=== PATIENT | female | born 1955 | race Caucasian/White ===

== ENCOUNTER 2022-05-20 12:11 | Outpatient (CLI) | payer MEDICARE, SELFPAY ==
--- OUTSIDE RECORDS SUMMARY | 2022-05-20 12:14 | XMS_ITS | Encounter Summary ---
:1955 Author Organization [facility] Address [address] [place] [id number] Care Team Providers Name Role Phone Unavailable Primary Care Provider Unavailable Reason for Referral Outpatient (Routine) - Closed Specialty Diagnoses / Procedures Referred By Contact Refer red To Contact Hematology Oncology Erik Casas [place] Juarez, Ph.D. [address] [place] [address] Referral ID Status Reason Start Date Expiration Date Visits Requ ested Visits Authorized [id number] Closed 05/09/2020 05/09/2021 1 1 NEERING CONSULTANT Reason for Visit Outpatient (Routine) - Closed Specialty Diagnoses / Procedures Referred By Contact Refer red To Contact Hematology Oncology Erik Casas [place] Florence Juarze, Ph.D. [address] [place] [address] Referral ID Status Reason Start Date Expiration Date Visits Requ ested Visits Authorized [id number] Closed 05/03/2019 05/02/2020 1 1 Encounter Details Date Type Department Care Team Description 05/09/2020 Virtual Visit Division of Erik Casas, Diffuse Large B Cell Hematology in [place], Ph.D. Lymphoma Intra [place], [place] [address] [facility] Abdominal Lymph Nodes [address] [place], [place] (HCC) (Primary Dx) [place] [phone] Social History Tobacco Use Types Packs/Day Years Used Date Smoking Tobacco: Unknown Alcohol Habits Answer Date Recorded How often do you have a drink containing alcohol? Monthly or less 05/28/2021 How many drinks containing alcohol do you have on a 1 or 2 05/28/2021 typical day when you are drinking? How often do you have six or more drinks on one Never 05/28/2021 occasion? Social Isolation Answer Date Recorded In a typical week, how many times do you talk on the Three t imes a week 05/28/2021 phone with family, friends, or neighbors? How often do you get together with friends or Three times a week 05/28/2021 relatives? How often do you attend faith or anglican Never 05/28/2021 services? Do you belong to any clubs or organizations such as No 05/28/2021 faith groups, unions, fraternal or athletic groups, or school groups? How often do you attend meetings of the clubs or Never 05/28/2021 organizations you belong to? Are you now , , , , 05/28/2021 never or living with a partner? Physical Activity Answer Date Recorded On average, how many days per week do you engage in moderate to 7 days 05/28/2021 strenuous exercise (like walking fast, running, jogging, dancing, swimming, biking, or other activities that cause a light or heavy sweat)? On average, how many minutes do you engage in exercise at th is 20 min 05/28/2021 level? Stress Answer Date Recorded Do you feel stress - tense, restless, nervous, or anxious, N ot at all 05/28/2021 or unable to sleep at night because your mind is troubled all the time - these days? Financial Resource Strain Answer Date Recorded How hard is it for you to pay for the very basics like Not h ej at all 05/28/2021 food, housing, medical care, and heating? Food Insecurity Answer Date Recorded Within the past 12 months, you worried that your food would Never true 05/28/2021 run out before you got money to buy more. Within the past 12 months, the food you bought just didn't N ever true 05/28/2021 last and you didn't have money to get more. Transportation Needs Answer Date Recorded In the past 12 months, has lack of transportation kept you f rom No 05/28/2021 medical appointments or from getting medications? In the past 12 months, has lack of transportation kept you f rom No 05/28/2021 meetings, work, or getting things needed for daily living? Housing Stability Answer Date Recorded In the last 12 months, was there a time when you were Patien t refused 05/28/2021 not able to pay the mortgage or rent on time? In the last 12 months, how many places have you lived? 1 05/28/2021 In the last 12 months, was there a time when you did No 05/28/2021 [address] to sleep or slept in a nursing home (including now)? Sex Assigned at Date Recorded Female 03/09/2021 10:01 AM CDT documented as of this encounter Progress Notes Erik Casas M.D., Ph.D. - 05/09/2020 10:30 AM CST SUBJECTIVE Referring Provider Dr. Nettie White [address] [place] [address] CHIEF COMPLAINT/REASON FOR VISIT Diffuse large B-cell lymphoma and Hodgkin lymphoma HISTORY OF PRESENT ILLNESS Mrs. Gallardo is a 65-year-old patient who was diagnosed with diffuse large B- cell lymphoma in August2011 when she presented with intraabdominal lymphadenopathy. ??Staging bone marrow showed 10% involvement by a low-grade lymphoma, and PET scan showed significant lymphadenopathy in the abdomen. ??She received R-CHOP in combination with lenalidomide times six cycles and at the end of treatment still had a residual hypermetabolic area in the retroperitoneum. ??This was initially observed but over timebecame more FDG-positive, and a repeat biopsy March 2013 showed a focal lymphoid infiltrate but not diagnostic for lymphoma. 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 ??She then received ICE chemotherapy times three cycles. ??She achieved a good response and went on to collect stem cells, then received BEAM conditioning followed by stem cell reinfusion, and received 4.02x 10(6) CD34/kg on November 21, 2013. Complications encountered during transplant included mucositis, esophagitis, nausea, vomiting and neutropenic fever. ?She engrafted and was dismissed home on day +21. A PET scan on February 27, 2014, showed no evidence of active lymphoma. ??The patient has been followed since then without any recurrence of disease. I connected with the patient today in ongoing follow-up. She was last seen a year ago and since thenhas generally been doing well. She did have both hips replaced and this was a great success. She hasno other new concerns. She has no fevers, night sweats, or weight loss. She has not noted any new lymphadenopathy. She was evaluated by home physician within the last 2 weeks and no other abnormalitieswere noted. Lab testing done on May 05, 2020 showed no significant abnormalities. The following portions of the patient's history were reviewed and updated as appropriate: current medications and problem list. REVIEW OF SYSTEMS Non-contributary OBJECTIVE There were no vitals filed for this visit. There is no height or weight on file to calculate BSA. The patient was not examined as this was a telephone consultation. DIAGNOSTICS I have reviewed the recent relevant labs. ASSESSMENT / PLAN #1 Diffuse Large B Cell Lymphoma Intra Abdominal Lymph Nodes (HCC) I reviewed with the patient that she appears to be doing well. Per her report, there are no new findings of concern. Lab testing is also satisfactory. I therefore recommended ongoing observation without any treatment. Plan: 1. The patient will be seen again in 1 year for ongoing follow-up 2. I encouraged the patient to contact me at any time in the interim if new problems related to lymphoma arise. Follow-up: Return to clinic in 1 year Education We discussed the diagnosis and treatment plan in detail. The patient expressed understanding of the content. No apparent learning barriers were identified; learning preferences include listening. I personally spent over half of a total 15 minutes with the patient in counseling and discussion and/or coordination of care as described above. Signed by: Erik Casas M.D., Ph.D. 05/09/2020 10:54 AM ENGINEERING CONSULTANT NEERING CONSULTANT documented in this encounter Plan of Treatment Scheduled Referrals Name Type Priority Associated Order Schedule Diagnoses Hematology office Outpatient Referral Routine Exp ected: visit (clinic) 05/09/2021 (Approximate), Expires: 05/09/2023 documented as of this encounter Results (ABNORMAL) Potassium (05/28/2021 8:52 AM ENGINEERING CONSULTANT) P athologist Signature Potassium, S 5.5 (H) 3.6 - 5.2 05/28/2021 DTL mmol/L 10:49 AM ENGINEERING CONSULTANT Specimen Anatomical Collection Method Collection Time Receive d Time (Source) Location / / Volume Laterality Blood (Blood, 05/28/2021 8:52 AM 05/28/20 9:59 Venous) ENGINEERING CONSULTANT AM ENGINEERING CONSULTANT Erik Casas M.D., Ph.D. LAB BLOOD ADD-ON Performing Organization Address City/[facility] Phon e Number [facility] - [address] LD (Lactate Dehydrogenase) (05/28/2021 8:52 AM ENGINEERING CONSULTANT) Analysis Performed At [facility] Signature Lactate 179 122 - 222 05/28/2021 DTL Dehydrogenase U/L 10:49 AM ENGINEERING CONSULTANT (LD), S Specimen Anatomical Collection Method Collection Time Receive d Time (Source) Location / / Volume Laterality Blood (Blood, 05/28/2021 8:52 AM 05/28/20 9:59 Venous) ENGINEERING CONSULTANT AM ENGINEERING CONSULTANT Erik Casas M.D., Ph.D. LAB BLOOD NON ADD-ON Performing Organization Address City/[facility] Phon e Number [facility] - [address] (ABNORMAL) Creatinine with Estimated GFR (05/28/2021 8:52 AM ENGINEERING CONSULTANT) Analysis Performed At [facility] Time Signature Creatinine 1.50 (H) 0.59 - 05/28/2021 DTL 1.04 mg/dL 10:49 AM ENGINEERING CONSULTANT eGFR-Non 36 (L) >=60 05/28/2021 DTL Black/ mL/min/BSA 10:49 AM ENGINEERING CONSULTANT [place] Comment: ----ADDITIONAL INFORMATION---- Estimated GFR calculated using the 2009 CKD_EPI creatinine equation. eGFR-Black/ 41 (L) >=60 mL/min/BSA 2020 10:49 AM ENGINEERING CONSULTANT DTL Comment: ----ADDITIONAL INFORMATION---- Estimated GFR calculated using the 2009 CKD_EPI creatinine equation. Specimen Anatomical Collection Method Collection Time Receive d Time (Source) Location / / Volume Laterality Blood (Blood, 05/28/2021 8:52 AM 05/28/20 9:59 Venous) ENGINEERING CONSULTANT AM ENGINEERING CONSULTANT Erik Casas M.D., Ph.D. LAB BLOOD ADD-ON Performing Organization Address City/State/ZIP Code Phon e Number [facility] - [address] [place], [place] [address] [facility] [place] [address] [facility] [place] [address] [facility] (ABNORMAL) CBC with Differential, Blood (05/28/2021 8:52 AM ENGINEERING CONSULTANT) [facility] gist Method Time Signature Hemoglobin 15.7 (H) 11.6 - 05/28/2021 DTL 15.0 g/dL 9:28 AM ENGINEERING CONSULTANT Hematocrit 48.7 (H) 35.5 - 05/28/2021 DTL 44.9 % 9:28 AM ENGINEERING CONSULTANT Erythrocytes 5.15 (H) 3.92 - 05/28/2021 DTL 5.13 9:28 AM ENGINEERING CONSULTANT x10(12)/L MCV 94.6 78.2 - 05/28/2021 DTL 97.9 fL 9:28 AM ENGINEERING CONSULTANT RBC Distrib Width 13.2 12.2 - 05/28/2021 DTL 16.1 % 9:28 AM ENGINEERING CONSULTANT Platelet Count 253 157 - 371 05/28/2021 DTL x10(9)/L 9:28 AM ENGINEERING CONSULTANT Leukocytes 9.5 3.4 - 9.6 05/28/2021 DTL x10(9)/L 9:28 AM ENGINEERING CONSULTANT Neutrophils 6.54 (H) 1.56 - 05/28/2021 DTL 6.45 9:28 AM ENGINEERING CONSULTANT x10(9)/L Lymphocytes 1.97 0.95 - 05/28/2021 DTL 3.07 9:28 AM ENGINEERING CONSULTANT x10(9)/L Monocytes 0.83 (H) 0.26 - 05/28/2021 DTL 0.81 9:28 AM ENGINEERING CONSULTANT x10(9)/L Eosinophils 0.10 0.03 - 05/28/2021 DTL 0.48 9:28 AM ENGINEERING CONSULTANT x10(9)/L Basophils 0.08 0.01 - 05/28/2021 DTL 0.08 9:28 AM ENGINEERING CONSULTANT x10(9)/L Specimen Anatomical Collection Method Collection Time Receive d Time (Source) Location / / Volume Laterality Blood (Blood, 05/28/2021 8:52 AM 05/28/20 21 9:16 Venous) ENGINEERING CONSULTANT AM ENGINEERING CONSULTANT Erik Casas M.D., Ph.D. LAB BLOOD ADD-ON Performing Organization Address City/[facility] Phon e Number [facility] - [address] Calcium, Total (05/28/2021 8:52 AM ENGINEERING CONSULTANT) P athologist Signature Calcium, Total, 9.9 8.8 - 10.2 05/28/2021 DTL S mg/dL 10:49 AM ENGINEERING CONSULTANT Specimen Anatomical Collection Method Collection Time Receive d Time (Source) Location / / Volume Laterality Blood (Blood, 05/28/2021 8:52 AM 05/28/20 21 9:59 Venous) ENGINEERING CONSULTANT AM ENGINEERING CONSULTANT Erik Casas M.D., Ph.D. LAB BLOOD ADD-ON Performing Organization Address City/State/[facility] Phon e Number [facility] - [address] Bilirubin, Total (05/28/2021 8:52 AM ENGINEERING CONSULTANT) P athologist Signature Bilirubin, 1.2 <=1.2 mg/dL 05/28/2021 DTL Total, S 10:49 AM ENGINEERING CONSULTANT Specimen Anatomical Collection Method Collection Time Receive d Time (Source) Location / / Volume Laterality Blood (Blood, 05/28/2021 8:52 AM 05/28/20 9:59 Venous) ENGINEERING CONSULTANT AM ENGINEERING CONSULTANT Erik Casas M.D., Ph.D. LAB BLOOD ADD-ON Performing Organization Address City/[facility] Phon e Number [facility] - [address] AST (Aspartate Aminotransferase) (05/28/2021 8:52 AM ENGINEERING CONSULTANT) Patholo gist Method Time Signature Aspartate 17 8 - 43 05/28/2021 DTL Aminotransferase U/L 10:49 AM ENGINEERING CONSULTANT (AST), S Specimen Anatomical Collection Method Collection Time Receive d Time (Source) Location / / Volume Laterality Blood (Blood, 05/28/2021 8:52 AM 05/28/20 9:59 Venous) ENGINEERING CONSULTANT AM ENGINEERING CONSULTANT Erik Casas M.D., Ph.D. LAB BLOOD ADD-ON Performing Organization Address City/[facility] Phon e Number [facility] - [address] (ABNORMAL) Alkaline Phosphatase (05/28/2021 8:52 AM ENGINEERING CONSULTANT) P athologist Signature Alkaline 153 (H) 35 - 104 05/28/2021 DTL Phosphatase, S U/L 10:49 AM ENGINEERING CONSULTANT Specimen Anatomical Collection Method Collection Time Receive d Time (Source) Location / / Volume Laterality Blood (Blood, 05/28/2021 8:52 AM 05/28/20 9:59 Venous) ENGINEERING CONSULTANT AM ENGINEERING CONSULTANT Erik Casas M.D., Ph.D. LAB BLOOD ADD-ON Performing Organization Address City/[facility] Phon e Number [facility] - [address] documented in this encounter Visit Diagnoses Diagnosis Diffuse Large B Cell Lymphoma Intra Abdo deric Lymph Nodes (HCC) - Primary documented in this encounter Additional Health Concerns Assessment Noted Time PHQ-9 Depression Total Score: 3 08/31/2013 7:36 AM CDT documented as of this encounter
--- OUTSIDE RECORDS SUMMARY | 2022-05-20 12:14 | XMS_ITS | Encounter Summary ---
:1955 Author Organization [facility] Address [address] [place] [id number] Care Team Providers Name Role Phone Unavailable Primary Care Provider Unavailable Encounter Details Date Type Department Care Team Description 05/03/2019 Hospital Encounter Department of Erik Casas se Large B Cell Laboratory Medicine Larry Vidal, Ph. D. Lymphoma Intra and Pathology, [address] [place] [address] Abdominal [facility] in [place], [place] Nodes ( HCC) [facility] [address] [place] [phone] [address] [facility] (Work) [place], [place] [phone] (Fax) [phone] Social History Tobacco Use Types Packs/Day Years [...] 05/28/2021 relatives? How often do you attend [employer] or amish Never 05/28/2021 services? Do you belong to any clubs or organizations such as No 05/28/2021 [employer] groups, unions, fraternal or athletic groups, or [...] place to sleep or slept in a senior living (including now)? Sex Assigned at Date Recorded Female 03/09/2021 10:01 AM CDT documented as of this encounter Medications at Time of Discharge Medication Sig Dispensed Refills Start Date End Date MAGNESIUM ORAL Take 1 tablet by 0 01/24/2015 mouth daily. 500 mg omeprazole (PriLOSEC) 20 Take 1 capsule by 0 09/[address] capsule mouth daily. simvastatin (ZOCOR) 5 mg Take 1 tablet by 0 09/11 tablet mouth at bedtime. documented as of this encounter Plan of Treatment Not on filedocumented as of this encounter Procedures Procedure Name Priority Date/Time Associated Comments Diagnosis CBC WITH DIFFERENTIAL, B Routine 05/03/2019 9:11 Diffuse Large B Results for this AM OUTSIDE PHYSICAL DAMAGE APPRAISER Cell Lymphoma procedure are in Intra Abdominal the results Lymph Nodes (HCC) section. ASPARTATE Routine 05/03/2019 9:11 Diffuse Large B Results f or this AMINOTRANSFERASE (AST), AM OUTSIDE PHYSICAL DAMAGE APPRAISER Cell Lymphoma pro cedure are in S/P Intra Abdominal the results Lymph Nodes (HCC) section. POTASSIUM, S/P Routine 05/03/2019 9:11 Diffuse Large B Results for this AM OUTSIDE PHYSICAL DAMAGE APPRAISER Cell Lymphoma procedure are in Intra Abdominal the results Lymph Nodes (HCC) section. ALKALINE PHOSPHATASE, Routine 05/03/2019 9:11 Diffuse Large B Results for this S/P AM OUTSIDE PHYSICAL DAMAGE APPRAISER Cell Lymphoma procedure are in Intra Abdominal the results Lymph Nodes (HCC) section. LACTATE DEHYDROGENASE Routine 05/03/2019 9:11 Diffuse Large B Results for this (LD), S AM OUTSIDE PHYSICAL DAMAGE APPRAISER Cell Lymphoma procedure are in Intra Abdominal the results Lymph Nodes (HCC) section. CREATININE WITH EGFR, Routine 05/03/2019 9:11 Diffuse Large B Results for this S/P AM OUTSIDE PHYSICAL DAMAGE APPRAISER Cell Lymphoma procedure are in Intra Abdominal the results Lymph Nodes (HCC) section. CALCIUM, TOT, S/P Routine 05/03/2019 9:11 Diffuse Large B Resu lts for this AM OUTSIDE PHYSICAL DAMAGE APPRAISER Cell Lymphoma procedure are in Intra Abdominal the results Lymph Nodes (HCC) section. BILIRUBIN, TOT, S/P Routine 05/03/2019 9:11 Diffuse Large B Re sults for this AM OUTSIDE PHYSICAL DAMAGE APPRAISER Cell Lymphoma procedure are in Intra Abdominal the results Lymph Nodes (HCC) section. documented in this encounter Results (ABNORMAL) Potassium (05/03/2019 9:11 AM OUTSIDE PHYSICAL DAMAGE APPRAISER) P athologist Signature Potassium, S 5.6 (H) 3.6 - 5.2 05/03/2019 DTL mmol/L 10:48 AM OUTSIDE PHYSICAL DAMAGE APPRAISER Specimen Anatomical Collection Method Collection Time Receive d Time (Source) Location / / Volume Laterality Blood (Blood, 05/03/2019 9:11 AM 05/03/20 9:29 Venous) OUTSIDE PHYSICAL DAMAGE APPRAISER AM OUTSIDE PHYSICAL DAMAGE APPRAISER Erik Casas M.D., Ph.D. LAB BLOOD ADD-ON Performing Organization Address City/[facility] Phon e Number [facility] - [address] [place] [address] Laboratories-[address] LD (Lactate Dehydrogenase) (05/03/2019 9:11 AM OUTSIDE PHYSICAL DAMAGE APPRAISER) Analysis Performed At [facility] Time Signature Lactate 183 122 - 222 05/03/2019 DTL Dehydrogenase U/L 10:48 AM OUTSIDE PHYSICAL DAMAGE APPRAISER (LD), S Specimen Anatomical Collection Method Collection Time Receive d Time (Source) Location / / Volume Laterality Blood (Blood, 05/03/2019 9:11 AM 05/03/20 9:29 Venous) OUTSIDE PHYSICAL DAMAGE APPRAISER AM OUTSIDE PHYSICAL DAMAGE APPRAISER Erik Casas M.D., Ph.D. LAB BLOOD NON ADD-ON Performing Organization Address City/[facility] Phon e Number [facility] - [address] (ABNORMAL) Creatinine with Estimated GFR (05/03/2019 9:11 AM OUTSIDE PHYSICAL DAMAGE APPRAISER) Analysis Performed At [facility] Signature Creatinine 1.48 (H) 0.59 - 05/03/2019 DTL 1.04 mg/dL 10:48 AM OUTSIDE PHYSICAL DAMAGE APPRAISER eGFR-Non 37 (L) >=60 05/03/2019 DTL Black/ mL/min/BSA 10:48 AM OUTSIDE PHYSICAL DAMAGE APPRAISER [place] Comment: ----ADDITIONAL INFORMATION---- Estimated GFR calculated using the 2009 CKD_EPI creatinine equation. eGFR-Black/ 42 (L) >=60 mL/min/BSA 2018 10:48 AM OUTSIDE PHYSICAL DAMAGE APPRAISER DTL Comment: ----ADDITIONAL INFORMATION---- Estimated GFR calculated using the 2009 CKD_EPI creatinine equation. Specimen Anatomical Collection Method Collection Time Receive d Time (Source) Location / / Volume Laterality Blood (Blood, 05/03/2019 9:11 AM 05/03/20 9:29 Venous) OUTSIDE PHYSICAL DAMAGE APPRAISER AM OUTSIDE PHYSICAL DAMAGE APPRAISER Erik Casas M.D., Ph.D. LAB BLOOD ADD-ON Performing Organization Address City/State/ZIP Code Phon e Number [facility] - [address] [place], [place] [address] [facility] [place] [address] Laboratories-[facility] [place] [address] [facility] (ABNORMAL) CBC with Differential (05/03/2019 9:11 AM OUTSIDE PHYSICAL DAMAGE APPRAISER) [facility] gist Method Time Signature Hemoglobin 15.2 (H) 11.6 - 05/03/2019 DTL 15.0 g/dL 9:40 AM OUTSIDE PHYSICAL DAMAGE APPRAISER Hematocrit 46.7 (H) 35.5 - 05/03/2019 DTL 44.9 % 9:40 AM OUTSIDE PHYSICAL DAMAGE APPRAISER Erythrocytes 4.88 3.92 - 05/03/2019 DTL 5.13 9:40 AM OUTSIDE PHYSICAL DAMAGE APPRAISER x10(12)/L MCV 95.7 78.2 - 05/03/2019 DTL 97.9 fL 9:40 AM OUTSIDE PHYSICAL DAMAGE APPRAISER RBC Distrib Width 13.4 12.2 - 05/03/2019 DTL 16.1 % 9:40 AM OUTSIDE PHYSICAL DAMAGE APPRAISER Platelet Count 241 157 - 371 05/03/2019 DTL x10(9)/L 9:40 AM OUTSIDE PHYSICAL DAMAGE APPRAISER Leukocytes 7.9 3.4 - 9.6 05/03/2019 DTL x10(9)/L 9:40 AM OUTSIDE PHYSICAL DAMAGE APPRAISER Neutrophils 5.04 1.56 - 05/03/2019 DTL 6.45 9:40 AM OUTSIDE PHYSICAL DAMAGE APPRAISER x10(9)/L Lymphocytes 1.72 0.95 - 05/03/2019 DTL 3.07 9:40 AM OUTSIDE PHYSICAL DAMAGE APPRAISER x10(9)/L Monocytes 0.83 (H) 0.26 - 05/03/2019 DTL 0.81 9:40 AM OUTSIDE PHYSICAL DAMAGE APPRAISER x10(9)/L Eosinophils 0.18 0.03 - 05/03/2019 DTL 0.48 9:40 AM OUTSIDE PHYSICAL DAMAGE APPRAISER x10(9)/L Basophils 0.09 (H) 0.01 - 05/03/2019 DTL 0.08 9:40 AM OUTSIDE PHYSICAL DAMAGE APPRAISER x10(9)/L Specimen Anatomical Collection Method Collection Time Receive d Time (Source) Location / / Volume Laterality Blood (Blood, 05/03/2019 9:11 AM 05/03/20 19 9:28 Venous) OUTSIDE PHYSICAL DAMAGE APPRAISER AM OUTSIDE PHYSICAL DAMAGE APPRAISER Erik Casas M.D., Ph.D. LAB BLOOD ADD-ON Performing Organization Address City/[facility]/ZIP [facility] Phon e Number [facility] - [address] [facility] Calcium, Total (05/03/2019 9:11 AM OUTSIDE PHYSICAL DAMAGE APPRAISER) P athologist Signature Calcium, Total, 9.6 8.8 - 10.2 05/03/2019 DTL S mg/dL 10:48 AM OUTSIDE PHYSICAL DAMAGE APPRAISER Specimen Anatomical Collection Method Collection Time Receive d Time (Source) Location / / Volume Laterality Blood (Blood, 05/03/2019 9:11 AM 05/03/20 19 9:29 Venous) OUTSIDE PHYSICAL DAMAGE APPRAISER AM OUTSIDE PHYSICAL DAMAGE APPRAISER Erik Casas M.D., Ph.D. LAB BLOOD ADD-ON Performing Organization Address City/[facility] Phon e Number [facility] - [address] [facility] Bilirubin, Total (05/03/2019 9:11 AM OUTSIDE PHYSICAL DAMAGE APPRAISER) P athologist Signature Bilirubin, 1.0 <=1.2 mg/dL 05/03/2019 DTL Total, S 10:48 AM OUTSIDE PHYSICAL DAMAGE APPRAISER Specimen Anatomical Collection Method Collection Time Receive d Time (Source) Location / / Volume Laterality Blood (Blood, 05/03/2019 9:11 AM 05/03/20 19 9:29 Venous) OUTSIDE PHYSICAL DAMAGE APPRAISER AM OUTSIDE PHYSICAL DAMAGE APPRAISER Erik Casas M.D., Ph.D. LAB BLOOD ADD-ON Performing Organization Address City/[facility] Phon e Number [facility] - [address] [place] [address] [address] [facility] AST (Aspartate Aminotransferase) (05/03/2019 9:11 AM OUTSIDE PHYSICAL DAMAGE APPRAISER) Patholo gist Method Time Signature Aspartate 19 8 - 43 05/03/2019 DTL Aminotransferase U/L 10:48 AM OUTSIDE PHYSICAL DAMAGE APPRAISER (AST), S Specimen Anatomical Collection Method Collection Time Receive d Time (Source) Location / / Volume Laterality Blood (Blood, 05/03/2019 9:11 AM 05/03/20 19 9:29 Venous) OUTSIDE PHYSICAL DAMAGE APPRAISER AM OUTSIDE PHYSICAL DAMAGE APPRAISER Erik Casas M.D., Ph.D. LAB BLOOD ADD-ON Performing Organization Address City/[facility]/ZIP Code Phon e Number [facility] - [address] (ABNORMAL) Alkaline Phosphatase (05/03/2019 9:11 AM OUTSIDE PHYSICAL DAMAGE APPRAISER) P athologist Signature Alkaline 142 (H) 35 - 104 05/03/2019 DTL Phosphatase, S U/L 10:48 AM OUTSIDE PHYSICAL DAMAGE APPRAISER Specimen Anatomical Collection Method Collection Time Receive d Time (Source) Location / / Volume Laterality Blood (Blood, 05/03/2019 9:11 AM 05/03/20 19 9:29 Venous) OUTSIDE PHYSICAL DAMAGE APPRAISER AM OUTSIDE PHYSICAL DAMAGE APPRAISER Erik Casas M.D., Ph.D. LAB BLOOD ADD-ON Performing Organization Address City/[facility]/ZIP Code Phon e Number [facility] - [address] documented in this encounter Visit Diagnoses Diagnosis Diffuse Large B Cell Lymphoma Intra Abdo deric Lymph Nodes (HCC) documented in this encounter Additional Health Concerns Assessment Noted Time PHQ-9 Depression Total Score: 3 08/31/2013 7:36 AM CDT documented as of this encounter
--- OUTSIDE RECORDS SUMMARY | 2022-05-20 12:14 | XMS_ITS | Encounter Summary ---
:1955 Author Organization [facility] Address [address] [place] [address] Care Team Providers Name Role Phone Unavailable Primary Care Provider Unavailable Encounter Details Date Type Department Care Team Description 02/27/2014 Hospital Encounter HX RST BONE MARROW ITC Manas Estrada, GO07 R.N. [address] [place] [address] Social History Tobacco Use Types Packs/Day Years Used Date Smoking Tobacco: Never Assessed Alcohol Habits Answer Date Recorded How often [...] 05/28/2021 relatives? How often do you attend [employer] or a[employer] Never 05/28/2021 services? Do you belong to any clubs or organizations such as No 05/28/2021 [employer]aritan groups, unions, fraternal or athletic groups, or [...] AM CDT documented as of this encounter Last Filed Vital Signs Vital Sign Reading Time Taken Comments Blood Pressure - - Pulse - - Temperature - - Respiratory Rate - - Oxygen Saturation - - Inhaled Oxygen - - Concentration Weight 68 kg (149 lb 14.6 02/26/2014 10:34 Vital sig n result oz) AM CDT from CD. Height - - Body Mass Index 22.46 11/27/2013 7:12 PM CDT documented in this encounter Medications at Time of Discharge Medication Sig Dispensed Refills Start Date End Date omeprazole (PriLOSEC) 20 Take 1 capsule by 0 09/[address] capsule mouth daily. documented as of this encounter Plan of Treatment Not on filedocumented as of this encounter Procedures Procedure Name Priority Date/Time Associated Diagnosis Comme nts DX CHEST AP OR PA Routine 02/27/2014 12:37 PM Res ults for this AND LATERAL 2 VIEWS CDT procedur e are in the results section. documented in this encounter Results DX Chest AP or PA and Lateral 2 Views (02/27/2014 12:37 PM CDT) Anatomical Region Laterality Modality Chest N/A Radiographic Imaging Specimen (Source) Anatomical Collection Method Collection Time Re ceived Time Location / / Volume Laterality 02/27/2014 12:37 PM CDT Impressions 02/27/2014 12:41 PM CDT ??Since 11/27/2013, the right IJ catheter has been removed. New slight pleural thickening or fluid in the right base laterally. Stable slight prominence of the ascending aorta, possibly due to rotation. Chest otherwise negative and unchanged. Electronically signed by: ?? Tata GILLIAM [id number] 27-Feb-2014 12:41 Narrative 02/27/2014 12:41 PM CDT 27-Feb-2014 12:37:00 ??Exam: Chest-- 2 Views Indications: Aftercare Following Stem Ce ll Transplant;Hodgkins Disease ORIGINAL REPORT - 27-Feb-2014 12:41:00 EXAM: ??Chest 2 views Procedure Note Nilam Hartmann M.D. - 09/09/2017For matting of this note might be different from the original. 27-Feb-2014 12:37:00 Exam: Chest-- 2 Vie ws Indications: Aftercare Following Stem Ce ll Transplant;Hodgkins Disease ORIGINAL REPORT - 27-Feb-2014 12:41:00 EXAM: Chest 2 views IMPRESSION: Since 11/27/2013, the right I J catheter has been removed. New slight pleural thickening or fluid in the right base laterally. Stable slight prominence of the ascending aorta, possibly due to rotation. Chest otherwise negative and unchanged. Electronically signed by: Tata GILLIAM [id number] 27-Feb-2014 12:41 Erik Casas M.D., Ph.D. IMG DIAGNOSTIC IMAGING [place] OCEDURES documented in this encounter Visit Diagnoses Not on filedocumented in this encounter Additional Health Concerns Assessment Noted Time PHQ-9 Depression Total Score: 3 08/31/2013 7:36 AM CDT documented as of this encounter
--- OUTSIDE RECORDS SUMMARY | 2022-05-20 12:14 | XMS_ITS | Encounter Summary ---
:1955 Author Organization [facility] Address [address] [place] [address] Care Team Providers Name Role Phone Unavailable Primary Care Provider Unavailable Encounter Details Date Type Department Care Team Description 05/03/2018 Hospital Encounter Department of Erik Casas Laboratory Medicine Larry Vidal, Ph. D. [facility]el[facility] Pathology, [address] [place] [address] ([facility]) [place] [id number] [place] [phone] [place] [address] (Work) [place], [place] [phone] [phone] (Fax) [phone] Social History Tobacco Use Types Packs/Day Years [...] 05/28/2021 relatives? How often do you attend muslim or yarsanism Never 05/28/2021 services? Do you belong to any clubs or organizations such as No 05/28/2021 muslim groups, unions, fraternal or athletic groups, or [...] place to sleep or slept in a halfway (including now)? Sex Assigned at Date Recorded [...] Comments Diagnosis CBC WITH DIFFERENTIAL, B Routine 05/03/2018 9:30 Lymphoma Non Results for this AM APPLIANCE COUNSELOR Hodgkins procedure are i n Intrapelvic (HCC) the result s section. GLUCOSE, FASTING, S/P Routine 05/03/2018 9:30 Lymphoma Non Res ults for this AM APPLIANCE COUNSELOR Hodgkins procedure are i n Intrapelvic (HCC) the result s section. SEDIMENTATION RATE, B Routine 05/03/2018 9:29 Lymphoma Non Res ults for this AM APPLIANCE COUNSELOR Hodgkins procedure are i n Intrapelvic (HCC) the result s section. ASPARTATE Routine 05/03/2018 9:29 Lymphoma Non Results for this AMINOTRANSFERASE (AST), AM APPLIANCE COUNSELOR Hodgkins proc edure are in S/P Intrapelvic (HCC) the result s section. POTASSIUM, S/P Routine 05/03/2018 9:29 Lymphoma Non Results fo r this AM APPLIANCE COUNSELOR Hodgkins procedure are i n Intrapelvic (HCC) the result s section. ALKALINE PHOSPHATASE, Routine 05/03/2018 9:29 Lymphoma Non Res ults for this S/P AM APPLIANCE COUNSELOR Hodgkins procedure are i n Intrapelvic (HCC) the result s section. LACTATE DEHYDROGENASE Routine 05/03/2018 9:29 Lymphoma Non Res ults for this (LD), S AM APPLIANCE COUNSELOR Hodgkins procedure are i n Intrapelvic (HCC) the result s section. CREATININE WITH EGFR, Routine 05/03/2018 9:29 Lymphoma Non Res ults for this S/P AM APPLIANCE COUNSELOR Hodgkins procedure are i n Intrapelvic (HCC) the result s section. CALCIUM, TOT, S/P Routine 05/03/2018 9:29 Lymphoma Non Results for this AM APPLIANCE COUNSELOR Hodgkins procedure are i n Intrapelvic (HCC) the result s section. BILIRUBIN, TOT, S/P Routine 05/03/2018 9:29 Lymphoma Non Resul ts for this AM APPLIANCE COUNSELOR Hodgkins procedure are i n Intrapelvic (HCC) the result s section. documented in this encounter Results (ABNORMAL) CBC with Differential (05/03/2018 9:30 AM APPLIANCE COUNSELOR) [facility] gist Method Time Signature Hemoglobin 14.3 11.6 - 05/03/2018 [facility] 15.0 g/dL 9:58 AM APPLIANCE COUNSELOR LABORATORIES - [facility] Hematocrit 45.4 (H) 35.5 - 05/03/2018 [facility] 44.9 % 9:58 AM APPLIANCE COUNSELOR LABORATORIES - [facility] Erythrocytes 4.74 3.92 - 05/03/2018 [facility] 5.13 9:58 AM APPLIANCE COUNSELOR LABORATORIES - x10(12)/L [facility] MCV 95.8 78.2 - 05/03/2018 [facility] 97.9 fL 9:58 AM APPLIANCE COUNSELOR LABORATORIES [facility] RBC Distrib 13.0 12.2 - 05/03/2018 [facility] Width 16.1 % 9:58 AM APPLIANCE COUNSELOR LABORATORIES [facility] Platelet Count 210 157 - 371 05/03/2018 [facility] x10(9)/L 9:58 AM APPLIANCE COUNSELOR LABORATORIES [facility] Leukocytes 7.0 3.4 - 9.6 05/03/2018 [facility] x10(9)/L 9:58 AM APPLIANCE COUNSELOR LABORATORIES - [facility] Neutrophils 4.24 1.56 - 05/03/2018 [facility] 6.45 9:58 AM APPLIANCE COUNSELOR LABORATORIES - x10(9)/L [facility] Lymphocytes 1.93 0.95 - 05/03/2018 [facility] 3.07 9:58 AM APPLIANCE COUNSELOR LABORATORIES - x10(9)/L [facility] Monocytes 0.62 0.26 - 05/03/2018 [facility] 0.81 9:58 AM APPLIANCE COUNSELOR LABORATORIES - x10(9)/L [facility] Eosinophils 0.13 0.03 - 05/03/2018 [facility] 0.48 9:58 AM APPLIANCE COUNSELOR LABORATORIES - x10(9)/L [facility] Basophils 0.08 0.01 - 05/03/2018 [facility] 0.08 9:58 AM APPLIANCE COUNSELOR LABORATORIES - x10(9)/L [facility] Specimen Anatomical Collection Method Collection Time Receive d Time (Source) Location / / Volume Laterality Blood 05/03/2018 9:30 AM 8 9:51 APPLIANCE COUNSELOR AM APPLIANCE COUNSELOR Erik Casas M.D., Ph.D. LAB BLOOD ADD-ON Performing Organization Address City/State/ZIP Code Phon e Number [facility] LABORATORIES - [address] [place] [address] [facility] Glucose, Fasting (05/03/2018 9:30 AM APPLIANCE COUNSELOR) P athologist Signature Glucose, P 93 70 - 100 05/03/2018 [facility] mg/dL 10:25 AM APPLIANCE COUNSELOR LABORATORIES - [facility] Last Intake 17 hr 05/03/2018 [facility] 9:51 AM APPLIANCE COUNSELOR LABORATORIES - [facility] Specimen Anatomical Collection Method Collection Time Receive d Time (Source) Location / / Volume Laterality Blood 05/03/2018 9:30 AM 8 9:51 APPLIANCE COUNSELOR AM APPLIANCE COUNSELOR Erik Casas M.D., Ph.D. LAB BLOOD NON ADD-ON Performing Organization Address City/State/ZIP Code Phon e Number [facility] LABORATORIES - [address] [place] [address] [facility] Sedimentation Rate (05/03/2018 9:29 AM APPLIANCE COUNSELOR) [facility] gist Method Time Signature Sedimentation 2 0 - 29 05/03/2018 [facility] Rate, B mm/1 h 10:53 AM APPLIANCE COUNSELOR LABORATORIES - [facility] Specimen Anatomical Collection Method Collection Time Receive d Time (Source) Location / / Volume Laterality Blood 05/03/2018 9:29 AM 8 9:40 APPLIANCE COUNSELOR AM APPLIANCE COUNSELOR Erik Casas M.D., Ph.D. LAB BLOOD ADD-ON Performing Organization Address City/State/ZIP Code Phon e Number [facility] LABORATORIES - [address] [place] [address] [facility] LD (Lactate Dehydrogenase) (05/03/2018 9:29 AM APPLIANCE COUNSELOR) [facility] gist Method Time Signature Lactate 183 122 - 222 05/03/2018 [facility] Dehydrogenase U/L 10:37 AM APPLIANCE COUNSELOR LABORATORIES - (LD), S [facility] Specimen Anatomical Collection Method Collection Time Receive d Time (Source) Location / / Volume Laterality Blood 05/03/2018 9:29 AM 8 9:51 APPLIANCE COUNSELOR AM APPLIANCE COUNSELOR Erik Casas M.D., Ph.D. LAB BLOOD NON ADD-ON Performing Organization Address City/State/ZIP Code Phon e Number [facility] LABORATORIES - [address] [place] [address] [facility] AST (Aspartate Aminotransferase) (05/03/2018 9:29 AM APPLIANCE COUNSELOR) [facility] Method Time Signature Aspartate 22 8 - 43 05/03/2018 [facility] Aminotransferase U/L 10:37 AM LABORATORIES - (AST), S APPLIANCE COUNSELOR [facility] Specimen Anatomical Collection Method Collection Time Receive d Time (Source) Location / / Volume Laterality Blood 05/03/2018 9:29 AM 8 9:51 APPLIANCE COUNSELOR AM APPLIANCE COUNSELOR Erik Casas M.D., Ph.D. LAB BLOOD ADD-ON Performing Organization Address City/[facility]/ZIP Code Phon e Number [facility] LABORATORIES - [address] [place] [address] [facility] (ABNORMAL) Alkaline Phosphatase (05/03/2018 9:29 AM APPLIANCE COUNSELOR) [facility] Method Time Signature Alkaline 119 (H) 35 - 104 05/03/2018 [facility] Phosphatase, S U/L 10:37 AM APPLIANCE COUNSELOR LABORATORIES - [facility] Specimen Anatomical Collection Method Collection Time Receive d Time (Source) Location / / Volume Laterality Blood 05/03/2018 9:29 AM 8 9:51 APPLIANCE COUNSELOR AM APPLIANCE COUNSELOR Erik Casas M.D., Ph.D. LAB BLOOD ADD-ON Performing Organization Address City/[facility]/ZIP Code Phon e Number [facility] LABORATORIES - [address] [place] [address] [facility] Potassium (05/03/2018 9:29 AM APPLIANCE COUNSELOR) P athologist Signature Potassium, S 4.6 3.6 - 5.2 05/03/2018 [facility] mmol/L 10:37 AM APPLIANCE COUNSELOR LABORATORIES [facility] Specimen Anatomical Collection Method Collection Time Receive d Time (Source) Location / / Volume Laterality Blood 05/03/2018 9:29 AM 8 9:51 APPLIANCE COUNSELOR AM APPLIANCE COUNSELOR Erik Casas M.D., Ph.D. LAB BLOOD ADD-ON Performing Organization Address City/[facility]/ZIP Code Phon e Number [facility] LABORATORIES - [address] [place] [address] [facility] (ABNORMAL) Creatinine with Estimated GFR (MDRD) (05/03/2018 9:29 AM APPLIANCE COUNSELOR) [facility] Method Time Signature Creatinine 1.51 (H) 0.59 - 05/03/2018 [facility] 1.04 10:37 AM APPLIANCE COUNSELOR LABORATORIES - mg/dL [facility] eGFR-Non 36 (L) >=60 05/03/2018 [facility] Black/ mL/min/BS 10:37 AM APPLIANCE COUNSELOR LABORATORIES - [place] A [facility] Comment: ----ADDITIONAL INFORMATION---- Estimated GFR calculated using the 2009 CKD_EPI creatinine equation. eGFR-Black/ 42 (L) >=60 mL/min/BSA 05/03/2018 10:3 7 [facility] Tong[place] AM APPLIANCE COUNSELOR LABORATORIES - [facility] Comment: ----ADDITIONAL INFORMATION---- Estimated GFR calculated using the 2009 CKD_EPI creatinine equation. Specimen Anatomical Collection Method Collection Time Receive d Time (Source) Location / / Volume Laterality Blood 05/03/2018 9:29 AM 8 9:51 APPLIANCE COUNSELOR AM APPLIANCE COUNSELOR Erik Casas M.D., Ph.D. LAB BLOOD ADD-ON Performing Organization Address City/[facility] Phon e Number [facility] LABORATORIES - [address] Calcium, Total (05/03/2018 9:29 AM APPLIANCE COUNSELOR) P athologist Signature Calcium, 8.9 8.8 - 10.2 05/03/2018 [facility] Total, S mg/dL 10:37 AM APPLIANCE COUNSELOR LABORATORIES [facility] Specimen Anatomical Collection Method Collection Time Receive d Time (Source) Location / / Volume Laterality Blood 05/03/2018 9:29 AM 8 9:51 APPLIANCE COUNSELOR AM APPLIANCE COUNSELOR Erik Casas M.D., Ph.D. LAB BLOOD ADD-ON Performing Organization Address City/State/ZIP Code Phon e Number [facility] LABORATORIES - [address] [place] [address] [facility] Bilirubin, Total (05/03/2018 9:29 AM APPLIANCE COUNSELOR) P athologist Signature Bilirubin, 0.9 <=1.2 05/03/2018 [facility] Total, S mg/dL 10:37 AM APPLIANCE COUNSELOR LABORATORIES [facility] Specimen Anatomical Collection Method Collection Time Receive d Time (Source) Location / / Volume Laterality Blood 05/03/2018 9:29 AM 8 9:51 APPLIANCE COUNSELOR AM APPLIANCE COUNSELOR Erik Casas M.D., Ph.D. LAB BLOOD ADD-ON Performing Organization Address City/State/ZIP Code Phon e Number [facility] LABORATORIES - [address] [place], [place] [address] [facility] documented in this encounter Visit Diagnoses Diagnosis Lymphoma Non Hodgkins Intrapelvic (HCC) documented in this encounter Additional Health Concerns Assessment Noted Time PHQ-9 Depression Total Score: 3 08/31/2013 7:36 AM CDT documented as of this encounter
--- OUTSIDE RECORDS SUMMARY | 2022-05-20 12:14 | XMS_ITS | Encounter Summary ---
:1955 Author Organization [facility] Address [address] [place] [address] Care Team Providers Name Role Phone Unavailable Primary Care Provider Unavailable Encounter Details Date Type Department Care Team Description 12/12/2013 - Hospital Encounter HX RST INFUSION Cyndi Harrell 12/19/2013 THERAPY J, R.N. [address] [place] [address] Social History Tobacco Use Types Packs/Day Years [...] 05/28/2021 relatives? How often do you attend episcopal or adventism Never 05/28/2021 services? Do you belong to any clubs or organizations such as No 05/28/2021 episcopal groups, unions, fraternal or athletic groups, or [...] place to sleep or slept in a mcfp (including now)? Sex Assigned at Date Recorded Female 03/09/2021 10:01 AM CDT documented as of this encounter Medications at Time of Discharge Medication Sig Dispensed Refills Start Date End Date omeprazole (PriLOSEC) 20 Take 1 capsule by 0 09/[address] capsule mouth daily. documented as of this encounter Plan of Treatment Not on filedocumented as of this encounter Visit Diagnoses Not on filedocumented in this encounter Additional Health Concerns Assessment Noted Time PHQ-9 Depression Total Score: 3 08/31/2013 7:36 AM CDT documented as of this encounter
--- OUTSIDE RECORDS SUMMARY | 2022-05-20 12:14 | XMS_ITS | Encounter Summary ---
:1955 Author Organization [facility] Address [address] [place] [address] Care Team Providers Name Role Phone Unavailable Primary Care Provider Unavailable Reason for Referral Outpatient (Routine) - Closed Specialty Diagnoses / Procedures Referred By Contact Refer red To Contact Hematology Oncology Erik Casas [facility] Larry, Ph.D. [address] [place] [phone] Referral ID Status Reason Start Date Expiration Date Visits Requ ested Visits Authorized [id number] Closed 09/30/2017 03/29/2018 1 1 Encounter Details Date Type Department Care Team Description 09/30/2017 Orders Only Erik Bruce [facility]ry, Ph.D. [facility] Intrapelvic Transplantation and [address] [place] [address] ([facility]) Clinical Regeneration in [place], [place] [phone] [place] [address] [place] [address] (Work) [phone] Social History Tobacco Use Types Packs/Day Years [...] 05/28/2021 relatives? How often do you attend anglican or adventism Never 05/28/2021 services? Do you belong to any clubs or organizations such as No 05/28/2021 anglican groups, unions, fraternal or athletic groups, or [...] place to sleep or slept in a fci (including now)? Sex Assigned at Date Recorded Female 03/09/2021 10:01 AM CDT documented as of this encounter Plan of Treatment Scheduled Referrals Name Type Priority Associated Order Schedule Diagnoses Hematology office Outpatient Referral Routine Exp ected: visit (clinic) 05/01/2018 (Approximate), Expires: 09/30/2020 documented as of this encounter Results (ABNORMAL) CBC with Differential (05/03/2018 9:30 AM RESIDENT CARE AID) [facility] gist Method Time Signature Hemoglobin 14.3 11.6 - 05/03/2018 [facility] 15.0 g/dL 9:58 AM RESIDENT CARE AID LABORATORIES - [facility] Hematocrit 45.4 (H) 35.5 - 05/03/2018 [facility] 44.9 % 9:58 AM RESIDENT CARE AID LABORATORIES - [facility] Erythrocytes 4.74 3.92 - 05/03/2018 [facility] 5.13 9:58 AM RESIDENT CARE AID LABORATORIES - x10(12)/L [facility] MCV 95.8 78.2 - 05/03/2018 [facility] 97.9 fL 9:58 AM RESIDENT CARE AID LABORATORIES [facility] RBC Distrib 13.0 12.2 - 05/03/2018 [facility] Width 16.1 % 9:58 AM RESIDENT CARE AID LABORATORIES [facility] Platelet Count 210 157 - 371 05/03/2018 [facility] x10(9)/L 9:58 AM RESIDENT CARE AID LAB[facility]IES [facility] Leukocytes 7.0 3.4 - 9.6 05/03/2018 [facility] x10(9)/L 9:58 AM RESIDENT CARE AID LABORATORIES - [facility] Neutrophils 4.24 1.56 - 05/03/2018 [facility] 6.45 9:58 AM RESIDENT CARE AID LABORATORIES - x10(9)/L [facility] Lymphocytes 1.93 0.95 - 05/03/2018 [facility] 3.07 9:58 AM RESIDENT CARE AID LABORATORIES - x10(9)/L [facility] Monocytes 0.62 0.26 - 05/03/2018 [facility] 0.81 9:58 AM RESIDENT CARE AID LABORATORIES - x10(9)/L [facility] Eosinophils 0.13 0.03 - 05/03/2018 [facility] 0.48 9:58 AM RESIDENT CARE AID LABORATORIES - x10(9)/L [facility] Basophils 0.08 0.01 - 05/03/2018 [facility] 0.08 9:58 AM RESIDENT CARE AID LABORATORIES - x10(9)/L [facility] Specimen Anatomical Collection Method Collection Time Receive d Time (Source) Location / / Volume Laterality Blood 05/03/2018 9:30 AM 8 9:51 RESIDENT CARE AID AM RESIDENT CARE AID Erik Casas M.D., Ph.D. LAB BLOOD ADD-ON Performing Organization Address City/[facility]/ZIP Code Phon e Number [facility] LABORATORIES - [address] [place] [address] [facility] Glucose, Fasting (05/03/2018 9:30 AM RESIDENT CARE AID) P athologist Signature Glucose, P 93 70 - 100 05/03/2018 [facility] mg/dL 10:25 AM RESIDENT CARE AID [facility] Last Intake 17 hr 05/03/2018 [facility] 9:51 AM RESIDENT CARE AID LABORATORIES - [facility] Specimen Anatomical Collection Method Collection Time Receive d Time (Source) Location / / Volume Laterality Blood 05/03/2018 9:30 AM 8 9:51 RESIDENT CARE AID AM RESIDENT CARE AID Erik Casas M.D., Ph.D. LAB BLOOD NON ADD-ON Performing Organization Address City/[facility]/ZIP Code Phon e Number [facility] LABORATORIES - [address] [place] [address] [facility] Sedimentation Rate (05/03/2018 9:29 AM RESIDENT CARE AID) Patholo gist Method Time Signature Sedimentation 2 0 - 29 05/03/2018 [facility] Rate, B mm/1 h 10:53 AM RESIDENT CARE AID LABORATORIES - [facility] Specimen Anatomical Collection Method Collection Time Receive d Time (Source) Location / / Volume Laterality Blood 05/03/2018 9:29 AM 8 9:40 RESIDENT CARE AID AM RESIDENT CARE AID Erik Casas M.D., Ph.D. LAB BLOOD ADD-ON Performing Organization Address City/[facility]/ZIP Code Phon e Number [facility] LABORATORIES - [address] [place] [address] [facility] LD (Lactate Dehydrogenase) (05/03/2018 9:29 AM RESIDENT CARE AID) [facility] Method Time Signature Lactate 183 122 - 222 05/03/2018 [facility] Dehydrogenase U/L 10:37 AM RESIDENT CARE AID LABORATORIES - (LD), S [facility] Specimen Anatomical Collection Method Collection Time Receive d Time (Source) Location / / Volume Laterality Blood 05/03/2018 9:29 AM 8 9:51 RESIDENT CARE AID AM RESIDENT CARE AID Erik Casas M.D., Ph.D. LAB BLOOD NON ADD-ON Performing Organization Address City/State/ZIP Code Phon e Number [facility] LABORATORIES - [address] [place] [address] [facility] AST (Aspartate Aminotransferase) (05/03/2018 9:29 AM RESIDENT CARE AID) [facility] Method Time Signature Aspartate 22 8 - 43 05/03/2018 [facility] Aminotransferase U/L 10:37 AM LABORATORIES - (AST), S RESIDENT CARE AID [facility] Specimen Anatomical Collection Method Collection Time Receive d Time (Source) Location / / Volume Laterality Blood 05/03/2018 9:29 AM 8 9:51 RESIDENT CARE AID AM RESIDENT CARE AID Erik Casas M.D., Ph.D. LAB BLOOD ADD-ON Performing Organization Address City/State/ZIP Code Phon e Number [facility] LABORATORIES - [address] [place] [address] [facility] (ABNORMAL) Alkaline Phosphatase (05/03/2018 9:29 AM RESIDENT CARE AID) [facility] Method Time Signature Alkaline 119 (H) 35 - 104 05/03/2018 [facility] Phosphatase, S U/L 10:37 AM RESIDENT CARE AID LABORATORIES - [facility] Specimen Anatomical Collection Method Collection Time Receive d Time (Source) Location / / Volume Laterality Blood 05/03/2018 9:29 AM 8 9:51 RESIDENT CARE AID AM RESIDENT CARE AID Erik Casas M.D., Ph.D. LAB BLOOD ADD-ON Performing Organization Address City/State/ZIP Code Phon e Number [facility] LABORATORIES - [address] [place] [address] [facility] Potassium (05/03/2018 9:29 AM RESIDENT CARE AID) P athologist Signature Potassium, S 4.6 3.6 - 5.2 05/03/2018 [facility] mmol/L 10:37 AM RESIDENT CARE AID LABORATORIES - [facility] Specimen Anatomical Collection Method Collection Time Receive d Time (Source) Location / / Volume Laterality Blood 05/03/2018 9:29 AM 8 9:51 RESIDENT CARE AID AM RESIDENT CARE AID Erik Casas M.D., Ph.D. LAB BLOOD ADD-ON Performing Organization Address City/[facility]/ZIP Code Phon e Number [facility] LABORATORIES - [address] [place] [address] [facility] (ABNORMAL) Creatinine with Estimated GFR (MDRD) (05/03/2018 9:29 AM RESIDENT CARE AID) Patholo gist Method Time Signature Creatinine 1.51 (H) 0.59 - 05/03/2018 [facility] 1.04 10:37 AM RESIDENT CARE AID LABORATORIES - mg/dL [facility] eGFR-Non 36 (L) >=60 05/03/2018 [facility] Black/ mL/min/BS 10:37 AM RESIDENT CARE AID LABORATORIES - [place] A [facility] Comment: ----ADDITIONAL INFORMATION---- Estimated GFR calculated using the 2009 CKD_EPI creatinine equation. eGFR-Black/ 42 (L) >=60 mL/min/BSA 05/03/2018 10:3 7 [facility] French AM RESIDENT CARE AID LABORATORIES - [facility] Comment: ----ADDITIONAL INFORMATION---- Estimated GFR calculated using the 2009 CKD_EPI creatinine equation. Specimen Anatomical Collection Method Collection Time Receive d Time (Source) Location / / Volume Laterality Blood 05/03/2018 9:29 AM 8 9:51 RESIDENT CARE AID AM RESIDENT CARE AID Erik Casas M.D., Ph.D. LAB BLOOD ADD-ON Performing Organization Address City/State/ZIP Code Phon e Number [facility] LABORATORIES - [address] [place] [address] [facility] Calcium, Total (05/03/2018 9:29 AM RESIDENT CARE AID) P athologist Signature Calcium, 8.9 8.8 - 10.2 05/03/2018 [facility] Total, S mg/dL 10:37 AM RESIDENT CARE AID LABORATORIES - [facility] Specimen Anatomical Collection Method Collection Time Receive d Time (Source) Location / / Volume Laterality Blood 05/03/2018 9:29 AM 8 9:51 RESIDENT CARE AID AM RESIDENT CARE AID Erik Casas M.D., Ph.D. LAB BLOOD ADD-ON Performing Organization Address City/State/ZIP Code Phon e Number [facility] LABORATORIES - [address] Bilirubin, Total (05/03/2018 9:29 AM RESIDENT CARE AID) athologist Signature Bilirubin, 0.9 <=1.2 05/03/2018 [facility] Total, S mg/dL 10:37 AM RESIDENT CARE AID LABORATORIES [facility] Specimen Anatomical Collection Method Collection Time Receive d Time (Source) Location / / Volume Laterality Blood 05/03/2018 9:29 AM 8 9:51 RESIDENT CARE AID AM RESIDENT CARE AID Erik Casas M.D., Ph.D. LAB BLOOD ADD-ON Performing Organization Address City/State/ZIP Code Phon e Number [facility] LABORATORIES - [address] documented in this encounter Visit Diagnoses Diagnosis Lymphoma Non Hodgkins Intrapelvic (HCC) documented in this encounter Additional Health Concerns Assessment Noted Time PHQ-9 Depression Total Score: 3 08/31/2013 7:36 AM CDT documented as of this encounter
--- OUTSIDE RECORDS SUMMARY | 2022-05-20 12:14 | XMS_ITS | Encounter Summary ---
:1955 Author Organization [facility] Address [address] [place] [address] Care Team Providers Name Role Phone Unavailable Primary Care Provider Unavailable Encounter Details Date Type Department Care Team Description 04/03/2018 Abstract DATA ABSTRACTION Provider, Historical Social History Tobacco Use Types Packs/Day Years [...] 05/28/2021 relatives? How often do you attend buddhism or lutheran Never 05/28/2021 services? Do you belong to any clubs or organizations such as No 05/28/2021 buddhism groups, unions, fraternal or athletic groups, or [...] place to sleep or slept in a long-term (including now)? Sex Assigned at Date Recorded Female 03/09/2021 10:01 AM CDT documented as of this encounter Plan of Treatment Not on filedocumented as of this encounter Visit Diagnoses Not on filedocumented in this encounter Additional Health Concerns Assessment Noted Time PHQ-9 Depression Total Score: 3 08/31/2013 7:36 AM CDT documented as of this encounter
--- OUTSIDE RECORDS SUMMARY | 2022-05-20 12:14 | XMS_ITS | Encounter Summary ---
:1955 Author Organization [facility] Address [address] [place] [address] Care Team Providers Name Role Phone Unavailable Primary Care Provider Unavailable Encounter Details Date Type Department Care Team Description 12/11/2013 - Hospital Encounter HX RST TX BMT NURSE Nettie Price, 12/18/2013 OP [facility] R.N. [address] [place] [address] Social History Tobacco Use Types Packs/Day Years [...] 05/28/2021 relatives? How often do you attend rastafarian or orthodoxy Never 05/28/2021 services? Do you belong to any clubs or organizations such as No 05/28/2021 rastafarian groups, unions, fraternal or athletic groups, or [...] place to sleep or slept in a residential (including now)? Sex Assigned at Date Recorded [...]
--- OUTSIDE RECORDS SUMMARY | 2022-05-20 12:14 | XMS_ITS | Encounter Summary ---
:1955 Author Organization [facility] Address [address] [place] [address] Care Team Providers Name Role Phone Unavailable Primary Care Provider Unavailable Encounter Details Date Type Department Care Team Description 02/27/2014 Hospital Encounter HX NO MAPPING Provider, Historical Social History Tobacco Use Types [...] 05/28/2021 relatives? How often do you attend congregational or islam Never 05/28/2021 services? Do you belong to any clubs or organizations such as No 05/28/2021 congregational groups, unions, fraternal or athletic groups, or [...] place to sleep or slept in a assisted (including now)? Sex Assigned at Date Recorded [...]
--- OUTSIDE RECORDS SUMMARY | 2022-05-20 12:14 | XMS_ITS | Encounter Summary ---
:1955 Author Organization [facility] Address [address] [place] [address] Care Team Providers Name Role Phone Unavailable Primary Care Provider Unavailable Reason for Visit Reason Comments Outside labs Encounter Details Date Type Department Care Team Description 05/05/2020 Clinical Communication Division of Erik Casas Hematology miri Vidal M.D., Ph.D. [place], [place] [address] [facility] [address] [place] [phone] Social History Tobacco Use Types Packs/Day Years [...] 05/28/2021 relatives? How often do you attend protestant or evangelical Never 05/28/2021 services? Do you belong to any clubs or organizations such as No 05/28/2021 protestant groups, unions, fraternal or athletic groups, or [...] place to sleep or slept in a group home (including now)? Sex Assigned at Date Recorded Female 03/09/2021 10:01 AM CDT documented as of this encounter Miscellaneous Notes Telephone Encounter - Candi Munoz R.N. - 05/06/2020 1:24 PM MANAGER MOTOR The patient is scheduled for a visit on 05/09/[address] Casas. Labs entered into the flowsheet and sent for scanning. GER MOTOR Telephone Encounter - Rachael Mata - 05/05/2020 4:33 PM CST Outside labs collected on May 05, 2020, have been received. The fax has been placed in the eFaxfolder, and the CBC results are as noted below. Hemoglobin: 15.2 Hematocrit: 46.7 WBC: 7.74 ANC: 5.06 Platelets: 225 GER MOTOR documented in this encounter Plan of Treatment Not on filedocumented as of this encounter Procedures Procedure Name Priority Date/Time Associated Diagnosis Comme nts HEMATOLOGY/ONCOLOGY - Routine 05/05/2020 Result s for this BLOOD, EXTERNAL LAB procedur e are in the RESULTS results section . documented in this encounter Results Hematology/Oncology - Blood, External Lab Results (05/05/2020) Analysis Performed At Patho logist Time Signature EXT Hemoglobin 15.2 EXT Hematocrit 46.7 EXT Leukocytes 7.74 EXT Absolute 5.06 Neutrophil Count EXT Platelet Count 225 EXT AST 26 EXT Alkaline 132 Phosphatase EXT Bilirubin, 1.3 mg/dL Total EXT Lactate 425 313 - 618 Dehydrogenase (LD), S EXT Calcium, Total 9.4 EXT Creatinine 1.4 mg/dL EXT Glucose, 180 87 Min Specimen (Source) Anatomical Location Collection Method / Collectio n Time Received Time / Laterality Volume Blood 05/05/2020 Narrative This result has an attachment that is no t available. Historical Provider LAB BLOOD NON ADD-ON documented in this encounter Visit Diagnoses Not on filedocumented in this encounter Additional Health Concerns Assessment Noted Time PHQ-9 Depression Total Score: 3 08/31/2013 7:36 AM CDT documented as of this encounter
--- OUTSIDE RECORDS SUMMARY | 2022-05-20 12:14 | XMS_ITS | Encounter Summary ---
:1955 Author Organization [facility] Address [address] [place] [address] Care Team Providers Name Role Phone Unavailable Primary Care Provider Unavailable Encounter Details Date Type Department Care Team Description 12/10/2013 - Hospital Encounter HX RST TX BMT NURSE Casper Curiel 12/17/2013 OP [facility], [facility] Marcy, SUPERVISOR IN [employer], C.N.P. [address] [place], [place] [address] Social History Tobacco Use Types Packs/Day Years [...] 05/28/2021 relatives? How often do you attend religion or tenriism Never 05/28/2021 services? Do you belong to any clubs or organizations such as No 05/28/2021 religion groups, unions, fraternal or athletic groups, or [...]
--- OUTSIDE RECORDS SUMMARY | 2022-05-20 12:14 | XMS_ITS | Encounter Summary ---
:1955 Author Organization [facility] Address [address] [place] [address] Care Team Providers Name Role Phone Unavailable Primary Care Provider Unavailable Encounter Details Date Type Department Care Team Description 02/20/2021 Orders Only [facility] Sa elham Underwood M.D. [address] [place], [place] [phone] (Wo rk) Social History Tobacco Use Types Packs/Day Years [...] 05/28/2021 relatives? How often do you attend zoroastrian or zoroastrian Never 05/28/2021 services? Do you belong to any clubs or organizations such as No 05/28/2021 zoroastrian groups, unions, fraternal or athletic groups, or [...] place to sleep or slept in a fpc (including now)? Sex Assigned at Date Recorded Female 03/09/2021 10:01 AM CDT documented as of this encounter Plan of Treatment Not on filedocumented as of this encounter Visit Diagnoses Not on filedocumented in this encounter Additional Health Concerns Assessment Noted Time PHQ-9 Depression Total Score: 3 08/31/2013 7:36 AM CDT documented as of this encounter
--- OUTSIDE RECORDS SUMMARY | 2022-05-20 12:14 | XMS_ITS | Encounter Summary ---
:1955 Author Organization [facility] Address [address] [place] [address] Care Team Providers Name Role Phone Unavailable Primary Care Provider Unavailable Reason for Referral Outpatient (Routine) - Closed Specialty Diagnoses / Procedures Referred By Contact Refer red To Contact Hematology Oncology Erik Casas [place] Florence Juarez, Ph.D. [address] [place] [address] Referral ID Status Reason Start Date Expiration Date Visits Requ ested Visits Authorized [id number] Closed 05/03/2018 05/03/2019 1 1 2 DBA Reason for Visit Outpatient (Routine) - Closed Specialty Diagnoses / Procedures Referred By Contact Refer red To Contact Hematology Oncology Erik Casas [place] Florence Juarez, Ph.D. [address] [place] [address] Referral ID Status Reason Start Date Expiration Date Visits Requ ested Visits Authorized [id number] Closed 09/30/2017 03/29/2018 1 1 Encounter Details Date Type Department Care Team Description 05/03/2018 Office Visit Division of Erik Casas Diffuse L arge B Cell Hematology in [place], Ph.D. Lymphoma Intra [place], [place] [address] [facility] Abdominal Lymph Nodes [address] [place], [place] (HCC) (Primary Dx) [place] [phone] Social History Tobacco Use Types Packs/Day Years [...] 05/28/2021 relatives? How often do you attend oriental orthodox or lutheran Never 05/28/2021 services? Do you belong to any clubs or organizations such as No 05/28/2021 oriental orthodox groups, unions, fraternal or athletic groups, or [...] Progress Notes Erik Casas M.D., Ph.D. - 05/03/2018 12:30 PM CST SUBJECTIVE Referring Provider Dr. Nettie White [address] [place] [address] CHIEF COMPLAINT/REASON FOR VISIT Diffuse large B-cell lymphoma and Hodgkin lymphoma HISTORY OF PRESENT ILLNESS Mrs. Gallardo is a 63-year-old patient who was diagnosed with diffuse large B- cell lymphoma in August2011 when she presented with intraabdominal lymphadenopathy. Staging bone marrow showed 10% involvement by a low-grade lymphoma, and PET scan showed significant lymphadenopathy in the abdomen. She received R-CHOP in combination with lenalidomide times six cycles and at the end of treatment still had aresidual hypermetabolic area in the retroperitoneum. This was initially observed but over time became more FDG-positive, and a repeat biopsy March 2013 showed a focal lymphoid infiltrate but not diagnostic for lymphoma. 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 She then received ICE chemotherapy times three cycles. She achieved a good response and went on to collect stem cells, then received BEAM conditioning followed by stem cell reinfusion, and received 4.02 x 10(6) CD34/kg on November 21, 2013. Complications encountered during transplant included mucositis, esophagitis, nausea, vomiting and neutropenic fever. She engrafted and was dismissed home on day +21. A PET scan onSept2013, showed no evidence of active lymphoma. The patient has been followed since then without any recurrence of disease. The patient returns today for a follow-up visit. She currently is being seen on an annual basis and returns for re-evaluation. She has had a difficult year due to the fact that she lost her this year. As relates to her lymphoma however, she has no new symptoms of concern. She has no new fevers, night sweats, or weight loss. She has not noted any new lymphadenopathy. Lab testing done today is satisfactory. Her hemoglobin is 14.3, white cell count 7.0, and platelet count [id number]. Her chemistry panel is satisfactory. The following portions of the patient's history were reviewed and updated as appropriate: current medications and problem list. REVIEW OF SYSTEMS Non-contributary OBJECTIVE There were no vitals filed for this visit. There is no height or weight on file to calculate BSA. PHYSICAL EXAM General: ECOG performance score 0 Skin: Normal ENT: No evidence of Waldeyer's ring involvement. No mucositis Lymph: No evidence of peripheral adenopathy in the neck axilla femoral or inguinal areas Lungs: Clear to auscultation and percussion Cardiac: Regular rate and rhythm without significant murmur Abdomen: No tenderness, organomegaly or palpable masses Extremities: No edema Neuro: Alert and oriented x3 DIAGNOSTICS I have reviewed the recent relevant labs. ASSESSMENT / PLAN #1 Diffuse Large B Cell Lymphoma Intra Abdominal Lymph Nodes (HCC) #2 Classical Hodgkin lymphoma I reviewed with the patient that she currently is doing well. There are no findings of concern todayand she appears to remain in remission. I discussed with her that we would continue to observe her without any treatment. Plan: 1. The patient will again be seen in 1 year for ongoing follow-up and assessment of long-term toxicity. 2. I encouraged the patient to contact me at any time in the interim if new problems related to lymphoma arise. Follow-up: Return to clinic in 1 year Education We discussed the diagnosis and treatment plan in detail. The patient expressed understanding of the content. No apparent learning barriers were identified; learning preferences include listening. I personally spent over half of a total 25 minutes face to face with the patient in counseling and discussion and/or coordination of care as described above. Signed by: Erik Casas M.D., Ph.D. 05/03/2018 12:29 PM 2 DBA documented in this encounter Plan of Treatment Scheduled Referrals Name Type Priority Associated Order Schedule Diagnoses Hematology office Outpatient Referral Routine Exp ected: visit (clinic) 05/03/2019 (Approximate), Expires: 05/03/2021 documented as of this encounter Results (ABNORMAL) Potassium (05/03/2019 9:11 AM DB2 DBA) P athologist Signature Potassium, S 5.6 (H) 3.6 - 5.2 05/03/2019 DTL mmol/L 10:48 AM DB2 DBA Specimen Anatomical Collection Method Collection Time Receive d Time (Source) Location / / Volume Laterality Blood (Blood, 05/03/2019 9:11 AM 05/03/20 19 9:29 Venous) DB2 DBA AM DB2 DBA Erik Casas M.D., Ph.D. LAB BLOOD ADD-ON Performing Organization Address City/[facility] Phon e Number [facility] - [address] [place] [address] LD (Lactate Dehydrogenase) (05/03/2019 9:11 AM DB2 DBA) Analysis Performed At Patho logist Time Signature Lactate 183 122 - 222 05/03/2019 DTL Dehydrogenase U/L 10:48 AM DB2 DBA (LD), S Specimen Anatomical Collection Method Collection Time Receive d Time (Source) Location / / Volume Laterality Blood (Blood, 05/03/2019 9:11 AM 05/03/20 19 9:29 Venous) DB2 DBA AM DB2 DBA Erik Casas M.D., Ph.D. LAB BLOOD NON ADD-ON Performing Organization Address City/[facility] Phon e Number [facility] - [address] [place] [address] (ABNORMAL) Creatinine with Estimated GFR (05/03/2019 9:11 AM DB2 DBA) Analysis Performed At [facility] logist Time Signature Creatinine 1.48 (H) 0.59 - 05/03/2019 DTL 1.04 mg/dL 10:48 AM DB2 DBA eGFR-Non 37 (L) >=60 05/03/2019 DTL Black/ mL/min/BSA 10:48 AM DB2 DBA Greenlandic Comment: ----ADDITIONAL INFORMATION---- Estimated GFR calculated using the 2009 CKD_EPI creatinine equation. eGFR-Black/ 42 (L) >=60 mL/min/BSA 2018 10:48 AM DB2 DBA DTL Comment: ----ADDITIONAL INFORMATION---- Estimated GFR calculated using the 2009 CKD_EPI creatinine equation. Specimen Anatomical Collection Method Collection Time Receive d Time (Source) Location / / Volume Laterality Blood (Blood, 05/03/2019 9:11 AM 05/03/20 19 9:29 Venous) DB2 DBA AM DB2 DBA Erki Casas M.D., Ph.D. LAB BLOOD ADD-ON Performing Organization Address City/State/ZIP Code Phon e Number [facility] - [address] [place], [place] [address] [facility] [place] [address] Laboratories-[facility] [address] (ABNORMAL) CBC with Differential (05/03/2019 9:11 AM DB2 DBA) [facility] gist Method Time Signature Hemoglobin 15.2 (H) 11.6 - 05/03/2019 DTL 15.0 g/dL 9:40 AM DB2 DBA Hematocrit 46.7 (H) 35.5 - 05/03/2019 DTL 44.9 % 9:40 AM DB2 DBA Erythrocytes 4.88 3.92 - 05/03/2019 DTL 5.13 9:40 AM DB2 DBA x10(12)/L MCV 95.7 78.2 - 05/03/2019 DTL 97.9 fL 9:40 AM DB2 DBA RBC Distrib Width 13.4 12.2 - 05/03/2019 DTL 16.1 % 9:40 AM DB2 DBA Platelet Count 241 157 - 371 05/03/2019 DTL x10(9)/L 9:40 AM DB2 DBA Leukocytes 7.9 3.4 - 9.6 05/03/2019 DTL x10(9)/L 9:40 AM DB2 DBA Neutrophils 5.04 1.56 - 05/03/2019 DTL 6.45 9:40 AM DB2 DBA x10(9)/L Lymphocytes 1.72 0.95 - 05/03/2019 DTL 3.07 9:40 AM DB2 DBA x10(9)/L Monocytes 0.83 (H) 0.26 - 05/03/2019 DTL 0.81 9:40 AM DB2 DBA x10(9)/L Eosinophils 0.18 0.03 - 05/03/2019 DTL 0.48 9:40 AM DB2 DBA x10(9)/L Basophils 0.09 (H) 0.01 - 05/03/2019 DTL 0.08 9:40 AM DB2 DBA x10(9)/L Specimen Anatomical Collection Method Collection Time Receive d Time (Source) Location / / Volume Laterality Blood (Blood, 05/03/2019 9:11 AM 05/03/20 19 9:28 Venous) DB2 DBA AM DB2 DBA Erik Casas M.D., Ph.D. LAB BLOOD ADD-ON Performing Organization Address City/[facility] Phon e Number [facility] - [address] Calcium, Total (05/03/2019 9:11 AM DB2 DBA) athologist Signature Calcium, Total, 9.6 8.8 - 10.2 05/03/2019 DT S mg/dL 10:48 AM DB2 DBA Specimen Anatomical Collection Method Collection Time Receive d Time (Source) Location / / Volume Laterality Blood (Blood, 05/03/2019 9:11 AM 05/03/20 19 9:29 Venous) DB2 DBA AM DB2 DBA Erik Casas M.D., Ph.D. LAB BLOOD ADD-ON Performing Organization Address City/[facility] Phon e Number [facility] [address] Bilirubin, Total (05/03/2019 9:11 AM DB2 DBA) P athologist Signature Bilirubin, 1.0 <=1.2 mg/dL 05/03/2019 DTL Total, S 10:48 AM DB2 DBA Specimen Anatomical Collection Method Collection Time Receive d Time (Source) Location / / Volume Laterality Blood (Blood, 05/03/2019 9:11 AM 05/03/20 19 9:29 Venous) DB2 DBA AM DB2 DBA Erik Casas M.D., Ph.D. LAB BLOOD ADD-ON Performing Organization Address City/State/ZIP Code Phon e Number [facility] - [address] AST (Aspartate Aminotransferase) (05/03/2019 9:11 AM DB2 DBA) Patholo gist Method Time Signature Aspartate 19 8 - 43 05/03/2019 DTL Aminotransferase U/L 10:48 AM DB2 DBA (AST), S Specimen Anatomical Collection Method Collection Time Receive d Time (Source) Location / / Volume Laterality Blood (Blood, 05/03/2019 9:11 AM 05/03/20 19 9:29 Venous) DB2 DBA AM DB2 DBA Erik Casas M.D., Ph.D. LAB BLOOD ADD-ON Performing Organization Address City/State/ZIP Code Phon e Number [facility] - [address] (ABNORMAL) Alkaline Phosphatase (05/03/2019 9:11 AM DB2 DBA) P athologist Signature Alkaline 142 (H) 35 - 104 05/03/2019 DTL Phosphatase, S U/L 10:48 AM DB2 DBA Specimen Anatomical Collection Method Collection Time Receive d Time (Source) Location / / Volume Laterality Blood (Blood, 05/03/2019 9:11 AM 05/03/20 19 9:29 Venous) DB2 DBA AM DB2 DBA Erik Casas M.D., Ph.D. LAB BLOOD ADD-ON Performing Organization Address City/State/ZIP Code Phon e Number [facility] - [address] documented in this encounter Visit Diagnoses Diagnosis Diffuse Large B Cell Lymphoma Intra Abdo deric Lymph Nodes (HCC) - Primary documented in this encounter Additional Health Concerns Assessment Noted Time PHQ-9 Depression Total Score: 3 08/31/2013 7:36 AM CDT documented as of this encounter
--- OUTSIDE RECORDS SUMMARY | 2022-05-20 12:14 | XMS_ITS | Encounter Summary ---
:1955 Author Organization [facility] Address [address] [place] [address] Care Team Providers Name Role Phone Unavailable Primary Care Provider Unavailable Encounter Details Date Type Department Care Team Description 05/28/2021 Hospital Encounter Department of Erik Casas se Large B Cell Laboratory Medicine Larry Vidal, Ph. D. Lymphoma Intra and Pathology, [address] [place] [address] Abdominal [facility] in [place], [place] Nodes ( HCC) [facility] [address] [place] [phone] [address] [facility] (Work) [place], [place] [phone] (Fax) [phone] Social History Tobacco Use Types Packs/Day Years Used Date Smoking Tobacco: Former Cigarettes Smokeless Tobacco: Never Comments: patient quit 2007 Alcohol Habits Answer Date Recorded How often [...] 05/28/2021 relatives? How often do you attend scientology or hinduism Never 05/28/2021 services? Do you belong to any clubs or organizations such as No 05/28/2021 scientology groups, unions, fraternal or athletic groups, or [...] for the very basics like Not h je at all 05/28/2021 food, housing, medical care, [...] slept in a group home (including now)? Education Answer Date Recorded What is the highest level of school you have completed or 12 th grade 05/28/2021 the highest degree you have received? Sex Assigned at Date Recorded Female 03/09/2021 10:01 AM CDT documented as of this encounter Medications at Time of Discharge Medication Sig Dispensed Refills Start Date End Date MAGNESIUM ORAL Take 1 tablet by 0 01/24/2015 mouth daily. 500 mg magnesium oxide (MAG-OX) Take 400 mg by mouth 0 400 mg (241.3 mg at bedtime as needed. magnesium) tablet omeprazole (PriLOSEC) 20 Take 1 capsule by 0 09/[address] capsule mouth daily. simvastatin (ZOCOR) 5 mg Take 1 tablet by 0 09/11 tablet mouth at bedtime. documented as of this encounter Plan of Treatment Not on filedocumented as of this encounter Procedures Procedure Name Priority Date/Time Associated Comments Diagnosis CBC WITH DIFFERENTIAL, B Routine 05/28/2021 8:52 Diffuse Large B Results for this AM NEWSPAPER PHOTO EDITOR Cell Lymphoma procedure are in Intra Abdominal the results Lymph Nodes (HCC) section. ASPARTATE Routine 05/28/2021 8:52 Diffuse Large B Results f or this AMINOTRANSFERASE (AST), AM NEWSPAPER PHOTO EDITOR Cell Lymphoma pro cedure are in S/P Intra Abdominal the results Lymph Nodes (HCC) section. POTASSIUM, S/P Routine 05/28/2021 8:52 Diffuse Large B Results for this AM NEWSPAPER PHOTO EDITOR Cell Lymphoma procedure are in Intra Abdominal the results Lymph Nodes (HCC) section. ALKALINE PHOSPHATASE, Routine 05/28/2021 8:52 Diffuse Large B Results for this S/P AM NEWSPAPER PHOTO EDITOR Cell Lymphoma procedure are in Intra Abdominal the results Lymph Nodes (HCC) section. LACTATE DEHYDROGENASE Routine 05/28/2021 8:52 Diffuse Large B Results for this (LD), S AM NEWSPAPER PHOTO EDITOR Cell Lymphoma procedure are in Intra Abdominal the results Lymph Nodes (HCC) section. CREATININE WITH EGFR, Routine 05/28/2021 8:52 Diffuse Large B Results for this S/P AM NEWSPAPER PHOTO EDITOR Cell Lymphoma procedure are in Intra Abdominal the results Lymph Nodes (HCC) section. CALCIUM, TOT, S/P Routine 05/28/2021 8:52 Diffuse Large B Resu lts for this AM NEWSPAPER PHOTO EDITOR Cell Lymphoma procedure are in Intra Abdominal the results Lymph Nodes (HCC) section. BILIRUBIN, TOT, S/P Routine 05/28/2021 8:52 Diffuse Large B Re sults for this AM NEWSPAPER PHOTO EDITOR Cell Lymphoma procedure are in Intra Abdominal the results Lymph Nodes (HCC) section. documented in this encounter Results (ABNORMAL) Potassium (05/28/2021 8:52 AM NEWSPAPER PHOTO EDITOR) P athologist Signature Potassium, S 5.5 (H) 3.6 - 5.2 05/28/2021 DTL mmol/L 10:49 AM NEWSPAPER PHOTO EDITOR Specimen Anatomical Collection Method Collection Time Receive d Time (Source) Location / / Volume Laterality Blood (Blood, 05/28/2021 8:52 AM 05/28/20 9:59 Venous) NEWSPAPER PHOTO EDITOR AM NEWSPAPER PHOTO EDITOR Erik Casas M.D., Ph.D. LAB BLOOD ADD-ON Performing Organization Address City/[facility] Phon e Number [facility] - 200 [place], [place] [address] [place] [address] [place] [address] Laboratories-[address] LD (Lactate Dehydrogenase) (05/28/2021 8:52 AM NEWSPAPER PHOTO EDITOR) Analysis Performed At [facility] Signature Lactate 179 122 - 222 05/28/2021 DTL Dehydrogenase U/L 10:49 AM NEWSPAPER PHOTO EDITOR (LD), S Specimen Anatomical Collection Method Collection Time Receive d Time (Source) Location / / Volume Laterality Blood (Blood, 05/28/2021 8:52 AM 05/28/20 9:59 Venous) NEWSPAPER PHOTO EDITOR AM NEWSPAPER PHOTO EDITOR Erik Casas M.D., Ph.D. LAB BLOOD NON ADD-ON Performing Organization Address City/[facility] Phon e Number [facility] - [address] [place] [address] [facility]-[address] (ABNORMAL) Creatinine with Estimated GFR (05/28/2021 8:52 AM NEWSPAPER PHOTO EDITOR) Analysis Performed At [facility] Time Signature Creatinine 1.50 (H) 0.59 - 05/28/2021 DTL 1.04 mg/dL 10:49 AM NEWSPAPER PHOTO EDITOR eGFR-Non 36 (L) >=60 05/28/2021 DTL Black/ mL/min/BSA 10:49 AM NEWSPAPER PHOTO EDITOR Irish Comment: ----ADDITIONAL INFORMATION---- Estimated GFR calculated using the 2009 CKD_EPI creatinine equation. eGFR-Black/ 41 (L) >=60 mL/min/BSA 2020 10:49 AM NEWSPAPER PHOTO EDITOR DTL Comment: ----ADDITIONAL INFORMATION---- Estimated GFR calculated using the 2009 CKD_EPI creatinine equation. Specimen Anatomical Collection Method Collection Time Receive d Time (Source) Location / / Volume Laterality Blood (Blood, 05/28/2021 8:52 AM 05/28/20 9:59 Venous) NEWSPAPER PHOTO EDITOR AM NEWSPAPER PHOTO EDITOR Erik Casas M.D., Ph.D. LAB BLOOD ADD-ON Performing Organization Address City/State/ZIP Code Phon e Number [facility] - [address] [place], [place] [address] [facility] [place] [address] Laboratories-[facility] [address] [facility] (ABNORMAL) CBC with Differential, Blood (05/28/2021 8:52 AM NEWSPAPER PHOTO EDITOR) [facility] Method Time Signature Hemoglobin 15.7 (H) 11.6 - 05/28/2021 DTL 15.0 g/dL 9:28 AM NEWSPAPER PHOTO EDITOR Hematocrit 48.7 (H) 35.5 - 05/28/2021 DTL 44.9 % 9:28 AM NEWSPAPER PHOTO EDITOR Erythrocytes 5.15 (H) 3.92 - 05/28/2021 DTL 5.13 9:28 AM NEWSPAPER PHOTO EDITOR x10(12)/L MCV 94.6 78.2 - 05/28/2021 DTL 97.9 fL 9:28 AM NEWSPAPER PHOTO EDITOR RBC Distrib Width 13.2 12.2 - 05/28/2021 DTL 16.1 % 9:28 AM NEWSPAPER PHOTO EDITOR Platelet Count 253 157 - 371 05/28/2021 DTL x10(9)/L 9:28 AM NEWSPAPER PHOTO EDITOR Leukocytes 9.5 3.4 - 9.6 05/28/2021 DTL x10(9)/L 9:28 AM NEWSPAPER PHOTO EDITOR Neutrophils 6.54 (H) 1.56 - 05/28/2021 DTL 6.45 9:28 AM NEWSPAPER PHOTO EDITOR x10(9)/L Lymphocytes 1.97 0.95 - 05/28/2021 DTL 3.07 9:28 AM NEWSPAPER PHOTO EDITOR x10(9)/L Monocytes 0.83 (H) 0.26 - 05/28/2021 DTL 0.81 9:28 AM NEWSPAPER PHOTO EDITOR x10(9)/L Eosinophils 0.10 0.03 - 05/28/2021 DTL 0.48 9:28 AM NEWSPAPER PHOTO EDITOR x10(9)/L Basophils 0.08 0.01 - 05/28/2021 DTL 0.08 9:28 AM NEWSPAPER PHOTO EDITOR x10(9)/L Specimen Anatomical Collection Method Collection Time Receive d Time (Source) Location / / Volume Laterality Blood (Blood, 05/28/2021 8:52 AM 05/28/20 21 9:16 Venous) NEWSPAPER PHOTO EDITOR AM NEWSPAPER PHOTO EDITOR Erik Casas M.D., Ph.D. LAB BLOOD ADD-ON Performing Organization Address City/State/[facility] Phon e Number [facility] - [address] Calcium, Total (05/28/2021 8:52 AM NEWSPAPER PHOTO EDITOR) athologist Signature Calcium, Total, 9.9 8.8 - 10.2 05/28/2021 DTL S mg/dL 10:49 AM NEWSPAPER PHOTO EDITOR Specimen Anatomical Collection Method Collection Time Receive d Time (Source) Location / / Volume Laterality Blood (Blood, 05/28/2021 8:52 AM 05/28/20 9:59 Venous) NEWSPAPER PHOTO EDITOR AM NEWSPAPER PHOTO EDITOR Erik Casas M.D., Ph.D. LAB BLOOD ADD-ON Performing Organization Address City/[facility] Phon e Number [facility] - [address] Bilirubin, Total (05/28/2021 8:52 AM NEWSPAPER PHOTO EDITOR) P athologist Signature Bilirubin, 1.2 <=1.2 mg/dL 05/28/2021 DTL Total, S 10:49 AM NEWSPAPER PHOTO EDITOR Specimen Anatomical Collection Method Collection Time Receive d Time (Source) Location / / Volume Laterality Blood (Blood, 05/28/2021 8:52 AM 05/28/20 9:59 Venous) NEWSPAPER PHOTO EDITOR AM NEWSPAPER PHOTO EDITOR Erik Casas M.D., Ph.D. LAB BLOOD ADD-ON Performing Organization Address City/[facility] Phon e Number [facility] - 200 [place] [phone] [facility] [address] AST (Aspartate Aminotransferase) (05/28/2021 8:52 AM NEWSPAPER PHOTO EDITOR) Patholo gist Method Time Signature Aspartate 17 8 - 43 05/28/2021 DTL Aminotransferase U/L 10:49 AM NEWSPAPER PHOTO EDITOR (AST), S Specimen Anatomical Collection Method Collection Time Receive d Time (Source) Location / / Volume Laterality Blood (Blood, 05/28/2021 8:52 AM 05/28/20 9:59 Venous) NEWSPAPER PHOTO EDITOR AM NEWSPAPER PHOTO EDITOR Erik Casas M.D., Ph.D. LAB BLOOD ADD-ON Performing Organization Address City/[facility] Phon e Number [facility] - [address] [address] (ABNORMAL) Alkaline Phosphatase (05/28/2021 8:52 AM NEWSPAPER PHOTO EDITOR) P athologist Signature Alkaline 153 (H) 35 - 104 05/28/2021 DTL Phosphatase, S U/L 10:49 AM NEWSPAPER PHOTO EDITOR Specimen Anatomical Collection Method Collection Time Receive d Time (Source) Location / / Volume Laterality Blood (Blood, 05/28/2021 8:52 AM 05/28/20 9:59 Venous) NEWSPAPER PHOTO EDITOR AM NEWSPAPER PHOTO EDITOR Erik Casas M.D., Ph.D. LAB BLOOD ADD-ON Performing Organization Address City/State/[facility] Phon e Number [facility] [address] documented in this encounter Visit Diagnoses Diagnosis Diffuse Large B Cell Lymphoma Intra Abdo deric Lymph Nodes (HCC) documented in this encounter Additional Health Concerns Assessment Noted Time PHQ-9 Depression Total Score: 3 08/31/2013 7:36 AM CDT documented as of this encounter
--- OUTSIDE RECORDS SUMMARY | 2022-05-20 12:14 | XMS_ITS | Encounter Summary ---
:1955 Author Organization [facility] Address [address] [place] [address] Care Team Providers Name Role Phone Unavailable Primary Care Provider Unavailable Reason for Referral Outpatient (Routine) - Closed Specialty Diagnoses / Procedures Referred By Contact Refer red To Contact Hematology Oncology Erik Casas [place] Florence Juarez, Ph.D. [address] [place] [address] Referral ID Status Reason Start Date Expiration Date Visits Requ ested Visits Authorized [id number] Closed 05/03/2019 05/02/2020 1 1 ANT POTATO PROCESSING SUPERVISOR Reason for Visit Outpatient (Routine) - Closed Specialty Diagnoses / Procedures Referred By Contact Refer red To Contact Hematology Oncology Erik Casas [place] Florence Juarez, Ph.D. [address] [place] [address] Referral ID Status Reason Start Date Expiration Date Visits Requ ested Visits Authorized [id number] Closed 05/03/2018 05/03/2019 1 1 Encounter Details Date Type Department Care Team Description 05/03/2019 Office Visit Division of Erik Casas, Hodgkins Disease (HCC) (Primary Dx); Hematology in Larry, Ph.D. Diffuse Large B Cell Lymphoma Intra Abdo deric Lymph Nodes (HCC) [place], [place] [address] [facility] 200 [place] [phone] Social History Tobacco Use Types Packs/Day Years [...] 05/28/2021 relatives? How often do you attend sabianism or jainism Never 05/28/2021 services? Do you belong to any clubs or organizations such as No 05/28/2021 sabianism groups, unions, fraternal or athletic groups, or [...] place to sleep or slept in a alf (including now)? Sex Assigned at Date Recorded Female 03/09/2021 10:01 AM CDT documented as of this encounter Last Filed Vital Signs Vital Sign Reading Time Taken Comments Blood Pressure 121/73 05/03/2019 12:52 PM INSTANT POTATO PROCESSING SUPERVISOR Pulse 90 05/03/2019 12:52 PM INSTANT POTATO PROCESSING SUPERVISOR Temperature 35.8 ??C (96.4 ??F) 05/03/2019 12:52 PM INSTANT POTATO PROCESSING SUPERVISOR Respiratory Rate - - Oxygen Saturation - - Inhaled Oxygen Concentration - - Weight 81.1 kg (178 lb 12.7 oz) 05/03/2019 12:52 PM INSTANT POTATO PROCESSING SUPERVISOR Height 174.2 cm (5' 8.58) 05/03/2019 12:52 PM INSTANT POTATO PROCESSING SUPERVISOR Body Mass Index 26.73 05/03/2019 12:52 PM INSTANT POTATO PROCESSING SUPERVISOR documented in this encounter Progress Notes Erik Casas M.D., Ph.D. - 05/03/2019 1:15 PM CST SUBJECTIVE Referring Provider Dr. Nettie White [address] [place] [address] CHIEF COMPLAINT/REASON FOR VISIT Diffuse large B-cell lymphoma and Hodgkin lymphoma HISTORY OF PRESENT ILLNESS Mrs. Gallardo is a 64-year-old patient who was diagnosed with diffuse large [...] of disease. The patient returns today for re-evaluation. She currently is being seen once a year and is doing well. She does have significant pain in both hips and is scheduled for hip replacements bilaterally over the next 3 months. Aside from this issue, she has no other new problems. She has no fevers, night sweats, or weight loss. She has not noted any new lymphadenopathy. Lab testing done today is stable and unchanged. She did have a mammogram and colonoscopy recently and both were negative. The following portions of the patient's history were reviewed and updated as appropriate: current medications and problem list. REVIEW OF SYSTEMS Non-contributary OBJECTIVE Vitals: 05/03/19 1252 BP: 121/73 Patient Position: Sitting Pulse: 90 Temp: (!) 35.8 ??C Height: 174.2 cm Weight: 81.1 kg TempSrc: Tympanic Body surface area is 1.98 meters squared. PHYSICAL EXAM General: ECOG performance score 0 Skin: Normal ENT: No evidence of Waldeyer's ring involvement. No mucositis Lymph: No evidence of peripheral adenopathy in the neck axilla femoral or inguinal areas Lungs: Clear to auscultation and percussion Cardiac: Regular rate and rhythm without significant murmur Abdomen: No tenderness, organomegaly or palpable masses Extremities: No edema. 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 She remains in complete remission with no evidence of disease activity. I have recommended ongoing observation without any treatment. Plan: 1. The patient will return again in 1 year for ongoing follow-up. As mentioned above, in the interimshe will have hip surgery for her hip arthritis. 2. I encouraged the patient to contact me at any time if she develops new problems. Follow-up: Return to clinic in 1 year [...] above. Signed by: Erik Casas M.D., Ph.D. 05/03/2019 1:35 PM ANT POTATO PROCESSING SUPERVISOR documented in this encounter Plan of Treatment Scheduled Referrals Name Type Priority Associated Order Schedule Diagnoses Hematology office Outpatient Referral Routine Exp ected: visit (clinic) 05/03/2020 (Approximate), Expires: 05/03/2022 documented as of this encounter Visit Diagnoses Diagnosis Hodgkins Disease (HCC) - Primary Diffuse Large B Cell Lymphoma Intra Abdo deric Lymph Nodes (HCC) documented in this encounter Additional Health Concerns Assessment Noted Time PHQ-9 Depression Total Score: 3 08/31/2013 7:36 AM CDT documented as of this encounter
--- OUTSIDE RECORDS SUMMARY | 2022-05-20 12:14 | XMS_ITS | Encounter Summary ---
:1955 Author Organization [facility] Address [address] [place] [address] Care Team Providers Name Role Phone Unavailable Primary Care Provider Unavailable Encounter Details Date Type Department Care Team Description 12/11/2013 - Hospital Encounter HX RST TX BMT OP [facility] Jeremiah Veliz, 12/18/2013 M.DJimi [address] [place] [address] Social History Tobacco Use Types Packs/Day Years [...] 05/28/2021 relatives? How often do you attend christian or pentecostal Never 05/28/2021 services? Do you belong to any clubs or organizations such as No 05/28/2021 christian groups, unions, fraternal or athletic groups, or [...] place to sleep or slept in a skilled nursing (including now)? Sex Assigned at Date Recorded [...]
--- OUTSIDE RECORDS SUMMARY | 2022-05-20 12:14 | XMS_ITS | Encounter Summary ---
:1955 Author Organization [facility] Address [address] [place] [address] Care Team Providers Name Role Phone Unavailable Primary Care Provider Unavailable Encounter Details Date Type Department Care Team Description 09/08/2020 Ancillary Procedure Department of Erik Casas use Large B Cell Radiology in MLarry, Ph.D. Lymphoma Intra [place], [facility] [address] [facility] Abdominal Lymph [place], [place] Nodes (HCC) [address] [place] [phone] [place], [place] [phone] (Work) Social History Tobacco Use Types Packs/Day Years [...] 05/28/2021 relatives? How often do you attend zoroastrianism or zoroastrian Never 05/28/2021 services? Do you belong to any clubs or organizations such as No 05/28/2021 zoroastrianism groups, unions, fraternal or athletic groups, or [...] place to sleep or slept in a half-way (including now)? Sex Assigned at Date Recorded Female 03/09/2021 10:01 AM CDT documented as of this encounter Miscellaneous Notes Result Encounter Note - Erik Casas M.D., Ph.D. - 09/08/2020 3:50 PM CDT Hi I've reviewed the result. No findings concerning for lymphoma. In fact, previously noted lymph nodesare smaller now than previously. No intervention needed but would recommend ongoing observation. Please let the patient know the result. Thanks Chirag documented in this encounter Plan of Treatment Not on filedocumented as of this encounter Procedures Procedure Name Priority Date/Time Associated Comments Diagnosis INTERPRETATION OF RAD - Routine 09/08/2020 11:24 Diffuse Large B Re sults for OUTSIDE CT ABDOMEN (most inpatients AM CDT Cell Lymphoma this procedure AND OR PELVIS and all Intra Abdominal are in the outpatients) Lymph Nodes results (HCC) section. documented in this encounter Results Interpretation of Outside CT Abdomen and or Pelvis (09/08/2020 11:24 AM CDT) Anatomical Region Laterality Modality Abdomen, Pelvis, Abdominal RST LOS, Abdominal ARZ LOS, N/A Computed Tomography Abdominal FLA LOS, Other Specimen (Source) Anatomical Collection Method Collection Time Re ceived Time Location / / Volume Laterality 09/08/2020 11:37 AM CDT Impressions 09/08/2020 11:51 AM CDT Prominent retroperitoneal nodes, predominantly left periaortic, decreased in size from 02/27/2014 when t hey were not FDG avid. This would favor treated disease. Otherwise, no new CT fi ndings for recurrent lymphoma in the abdomen or pelvis. Narrative 09/08/2020 11:51 AM CDT EXAM: ??INTERPRETATION OF OUTSIDE CT ABDOMEN AND OR PELVIS. Outside IV contrast enhanced CT of the abdomen and pelvis darya matias 08/25/2020 provided for review. COMPARISON: ??Prior [place] unenhanced CT a bdomen/pelvis 04/28/2016 and FDG PET/CT 02/27/2014. FINDINGS: ??Prominent left periaortic re troperitoneal nodes largest measuring 1.5 x 1.4 cm decreased in size from 1.9 x 1. 7 cm on the 02/27/2014 PET/CT when these nodes were not FDG avid. No new lymphade nopathy within the abdomen or pelvis. Negative spleen. Stable 3 mm nonobstructing right renal c alculus. Tiny bilateral renal cysts. Hepatic cysts. Negative pancreas and adr enal glands. Calcified uterine fibroids. Small hiatal hernia. Mild colonic divert iculosis. Moderate aortoiliac calcific atheromatous changes. Diffuse hypertroph ic disc and facet degenerative changes lumbar spine most significantly at L2-3 and L5-S1. Bilateral THAs. Procedure Note Mark Holman M.D. - 09/08/2020Formatt ing of this note might be different from the original. EXAM: INTERPRETATION OF OUTSIDE CT ABDOM EN AND OR PELVIS. Outside IV contrast enhanced CT of the abdomen and pelvis da polly 08/25/2020 provided for review. COMPARISON: Prior [place] unenhanced CT abd omen/pelvis 04/28/2016 and FDG PET/CT 02/27/2014. FINDINGS: Prominent left periaortic retr operitoneal nodes largest measuring 1.5 x 1.4 cm decreased in size from 1.9 x 1. 7 cm on the 02/27/2014 PET/CT when these nodes were not FDG avid. No new lymphade nopathy within the abdomen or pelvis. Negative spleen. Stable 3 mm nonobstructing right renal c alculus. Tiny bilateral renal cysts. Hepatic cysts. Negative pancreas and adr enal glands. Calcified uterine fibroids. Small hiatal hernia. Mild colonic divert iculosis. Moderate aortoiliac calcific atheromatous changes. Diffuse hypertroph ic disc and facet degenerative changes lumbar spine most significantly at L2-3 and L5-S1. Bilateral THAs. IMPRESSION: Prominent retroperitoneal nodes, predomi nantly left periaortic, decreased in size from 02/27/2014 when t hey were not FDG avid. This would favor treated disease. Otherwise, no new CT fi ndings for recurrent lymphoma in the abdomen or pelvis. Erik Casas M.D., Ph.D. IMG CT PROCEDURES documented in this encounter Visit Diagnoses Diagnosis Diffuse Large B Cell Lymphoma Intra Abdo deric Lymph Nodes (HCC) documented in this encounter Additional Health Concerns Assessment Noted Time PHQ-9 Depression Total Score: 3 08/31/2013 7:36 AM CDT documented as of this encounter
--- OUTSIDE RECORDS SUMMARY | 2022-05-20 12:14 | XMS_ITS | Clinical Summary ---
:1955 Author Organization [facility] Address [address] [place] [address] Care Team Providers Name Role Phone Unavailable Primary Care Provider Unavailable Source Comments Patient records contain information from all sites at [facility]. For routine questions regarding patient records, call [phone] during business hours, M-F 8:00 AM - 5:00 PM Central Time. Record requests for emergency care only can be directed to [phone] at any time.[facility] Allergies Active Allergy Reactions Severity Noted Date Comments Amoxicillin Nausea And Vomiting 08/20/2011 Ciprofloxacin GI intolerance 03/16/2021 Penicillin V GI intolerance Low 03/16/2021 Medications Medication Sig Dispensed Refills Start Date End Date Status MAGNESIUM ORAL Take 1 tablet by 0 01/24/2015 Active mouth daily. 500 mg omeprazole (PriLOSEC) Take 1 capsule by 0 10/02/[address] capsule mouth daily. simvastatin (ZOCOR) 5 Take 1 tablet by 0 09/11/2014 Active mg tablet mouth at bedtime. magnesium oxide Take 400 mg by 0 Active (MAG-OX) 400 mg (241.3 mouth at bedtime mg magnesium) tablet as needed. Active Problems Problem Noted Date Diffuse Large B Cell Lymphoma Intra Abdominal Lymph No chiara 08/07/2017 Nodular Sclerosis Classical Hodgkin Lymphoma Intra Abd ominal Lymph Nodes 08/07/2017 Hodgkins Disease 08/24/2013 Lymphoma Non Hodgkins Intrapelvic 08/22/2013 Lymphoma Large Cell Intra Abdominal 08/26/2011 Immunizations Name Administration Dates Next Due HepB Adult 01/24/2015 Hib (PRP-T) (ACTHIB, HIBERIX) 01/24/2015 IPV 01/24/2015 Influenza Split 04/13/2013 PCV13 01/24/2015, 11/13/2012 PPSV23 12/12/2012 Tdap 01/24/2015, 05/13/2011 Social History Tobacco Use Types Packs/Day Years [...] 05/28/2021 relatives? How often do you attend pentecostalism or islam Never 05/28/2021 services? Do you belong to any clubs or organizations such as No 05/28/2021 pentecostalism groups, unions, fraternal or athletic groups, or [...] place to sleep or slept in a correction (including now)? Education Answer Date Recorded What is the highest level of school you have completed or 12 th grade 05/28/2021 the highest degree you have received? Sex Assigned at Date Recorded Female 03/09/2021 10:01 AM CDT Last Filed Vital Signs Vital Sign Reading Time Taken Comments Blood Pressure 150/80 05/28/2021 1:26 PM BLOOD AND PLASMA LABORATORY ASSISTANT Pulse 84 05/28/2021 1:26 PM BLOOD AND PLASMA LABORATORY ASSISTANT Temperature 36.2 ??C (97.1 ??F) 05/28/2021 1:26 PM BLOOD AND PLASMA LABORATORY ASSISTANT Respiratory Rate 16 12/11/2013 11:15 Vital sign result AM CDT from Clinical No [place]. Oxygen Saturation - - Inhaled Oxygen - - Concentration Weight 81.5 kg (179 lb 10.8 05/28/2021 1:26 PM oz) BLOOD AND PLASMA LABORATORY ASSISTANT Height 176.3 cm (5' 9.41) 05/28/2021 1:26 PM BLOOD AND PLASMA LABORATORY ASSISTANT Body Mass Index 26.22 05/28/2021 1:26 PM BLOOD AND PLASMA LABORATORY ASSISTANT Plan of Treatment Health Maintenance Due Date Last Done Comments Bone Density Scan (Osteoporosis 1955 Screen) CT Colonography 1955 Cologuard 1955 FIT 1955 Mammogram 08/11/2013 08/11/2012 (Performed elsewhere), 08/12/2011 (Performed elsewhere) Colonoscopy 03/13/2019 03/13/2009 (Performed elsewhere), 08/11/2008 (Performed elsewhere), 06/25/2008 (Performed elsewhere) Colorectal Cancer Screening 03/13/2019 Pneumococcal vaccine (65+ years) 11/25/2020 11/26/2015, 02/2015, (4 - PPSV23 if available, else 01/24/2015, Addit ional history PCV20) exists Fasting Glucose for Diabetes 05/03/2021 05/03/2018, 017, Screening 10/21/2015, Additional history exists Depression Screening (Annual 06/13/2021 PHQ-2) Fall Risk Screen (Annual) 06/13/2021 DTaP,Tdap,and Td Vaccines (7 - Td 11/25/2025 11/26/2015, , or Tdap) 01/24/2015, Additional history exists Hepatitis B Vaccines Completed 11/26/2015, 03/21/2015, 01/24/2015 Zoster Vaccines Completed 10/13/2020, 07/03/2020, 08/09/2017 Influenza Vaccine Completed 01/25/2022, 02/26/2021, 04/02/2020, Additional history exists COVID-19 Vaccine Completed 04/01/2022, 03/05/2021, 09/09/2020, Additional history exists Medical Devices Implanted Type Area Search Engine Optimization Manager Device Shelf Model / Identifier Expiration Date Ser ial / Lot Stent Inlay 7 X 26 - Carbone [id number] Ureteral C.R.Bard Implanted: Qty: 1 on 08/27/2011 Stent Description: Device Search Engine Optimization Manager - [employer]. Device Status Text - [id number]. Stent Inlay 7 X 26 - Carbone [id number] Ureteral Stent C.R.Bard Implanted: Qty: 1 on 12/13/2011 Description: Device Search Engine Optimization Manager - [employer]. Device Status Text - [id number]. Insurance Payer Benefit Plan / Subscriber ID Effective Dates Phone Addre ss Type Group [facility] FOR [id number] 2020-Present [phone] [address] [place] [address]
--- OUTSIDE RECORDS SUMMARY | 2022-05-20 12:14 | XMS_ITS | Encounter Summary ---
:1955 Author Organization [facility] Address [address] [place] [address] Care Team Providers Name Role Phone Unavailable Primary Care Provider Unavailable Encounter Details Date Type Department Care Team Description 12/11/2013 - Hospital Encounter HX RST HEM BMT CLINIC hSeebaStephaniey 12/18/2013 Loreto KingSJimi, LD [address] [place] [address] Social History Tobacco Use Types Packs/Day Years [...] 05/28/2021 relatives? How often do you attend denominational or sikhism Never 05/28/2021 services? Do you belong to any clubs or organizations such as No 05/28/2021 denominational groups, unions, fraternal or athletic groups, or [...] place to sleep or slept in a longterm (including now)? Sex Assigned at Date Recorded [...]
--- OUTSIDE RECORDS SUMMARY | 2022-05-20 12:14 | XMS_ITS | Encounter Summary ---
:[address] [facility] [place] Address [address] [place] [address] Care Team Providers Name Role Phone Unavailable Primary Care Provider Unavailable Encounter Details Date Type Department Care Team Description 09/08/2020 Orders Only Division of Hematology Erik Casas, Diffuse Large B Cell in Frederic, Larry, Ph.D. Lymphoma Intra [place] [address] [facility] Abdominal Lymph Nodes [address] [place], [place] (HCC) (Primary Dx) [place] [phone] Social History Tobacco Use Types Packs/Day Years [...] 05/28/2021 relatives? How often do you attend orthodoxy or gnosticist Never 05/28/2021 services? Do you belong to any clubs or organizations such as No 05/28/2021 orthodoxy groups, unions, fraternal or athletic groups, or [...] place to sleep or slept in a usp (including now)? Sex Assigned at Date Recorded Female 03/09/2021 10:01 AM CDT documented as of this encounter Plan of Treatment Not on filedocumented as of this encounter Results Interpretation of Outside CT [...] enhanced CT of the abdomen and pelvis [facility] 08/25/2020 provided for review. COMPARISON: ??Prior [place] unenhanced CT a bdomen/pelvis 04/28/2016 and FDG [...] enhanced CT of the abdomen and pelvis [facility] 08/25/2020 provided for review. COMPARISON: Prior [place] unenhanced CT abd omen/pelvis 04/28/2016 and FDG [...] Abdo deric Lymph Nodes (HCC) - Primary Diffuse Large B Cell Lymphoma Intra Abdo deric Lymph Nodes (HCC) documented in this encounter Additional Health Concerns Assessment Noted Time PHQ-9 Depression Total Score: 3 08/31/2013 7:36 AM CDT documented as of this encounter
--- OUTSIDE RECORDS SUMMARY | 2022-05-20 12:14 | XMS_ITS | Encounter Summary ---
:1955 Author Organization [facility] Address [address] [place] [address] Care Team Providers Name Role Phone Unavailable Primary Care Provider Unavailable Reason for Referral Outpatient (Routine) - Authorized Specialty Diagnoses / Procedures Referred By Contact Refer red To Contact Hematology Oncology Erik Casas [place] Florence Juarez, Ph.D. [address] [place] [address] Referral ID Status Reason Start Date Expiration Date Visits V isits Requested Authorized [id number] Authorized 05/28/2021 05/28/2022 1 1 LOADER Reason for Visit Outpatient (Routine) - Closed Specialty Diagnoses / Procedures Referred By Contact Refer red To Contact Hematology Oncology Erik Casas [place] Florence Juarez, Ph.D. 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 How often do you attend episcopalian or anabaptism Never 05/28/2021 services? Do you belong to any clubs or organizations such as No 05/28/2021 episcopalian groups, unions, fraternal or athletic groups, or [...] place to sleep or slept in a chcf (including now)? Education Answer Date Recorded What is the highest level of school you have completed or 12 th grade 05/28/2021 the highest degree you have received? Sex Assigned at Date Recorded Female 03/09/2021 10:01 AM CDT documented as of this encounter Last Filed Vital Signs Vital Sign Reading Time Taken Comments Blood Pressure 150/80 05/28/2021 1:26 PM BAG LOADER Pulse 84 05/28/2021 1:26 PM BAG LOADER Temperature 36.2 ??C (97.1 ??F) 05/28/2021 1:26 PM BAG LOADER Respiratory Rate - - Oxygen Saturation - - Inhaled Oxygen Concentration - - Weight 81.5 kg (179 lb 10.8 oz) 05/28/2021 1:26 PM BAG LOADER Height 176.3 cm (5' 9.41) 05/28/2021 1:26 PM BAG LOADER Body Mass Index 26.22 05/28/2021 1:26 PM BAG LOADER documented in this encounter Progress Notes Erik Casas M.D., Ph.D. - 05/28/2021 1:30 PM CST SUBJECTIVE Referring Provider Erik Casas M.D., Ph.D. CHIEF COMPLAINT/REASON FOR VISIT Diffuse large B-cell lymphoma and Hodgkin lymphoma HISTORY OF PRESENT ILLNESS Mrs. Gallardo is a 66-year-old patient who was diagnosed with diffuse large [...] since then without any recurrence of disease. Patient continues to be followed for long-term toxicity. She returns today for a follow-up visit. Overall, she continues to do very well. She did have a right knee replacement recently and her knee is somewhat stiff. Aside from this however she is doing very well. She has no new fevers, night sweats, or weight loss. She has no new lymphadenopathy. Lab testing done today is satisfactory. The following portions of the patient's history were reviewed and updated as appropriate: current medications and problem list. REVIEW OF SYSTEMS Non-contributary OBJECTIVE Vitals: 05/28/21 1326 BP: 150/80 Pulse: 84 Temp: 36.2 ??C Height: 176.3 cm Weight: 81.5 kg TempSrc: Tympanic Body surface area is 2 meters squared. PHYSICAL EXAM General: ECOG performance score 1 Skin: Normal ENT: No evidence of Waldeyer's [...] Lymphoma Intra Abdominal Lymph Nodes (HCC) I discussed with the patient that she continues to do well. She remains in complete remission with no evidence of disease activity. I therefore recommended that we continue to observe her without any treatment. Plan: 1. The patient will return again for a follow-up visit in 1 year. I do not plan to do any imaging studies unless she develops new symptoms suspicious for disease activity. 2. I encouraged the patient to contact me at any time in the interim if new problems arise. Follow-up: Return to clinic in 1 [...] above. Signed by: Erik Casas M.D., Ph.D. 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) Bilirubin, Total Lab Routine Diffuse Large B Cell Exp ected: 05/28/2022 Lymphoma Intra Abdominal (Ap proximate), Lymph Nodes (HCC ) Expires: 05/28/2024 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) Calcium, Total Lab Routine Diffuse Large B Cell Expec polly: 05/28/2022 Lymphoma Intra Abdominal (Ap proximate), Lymph Nodes (HCC ) Expires: 05/28/2024 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) CBC with Differential, Lab Routine Diffuse Large B Ce ll Expected: 05/28/2022 Blood Lymphoma Intra Abdominal (Ap proximate), Lymph Nodes (HCC ) Expires: 05/28/2024 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) Creatinine with Estimated Lab Routine Diffuse Large B Cell Expected: 05/28/2022 GFR Lymphoma Intra Abdominal (Ap proximate), Lymph Nodes (HCC ) Expires: 05/28/2024 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) LD (Lactate Lab Routine Diffuse Large B Cell Expecte d: 05/28/2022 Dehydrogenase) Lymphoma Intra Abdominal ( Approximate), Lymph Nodes (HCC ) Expires: 05/28/2024 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) Potassium Lab Routine Diffuse Large B Cell Expecte d: 05/28/2022 Lymphoma Intra Abdominal (Ap proximate), Lymph Nodes (HCC ) Expires: 05/28/2024 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
--- OUTSIDE RECORDS SUMMARY | 2022-05-20 12:14 | XMS_ITS | Encounter Summary ---
:1955 Author Organization [facility] Address [address] [place] [address] Care Team Providers Name Role Phone Unavailable Primary Care Provider Unavailable Reason for Visit Reason Comments Treatment letter Encounter Details Date Type Department Care Team Description 05/01/2020 Clinical Nadya Bruce ent letter Communication Center for Shyanne Mtz, Ph.D. Clinical Regeneration [address] [place] [address] in [facility] [phone] [place] [address] [place], [place] (Work) [phone] Social History Tobacco Use Types Packs/Day Years [...] 05/28/2021 relatives? How often do you attend moravian or latter-day Never 05/28/2021 services? Do you belong to any clubs or organizations such as No 05/28/2021 moravian groups, unions, fraternal or athletic groups, or [...] place to sleep or slept in a fdc (including now)? Sex Assigned at Date Recorded Female 03/09/2021 10:01 AM CDT documented as of this encounter Miscellaneous Notes Telephone Encounter - Valecnia Wynn M.A.N., R.N. - 05/01/2020 4:31 PM BOARDER MACHINE Treatment letter created and sent. You can cancel the labs. Kanchan, Chela DER MACHINE Telephone Encounter - Valencia Wynn M.A.N., R.N. - 05/01/2020 4:27 PM BOARDER MACHINE Fax number is [phone] DER MACHINE Telephone Encounter - Fela Lanier - 05/01/2020 3:14 PM CST Patient will be going to an appointment with the [facility], could you please send a treatment letter for the labs Dr. Casas would like for her to have drawn on May 05. [facility] Phone Number is: [phone] Thank you, Fela DER MACHINE documented in this encounter Plan of Treatment Not on filedocumented as of this encounter Visit Diagnoses Not on filedocumented in this encounter Additional Health Concerns Assessment Noted Time PHQ-9 Depression Total Score: 3 08/31/2013 7:36 AM CDT documented as of this encounter
--- OUTSIDE RECORDS SUMMARY | 2022-05-20 12:15 | XMS_ITS | Encounter Summary ---
:1955 Author Organization [facility] Address [address] [place] [address] Care Team Providers Name Role Phone Unavailable Primary Care Provider Unavailable Encounter Details Date Type Department Care Team Description 12/12/2013 Hospital Encounter HX RST [place] KIDNEY Fettes, Alexander T, PANCREAS P.A.-C. Social History Tobacco Use Types Packs/Day Years [...] 05/28/2021 relatives? How often do you attend jewish or hindu Never 05/28/2021 services? Do you belong to any clubs or organizations such as No 05/28/2021 jewish groups, unions, fraternal or athletic groups, or [...] place to sleep or slept in a retirement (including now)? Sex Assigned at Date Recorded [...]
--- OUTSIDE RECORDS SUMMARY | 2022-05-20 12:15 | XMS_ITS | Encounter Summary ---
:1955 Author Organization [facility] Address [address] [place] [address] Care Team Providers Name Role Phone Unavailable Primary Care Provider Unavailable Encounter Details Date Type Department Care Team Description 11/27/2013 - Hospital Encounter HX RST [place] BMT OP [facility] Mandie Brown , 12/04/2013 PBertinC. Social History Tobacco Use Types Packs/Day Years [...] 05/28/2021 relatives? How often do you attend quaker or holiness Never 05/28/2021 services? Do you belong to any clubs or organizations such as No 05/28/2021 quaker groups, unions, fraternal or athletic groups, or [...] Sign Reading Time Taken Comments Blood Pressure 113/65 11/27/2013 2:00 PM CDT Pulse 106 11/27/2013 2:00 PM CDT Temperature - - Respiratory Rate 16 11/27/2013 2:00 PM CDT Oxygen Saturation - - Inhaled Oxygen Concentration - - Weight - - Height - - Body Mass Index - - documented in this encounter Medications at Time [...]
--- OUTSIDE RECORDS SUMMARY | 2022-05-20 12:15 | XMS_ITS | Encounter Summary ---
:1955 Author Organization [facility] Address [address] [place] [address] Care Team Providers Name Role Phone Unavailable Primary Care Provider Unavailable Encounter Details Date Type Department Care Team Description 12/08/2013 - 12/15/2013 Hospital Encounter HX NO MAPPING Social History Tobacco Use Types Packs/Day Years [...] 05/28/2021 relatives? How often do you attend cheondoism or anabaptist Never 05/28/2021 services? Do you belong to any clubs or organizations such as No 05/28/2021 cheondoism groups, unions, fraternal or athletic groups, or [...]
--- OUTSIDE RECORDS SUMMARY | 2022-05-20 12:15 | XMS_ITS | Encounter Summary ---
:1955 Author Organization [facility] Address [address] [place] [address] Care Team Providers Name Role Phone Unavailable Primary Care Provider Unavailable Encounter Details Date Type Department Care Team Description 12/09/2013 - Hospital Encounter HX RST [place] BMT NURSE Edelmira Giles nnromel 12/16/2013 OP [facility] Carlyle, BREAD MOLDER, C.N.P., D.N.P. [address] [place] [address] Social History Tobacco Use Types Packs/Day Years [...] How often do you attend denominational or yazdanism Never 05/28/2021 services? Do you belong to [...]
--- OUTSIDE RECORDS SUMMARY | 2022-05-20 12:15 | XMS_ITS | Encounter Summary ---
:1955 Author Organization [facility] Address [address] [place] [address] Care Team Providers Name Role Phone Unavailable Primary Care Provider Unavailable Encounter Details Date Type Department Care Team Description 12/10/2013 - Hospital Encounter HX RST TX BMT OP [facility] Paula Jacobson, 12/17/2013 P.A.-C. [address] [place] [address] Social History Tobacco Use Types Packs/Day Years [...] 05/28/2021 relatives? How often do you attend hinduism or sabianist Never 05/28/2021 services? Do you belong to any clubs or organizations such as No 05/28/2021 hinduism groups, unions, fraternal or athletic groups, or [...]
--- OUTSIDE RECORDS SUMMARY | 2022-05-20 12:15 | XMS_ITS | Encounter Summary ---
:1955 Author Organization [facility] Address [address] [place] [address] Care Team Providers Name Role Phone Unavailable Primary Care Provider Unavailable Encounter Details Date Type Department Care Team Description 11/27/2013 - Hospital Encounter HX RST UNIT 9-4 Fabian Seaman, 12/08/2013 HEM/ONC MSean, B.Ch. [address] [place] [address] Social History Tobacco Use Types Packs/Day Years [...] 05/28/2021 relatives? How often do you attend scientologist or sabianism Never 05/28/2021 services? Do you belong to any clubs or organizations such as No 05/28/2021 scientologist groups, unions, fraternal or athletic groups, or [...] place to sleep or slept in a care home (including now)? Sex Assigned at Date Recorded Female 03/09/2021 10:01 AM CDT documented as of this encounter Last Filed Vital Signs Vital Sign Reading Time Taken Comments Blood Pressure 121/65 12/08/2013 12:14 NIBP - Value fr om PM CDT [facility]. Pulse 85 12/08/2013 12:14 [facility]. PM CDT Temperature - - Respiratory Rate 20 12/08/2013 12:13 Value from [employer] rtplus. PM CDT Oxygen Saturation - - Inhaled Oxygen - - Concentration Weight 90.8 kg (200 lb 2.8 12/08/2013 7:24 AM oz) CDT Height 174 cm (5' 8.5) 11/27/2013 7:12 PM CDT Body Mass Index 29.99 11/27/2013 7:12 PM CDT documented in this encounter Medications at Time of Discharge Medication Sig Dispensed Refills Start Date End Date omeprazole (PriLOSEC) 20 Take 1 capsule by 0 09/[address] capsule mouth daily. documented as of this encounter Plan of Treatment Not on filedocumented as of this encounter Procedures Procedure Name Priority Date/Time Associated Comments Diagnosis CBC TYPE AND SCREEN Routine 12/10/2013 2:31 Resul ts for this PM CDT procedure are i n the results section. BUN (BLOOD UREA Routine 12/10/2013 2:31 Results f or this NITROGEN), S/P PM CDT procedure are in the results section. ASPARTATE Routine 12/10/2013 2:31 Results for this AMINOTRANSFERASE (AST), PM CDT proc edure are in S/P the results section. SODIUM, S/P Routine 12/10/2013 2:31 Results for this PM CDT procedure are i n the results section. POTASSIUM, S/P Routine 12/10/2013 2:31 Results fo r this PM CDT procedure are i n the results section. PHOSPHORUS (INORGANIC), Routine 12/10/2013 2:31 R esults for this S PM CDT procedure are i n the results section. ALKALINE PHOSPHATASE, Routine 12/10/2013 2:31 Res ults for this S/P PM CDT procedure are i n the results section. MAGNESIUM, S Routine 12/10/2013 2:31 Results for this PM CDT procedure are i n the results section. CREATININE WITH EGFR, Routine 12/10/2013 2:31 Res ults for this S/P PM CDT procedure are i n the results section. BILIRUBIN, TOT, S/P Routine 12/10/2013 2:31 Resul ts for this PM CDT procedure are i n the results section. CBC TYPE AND SCREEN Routine 12/09/2013 11:54 Resu lts for this AM CDT procedure are i n the results section. ASPARTATE Routine 12/09/2013 11:54 Results for this AMINOTRANSFERASE (AST), AM CDT proc edure are in S/P the results section. SODIUM, S/P Routine 12/09/2013 11:54 Results for this AM CDT procedure are i n the results section. POTASSIUM, S/P Routine 12/09/2013 11:54 Results f or this AM CDT procedure are i n the results section. PHOSPHORUS (INORGANIC), Routine 12/09/2013 11:54 Results for this S AM CDT procedure are i n the results section. MAGNESIUM, S Routine 12/09/2013 11:54 Results for this AM CDT procedure are i n the results section. CREATININE WITH EGFR, Routine 12/09/2013 11:54 Re sults for this S/P AM CDT procedure are i n the results section. BILIRUBIN, TOT, S/P Routine 12/09/2013 11:54 Resu lts for this AM CDT procedure are i n the results section. ELECTROLYTE (CHEM 4) Routine 12/08/2013 3:33 Resu lts for this PANEL, S/P AM CDT procedure are i n the results section. CBC TYPE AND SCREEN Routine 12/08/2013 3:33 Resul ts for this AM CDT procedure are i n the results section. ASPARTATE Routine 12/08/2013 3:33 Results for this AMINOTRANSFERASE (AST), AM CDT proc edure are in S/P the results section. PHOSPHORUS (INORGANIC), Routine 12/08/2013 3:33 R esults for this S AM CDT procedure are i n the results section. MAGNESIUM, S Routine 12/08/2013 3:33 Results for this AM CDT procedure are i n the results section. ELECTROLYTE (CHEM 4) Routine 12/07/2013 3:32 Resu lts for this PANEL, S/P AM CDT procedure are i n the results section. CBC TYPE AND SCREEN Routine 12/07/2013 3:32 Resul ts for this AM CDT procedure are i n the results section. PHOSPHORUS (INORGANIC), Routine 12/07/2013 3:32 R esults for this S AM CDT procedure are i n the results section. MAGNESIUM, S Routine 12/07/2013 3:32 Results for this AM CDT procedure are i n the results section. VRE PCR Routine 12/06/2013 9:49 Results for this AM CDT procedure are i n the results section. PREPARE PLATELETS Routine 12/06/2013 7:15 Results for this AM CDT procedure are i n the results section. ELECTROLYTE (CHEM 4) Routine 12/06/2013 3:47 Resu lts for this PANEL, S/P AM CDT procedure are i n the results section. CBC TYPE AND SCREEN Routine 12/06/2013 3:47 Resul ts for this AM CDT procedure are i n the results section. ASPARTATE Routine 12/06/2013 3:47 Results for this AMINOTRANSFERASE (AST), AM CDT proc edure are in S/P the results section. PHOSPHORUS (INORGANIC), Routine 12/06/2013 3:47 R esults for this S AM CDT procedure are i n the results section. ALKALINE PHOSPHATASE, Routine 12/06/2013 3:47 Res ults for this S/P AM CDT procedure are i n the results section. MAGNESIUM, S Routine 12/06/2013 3:47 Results for this AM CDT procedure are i n the results section. CALCIUM, IONIZED, S/B Routine 12/06/2013 3:47 Res ults for this AM CDT procedure are i n the results section. BILIRUBIN, TOT, S/P Routine 12/06/2013 3:47 Resul ts for this AM CDT procedure are i n the results section. ELECTROLYTE (CHEM 4) Routine 12/05/2013 5:25 Resu lts for this PANEL, S/P PM CDT procedure are i n the results section. PHOSPHORUS (INORGANIC), Routine 12/05/2013 5:25 R esults for this S PM CDT procedure are i n the results section. ELECTROLYTE (CHEM 4) Routine 12/05/2013 3:18 Resu lts for this PANEL, S/P AM CDT procedure are i n the results section. CBC TYPE AND SCREEN Routine 12/05/2013 3:18 Resul ts for this AM CDT procedure are i n the results section. ASPARTATE Routine 12/05/2013 3:18 Results for this AMINOTRANSFERASE (AST), AM CDT proc edure are in S/P the results section. PHOSPHORUS (INORGANIC), Routine 12/05/2013 3:18 R esults for this S AM CDT procedure are i n the results section. MAGNESIUM, S Routine 12/05/2013 3:18 Results for this AM CDT procedure are i n the results section. BILIRUBIN, TOT, S/P Routine 12/05/2013 3:18 Resul ts for this AM CDT procedure are i n the results section. ELECTROLYTE (CHEM 4) Routine 12/04/2013 2:43 Resu lts for this PANEL, S/P AM CDT procedure are i n the results section. CBC TYPE AND SCREEN Routine 12/04/2013 2:43 Resul ts for this AM CDT procedure are i n the results section. ASPARTATE Routine 12/04/2013 2:43 Results for this AMINOTRANSFERASE (AST), AM CDT proc edure are in S/P the results section. PHOSPHORUS (INORGANIC), Routine 12/04/2013 2:43 R esults for this S AM CDT procedure are i n the results section. MAGNESIUM, S Routine 12/04/2013 2:43 Results for this AM CDT procedure are i n the results section. VRE PCR Routine 12/03/2013 3:18 Results for this PM CDT procedure are i n the results section. PREPARE PLATELETS Routine 12/03/2013 6:30 Results for this AM CDT procedure are i n the results section. PREPARE RED BLOOD CELLS Routine 12/03/2013 6:29 R esults for this AM CDT procedure are i n the results section. ELECTROLYTE (CHEM 4) Routine 12/03/2013 4:01 Resu lts for this PANEL, S/P AM CDT procedure are i n the results section. CBC NO CALL BACK, REFLEX Routine 12/03/2013 4:01 Results for this T/S AM CDT procedure are i n the results section. ASPARTATE Routine 12/03/2013 4:01 Results for this AMINOTRANSFERASE (AST), AM CDT proc edure are in S/P the results section. PHOSPHORUS (INORGANIC), Routine 12/03/2013 4:01 R esults for this S AM CDT procedure are i n the results section. ALKALINE PHOSPHATASE, Routine 12/03/2013 4:01 Res ults for this S/P AM CDT procedure are i n the results section. MAGNESIUM, S Routine 12/03/2013 4:01 Results for this AM CDT procedure are i n the results section. CALCIUM, IONIZED, S/B Routine 12/03/2013 4:01 Res ults for this AM CDT procedure are i n the results section. BILIRUBIN, TOT, S/P Routine 12/03/2013 4:01 Resul ts for this AM CDT procedure are i n the results section. PREPARE RED BLOOD CELLS Routine 12/02/2013 6:06 R esults for this AM CDT procedure are i n the results section. PREPARE PLATELETS Routine 12/02/2013 4:31 Results for this AM CDT procedure are i n the results section. ELECTROLYTE (CHEM 4) Routine 12/02/2013 4:15 Resu lts for this PANEL, S/P AM CDT procedure are i n the results section. CBC NO CALL BACK, REFLEX Routine 12/02/2013 4:15 Results for this T/S AM CDT procedure are i n the results section. ASPARTATE Routine 12/02/2013 4:15 Results for this AMINOTRANSFERASE (AST), AM CDT proc edure are in S/P the results section. ELECTROLYTE (CHEM 4) Routine 12/01/2013 4:27 Resu lts for this PANEL, S/P AM CDT procedure are i n the results section. CBC NO CALL BACK, REFLEX Routine 12/01/2013 4:27 Results for this T/S AM CDT procedure are i n the results section. ASPARTATE Routine 12/01/2013 4:27 Results for this AMINOTRANSFERASE (AST), AM CDT proc edure are in S/P the results section. MAGNESIUM, S Routine 12/01/2013 4:27 Results for this AM CDT procedure are i n the results section. ABORH, RBC Routine 11/30/2013 7:29 Results for this AM CDT procedure are i n the results section. ANTIBODY SCREEN, B Routine 11/30/2013 7:29 Result s for this AM CDT procedure are i n the results section. PREPARE PLATELETS Routine 11/30/2013 7:27 Results for this AM CDT procedure are i n the results section. ELECTROLYTE (CHEM 4) Routine 11/30/2013 4:37 Resu lts for this PANEL, S/P AM CDT procedure are i n the results section. CBC TYPE AND SCREEN Routine 11/30/2013 4:37 Resul ts for this AM CDT procedure are i n the results section. ASPARTATE Routine 11/30/2013 4:37 Results for this AMINOTRANSFERASE (AST), AM CDT proc edure are in S/P the results section. MAGNESIUM, S Routine 11/30/2013 4:37 Results for this AM CDT procedure are i n the results section. VRE PCR Routine 11/29/2013 12:35 Results for this PM CDT procedure are i n the results section. PREPARE PLATELETS Routine 11/29/2013 6:56 Results for this AM CDT procedure are i n the results section. ELECTROLYTE (CHEM 4) Routine 11/29/2013 3:04 Resu lts for this PANEL, S/P AM CDT procedure are i n the results section. CBC NO CALL BACK, REFLEX Routine 11/29/2013 3:04 Results for this T/S AM CDT procedure are i n the results section. ASPARTATE Routine 11/29/2013 3:04 Results for this AMINOTRANSFERASE (AST), AM CDT proc edure are in S/P the results section. MAGNESIUM, S Routine 11/29/2013 3:04 Results for this AM CDT procedure are i n the results section. HX BACTERIAL ENTER Routine 11/28/2013 8:31 Result s for this PATHOGENS, PCR, F AM CDT procedure are in the results section. C. DIFFICILE TOXIN PCR, Routine 11/28/2013 8:31 R esults for this F AM CDT procedure are i n the results section. ELECTROLYTE (CHEM 4) Routine 11/28/2013 4:10 Resu lts for this PANEL, S/P AM CDT procedure are i n the results section. CBC NO CALL BACK, REFLEX Routine 11/28/2013 4:10 Results for this T/S AM CDT procedure are i n the results section. ASPARTATE Routine 11/28/2013 4:10 Results for this AMINOTRANSFERASE (AST), AM CDT proc edure are in S/P the results section. HX MICROBIOLOGY REPORTS Routine 11/27/2013 6:59 R esults for this PM CDT procedure are i n the results section. GRAM'S STAIN, Routine 11/27/2013 6:59 Results for this CONFIRMATORY, U PM CDT procedure ar e in the results section. GRAM'S ST, U Routine 11/27/2013 6:59 Results for this PM CDT procedure are i n the results section. VRE PCR Routine 11/27/2013 5:35 Results for this PM CDT procedure are i n the results section. PREPARE PLATELETS Routine 11/27/2013 1:04 Results for this PM CDT procedure are i n the results section. documented in this encounter Results (ABNORMAL) BUN (Blood Urea Nitrogen) (12/10/2013 2:31 PM CDT) athologist Signature BUN (Blood 4 (L) 6 - 21 [facility] Urea MG/DL LABORATORIES - Nitrogen), S [facility] Comment: Palindrome line Specimen Anatomical Collection Method Collection Time Receive d Time (Source) Location / / Volume Laterality 12/10/2013 2:31 PM 201 4 2:31 CDT PM CDT Narrative [facility] - 12/10/2013 3:53 PM CDT Palindrome line Kathrine Gandhi M.D. LAB BLOOD ADD-ON Performing Organization Address City/State/ZIP Code Phon e Number [facility]IES - [address] [phone] 05 [facility] Bilirubin, Total (12/10/2013 2:31 PM CDT) athologist Signature Bilirubin, 0.4 0.1 - 1.0 [facility] Total, S MG/DL [facility] Comment: Palindrome line Specimen Anatomical Collection Method Collection Time Receive d Time (Source) Location / / Volume Laterality 12/10/2013 2:31 PM 4 2:31 CDT PM CDT Narrative [facility] - 12/10/2013 3:53 PM CDT Palindrome line Authorizing Provider Result Martha Gandhi M.D. LAB BLOOD ADD-ON Performing Organization Address City/[facility]/ZIP Code Phon e Number [facility] - [address] [phone] 05 [facility] Sodium (12/10/2013 2:31 PM CDT) athologist Signature Sodium, S 137 135 - 145 [facility] MMOL/L [facility] Comment: Palindrome line Specimen Anatomical Collection Method Collection Time Receive d Time (Source) Location / / Volume Laterality 12/10/2013 2:31 PM 4 2:31 CDT PM CDT Narrative [facility] - 12/10/2013 3:53 PM CDT Palindrome line Authorizing Provider Result Martha Gandhi M.D. LAB BLOOD ADD-ON Performing Organization Address City/State/ZIP Code Phon e Number [facility] - [address] [place] [phone] 05 [facility] (ABNORMAL) CBC with Differential, Type and Screen (12/10/2013 2:31 PM CDT) athologist Signature Hemoglobin 9.8 (L) 12.0 - [facility] 15.5 G/DL [facility] Comment: Palindrome line Hematocrit 29.5 (L) 34.9 - 44.5 % [facility] Comment: Palindrome line RBC Distrib Width 17.1 (H) 11.9 - 15.5 % [facility] Comment: Palindrome line Platelet Count 62 (L) 150 - 450 X10(9)/L [facility] Comment: Palindrome line Lymphocytes 1.24 0.90 - 2.90 X10(9)/L [facility] Comment: Palindrome line Monocytes 1.12 (H) 0.30 - 0.90 X10(9)/L [facility] Comment: Palindrome line Erythrocytes 3.28 (L) 3.90 - 5.03 X10(12)/L [facility] Comment: Palindrome line MCV 89.9 81.6 - 98.3 [place] [facility] Comment: Palindrome line Leukocytes 4.4 3.5 - 10.5 X10(9)/L [facility] Comment: Palindrome line Neutrophils 1.94 1.70 - 7.00 X10(9)/L [facility] Comment: Palindrome line Eosinophils 0.04 (L) 0.05 - 0.50 X10(9)/L [facility] Comment: Palindrome line Basophils 0.02 0.00 - 0.30 X10(9)/L [facility] Comment: Palindrome line Specimen Anatomical Collection Method Collection Time Receive d Time (Source) Location / / Volume Laterality 12/10/2013 2:31 PM 4 2:31 CDT PM CDT Narrative [facility] - 12/10/2013 2:54 PM CDT Palindrome line Kathrine Gandhi M.D. LAB BLOOD NON ADD-ON Performing Organization Address City/State/ZIP Code Phon e Number [facility] - [address] [phone] 05 [facility] AST (Aspartate Aminotransferase) (12/10/2013 2:31 PM CDT) P athologist Signature AST, Total, S 23 8 - 43 U/L [facility] Comment: Palindrome line Specimen Anatomical Collection Method Collection Time Receive d Time (Source) Location / / Volume Laterality 12/10/2013 2:31 PM 4 2:31 CDT PM CDT Narrative [facility] - 12/10/2013 3:53 PM CDT Palindrome line Authorizing Provider Result Martha Gandhi M.D. LAB BLOOD ADD-ON Performing Organization Address City/[facility]/ZIP Code Phon e Number [facility] - [address] [phone] 05 [facility] Alkaline Phosphatase (12/10/2013 2:31 PM CDT) P athologist Signature Alkaline 76 46 - 118 [facility] Phosphatase, S U/L [facility] Comment: Palindrome line Specimen Anatomical Collection Method Collection Time Receive d Time (Source) Location / / Volume Laterality 12/10/2013 2:31 PM 4 2:31 CDT PM CDT Narrative [facility] - 12/10/2013 3:53 PM CDT Palindrome line Authorizing Provider Result Martha Gandhi M.D. LAB BLOOD ADD-ON Performing Organization Address City/[facility]/ZIP Code Phon e Number [facility] - [address] [phone] 05 [facility] (ABNORMAL) Magnesium (12/10/2013 2:31 PM CDT) Analysis Performed At Patho logist Time Signature Magnesium, S 1.6 (L) 1.7 - 2.3 [facility] MG/DL [facility] Comment: Palindrome line Specimen Anatomical Collection Method Collection Time Receive d Time (Source) Location / / Volume Laterality 12/10/2013 2:31 PM 4 2:31 CDT PM CDT Narrative [facility] - 12/10/2013 3:53 PM CDT Palindrome line Kathrine N Micallef M.D. LAB BLOOD ADD-ON Performing Organization Address City/[facility]/ZIP Code Phon e Number [facility] - [address] [phone] [facility] (ABNORMAL) Potassium (12/10/2013 2:31 PM CDT) Analysis Performed At Patho logist Time Signature Potassium, S 3.4 (L) 3.6 - 5.2 [facility] MMOL/L [facility] Comment: Palindrome line Specimen Anatomical Collection Method Collection Time Receive d Time (Source) Location / / Volume Laterality 12/10/2013 2:31 PM 4 2:31 CDT PM CDT Narrative [facility] - 12/10/2013 3:53 PM CDT Palindrome line Authorizing Provider Result Martha Gandhi M.D. LAB BLOOD ADD-ON Performing Organization Address City/[facility]/ZIP Code Phon e Number [facility] - [address] [phone] 05 [facility] Creatinine with Estimated GFR (MDRD) (12/10/2013 2:31 PM CDT) P athologist Signature Creatinine 0.7 0.6 - 1.1 [facility] MG/DL [facility] Comment: Palindrome line eGFR Non-Black/ >60 >60 ML/MIN/BSA [facility] S Comment: Palindrome line eGFR-Black/ >60 >60 ML/MIN/BSA [facility] S Comment: Palindrome line Specimen Anatomical Collection Method Collection Time Receive d Time (Source) Location / / Volume Laterality 12/10/2013 2:31 PM 4 2:31 CDT PM CDT Narrative [facility] - 12/10/2013 3:53 PM CDT Palindrome line Authorizing Provider Result Martha Gandhi M.D. LAB BLOOD ADD-ON Performing Organization Address City/[facility]/ZIP Code Phon e Number [facility] - [address] [phone] [facility] (ABNORMAL) Phosphorus Inorganic (12/10/2013 2:31 PM CDT) Patholo gist Method Time Signature Phosphorus 1.1 (L) 2.5 - 4.5 [facility] (Inorganic), S MG/DL [facility] Comment: Palindrome line Specimen Anatomical Collection Method Collection Time Receive d Time (Source) Location / / Volume Laterality 12/10/2013 2:31 PM 4 2:31 CDT PM CDT Narrative [facility] - 12/10/2013 3:53 PM CDT Palindrome line Kathrine Gandhi M.D. LAB BLOOD ADD-ON Performing Organization Address City/[facility]/ZIP Code Phon e Number [facility] - [address] [place] [address] [facility] (ABNORMAL) Phosphorus Inorganic (12/09/2013 11:54 AM CDT) Patholo gist Method Time Signature Phosphorus 1.2 (L) 2.5 - 4.5 [facility] (Inorganic), S MG/DL [facility] Specimen Anatomical Collection Method Collection Time Receive d Time (Source) Location / / Volume Laterality 12/09/2013 11:54 12/09/2013 AM CDT 11:54 AM CDT Karan Brennan M.D. LAB BLOOD ADD-ON Performing Organization Address City/State/ZIP Code Phon e Number [facility] - [address] [place] [address] [facility] Magnesium (12/09/2013 11:54 AM CDT) P athologist Signature Magnesium, S 1.7 1.7 - 2.3 [facility] MG/DL [facility] Specimen Anatomical Collection Method Collection Time Receive d Time (Source) Location / / Volume Laterality 12/09/2013 11:54 12/09/2013 AM CDT 11:54 AM CDT Karan Brennan M.D. LAB BLOOD ADD-ON Performing Organization Address City/State/ZIP Code Phon e Number [facility] - [address] [place] [address] [facility] Creatinine with Estimated GFR (MDRD) (12/09/2013 11:54 AM CDT) Analysis Performed At Patho logist Time Signature eGFR-Black/Afri >60 >60 [facility] can Kosovan ML/MIN/BSA [facility] Creatinine 0.7 0.6 - 1.1 [facility] MG/DL [facility] eGFR >60 >60 [facility] Non-Black/Afric ML/MIN/BSA LABORATORIES - an Kosovan [facility] Specimen Anatomical Collection Method Collection Time Receive d Time (Source) Location / / Volume Laterality 12/09/2013 11:54 12/09/2013 AM CDT 11:54 AM CDT Karan Brennan M.D. LAB BLOOD ADD-ON Performing Organization Address City/[facility]/ZIP Code Phon e Number [facility] - [address] [phone] [facility] (ABNORMAL) Potassium (12/09/2013 11:54 AM CDT) Analysis Performed At Patho logist Time Signature Potassium, S 3.5 (L) 3.6 - 5.2 [facility] MMOL/L LABORATORIES - [facility] Specimen Anatomical Collection Method Collection Time Receive d Time (Source) Location / / Volume Laterality 12/09/2013 11:54 12/09/2013 AM CDT 11:54 AM CDT Karan Brennan M.D. LAB BLOOD ADD-ON Performing Organization Address City/[facility]/ZIP Code Phon e Number [facility] - [address] [phone] [facility] Bilirubin, Total (12/09/2013 11:54 AM CDT) P athologist Signature Bilirubin, 0.4 0.1 - 1.0 [facility] Total, S MG/DL [facility] - [facility] Specimen Anatomical Collection Method Collection Time Receive d Time (Source) Location / / Volume Laterality 12/09/2013 11:54 12/09/2013 AM CDT 11:54 AM CDT Karan Brennan M.D. LAB BLOOD ADD-ON Performing Organization Address City/State/ZIP Code Phon e Number [facility] - [address] [phone] 05 [facility] Sodium (12/09/2013 11:54 AM CDT) P athologist Signature Sodium, S 139 135 - 145 [facility] MMOL/L LABORATORIES [facility] Specimen Anatomical Collection Method Collection Time Receive d Time (Source) Location / / Volume Laterality 12/09/2013 11:54 12/09/2013 AM CDT 11:54 AM CDT Karan Brennan M.D. LAB BLOOD ADD-ON Performing Organization Address City/State/[facility] Code Phon e Number [facility] - [address] [place] [address] [facility] (ABNORMAL) CBC with Differential, Type and Screen (12/09/2013 11:54 AM CDT) Patholo gist Method Time Signature Hemoglobin 8.8 (L) 12.0 - [facility] 15.5 G/DL LABORATORIES - [facility] Hematocrit 26.7 (L) 34.9 - [facility] 44.5 % LABORATORIES - [facility] RBC Distrib 17.5 (H) 11.9 - [facility] Width 15.5 % LABORATORIES - [facility] Platelet Count 44 (L) 150 - 450 [facility] X10(9)/L LABORATORIES [facility] Lymphocytes 1.17 0.90 - [facility] 2.90 LABORATORIES - X10(9)/L [facility] Monocytes 1.07 (H) 0.30 - [facility] 0.90 LABORATORIES - X10(9)/L [facility] Erythrocytes 2.94 (L) 3.90 - [facility] 5.03 LABORATORIES - X10(12)/L [facility] MCV 90.8 81.6 - [facility] 98.3 FL LABORATORIES - [facility] Leukocytes 4.2 3.5 - [facility] 10.5 LABORATORIES - X10(9)/L [facility] Neutrophils 1.94 1.70 - [facility] 7.00 LABORATORIES - X10(9)/L [facility] Eosinophils 0.02 (L) 0.05 - [facility] 0.50 LABORATORIES - X10(9)/L [facility] Basophils 0.02 0.00 - [facility] 0.30 LABORATORIES - X10(9)/L [facility] Specimen Anatomical Collection Method Collection Time Receive d Time (Source) Location / / Volume Laterality 12/09/2013 11:54 12/09/2013 AM CDT 11:54 AM CDT Karan Brennan M.D. LAB BLOOD NON ADD-ON Performing Organization Address City/State/[facility] Code Phon e Number [facility] LABORATORIES - [address] [phone] 05 [facility] AST (Aspartate Aminotransferase) (12/09/2013 11:54 AM CDT) P athologist Signature AST, Total, S 17 8 - 43 U/L [facility] Specimen Anatomical Collection Method Collection Time Receive d Time (Source) Location / / Volume Laterality 12/09/2013 11:54 12/09/2013 AM CDT 11:54 AM CDT Karan Brennan M.D. LAB BLOOD ADD-ON Performing Organization Address City/State/ZIP Code Phon e Number [facility] LABORATORIES - [address] [place], [place] [address] [facility] (ABNORMAL) CBC with Differential, Type and Screen (12/08/2013 3:33 AM CDT) [facility] Method Time Signature Erythrocytes 2.82 (L) 3.90 - [facility] 5.03 LABORATORIES - X10(12)/L [facility] MCV 90.8 81.6 - [facility] 98.3 [place] LABORATORIES - [facility] RBC Distrib 17.9 (H) 11.9 - [facility] Width 15.5 % LABORATORIES [facility] Neutrophils 1.10 (L) 1.70 - [facility] 7.00 LABORATORIES - X10(9)/L [facility] Eosinophils 0.01 (L) 0.05 - [facility] 0.50 LABORATORIES - X10(9)/L [facility] Basophils 0.02 0.00 - [facility] 0.30 LABORATORIES - X10(9)/L [facility] Hemoglobin 8.5 (L) 12.0 - [facility] 15.5 G/DL LABORATORIES - [facility] Hematocrit 25.6 (L) 34.9 - [facility] 44.5 % LABORATORIES - [facility] Lymphocytes 1.37 0.90 - [facility] 2.90 LABORATORIES - X10(9)/L [facility] Monocytes 1.10 (H) 0.30 - [facility] 0.90 LABORATORIES - X10(9)/L [facility] Platelet Count 38 (L) 150 - 450 [facility] X10(9)/L LABORATORIES [facility] Comment: Results confirmed by smear. Leukocytes 3.6 3.5 - 10.5 X10(9)/L [facility] LABORATORIES - [facility] Comment: Results confirmed by smear. Specimen Anatomical Collection Method Collection Time Receive d Time (Source) Location / / Volume Laterality 12/08/2013 3:33 AM 4 3:33 CDT AM CDT Karan Brennan M.D. LAB BLOOD NON ADD-ON Performing Organization Address City/State/ZIP Code Phon e Number [facility] LABORATORIES - [address] [place], [place] [address] [facility] (ABNORMAL) Electrolyte (Chem 4) Panel (12/08/2013 3:33 AM CDT) Patholo gist Method Time Signature Chloride, S 108 (H) 98 - 107 [facility] MMOL/L LABORATORIES - [facility] HX Bicarbonate, 22 22 - 29 [facility] P/S MMOL/L LABORATORIES - [facility] Anion Gap 12 7 - 15 [facility] LABORATORIES - [facility] Glucose, S 86 70 - 140 [facility] MG/DL LABORATORIES - [facility] Sodium, S 142 135 - 145 [facility] MMOL/L LABORATORIES - [facility] Potassium, S 3.3 (L) 3.6 - 5.2 [facility] MMOL/L LABORATORIES - [facility] Creatinine 0.8 0.6 - 1.1 [facility] MG/DL LABORATORIES - [facility] eGFR >60 >60 [facility] Non-Black/Afric ML/MIN/BS LABORATORIES - [place] A [facility] eGFR-Black/Afri >60 >60 [facility] can Kosovan ML/MIN/BS LABORATORIES - A [facility] BUN (Blood Urea 4 (L) 6 - 21 [facility] Nitrogen), S MG/DL LAB[facility]ATORIES - [facility] Specimen Anatomical Collection Method Collection Time Receive d Time (Source) Location / / Volume Laterality 12/08/2013 3:33 AM 4 3:33 CDT AM CDT Karan Brennan M.D. LAB BLOOD ADD-ON Performing Organization Address City/[facility]/ZIP Code Phon e Number [facility] LABORATORIES - [address] [place] [phone] [facility] Magnesium (12/08/2013 3:33 AM CDT) P athologist Signature Magnesium, S 1.7 1.7 - 2.3 [facility] MG/DL LABORATORIES - [facility] Specimen Anatomical Collection Method Collection Time Receive d Time (Source) Location / / Volume Laterality 12/08/2013 3:33 AM 4 3:33 CDT AM CDT Karan Brennan M.D. LAB BLOOD ADD-ON Performing Organization Address City/State/ZIP Code Phon e Number [facility] LABORATORIES - [address] [place] [address] [facility] (ABNORMAL) Phosphorus Inorganic (12/08/2013 3:33 AM CDT) Patholo gist Method Time Signature Phosphorus 1.8 (L) 2.5 - 4.5 [facility] (Inorganic), S MG/DL [facility] Specimen Anatomical Collection Method Collection Time Receive d Time (Source) Location / / Volume Laterality 12/08/2013 3:33 AM 4 3:33 CDT AM CDT Karan Brennan M.D. LAB BLOOD ADD-ON Performing Organization Address City/[facility] Phon e Number [facility] LABORATORIES - [address] [phone] 05 [facility] AST (Aspartate Aminotransferase) (12/08/2013 3:33 AM CDT) P athologist Signature AST, Total, S 16 8 - 43 U/L [facility] Specimen Anatomical Collection Method Collection Time Receive d Time (Source) Location / / Volume Laterality 12/08/2013 3:33 AM 4 3:33 CDT AM CDT Karan Brennan M.D. LAB BLOOD ADD-ON Performing Organization Address City/[facility] Phon e Number [facility] LABORATORIES - [address] (ABNORMAL) Electrolyte (Chem 4) Panel (12/07/2013 3:32 AM CDT) P athologist Signature Sodium, S 143 135 - 145 [facility] MMOL/L [facility] Comment: LT CVC Potassium, S 3.6 3.6 - 5.2 MMOL/L [facility] Comment: LT CVC Creatinine 0.8 0.6 - 1.1 MG/DL [facility] Comment: LT CVC eGFR Non-Black/ >60 >60 ML/MIN/BSA [facility] S Comment: LT CVC eGFR-Black/ >60 >60 ML/MIN/BSA [facility] S Comment: LT CVC Anion Gap 10 7 - 15 [facility] LABORATO MARCO [facility] Comment: LT CVC Chloride, S 113 (H) 98 - 107 MMOL/L [facility] Comment: LT CVC HX Bicarbonate, P/S 20 (L) 22 - 29 MMOL/L M [facility] Comment: LT CVC Glucose, S 78 70 - 140 MG/DL [facility] Comment: LT CVC BUN (Blood Urea Nitrogen), S 4 (L) 6 - 21 MG/DL [facility] Comment: LT CVC Specimen Anatomical Collection Method Collection Time Receive d Time (Source) Location / / Volume Laterality 12/07/2013 3:32 AM 4 3:32 CDT AM CDT Narrative [facility] - 12/07/2013 4:57 AM CDT LT CVC Historical Provider LAB BLOOD ADD-ON Performing Organization Address City/[facility] Phon e Number [facility] LABORATORIES - [address] (ABNORMAL) Phosphorus Inorganic (12/07/2013 3:32 AM CDT) [facility] gist Method Time Signature Phosphorus 1.2 (L) 2.5 - 4.5 [facility] (Inorganic), S MG/DL [facility] Comment: LT CVC Specimen Anatomical Collection Method Collection Time Receive d Time (Source) Location / / Volume Laterality 12/07/2013 3:32 AM 4 3:32 CDT AM CDT Narrative [facility] - 12/07/2013 4:50 AM CDT LT CVC Historical Provider LAB BLOOD ADD-ON Performing Organization Address City/[facility]/ZIP Code Phon e Number [facility] LABORATORIES - [address] [phone] 05 [facility] (ABNORMAL) CBC with Differential, Type and Screen (12/07/2013 3:32 AM CDT) [facility] gist Method Time Signature Erythrocytes 2.72 (L) 3.90 - [facility] 5.03 LABORATORIES - X10(12)/L [facility] Comment: LT CVC MCV 90.1 81.6 - 98.3 [place] [facility] Comment: LT CVC RBC Distrib Width 18.2 (H) 11.9 - 15.5 % [facility] Comment: LT CVC Platelet Count 43 (L) 150 - 450 X10(9)/L [facility] Comment: LT CVC Lymphocytes 1.10 0.90 - 2.90 X10(9)/L [facility] Comment: LT CVC Monocytes 0.80 0.30 - 0.90 X10(9)/L [facility] Comment: LT CVC Hemoglobin 8.1 (L) 12.0 - 15.5 G/DL [facility] Comment: LT CVC Hematocrit 24.5 (L) 34.9 - 44.5 % [facility] Comment: LT CVC Leukocytes 2.9 (L) 3.5 - 10.5 X10(9)/L [facility] Comment: LT CVC Neutrophils 0.99 (L) 1.70 - 7.00 X10(9)/L [facility] Comment: LTCVC ? Rechecked ? Eosinophils 0.01 (L) 0.05 - 0.50 X10(9)/L [facility] Comment: LT CVC Basophils 0.01 0.00 - 0.30 X10(9)/L [facility] IC [facility] Comment: LT CVC Specimen Anatomical Collection Method Collection Time Receive d Time (Source) Location / / Volume Laterality 12/07/2013 3:32 AM 4 3:32 CDT AM CDT Narrative [facility] - 12/07/2013 5:17 AM CDT LT CVC Historical Provider LAB BLOOD NON ADD-ON Performing Organization Address City/[facility] Phon e Number [facility] LABORATORIES - [address] [place] [address] [facility] Magnesium (12/07/2013 3:32 AM CDT) P athologist Signature Magnesium, S 1.9 1.7 - 2.3 [facility] MG/DL [facility] Comment: LT CVC Specimen Anatomical Collection Method Collection Time Receive d Time (Source) Location / / Volume Laterality 12/07/2013 3:32 AM 4 3:32 CDT AM CDT Narrative [facility] - 12/07/2013 4:50 AM CDT LT CVC Historical Provider LAB BLOOD ADD-ON Performing Organization Address City/[facility] Code Phon e Number [facility] LABORATORIES - [address] [place] [phone] [facility] VRE PCR (12/06/2013 9:49 AM CDT) P athologist Signature Specimen . [facility] Source (VRE LABORATORIES - PCR) [facility] Comment: CED RECTAL SWAB VRE PCR Negative Not Applicable [facility] LAB ORATORIES - [facility] Comment: ? ADDITIONAL INFORMATIO N ? Laboratory developed test. ? Specimen Anatomical Collection Method Collection Time Receive d Time (Source) Location / / Volume Laterality 12/06/2013 9:49 AM 4 9:49 CDT AM CDT Historical Provider LAB MICROBIOLOGY - GENERAL O RDERABLES Performing Organization Address City/[facility] Phon e Number [facility] LABORATORIES - [address] Prepare platelets (12/06/2013 7:15 AM CDT) [facility] gist Method Time Signature HXPLT # UNITS 1 [facility] TRANSFUSED [facility] HXPLATELETS UNIT PLT [facility] INFO [facility] Comment: Unit Blood Type A Pos Unit Number [id number] Component Type Aph PLATELETS PAS-C LR IR R 3rd Cont Issue Date/Time [id number] Specimen (Source) Anatomical Collection Method Collection Time Re ceived Time Location / / Volume Laterality 12/06/2013 7:15 AM CDT Historical Provider BLOOD BANK PRODUCT ORDERABLE S Performing Organization Address [facility] Phon e Number [facility] LABORATORIES - [address] Phosphorus Inorganic (12/06/2013 3:47 AM CDT) Analysis Performed At Patho logist Time Signature Phosphorus 2.5 2.5 - 4.5 [facility] (Inorganic), S MG/DL [facility] Comment: LT CVC Specimen Anatomical Collection Method Collection Time Receive d Time (Source) Location / / Volume Laterality 12/06/2013 3:47 AM 4 3:47 CDT AM CDT Narrative [facility] - 12/06/2013 4:49 AM CDT LT CVC Karan Brennan M.D. LAB BLOOD ADD-ON Performing Organization Address City/[facility]/ZIP Code Phon e Number [facility] LABORATORIES - [address] [phone] 05 [facility] Alkaline Phosphatase (12/06/2013 3:47 AM CDT) P athologist Signature Alkaline 72 46 - 118 [facility] Phosphatase, S U/L LABORATORIES - [facility] Comment: LT CVC Specimen Anatomical Collection Method Collection Time Receive d Time (Source) Location / / Volume Laterality 12/06/2013 3:47 AM 4 3:47 CDT AM CDT Narrative [facility] - 12/06/2013 4:49 AM CDT LT CVC Karan Brennan M.D. LAB BLOOD ADD-ON Performing Organization Address City/[facility]/ZIP Code Phon e Number [facility] LABORATORIES - [address] [phone] 05 [facility] (ABNORMAL) Calcium, Ionized (12/06/2013 3:47 AM CDT) Patholo gist Method Time Signature Calcium, 4.29 (L) 4.80 - [facility] Ionized, S 5.70 LABORATORIES - MG/DL [facility] Comment: LT CVC pH 7.40 7.32 - 7.43 [facility] LABORA TORIES - [facility] Comment: LT CVC Specimen Anatomical Collection Method Collection Time Receive d Time (Source) Location / / Volume Laterality 12/06/2013 3:47 AM 4 3:47 CDT AM CDT Narrative [facility] - 12/06/2013 4:40 AM CDT LT CVC Karan Brennan M.D. LAB BLOOD NON ADD-ON Performing Organization Address City/[facility]/ZIP Code Phon e Number [facility] LABORATORIES - [address] [phone] 05 [facility] (ABNORMAL) CBC with Differential, Type and Screen (12/06/2013 3:47 AM CDT) athologist Signature Hemoglobin 8.9 (L) 12.0 - [facility] 15.5 G/DL [facility] Comment: LT CVC Hematocrit 26.5 (L) 34.9 - 44.5 % [facility] Comment: LT CVC RBC Distrib Width 18.4 (H) 11.9 - 15.5 % [facility] Comment: LT CVC Platelet Count 16 (L) 150 - 450 X10(9)/L [place] [facility] Comment: LT CVC Lymphocytes 1.30 0.90 - 2.90 X10(9)/L [facility] Comment: LT CVC Monocytes 0.84 0.30 - 0.90 X10(9)/L [facility] Comment: LT CVC Erythrocytes 2.95 (L) 3.90 - 5.03 X10(12)/L [facility] Comment: LT CVC MCV 89.8 81.6 - 98.3 [place] [facility] Comment: LT CVC Leukocytes 3.0 (L) 3.5 - 10.5 X10(9)/L [facility] Comment: LT CVC Neutrophils 0.88 (L) 1.70 - 7.00 X10(9)/L [facility] Comment: LTCVC ? Rechecked ? Eosinophils 0.00 (L) 0.05 - 0.50 X10(9)/L [facility] Comment: LT CVC Basophils 0.01 0.00 - 0.30 X10(9)/L [facility] Comment: LT CVC Specimen Anatomical Collection Method Collection Time Receive d Time (Source) Location / / Volume Laterality 12/06/2013 3:47 AM 4 3:47 CDT AM CDT Narrative [facility] - 12/06/2013 5:36 AM CDT LT CVC Karan Brennan M.D. LAB BLOOD NON ADD-ON Performing Organization Address City/[facility] Code Phon e Number [facility] - [address] Bilirubin, Total (12/06/2013 3:47 AM CDT) P athologist Signature Bilirubin, 0.4 0.1 - 1.0 [facility] Total, S MG/DL [facility] Comment: LT CVC Specimen Anatomical Collection Method Collection Time Receive d Time (Source) Location / / Volume Laterality 12/06/2013 3:47 AM 4 3:47 CDT AM CDT Narrative [facility] - 12/06/2013 4:49 AM CDT LT CVC Karan Brennan M.D. LAB BLOOD ADD-ON Performing Organization Address City/[facility] Phon e Number [facility] - [address] AST (Aspartate Aminotransferase) (12/06/2013 3:47 AM CDT) P athologist Signature AST, Total, S 13 8 - 43 U/L [facility] Comment: LT CVC Specimen Anatomical Collection Method Collection Time Receive d Time (Source) Location / / Volume Laterality 12/06/2013 3:47 AM 4 3:47 CDT AM CDT Narrative [facility] - 12/06/2013 4:49 AM CDT LT CVC Karan Brennan M.D. LAB BLOOD ADD-ON Performing Organization Address City/[facility]/ZIP [facility] Phon e Number [facility] LABORATORIES - [address] [place] [address] [facility] (ABNORMAL) Magnesium (12/06/2013 3:47 AM CDT) Analysis Performed At Patho logist Time Signature Magnesium, S 1.6 (L) 1.7 - 2.3 [facility] MG/DL [facility] Comment: LT CVC Specimen Anatomical Collection Method Collection Time Receive d Time (Source) Location / / Volume Laterality 12/06/2013 3:47 AM 4 3:47 CDT AM CDT Narrative [facility] - 12/06/2013 4:49 AM CDT LT CVC Karan Brennan M.D. LAB BLOOD ADD-ON Performing Organization Address City/[facility] Code Phon e Number [facility] LABORATORIES - [address] [place] [phone] 05 [facility] (ABNORMAL) Electrolyte (Chem 4) Panel (12/06/2013 3:47 AM CDT) P athologist Signature Sodium, S 144 135 - 145 [facility] MMOL/L [facility] Comment: LT CVC Potassium, S 3.5 (L) 3.6 - 5.2 MMOL/L [place] [facility] Comment: LT CVC Chloride, S 116 (H) 98 - 107 MMOL/L [facility] Comment: LT CVC HX Bicarbonate, P/S 18 (L) 22 - 29 MMOL/L M [facility] Comment: LT CVC Creatinine 0.8 0.6 - 1.1 MG/DL [facility] IC [facility] Comment: LT CVC eGFR Non-Black/ >60 >60 ML/MIN/BSA [facility] S Comment: LT CVC eGFR-Black/ >60 >60 ML/MIN/BSA [facility] S Comment: LT CVC BUN (Blood Urea Nitrogen), S 7 6 - 21 MG/DL [facility] S Comment: LT CVC Anion Gap 10 7 - 15 [facility] LABORATO MARCO [facility] Comment: LT CVC Glucose, S 84 70 - 140 MG/DL [facility] LA BORATORIES [facility] Comment: LT CVC Specimen Anatomical Collection Method Collection Time Receive d Time (Source) Location / / Volume Laterality 12/06/2013 3:47 AM 4 3:47 CDT AM CDT Narrative [facility] - 12/06/2013 4:49 AM CDT LT CVC Karan Brennan M.D. LAB BLOOD ADD-ON Performing Organization Address City/[facility]/ZIP Code Phon e Number [facility] LABORATORIES - [address] [place] [phone] 05 [facility] (ABNORMAL) Phosphorus Inorganic (12/05/2013 5:25 PM CDT) Patholo gist Method Time Signature Phosphorus 1.4 (L) 2.5 - 4.5 [facility] (Inorganic), S MG/DL [facility] Specimen Anatomical Collection Method Collection Time Receive d Time (Source) Location / / Volume Laterality 12/05/2013 5:25 PM 4 5:25 CDT PM CDT Trini Rao APRN, C.N.P. LAB BLOOD ADD-ON Performing Organization Address City/State/ZIP Code Phon e Number [facility] LABORATORIES - [address] [place] [phone] 05 [facility] (ABNORMAL) Electrolyte (Chem 4) Panel (12/05/2013 5:25 PM CDT) P athologist Signature Sodium, S 144 135 - 145 [facility] MMOL/L [facility] Comment: Drawn From PICC Potassium, S 3.5 (L) 3.6 - 5.2 MMOL/L [place] [facility] Comment: Drawn From PICC eGFR-Black/ >60 >60 ML/MIN/BSA [facility] S Comment: Drawn From PICC BUN (Blood Urea Nitrogen), S 8 6 - 21 MG/DL [facility] Comment: Drawn From PICC Chloride, S 114 (H) 98 - 107 MMOL/L [facility] Comment: Drawn From PICC HX Bicarbonate, P/S 18 (L) 22 - 29 MMOL/L M [facility] Comment: Drawn From PICC Creatinine 0.8 0.6 - 1.1 MG/DL [facility] Comment: Drawn From PICC eGFR Non-Black/ >60 >60 ML/MIN/BSA [facility] Comment: Drawn From PICC Anion Gap 12 7 - 15 [facility] LABORATO MARCO [facility] Comment: Drawn From PICC Glucose, S 91 70 - 140 MG/DL [facility] LA BORATORIES [facility] Comment: Drawn From PICC Specimen Anatomical Collection Method Collection Time Receive d Time (Source) Location / / Volume Laterality 12/05/2013 5:25 PM 4 5:25 CDT PM CDT Narrative [facility] - 12/05/2013 6:49 PM CDT Drawn From PICC Karan Brennan M.D. LAB BLOOD ADD-ON Performing Organization Address City/[facility] Phon e Number [facility] - [address] AST (Aspartate Aminotransferase) (12/05/2013 3:18 AM CDT) athologist Signature AST, Total, S 18 8 - 43 U/L [facility] Comment: Palindrome line Specimen Anatomical Collection Method Collection Time Receive d Time (Source) Location / / Volume Laterality 12/05/2013 3:18 AM 4 3:18 CDT AM CDT Narrative [facility] - 12/05/2013 4:44 AM CDT Palindrome line Karan Brennan M.D. LAB BLOOD ADD-ON Performing Organization Address City/[facility] Phon e Number [facility] - [address] (ABNORMAL) Electrolyte (Chem 4) Panel (12/05/2013 3:18 AM CDT) athologist Signature Sodium, S 145 135 - 145 [facility] MMOL/L [facility] Comment: Palindrome line Potassium, S 2.9 (L) 3.6 - 5.2 MMOL/L [place] [facility] Comment: Palindrome line Creatinine 0.8 0.6 - 1.1 MG/DL [place] [facility] Comment: Palindrome line eGFR Non-Black/ >60 >60 ML/MIN/BSA [facility] S Comment: Palindrome line eGFR-Black/ >60 >60 ML/MIN/BSA [facility] S Comment: Palindrome line BUN (Blood Urea Nitrogen), S 10 6 - 21 MG/DL [facility] S Comment: Palindrome line Chloride, S 114 (H) 98 - 107 MMOL/L [facility] Comment: Palindrome line HX Bicarbonate, P/S 18 (L) 22 - 29 MMOL/L [facility] Comment: Palindrome line Anion Gap 13 7 - 15 [facility] LABORATO MARCO [facility] Comment: Palindrome line Glucose, S 75 70 - 140 MG/DL [facility] Comment: Palindrome line Specimen Anatomical Collection Method Collection Time Receive d Time (Source) Location / / Volume Laterality 12/05/2013 3:18 AM 4 3:18 CDT AM CDT Narrative [facility] - 12/05/2013 4:44 AM CDT Palindrome line Karan Brennan M.D. LAB BLOOD ADD-ON Performing Organization Address City/State/ZIP Code Phon e Number [facility] - [address] [place], [place] [address] [facility] Bilirubin, Total (12/05/2013 3:18 AM CDT) athologist Signature Bilirubin, 0.4 0.1 - 1.0 [facility] Total, S MG/DL [facility] Comment: Palindrome line Specimen Anatomical Collection Method Collection Time Receive d Time (Source) Location / / Volume Laterality 12/05/2013 3:18 AM 4 3:18 CDT AM CDT Narrative [facility] - 12/05/2013 4:44 AM CDT Palindrome line Karan Brennan M.D. LAB BLOOD ADD-ON Performing Organization Address City/[facility]/ZIP Code Phon e Number [facility]ATORIES - [address] [place] [phone] [facility] (ABNORMAL) Phosphorus Inorganic (12/05/2013 3:18 AM CDT) Patholo gist Method Time Signature Phosphorus 1.7 (L) 2.5 - 4.5 [facility] (Inorganic), S MG/DL [facility] Comment: Palindrome line Specimen Anatomical Collection Method Collection Time Receive d Time (Source) Location / / Volume Laterality 12/05/2013 3:18 AM 4 3:18 CDT AM CDT Narrative [facility] - 12/05/2013 4:44 AM CDT Palindrome line Karan Brennan M.D. LAB BLOOD ADD-ON Performing Organization Address City/[facility]/ZIP Code Phon e Number [facility]IES - [address] [place] [phone] 05 [facility] Magnesium (12/05/2013 3:18 AM CDT) P athologist Signature Magnesium, S 1.7 1.7 - 2.3 [facility] MG/DL [facility] Comment: Palindrome line Specimen Anatomical Collection Method Collection Time Receive d Time (Source) Location / / Volume Laterality 12/05/2013 3:18 AM 4 3:18 CDT AM CDT Narrative [facility] - 12/05/2013 4:44 AM CDT Palindrome line Karan Brennan M.D. LAB BLOOD ADD-ON Performing Organization Address City/[facility]/ZIP Code Phon e Number [facility]ATORIES - [address] [place] [phone] [facility] (ABNORMAL) CBC with Differential, Type and Screen (12/05/2013 3:18 AM CDT) P athologist Signature Hemoglobin 9.2 (L) 12.0 - [facility] 15.5 G/DL [facility] Comment: Palindrome line Hematocrit 26.6 (L) 34.9 - 44.5 % [facility] LAB ORATORIES - [facility] Comment: Palindrome line Leukocytes 2.7 (L) 3.5 - 10.5 X10(9)/L [facility] Comment: Palindrome line ? Results confirmed by smear. ? Neutrophils 0.79 (L) 1.70 - 7.00 X10(9)/L [facility] Comment: Palindrome line ? Rechecked ? Erythrocytes 3.04 (L) 3.90 - 5.03 X10(12)/L [facility] Comment: Palindrome line MCV 87.5 81.6 - 98.3 [place] [facility] Comment: Palindrome line RBC Distrib Width 18.8 (H) 11.9 - 15.5 % [facility] Comment: Palindrome line Platelet Count 24 (L) 150 - 450 X10(9)/L [facility] Comment: Palindrome line ? Results confirmed by smear. ? Lymphocytes 0.90 0.90 - 2.90 X10(9)/L [facility] Comment: Palindrome line Monocytes 0.98 (H) 0.30 - 0.90 X10(9)/L [facility] Comment: Palindrome line Eosinophils 0.00 (L) 0.05 - 0.50 X10(9)/L [facility] Comment: Palindrome line Basophils 0.01 0.00 - 0.30 X10(9)/L [facility] Comment: Palindrome line Specimen Anatomical Collection Method Collection Time Receive d Time (Source) Location / / Volume Laterality 12/05/2013 3:18 AM 4 3:18 CDT AM CDT Narrative [facility] - 12/05/2013 4:30 AM CDT Palindrome line Karan Brennan M.D. LAB BLOOD NON ADD-ON Performing Organization Address City/[facility]/ZIP Code Phon e Number [facility]ATORIES - [address] [place] [phone] [facility] AST (Aspartate Aminotransferase) (12/04/2013 2:43 AM CDT) P athologist Signature AST, Total, S 18 8 - 43 U/L [facility] Comment: LT CVC Specimen Anatomical Collection Method Collection Time Receive d Time (Source) Location / / Volume Laterality 12/04/2013 2:43 AM 4 2:43 CDT AM CDT Narrative [facility] - 12/04/2013 3:22 AM CDT LT CVC Historical Provider LAB BLOOD ADD-ON Performing Organization Address City/[facility] Phon e Number [facility] - [address] [place] [phone] 05 [facility] Magnesium (12/04/2013 2:43 AM CDT) P athologist Signature Magnesium, S 1.9 1.7 - 2.3 [facility] MG/DL [facility] Comment: LT CVC Specimen Anatomical Collection Method Collection Time Receive d Time (Source) Location / / Volume Laterality 12/04/2013 2:43 AM 4 2:43 CDT AM CDT Narrative [facility] - 12/04/2013 3:22 AM CDT LT CVC Historical Provider LAB BLOOD ADD-ON Performing Organization Address City/[facility] Phon e Number [facility]IES - [address] [place] [phone] [facility] (ABNORMAL) Phosphorus Inorganic (12/04/2013 2:43 AM CDT) Patholo gist Method Time Signature Phosphorus 1.8 (L) 2.5 - 4.5 [facility] (Inorganic), S MG/DL [facility] Comment: LT CVC Specimen Anatomical Collection Method Collection Time Receive d Time (Source) Location / / Volume Laterality 12/04/2013 2:43 AM 4 2:43 CDT AM CDT Narrative [facility] - 12/04/2013 3:22 AM CDT LT CVC Historical Provider LAB BLOOD ADD-ON Performing Organization Address City/State/ZIP Code Phon e Number [facility]ORATORIES - [address] [place] [phone] [facility] (ABNORMAL) Electrolyte (Chem 4) Panel (12/04/2013 2:43 AM CDT) P athologist Signature Sodium, S 145 135 - 145 [facility] MMOL/L [facility] Comment: LT CVC Potassium, S 3.4 (L) 3.6 - 5.2 MMOL/L [place] [facility] Comment: LT CVC Creatinine 0.9 0.6 - 1.1 MG/DL [facility] IC [facility] Comment: LT CVC eGFR Non-Black/ >60 >60 ML/MIN/BSA [facility] S Comment: LT CVC Anion Gap 11 7 - 15 [facility] [facility] Comment: LT CVC Glucose, S 72 70 - 140 MG/DL [facility] Comment: LT CVC Chloride, S 116 (H) 98 - 107 MMOL/L [facility] Comment: LT CVC HX Bicarbonate, P/S 18 (L) 22 - 29 MMOL/L M [facility] Comment: LT CVC eGFR-Black/ >60 >60 ML/MIN/BSA [facility] S Comment: LT CVC BUN (Blood Urea Nitrogen), S 12 6 - 21 MG/DL [facility] S Comment: LT CVC Specimen Anatomical Collection Method Collection Time Receive d Time (Source) Location / / Volume Laterality 12/04/2013 2:43 AM 4 2:43 CDT AM CDT Narrative [facility] - 12/04/2013 3:22 AM CDT LT CVC Historical Provider LAB BLOOD ADD-ON Performing Organization Address City/[facility] Code Phon e Number [facility] LABORATORIES - [address] [place] [phone] [facility] (ABNORMAL) CBC with Differential, Type and Screen (12/04/2013 2:43 AM CDT) P athologist Signature Hemoglobin 10.2 (L) 12.0 - [facility] 15.5 G/DL [facility] Comment: LT CVC Hematocrit 29.3 (L) 34.9 - 44.5 % [facility] Comment: LT CVC RBC Distrib Width 18.9 (H) 11.9 - 15.5 % [place] [facility] Comment: LT CVC Platelet Count 41 (L) 150 - 450 X10(9)/L [place] [facility] Comment: LT CVC Leukocytes 1.9 (L) 3.5 - 10.5 X10(9)/L [facility] Comment: LT CVC Neutrophils 0.45 (L) 1.70 - 7.00 X10(9)/L [facility] Comment: LT CVC Erythrocytes 3.35 (L) 3.90 - 5.03 X10(12)/L [facility] Comment: LT CVC MCV 87.5 81.6 - 98.3 FL [facility] Comment: LT CVC Lymphocytes 0.85 (L) 0.90 - 2.90 X10(9)/L [facility] Comment: LT CVC Monocytes 0.55 0.30 - 0.90 X10(9)/L [facility] Comment: LT CVC Eosinophils 0.00 (L) 0.05 - 0.50 X10(9)/L [facility] Comment: LT CVC Basophils 0.01 0.00 - 0.30 X10(9)/L [facility] Comment: LT CVC Specimen Anatomical Collection Method Collection Time Receive d Time (Source) Location / / Volume Laterality 12/04/2013 2:43 AM 4 2:43 CDT AM CDT Narrative [facility] - 12/04/2013 2:46 AM CDT LT CVC Historical Provider LAB BLOOD NON ADD-ON Performing Organization Address City/State/ZIP Code Phon e Number [facility] - [address] [place], [place] [address] [facility] VRE PCR (12/03/2013 3:18 PM CDT) P athologist Signature Specimen . [facility] Source (VRE LABORATORIES - PCR) [facility] Comment: RECTUM SWAB VRE PCR Negative Not Applicable [facility] LAB ORATORIES - [facility] Comment: ? ADDITIONAL INFORMATIO N ? Laboratory developed test. ? Specimen Anatomical Collection Method Collection Time Receive d Time (Source) Location / / Volume Laterality 12/03/2013 3:18 PM 201 4 3:18 CDT PM CDT Fabian Gutierrez, B.Ch. LAB MICROBIOLOGY - GENERAL ORDERABLES Performing Organization Address City/State/ZIP Code Phon e Number [facility]ORATORIES - [address] [place] [phone] [facility] Prepare platelets (12/03/2013 6:30 AM CDT) Patholo gist Method Time Signature HXPLT # UNITS 1 [facility] TRANSFUSED [facility] HXPLATELETS UNIT PLT [facility] INFO [facility] Comment: Unit Blood Type A Pos Unit Number [id number] Component Type Platelets, Apheresis Leuk oreduced, Irradiated Issue Date/Time [id number] Specimen (Source) Anatomical Collection Method Collection Time Re ceived Time Location / / Volume Laterality 12/03/2013 6:30 AM CDT Historical Provider BLOOD BANK PRODUCT ORDERABLE S Performing Organization Address City/[facility]/ZIP Code Phon e Number [facility] - [address] [place] [phone] [facility] Prepare Red Blood Cells (12/03/2013 6:29 AM CDT) Analysis Performed At Patho logist Time Signature HXRBC # UNITS 1 [facility] TRANSFUSED [facility] HXRBC UNIT INFO RBC [facility] Comment: Unit Blood Type A Pos Unit Number [id number] Component Type Red Blood Cells - -3 Le ukoreduced, Irradiated Issue Date/Time [id number] Specimen (Source) Anatomical Collection Method Collection Time Re ceived Time Location / / Volume Laterality 12/03/2013 6:29 AM CDT Historical Provider BLOOD BANK PRODUCT ORDERABLE S Performing Organization Address City/[facility]/ZIP Code Phon e Number [facility] - [address] (ABNORMAL) Phosphorus Inorganic (12/03/2013 4:01 AM CDT) Patholo gist Method Time Signature Phosphorus 1.3 (L) 2.5 - 4.5 [facility] (Inorganic), S MG/DL [facility] Specimen Anatomical Collection Method Collection Time Receive d Time (Source) Location / / Volume Laterality 12/03/2013 4:01 AM 4 4:01 CDT AM CDT Karan Brennan M.D. LAB BLOOD ADD-ON Performing Organization Address City/[facility]/ZIP Code Phon e Number [facility] LABORATORIES - [address] AST (Aspartate Aminotransferase) (12/03/2013 4:01 AM CDT) P athologist Signature AST, Total, S 10 8 - 43 U/L [facility] Specimen Anatomical Collection Method Collection Time Receive d Time (Source) Location / / Volume Laterality 12/03/2013 4:01 AM 4 4:01 CDT AM CDT Karan Brennan M.D. LAB BLOOD ADD-ON Performing Organization Address City/State/ZIP Code Phon e Number [facility] - [address] [place], [place] [address] [facility] (ABNORMAL) CBC with Differential - No Alerts (12/03/2013 4:01 AM CDT) Patholo gist Method Time Signature Erythrocytes 2.55 (L) 3.90 - [facility] 5.03 LABORATORIES - X10(12)/L [facility] MCV 89.0 81.6 - [facility] 98.3 FL [facility] Leukocytes 1.3 (L) 3.5 - 10.5 [facility] X10(9)/L [facility] Comment: Results confirmed by smear. Neutrophils 0.34 (L) 1.70 - 7.00 X10(9)/L [facility] Comment: Rechecked Lymphocytes 0.58 (L) 0.90 - 2.90 X10(9)/L [facility] INIC [facility] S Monocytes 0.40 0.30 - 0.90 X10(9)/L [place] [facility] S Eosinophils 0.00 (L) 0.05 - 0.50 X10(9)/L [place] [facility] Basophils 0.00 0.00 - 0.30 X10(9)/L [place] [facility] Hemoglobin 7.8 (L) 12.0 - 15.5 G/DL [facility] S Hematocrit 22.7 (L) 34.9 - 44.5 % [facility] LAB ORATORIES [facility] RBC Distrib Width 18.1 (H) 11.9 - 15.5 % [facility] S Platelet Count 18 (L) 150 - 450 X10(9)/L [place] [facility] Comment: Results confirmed by smear. Specimen Anatomical Collection Method Collection Time Receive d Time (Source) Location / / Volume Laterality 12/03/2013 4:01 AM 4 4:01 CDT AM CDT Karan Brennan M.D. LAB BLOOD NON ADD-ON Performing Organization Address City/[facility]/ZIP Code Phon e Number [facility] LABORATORIES - [address] [place] [phone] [facility] Magnesium (12/03/2013 4:01 AM CDT) P athologist Signature Magnesium, S 1.8 1.7 - 2.3 [facility] MG/DL LABORATORIES - [facility] Specimen Anatomical Collection Method Collection Time Receive d Time (Source) Location / / Volume Laterality 12/03/2013 4:01 AM 4 4:01 CDT AM CDT Karan Brennan M.D. LAB BLOOD ADD-ON Performing Organization Address City/[facility]/ZIP Code Phon e Number [facility] LABORATORIES - [address] [place] [phone] [facility] Calcium, Ionized (12/03/2013 4:01 AM CDT) P athologist Signature Calcium, 4.81 4.80 - [facility] Ionized, S 5.70 MG/DL [facility] pH 7.40 7.32 - [facility] 7.43 LABORATORIES - [facility] Specimen Anatomical Collection Method Collection Time Receive d Time (Source) Location / / Volume Laterality 12/03/2013 4:01 AM 4 4:01 CDT AM CDT Karan Brennan M.D. LAB BLOOD NON ADD-ON Performing Organization Address City/State/ZIP Code Phon e Number [facility] LABORATORIES - [address] [place] [phone] [facility] Alkaline Phosphatase (12/03/2013 4:01 AM CDT) P athologist Signature Alkaline 73 46 - 118 [facility] Phosphatase, S U/L LABORATORIES - [facility] Specimen Anatomical Collection Method Collection Time Receive d Time (Source) Location / / Volume Laterality 12/03/2013 4:01 AM 4 4:01 CDT AM CDT Karan Brennan M.D. LAB BLOOD ADD-ON Performing Organization Address City/[facility]/ZIP Code Phon e Number [facility] LABORATORIES - [address] [place] [phone] [facility] (ABNORMAL) Electrolyte (Chem 4) Panel (12/03/2013 4:01 AM CDT) Patholo gist Method Time Signature Sodium, S 145 135 - 145 [facility] MMOL/L LABORATORIES - [facility] Potassium, S 3.3 (L) 3.6 - 5.2 [facility] MMOL/L LAB[facility]ATORIES - [facility] Chloride, S 117 (H) 98 - 107 [facility] MMOL/L LABORATORIES - [facility] HX Bicarbonate, 17 (L) 22 - 29 [facility] P/S MMOL/L LAB[facility]ATORIES - [facility] Creatinine 0.9 0.6 - 1.1 [facility] MG/DL LABORATORIES - [facility] eGFR >60 >60 [facility] Non-Black/Afric ML/MIN/BS LABORATORIES - [place] A [facility] eGFR-Black/Afri >60 >60 [facility] can [place] ML/MIN/BS LABORATORIES - A [facility] BUN (Blood Urea 15 6 - 21 [facility] Nitrogen), S MG/DL LABORATORIES - [facility] Anion Gap 11 7 - 15 [facility] LABORATORIES - [facility] Glucose, S 70 70 - 140 [facility] MG/DL LABORATORIES - [facility] Specimen Anatomical Collection Method Collection Time Receive d Time (Source) Location / / Volume Laterality 12/03/2013 4:01 AM 4 4:01 CDT AM CDT Karan Brennan M.D. LAB BLOOD ADD-ON Performing Organization Address City/[facility]/ZIP Code Phon e Number [facility] LABORATORIES - [address] [place] [phone] [facility] Bilirubin, Total (12/03/2013 4:01 AM CDT) P athologist Signature Bilirubin, 0.4 0.1 - 1.0 [facility] Total, S MG/DL LABORATORIES - [facility] Specimen Anatomical Collection Method Collection Time Receive d Time (Source) Location / / Volume Laterality 12/03/2013 4:01 AM 4 4:01 CDT AM CDT Karan Brennan M.D. LAB BLOOD ADD-ON Performing Organization Address City/State/ZIP Code Phon e Number [facility] LABORATORIES - [address] [place] [phone] [facility] Prepare Red Blood Cells (12/02/2013 6:06 AM CDT) Analysis Performed At [facility] logist Time Signature HXRBC # UNITS 1 [facility] TRANSFUSED [facility] HXRBC UNIT INFO RBC [facility] Comment: Unit Blood Type A Pos Unit Number [id number] Component Type Red Blood Cells - -3 Le ukoreduced, Irradiated Issue Date/Time [id number] Specimen (Source) Anatomical Collection Method Collection Time Re ceived Time Location / / Volume Laterality 12/02/2013 6:06 AM CDT Historical Provider BLOOD BANK PRODUCT ORDERABLE S Performing Organization Address City/[facility]/ZIP Code Phon e Number [facility] LABORATORIES - [address] [place] [phone] [facility] Prepare platelets (12/02/2013 4:31 AM CDT) [facility] Method Time Signature HXPLT # UNITS 1 [facility] TRANSFUSED [facility] HXPLATELETS UNIT PLT [facility] INFO [facility] Comment: Unit Blood Type A Pos Unit Number [id number] Component Type Platelets, Apheresis Leuk oreduced, Irradiated, Bag 1 Issue Date/Time [id number] Specimen (Source) Anatomical Collection Method Collection Time Re ceived Time Location / / Volume Laterality 12/02/2013 4:31 AM CDT Historical Provider BLOOD BANK PRODUCT ORDERABLE S Performing Organization Address City/[facility]/ZIP Code Phon e Number [facility] LABORATORIES - [address] (ABNORMAL) CBC with Differential - No Alerts (12/02/2013 4:15 AM CDT) [facility] gist Method Time Signature Erythrocytes 2.12 (L) 3.90 - [facility] 5.03 LABORATORIES - X10(12)/L [facility] Comment: LT CVC MCV 91.5 81.6 - 98.3 FL [facility] LAB ORATORIES [facility] Comment: LT CVC RBC Distrib Width 16.5 (H) 11.9 - 15.5 % [place] [facility] Comment: LT CVC Platelet Count 8 (L) 150 - 450 X10(9)/L [facility] Comment: LTCVC ? Results confirmed by smear. ? Lymphocytes 0.55 (L) 0.90 - 2.90 X10(9)/L [facility] Comment: LT CVC Monocytes 0.26 (L) 0.30 - 0.90 X10(9)/L [facility] Comment: LT CVC Hemoglobin 6.7 (L) 12.0 - 15.5 G/DL [facility] Comment: LT CVC Hematocrit 19.4 (L) 34.9 - 44.5 % [facility] Comment: LT CVC Leukocytes 1.0 (L) 3.5 - 10.5 X10(9)/L [facility] Comment: LTCVC ? Results confirmed by smear. ? Neutrophils 0.21 (L) 1.70 - 7.00 X10(9)/L [facility] Comment: LTCVC ? Rechecked ? Eosinophils 0.00 (L) 0.05 - 0.50 X10(9)/L [facility] Comment: LT CVC Basophils 0.00 0.00 - 0.30 X10(9)/L [facility] Comment: LT CVC Specimen Anatomical Collection Method Collection Time Receive d Time (Source) Location / / Volume Laterality 12/02/2013 4:15 AM 4 4:15 CDT AM CDT Narrative [facility] - 12/02/2013 5:14 AM CDT LT CVC Lani Ingram APRNN.P. LAB BLOOD NON ADD-ON Performing Organization Address City/[facility]/ZIP Code Phon e Number [facility] - [address] [place], [place] [address] [facility] (ABNORMAL) Electrolyte (Chem 4) Panel (12/02/2013 4:15 AM CDT) P athologist Signature Sodium, S 144 135 - 145 [facility] MMOL/L [facility] Comment: LT CVC Potassium, S 3.4 (L) 3.6 - 5.2 MMOL/L [place] [facility] Comment: LT CVC Creatinine 1.0 0.6 - 1.1 MG/DL [facility] IC [facility] Comment: LT CVC eGFR Non-Black/ 57 (L) >60 ML/MIN/BSA [facility] S Comment: LT CVC Anion Gap 12 7 - 15 [facility] LABORATO MAR[place] [facility] Comment: LT CVC Glucose, S 81 70 - 140 MG/DL [facility] LA BORATORIES [facility] Comment: LT CVC Chloride, S 116 (H) 98 - 107 MMOL/L [facility] Comment: LT CVC HX Bicarbonate, P/S 16 (L) 22 - 29 MMOL/L M [facility] Comment: LT CVC eGFR-Black/ >60 >60 ML/MIN/BSA [facility] S Comment: LT CVC BUN (Blood Urea Nitrogen), S 15 6 - 21 MG/DL [facility] S Comment: LT CVC Specimen Anatomical Collection Method Collection Time Receive d Time (Source) Location / / Volume Laterality 12/02/2013 4:15 AM 4 4:15 CDT AM CDT Narrative [facility] - 12/02/2013 4:53 AM CDT LT CVC Lani Ingram APRNN.P. LAB BLOOD ADD-ON Performing Organization Address City/State/ZIP Code Phon e Number [facility] LABORATORIES - [address] [address] 05 [facility] AST (Aspartate Aminotransferase) (12/02/2013 4:15 AM CDT) athologist Signature AST, Total, S 12 8 - 43 U/L [facility] Comment: LT CVC Specimen Anatomical Collection Method Collection Time Receive d Time (Source) Location / / Volume Laterality 12/02/2013 4:15 AM 4 4:15 CDT AM CDT Narrative [facility] - 12/02/2013 4:53 AM CDT LT CVC Toya Higgins APRN C.N.P. LAB BLOOD ADD-ON Performing Organization Address City/[facility]/ZIP Code Phon e Number [facility] - [address] [phone] 05 [facility] (ABNORMAL) CBC with Differential - No Alerts (12/01/2013 4:27 AM CDT) athologist Signature Hemoglobin 7.2 (L) 12.0 - [facility] 15.5 G/DL [facility] Comment: Palindrome line Hematocrit 21.9 (L) 34.9 - 44.5 % [facility] Comment: Palindrome line RBC Distrib Width 16.5 (H) 11.9 - 15.5 % [place] [facility] Comment: Palindrome line Platelet Count 25 (L) 150 - 450 X10(9)/L [place] [facility] Comment: Palindrome line Lymphocytes 0.45 (L) 0.90 - 2.90 X10(9)/L [facility] Comment: Palindrome line Monocytes 0.12 (L) 0.30 - 0.90 X10(9)/L [place] [facility] Comment: Palindrome line Erythrocytes 2.31 (L) 3.90 - 5.03 X10(12)/L [facility] Comment: Palindrome line MCV 94.8 81.6 - 98.3 FL [facility] Comment: Palindrome line Leukocytes 0.7 (L) 3.5 - 10.5 X10(9)/L [facility] Comment: Palindrome line Neutrophils 0.10 (L) 1.70 - 7.00 X10(9)/L [facility] Comment: Palindrome line ? Rechecked ? Eosinophils 0.00 (L) 0.05 - 0.50 X10(9)/L [facility] Comment: Palindrome line Basophils 0.00 0.00 - 0.30 X10(9)/L [facility] Comment: Palindrome line Specimen Anatomical Collection Method Collection Time Receive d Time (Source) Location / / Volume Laterality 12/01/2013 4:27 AM 4 4:27 CDT AM CDT Narrative [facility] - 12/01/2013 5:31 AM CDT Palindrome line Karan Brennan M.D. LAB BLOOD NON ADD-ON Performing Organization Address City/State/ZIP Code Phon e Number [facility] Twenty Jeans - [address] [place], [place] [address] [facility] AST (Aspartate Aminotransferase) (12/01/2013 4:27 AM CDT) P athologist Signature AST, Total, S 13 8 - 43 U/L [facility] Comment: Palindrome line Specimen Anatomical Collection Method Collection Time Receive d Time (Source) Location / / Volume Laterality 12/01/2013 4:27 AM 4 4:27 CDT AM CDT Narrative [facility] - 12/01/2013 5:12 AM CDT Palindrome line Karan Brennan M.D. LAB BLOOD ADD-ON Performing Organization Address City/State/ZIP Code Phon e Number [facility] - [address] [place], [place] [address] [facility] (ABNORMAL) Electrolyte (Chem 4) Panel (12/01/2013 4:27 AM CDT) athologist Signature Sodium, S 145 135 - 145 [facility] MMOL/L [facility] Comment: Palindrome line Potassium, S 3.2 (L) 3.6 - 5.2 MMOL/L [place] [facility] Comment: Palindrome line Creatinine 1.1 0.6 - 1.1 MG/DL [facility] IC [facility] Comment: Palindrome line eGFR Non-Black/ 51 (L) >60 ML/MIN/BSA [facility] Comment: Palindrome line eGFR-Black/ >60 >60 ML/MIN/BSA [facility] Comment: Palindrome line BUN (Blood Urea Nitrogen), S 15 6 - 21 MG/DL [facility] Comment: Palindrome line Chloride, S 116 (H) 98 - 107 MMOL/L [facility] Comment: Palindrome line HX Bicarbonate, P/S 16 (L) 22 - 29 MMOL/L [facility] Comment: Palindrome line Anion Gap 13 7 - 15 [facility] LABORATO MARCO [facility] Comment: Palindrome line Glucose, S 81 70 - 140 MG/DL [facility] LA BORATORIES [facility] Comment: Palindrome line Specimen Anatomical Collection Method Collection Time Receive d Time (Source) Location / / Volume Laterality 12/01/2013 4:27 AM 4 4:27 CDT AM CDT Narrative [facility] - 12/01/2013 5:12 AM CDT Palindrome line Karan Brennan M.D. LAB BLOOD ADD-ON Performing Organization Address City/[facility]/ZIP Code Phon e Number [facility] LABORATORIES - [address] [phone] 05 [facility] Magnesium (12/01/2013 4:27 AM CDT) P athologist Signature Magnesium, S 1.8 1.7 - 2.3 [facility] MG/DL LABORATORIES [facility] Comment: Palindrome line Specimen Anatomical Collection Method Collection Time Receive d Time (Source) Location / / Volume Laterality 12/01/2013 4:27 AM 4 4:27 CDT AM CDT Narrative [facility] - 12/01/2013 5:12 AM CDT Palindrome line Karan Brennan M.D. LAB BLOOD ADD-ON Performing Organization Address City/[facility]/ZIP Code Phon e Number [facility] LABORATORIES - [address] [phone] 05 [facility] Antibody Screen, RBC (11/30/2013 7:29 AM CDT) [facility] gist Method Time Signature Antibody Negative [facility] Screen LABORATORIES [facility] Specimen (Source) Anatomical Collection Method Collection Time Re ceived Time Location / / Volume Laterality 11/30/2013 7:29 AM CDT Historical Provider LAB BLOOD BANK TEST ORDERABL ES Performing Organization Address City/[facility]/ZIP Code Phon e Number [facility] LABORATORIES - [address] [address] 05 [facility] ABORh, RBC (11/30/2013 7:29 AM CDT) P athologist Signature HXABO/RH BLOOD A Pos [facility] TYPE [facility] Specimen (Source) Anatomical Collection Method Collection Time Re ceived Time Location / / Volume Laterality 11/30/2013 7:29 AM CDT Historical Provider LAB BLOOD BANK TEST ORDERABL ES Performing Organization Address City/[facility]/ZIP Code Phon e Number [facility] LABORATORIES - [address] [phone] 05 [facility] Prepare platelets (11/30/2013 7:27 AM CDT) [facility] gist Method Time Signature HXPLT # UNITS 1 [facility] TRANSFUSED LABORATORIES [facility] HXPLATELETS UNIT PLT [facility] INFO [facility] Comment: Unit Blood Type A Pos Unit Number [id number] Component Type Platelets, Apheresis Leuk oreduced, Irradiated, Bag 2 Issue Date/Time [id number] Specimen (Source) Anatomical Collection Method Collection Time Re ceived Time Location / / Volume Laterality 11/30/2013 7:27 AM CDT Historical Provider BLOOD BANK PRODUCT ORDERABLE S Performing Organization Address City/State/ZIP Code Phon e Number [facility] - [address] [place], [place] [address] [facility] (ABNORMAL) Electrolyte (Chem 4) Panel (11/30/2013 4:37 AM CDT) athologist Signature Sodium, S 144 135 - 145 [facility] MMOL/L [facility] Comment: Palindrome line Potassium, S 3.1 (L) 3.6 - 5.2 MMOL/L [facility] Comment: Palindrome line Chloride, S 117 (H) 98 - 107 MMOL/L [facility] Comment: Palindrome line HX Bicarbonate, P/S 15 (L) 22 - 29 MMOL/L M [facility] Comment: Palindrome line Creatinine 1.0 0.6 - 1.1 MG/DL [facility] IC [facility] Comment: Palindrome line eGFR Non-Black/ 57 (L) >60 ML/MIN/BSA [facility] Comment: Palindrome line eGFR-Black/ >60 >60 ML/MIN/BSA [facility] Comment: Palindrome line BUN (Blood Urea Nitrogen), S 12 6 - 21 MG/DL [facility] Comment: Palindrome line Anion Gap 12 7 - 15 [facility] LABORATO MARCO [facility] Comment: Palindrome line Glucose, S 90 70 - 140 MG/DL [facility] LA BORATORIES [facility] Comment: Palindrome line Specimen Anatomical Collection Method Collection Time Receive d Time (Source) Location / / Volume Laterality 11/30/2013 4:37 AM 4 4:37 CDT AM CDT Narrative [facility] - 11/30/2013 6:01 AM CDT Palindrome line Karan Brennan M.D. LAB BLOOD ADD-ON Performing Organization Address City/[facility]/ZIP Code Phon e Number [facility] LABORATORIES - [address] [address] 05 [facility] AST (Aspartate Aminotransferase) (11/30/2013 4:37 AM CDT) athologist [facility] AST, Total, S 16 8 - 43 U/L [facility] Comment: Palindrome line Specimen Anatomical Collection Method Collection Time Receive d Time (Source) Location / / Volume Laterality 11/30/2013 4:37 AM 4 4:37 CDT AM CDT Narrative [facility] - 11/30/2013 6:01 AM CDT Palindrome line Karan Brennan M.D. LAB BLOOD ADD-ON Performing Organization Address City/[facility]/ZIP Code Phon e Number [facility] - [address] [address] 05 [facility] Magnesium (11/30/2013 4:37 AM CDT) athologist [facility] Magnesium, S 1.8 1.7 - 2.3 [facility] MG/DL [facility] Comment: Palindrome line Specimen Anatomical Collection Method Collection Time Receive d Time (Source) Location / / Volume Laterality 11/30/2013 4:37 AM 4 4:37 CDT AM CDT Narrative [facility] - 11/30/2013 6:01 AM CDT Palindrome line Karan Brennan M.D. LAB BLOOD ADD-ON Performing Organization Address City/[facility]/ZIP Code Phon e Number [facility] LABORATORIES - [address] [phone] 05 [facility] (ABNORMAL) CBC with Differential, Type and Screen (11/30/2013 4:37 AM CDT) athologist [facility] Hemoglobin 7.8 (L) 12.0 - [facility] 15.5 G/DL [facility] Comment: Palindrome line Hematocrit 23.2 (L) 34.9 - 44.5 % [facility] LAB ORATORIES - [facility] Comment: Palindrome line Leukocytes 0.5 (L) 3.5 - 10.5 X10(9)/L [facility] Comment: Palindrome line Neutrophils 0.03 (L) 1.70 - 7.00 X10(9)/L [facility] Comment: Palindrome line ? Rechecked ? Lymphocytes 0.41 (L) 0.90 - 2.90 X10(9)/L [facility] Comment: Palindrome line Monocytes 0.03 (L) 0.30 - 0.90 X10(9)/L [facility] Comment: Palindrome line Erythrocytes 2.50 (L) 3.90 - 5.03 X10(12)/L [facility] Comment: Palindrome line MCV 92.8 81.6 - 98.3 FL [facility] Comment: Palindrome line RBC Distrib Width 16.5 (H) 11.9 - 15.5 % [place] [facility] Comment: Palindrome line Platelet Count 18 (L) 150 - 450 X10(9)/L [facility] Comment: Palindrome line ? Results confirmed by smear. ? Eosinophils 0.00 (L) 0.05 - 0.50 X10(9)/L [facility] Comment: Palindrome line Basophils 0.01 0.00 - 0.30 X10(9)/L [facility] Comment: Palindrome line Specimen Anatomical Collection Method Collection Time Receive d Time (Source) Location / / Volume Laterality 11/30/2013 4:37 AM 4 4:37 CDT AM CDT Narrative [facility] - 11/30/2013 6:40 AM CDT Palindrome line Karan Brennan M.D. LAB BLOOD NON ADD-ON Performing Organization Address City/State/ZIP Code Phon e Number [facility] - [address] [place], [place] [address] [facility] VRE PCR (11/29/2013 12:35 PM CDT) P athologist Signature Specimen . [facility] Source (VRE LABORATORIES - PCR) [facility] Comment: CED RECTAL SWAB VRE PCR Negative Not Applicable [facility] ORATORIES [facility] Comment: ? ADDITIONAL INFORMATIO N ? Laboratory developed test. ? Specimen Anatomical Collection Method Collection Time Receive d Time (Source) Location / / Volume Laterality 11/29/2013 12:35 11/29/2013 PM CDT 12:35 PM CDT Goyo Pérez M.D. LAB MICROBIOLOGY - GENERAL O RDERABLES Performing Organization Address City/State/ZIP Code Phon e Number [facility] - [address] [place], [place] [address] [facility] Prepare platelets (11/29/2013 6:56 AM CDT) [facility] gist Method Time Signature HXPLT # UNITS 1 [facility] TRANSFUSED [facility] HXPLATELETS UNIT PLT [facility] INFO [facility] Comment: Unit Blood Type O Pos Unit Number [id number] Component Type Platelets, Apheresis Leuk oreduced, Irradiated, Bag 1 Issue Date/Time [id number] Specimen (Source) Anatomical Collection Method Collection Time Re ceived Time Location / / Volume Laterality 11/29/2013 6:56 AM CDT Historical Provider BLOOD BANK PRODUCT ORDERABLE S Performing Organization Address City/[facility]/ZIP Code Phon e Number [facility] LABORATORIES - [address] [place], [place] [address] [facility] Magnesium (11/29/2013 3:04 AM CDT) P athologist Signature Magnesium, S 1.8 1.7 - 2.3 [facility] MG/DL LABORATORIES - [facility] Specimen Anatomical Collection Method Collection Time Receive d Time (Source) Location / / Volume Laterality 11/29/2013 3:04 AM 4 3:04 CDT AM CDT Karan Brennan M.D. LAB BLOOD ADD-ON Performing Organization Address City/[facility] Phon e Number [facility] LABORATORIES - [address] [address] [facility] (ABNORMAL) CBC with Differential - No Alerts (11/29/2013 3:04 AM CDT) Patholo gist Method Time Signature Hemoglobin 7.6 (L) 12.0 - [facility] 15.5 G/DL [facility] Hematocrit 23.2 (L) 34.9 - [facility] 44.5 % [facility] RBC Distrib 16.6 (H) 11.9 - [facility] Width 15.5 % [facility] Platelet Count 8 (L) 150 - 450 [facility] X10(9)/L [facility] Erythrocytes 2.43 (L) 3.90 - [facility] 5.03 LABORATORIES - X10(12)/L [facility] MCV 95.5 81.6 - [facility] 98.3 FL [facility] Leukocytes 0.2 (L) 3.5 - [facility] 10.5 LABORATORIES - X10(9)/L [facility] Neutrophils SeeComment X10(9)/L [facility] Comment: Too few white cells for accurat e differential. Specimen Anatomical Collection Method Collection Time Receive d Time (Source) Location / / Volume Laterality 11/29/2013 3:04 AM 4 3:04 CDT AM CDT Karan Brennan M.D. LAB BLOOD NON ADD-ON Performing Organization Address City/[facility]/ZIP Code Phon e Number [facility] LABORATORIES - [address] [address] [facility] (ABNORMAL) Electrolyte (Chem 4) Panel (11/29/2013 3:04 AM CDT) [facility] Method Time Signature Chloride, S 116 (H) 98 - 107 [facility] MMOL/L LABORATORIES - [facility] HX Bicarbonate, 18 (L) 22 - 29 [facility] P/S MMOL/L LABORATORIES - [facility] eGFR-Black/Afri >60 >60 [facility] can Kosovan ML/MIN/BS LABORATORIES - A [facility] BUN (Blood Urea 12 6 - 21 [facility] Nitrogen), S MG/DL LABORATORIES - [facility] Sodium, S 143 135 - 145 [facility] MMOL/L LABORATORIES - [facility] Potassium, S 3.6 3.6 - 5.2 [facility] MMOL/L LABORATORIES - [facility] Creatinine 1.1 0.6 - 1.1 [facility] MG/DL LABORATORIES - [facility] eGFR 51 (L) >60 [facility] Non-Black/Afric ML/MIN/BS LABORATORIES - [place] A [facility] Anion Gap 9 7 - 15 [facility] LABORATORIES - [facility] Glucose, S 101 70 - 140 [facility] MG/DL LABORATORIES - [facility] Specimen Anatomical Collection Method Collection Time Receive d Time (Source) Location / / Volume Laterality 11/29/2013 3:04 AM 4 3:04 CDT AM CDT Karan Brennan M.D. LAB BLOOD ADD-ON Performing Organization Address City/[facility] Code Phon e Number [facility] LABORATORIES - [address] AST (Aspartate Aminotransferase) (11/29/2013 3:04 AM CDT) athologist Signature AST, Total, S 11 8 - 43 U/L [facility] - [facility] Specimen Anatomical Collection Method Collection Time Receive d Time (Source) Location / / Volume Laterality 11/29/2013 3:04 AM 4 3:04 CDT AM CDT Karan Brennan M.D. LAB BLOOD ADD-ON Performing Organization Address City/[facility] Phon e Number [facility] LABORATORIES - [address] C. difficile Toxin PCR, F (11/28/2013 8:31 AM CDT) [facility] Method Time Signature Specimen STOOL [facility] Source LABORATORIES - (C.difficile [facility] Toxin PCR) [place] C. difficile Negative Not Applicable [facility] toxin LABORATORIES - [facility] Comment: ? ADDITIONAL INFORMATIO N ? Laboratory developed test. ? Specimen Anatomical Collection Method Collection Time Receive d Time (Source) Location / / Volume Laterality 11/28/2013 8:31 AM 4 8:31 CDT AM CDT Karan Brennan M.D. LAB MICROBIOLOGY - GENERAL O ESTELAERAYEMI Performing Organization Address City/State/ZIP Code Phon e Number [facility] LABORATORIES - [address] [place], [place] [address] [facility] HX BACTERIAL ENTER PATHOGENS, PCR, F (11/28/2013 8:31 AM CDT) [facility] gist Method Time Signature Specimen Source STOOL [facility] (Bacterial LABORATORIES - enteric path) [facility] Campylobacter Negative Not [facility] jejuni/coli PCR Applicable [facility] Yersinia PCR Negative Not [facility] Applicable [facility] Shiga Toxin PCR Negative Not [facility] Applicable [facility] Comment: ? ADDITIONAL INFORMATIO N ? Laboratory developed test. ? Salmonella PCR Negative Not Applicable [facility] Shigella PCR Negative Not Applicable [facility] Specimen Anatomical Collection Method Collection Time Receive d Time (Source) Location / / Volume Laterality 11/28/2013 8:31 AM 4 8:31 CDT AM CDT Karan Brennan M.D. LAB HISTORICAL ORDERS Performing Organization Address City/State/ZIP Code Phon e Number [facility] LABORATORIES - [address] [facility], [place] [address] [facility] (ABNORMAL) Electrolyte (Chem 4) Panel (11/28/2013 4:10 AM CDT) P athologist Signature Chloride, S 108 (H) 98 - 107 [facility] MMOL/L [facility] Comment: Palindrome line HX Bicarbonate, P/S 21 (L) 22 - 29 MMOL/L M [facility] Comment: Palindrome line Creatinine 1.1 0.6 - 1.1 MG/DL [facility] Comment: Palindrome line eGFR Non-Black/ 51 (L) >60 ML/MIN/BSA [facility] Comment: Palindrome line Anion Gap 9 7 - 15 [facility] LABORATO MARCO [facility] Comment: Palindrome line Glucose, S 108 70 - 140 MG/DL [facility] Comment: Palindrome line Sodium, S 138 135 - 145 MMOL/L [place] [facility] Comment: Palindrome line Potassium, S 3.7 3.6 - 5.2 MMOL/L [facility] Comment: Palindrome line eGFR-Black/ >60 >60 ML/MIN/BSA [facility] S Comment: Palindrome line BUN (Blood Urea Nitrogen), S 12 6 - 21 MG/DL [facility] Comment: Palindrome line Specimen Anatomical Collection Method Collection Time Receive d Time (Source) Location / / Volume Laterality 11/28/2013 4:10 AM 4 4:10 CDT AM CDT Narrative [facility] - 11/28/2013 4:59 AM CDT Palindrome line Mandie Brown P.A.-C. LAB BLOOD ADD-ON Performing Organization Address City/State/ZIP Code Phon e Number [facility] LABORATORIES - [address] [phone] 05 [facility] (ABNORMAL) CBC with Differential - No Alerts (11/28/2013 4:10 AM CDT) Patholo gist Method Time Signature Erythrocytes 2.38 (L) 3.90 - [facility] 5.03 LABORATORIES - X10(12)/L [facility] Comment: Palindrome line MCV 94.5 81.6 - 98.3 FL [facility] Comment: Palindrome line RBC Distrib Width 16.4 (H) 11.9 - 15.5 % [facility] Comment: Palindrome line Platelet Count 36 (L) 150 - 450 X10(9)/L [facility] Comment: Palindrome line Hemoglobin 7.5 (L) 12.0 - 15.5 G/DL [facility] Comment: Palindrome line Hematocrit 22.5 (L) 34.9 - 44.5 % [facility] Comment: Palindrome line Leukocytes 0.1 (L) 3.5 - 10.5 X10(9)/L [facility] Comment: Palindrome line Neutrophils SeeComment X10(9)/L [facility] Comment: Palindrome line ? Too few white cells for accurate differe ntial. ? Specimen Anatomical Collection Method Collection Time Receive d Time (Source) Location / / Volume Laterality 11/28/2013 4:10 AM 4 4:10 CDT AM CDT Narrative [facility] - 11/28/2013 5:04 AM CDT Palindrome line Mandie Brown P.A.-C. LAB BLOOD NON ADD-ON Performing Organization Address City/State/ZIP Code Phon e Number [facility] LABORATORIES - [address] [place] [address] 05 [facility] AST (Aspartate Aminotransferase) (11/28/2013 4:10 AM CDT) P athologist Signature AST, Total, S 18 8 - 43 U/L [facility] Comment: Palindrome line Specimen Anatomical Collection Method Collection Time Receive d Time (Source) Location / / Volume Laterality 11/28/2013 4:10 AM 4 4:10 CDT AM CDT Narrative [facility] - 11/28/2013 4:59 AM CDT Palindrome line Mandie Brown P.A.-C. LAB BLOOD ADD-ON Performing Organization Address City/State/ZIP Code Phon e Number [facility] LABORATORIES - [address] [place] [address] 05 [facility] Microbiology Reports (11/27/2013 6:59 PM CDT) Specimen Anatomical Collection Method Collection Time Receive d Time (Source) Location / / Volume Laterality 11/27/2013 6:59 PM 4 6:59 CDT PM CDT Narrative [facility] - 11/30/2013 1:15 PM CDT 27-NOV-2013 URINE, MIDSTREAM, ?SoftOrd# [id number] ?(Ordered 27-NOV-2013; Collec polly 27-NOV-2013 18:59; Received 27-NOV-2013 20:59) ?[facility] ?BACTERIAL CULTURE, AEROBIC + [place] ? (Reported 30-NOV-2013 13:15) FINAL ?ENTEROCOCCUS sp ??>100,000 c fu/mL ?Mixed edmundo. ? S=Susceptible; I=Intermedia te; R=Resistant; N=Not susceptible; D=Susceptible dose-dependent; ? Results in mcg/mL ?ENTEROCOCCUS sp ?Penicillin ?2 S ?Levofloxacin ? >4 R ?Gent Synergy ?<=500 S ?Nitrofurantoin ? < =32 S ?Vancomycin ?4 S Procedure Note 09/20/2017 27-NOV-2013 URINE, MIDSTREAM, SoftOrd# [id number] (Ordered 27-NOV-2013; Collected 2013 18:59; Received 27-NOV-2013 20:59) [facility] BACTERIAL CULTURE, AEROBIC + SUSC (Rep orted 30-NOV-2013 13:15) FINAL ENTEROCOCCUS sp >100,000 cfu/mL Mixed edmundo. S=Susceptible; I=Intermediate; R=Resist ant; N=Not susceptible; D=Susceptible dose-dependent; Results in mcg/mL ENTEROCOCCUS sp Penicillin 2 S Levofloxacin >4 R Gent S ynergy <=500 S Nitrofurantoin <=32 S Vancomycin 4 S Mandie Brown P.A.-C. LAB MICROBIOLOGY - GENERAL O RDERABLES Performing Organization Address City/[facility] Phon e Number [facility] - [address] [place], [place] [address] [facility] Gram Stain, Confirmatory, Urine (11/27/2013 6:59 PM CDT) [facility] gist Method Time Signature Grams Stain, Negative [facility] Confirmatory, LABORATORIES - Urine [facility] Specimen Anatomical Collection Method Collection Time Receive d Time (Source) Location / / Volume Laterality 11/27/2013 6:59 PM 4 6:59 CDT PM CDT Mandie Brown P.A.-C. LAB URINE ORDERABLES Performing Organization Address City/State/ZIP Code Phon e Number [facility] - [address] [place] [phone] [facility] Gram Stain, Urine (11/27/2013 6:59 PM CDT) Patholo gist Method Time Signature Source Midstream [facility] Gram's Stain, . [facility] Screen, U LABORATORIES - [facility] Comment: See confirmatory gram stain res ult Specimen Anatomical Collection Method Collection Time Receive d Time (Source) Location / / Volume Laterality 11/27/2013 6:59 PM 4 6:59 CDT PM CDT Mandie Brown P.A.-C. LAB URINE ORDERABLES Performing Organization Address [facility]/ZIP Code Phon e Number [facility] - [address] [place] [phone] [facility] VRE PCR (11/27/2013 5:35 PM CDT) P athologist Signature Specimen . [facility] Source (VRE LABORATORIES - PCR) [facility] Comment: PERIRECTAL VRE PCR Negative Not Applicable [facility] LAB ORATORIES - [facility] Comment: ? ADDITIONAL INFORMATIO N ? Laboratory developed test. ? Specimen Anatomical Collection Method Collection Time Receive d Time (Source) Location / / Volume Laterality 11/27/2013 5:35 PM 4 5:35 CDT PM CDT Historical Provider LAB MICROBIOLOGY - GENERAL O RDERABLES Performing Organization Address City/[facility] Phon e Number [facility] - [address] Prepare platelets (11/27/2013 1:04 PM CDT) [facility] gist Method Time Signature HXPLT # UNITS 1 [facility] TRANSFUSED LABORATORIES [facility] HXPLATELETS UNIT PLT [facility] INFO [facility] Comment: Unit Blood Type AB Neg Unit Number [id number] Component Type Platelets, Apheresis Leuk oreduced, Irradiated Issue Date/Time [id number] Specimen (Source) Anatomical Collection Method Collection Time Re ceived Time Location / / Volume Laterality 11/27/2013 1:04 PM CDT Historical Provider BLOOD BANK PRODUCT ORDERABLE S Performing Organization Address [facility] Phon e Number [facility] - [address] documented in this encounter Visit Diagnoses Not on filedocumented in this encounter Additional Health Concerns Assessment Noted Time PHQ-9 Depression Total Score: 3 08/31/2013 7:36 AM CDT documented as of this encounter
--- OUTSIDE RECORDS SUMMARY | 2022-05-20 12:15 | XMS_ITS | Encounter Summary ---
:1955 Author Organization [facility] Address [address] [place] [address] Care Team Providers Name Role Phone Unavailable Primary Care Provider Unavailable Encounter Details Date Type Department Care Team Description 11/27/2013 - Hospital Encounter HX RST TX BMT NURSE Clementina Nugent 12/04/2013 [facility] M, R.N. [address] [place] [address] Social History Tobacco Use Types Packs/Day Years [...] 05/28/2021 relatives? How often do you attend christianity or scientologist Never 05/28/2021 services? Do you belong to any clubs or organizations such as No 05/28/2021 christianity groups, unions, fraternal or athletic groups, or [...]
--- OUTSIDE RECORDS SUMMARY | 2022-05-20 12:15 | XMS_ITS | Encounter Summary ---
:1955 Author Organization [facility] Address [address] [place] [address] Care Team Providers Name Role Phone Unavailable Primary Care Provider Unavailable Encounter Details Date Type Department Care Team Description 12/09/2013 - Hospital Encounter HX RST TX BMT OP Judah Cintron 12/16/2013 Larry Blanchard [address] [place] [address] Social History Tobacco Use Types Packs/Day Years [...] 05/28/2021 relatives? How often do you attend baptism or advent Never 05/28/2021 services? Do you belong to any clubs or organizations such as No 05/28/2021 baptism groups, unions, fraternal or athletic groups, or [...] or slept in a correction (including now)? Sex Assigned at Date Recorded [...]
--- OUTSIDE RECORDS SUMMARY | 2022-05-20 12:15 | XMS_ITS | Encounter Summary ---
:1955 Author Organization [facility] Address [address] [place] [address] Care Team Providers Name Role Phone Unavailable Primary Care Provider Unavailable Encounter Details Date Type Department Care Team Description 11/26/2013 - Hospital Encounter HX RST TX BMT OP [facility] Livia, Patr ick 12/03/2013 Larry Alex, Ph.D. [address] [place] [phone] Social History Tobacco Use Types Packs/Day Years [...] 05/28/2021 relatives? How often do you attend temple or buddhism Never 05/28/2021 services? Do you belong to any clubs or organizations such as No 05/28/2021 temple groups, unions, fraternal or athletic groups, or [...]
--- OUTSIDE RECORDS SUMMARY | 2022-05-20 12:15 | XMS_ITS | Encounter Summary ---
:1955 Author Organization [facility] Address [address] [place] [address] Care Team Providers Name Role Phone Unavailable Primary Care Provider Unavailable Encounter Details Date Type Department Care Team Description 11/27/2013 - Hospital Encounter HX RST HEM BMT CLINIC SheebaStephaniey 12/04/2013 Loreto KingSJimi, LD [address] [place] [address] Social History Tobacco Use Types Packs/Day Years [...] How often do you attend orthodoxy or congregation Never 05/28/2021 services? Do you belong to [...] place to sleep or slept in a custodial (including now)? Sex Assigned at Date Recorded [...]
--- OUTSIDE RECORDS SUMMARY | 2022-05-20 12:16 | XMS_ITS | Encounter Summary ---
:1955 Author Organization [facility] Address [address] [place] [address] Care Team Providers Name Role Phone Unavailable Primary Care Provider Unavailable Encounter Details Date Type Department Care Team Description 11/26/2013 - Hospital Encounter HX RST TX BMT NURSE Orville Brennan 12/03/2013 [facility] Carlyle M.S.N., R.N., O.C.N. [address] [place] [address] Social History Tobacco Use Types Packs/Day Years [...] 05/28/2021 relatives? How often do you attend rastafari or quaker Never 05/28/2021 services? Do you belong to any clubs or organizations such as No 05/28/2021 rastafari groups, unions, fraternal or athletic groups, or [...] place to sleep or slept in a jail (including now)? Sex Assigned at Date Recorded [...]
--- OUTSIDE RECORDS SUMMARY | 2022-05-20 12:16 | XMS_ITS | Encounter Summary ---
:1955 Author Organization [facility] Address [address] [place] [address] Care Team Providers Name Role Phone Unavailable Primary Care Provider Unavailable Encounter Details Date Type Department Care Team Description 11/24/2013 - Hospital Encounter HX RST TX BMT NURSE Rita Reid, 12/01/2013 [facility] R.N. [address] [place] [address] Social History Tobacco Use Types Packs/Day Years [...] How often do you attend orthodoxy or pentecostalism Never 05/28/2021 services? Do you belong to [...] place to sleep or slept in a prison (including now)? Sex Assigned at Date Recorded Female 03/09/2021 10:01 AM CDT documented as of this encounter Last Filed Vital Signs Vital Sign Reading Time Taken Comments Blood Pressure 131/67 11/24/2013 9:24 PM CDT Pulse 103 11/24/2013 9:24 PM CDT Temperature - - Respiratory Rate - - [...]
--- OUTSIDE RECORDS SUMMARY | 2022-05-20 12:16 | XMS_ITS | Encounter Summary ---
:1955 Author Organization [facility] Address [address] [place] [address] Care Team Providers Name Role Phone Unavailable Primary Care Provider Unavailable Encounter Details Date Type Department Care Team Description 11/21/2013 - 11/28/2013 Hospital Encounter HX NO MAPPING Social History [...] 05/28/2021 relatives? How often do you attend taoist or sabianism Never 05/28/2021 services? Do you belong to any clubs or organizations such as No 05/28/2021 taoist groups, unions, fraternal or athletic groups, or [...]
--- OUTSIDE RECORDS SUMMARY | 2022-05-20 12:16 | XMS_ITS | Encounter Summary ---
:1955 Author Organization [facility] Address [address] [place] [address] Care Team Providers Name Role Phone Unavailable Primary Care Provider Unavailable Encounter Details Date Type Department Care Team Description 11/22/2013 - Hospital Encounter HX RST TX BMT NURSE Nicolasa Birch, 11/29/2013 OP [facility] R.N. [address] [place] [address] Social History Tobacco Use Types Packs/Day Years [...] 05/28/2021 relatives? How often do you attend lutheran or restorationist Never 05/28/2021 services? Do you belong to any clubs or organizations such as No 05/28/2021 lutheran groups, unions, fraternal or athletic groups, or [...]
--- OUTSIDE RECORDS SUMMARY | 2022-05-20 12:16 | XMS_ITS | Encounter Summary ---
:1955 Author Organization [facility] Address [address] [place] [address] Care Team Providers Name Role Phone Unavailable Primary Care Provider Unavailable Encounter Details Date Type Department Care Team Description 11/23/2013 - Hospital Encounter HX RST TX BMT OP [facility] Kristie Osman, 11/30/2013 MSeanBJimiS. Social History Tobacco Use Types Packs/Day Years [...] How often do you attend christianity or anglican Never 05/28/2021 services? Do you [...]
--- OUTSIDE RECORDS SUMMARY | 2022-05-20 12:16 | XMS_ITS | Encounter Summary ---
:1955 Author Organization [facility] Address [address] [place] [address] Care Team Providers Name Role Phone Unavailable Primary Care Provider Unavailable Encounter Details Date Type Department Care Team Description 11/23/2013 - Hospital Encounter HX RST TX BMT NURSE Nicolasa Birch, 11/30/2013 OP [facility] R.N. [address] [place] [address] Social History Tobacco Use Types Packs/Day Years [...] How often do you attend episcopal or jain Never 05/28/2021 services? Do you belong to [...]
--- OUTSIDE RECORDS SUMMARY | 2022-05-20 12:16 | XMS_ITS | Encounter Summary ---
:1955 Author Organization [facility] Address [address] [place] [address] Care Team Providers Name Role Phone Unavailable Primary Care Provider Unavailable Encounter Details Date Type Department Care Team Description 11/14/2013 - Hospital Encounter HX RST INFUSION Luanlong Philip, 11/21/2013 THERAPY Maranda Guerra R.N. [address] [place] [address] Social History Tobacco Use Types Packs/Day Years [...] How often do you attend presybeterian or adventism Never 05/28/2021 services? Do you [...] place to sleep or slept in a [place] [facility] [place] (including now)? Sex Assigned at Date Recorded [...]
--- OUTSIDE RECORDS SUMMARY | 2022-05-20 12:16 | XMS_ITS | Encounter Summary ---
:1955 Author Organization [facility] Address [address] [place] [address] Care Team Providers Name Role Phone Unavailable Primary Care Provider Unavailable Encounter Details Date Type Department Care Team Description 11/24/2013 - Hospital Encounter HX RST TX BMT OP [facility] Zoraida Carlson, 12/01/2013 [employer] SUPERINTENDENT, C.N.P. Social History Tobacco Use Types Packs/Day Years [...] 05/28/2021 relatives? How often do you attend uatsdin or sikhism Never 05/28/2021 services? Do you belong to any clubs or organizations such as No 05/28/2021 uatsdin groups, unions, fraternal or athletic groups, or [...] Sign Reading Time Taken Comments Blood Pressure 96/75 11/24/2013 8:02 PM CDT Pulse 135 11/24/2013 8:02 PM CDT Temperature - - Respiratory Rate 18 11/24/2013 8:00 PM CDT Oxygen Saturation - - Inhaled [...]
--- OUTSIDE RECORDS SUMMARY | 2022-05-20 12:16 | XMS_ITS | Encounter Summary ---
:1955 Author Organization [facility] Address [address] [place] [address] Care Team Providers Name Role Phone Unavailable Primary Care Provider Unavailable Encounter Details Date Type Department Care Team Description 11/24/2013 - Hospital Encounter HX RST TX BMT NURSE Elsie Beverly 12/01/2013 [facility] R, R.N. Social History Tobacco Use Types Packs/Day Years [...] How often do you attend scientology or zoroastrian Never 05/28/2021 services? Do you [...] place to sleep or slept in a intermediate (including now)? Sex Assigned at Date Recorded [...]
--- OUTSIDE RECORDS SUMMARY | 2022-05-20 12:16 | XMS_ITS | Encounter Summary ---
:1955 Author Organization [facility] Address [address] [place] [address] Care Team Providers Name Role Phone Unavailable Primary Care Provider Unavailable Encounter Details Date Type Department Care Team Description 11/22/2013 - Hospital Encounter HX RST TX BMT OP [facility] Kristie Osman, 11/29/2013 MSeanB.S. Social History Tobacco Use Types Packs/Day Years [...] How often do you attend quaker or buddhist Never 05/28/2021 services? Do you belong to [...]
--- OUTSIDE RECORDS SUMMARY | 2022-05-20 12:16 | XMS_ITS | Encounter Summary ---
:1955 Author Organization [facility] Address [address] [place] [address] Care Team Providers Name Role Phone Unavailable Primary Care Provider Unavailable Encounter Details Date Type Department Care Team Description 11/12/2013 - 11/19/2013 Hospital Encounter HX NO MAPPING Social History [...] 05/28/2021 relatives? How often do you attend caodaism or samaritan Never 05/28/2021 services? Do you belong to any clubs or organizations such as No 05/28/2021 caodaism groups, unions, fraternal or athletic groups, or [...] place to sleep or slept in a snf (including now)? Sex Assigned at Date Recorded [...]
--- OUTSIDE RECORDS SUMMARY | 2022-05-20 12:16 | XMS_ITS | Encounter Summary ---
:1955 Author Organization [facility] Address [address] [place] [address] Care Team Providers Name Role Phone Unavailable Primary Care Provider Unavailable Encounter Details Date Type Department Care Team Description 11/12/2013 - Hospital Encounter HX RST BMT Provider, Historical 11/19/2013 COLLECTION Social History Tobacco Use Types Packs/Day Years [...] 05/28/2021 relatives? How often do you attend pentecostal or confucianist Never 05/28/2021 services? Do you belong to any clubs or organizations such as No 05/28/2021 pentecostal groups, unions, fraternal or athletic groups, or [...]
--- OUTSIDE RECORDS SUMMARY | 2022-05-20 12:16 | XMS_ITS | Encounter Summary ---
:1955 Author Organization [facility] Address [address] [place] [address] Care Team Providers Name Role Phone Unavailable Primary Care Provider Unavailable Encounter Details Date Type Department Care Team Description 11/25/2013 - Hospital Encounter HX RST TX BMT NURSE Casper Curiel 12/02/2013 OP [facility] M, TRANSIT SURVEY WORKER, C.N.P. [address] [place], [place] [address] Social History Tobacco Use [...] 05/28/2021 relatives? How often do you attend taoism or lutheran Never 05/28/2021 services? Do you belong to any clubs or organizations such as No 05/28/2021 taoism groups, unions, fraternal or athletic groups, or [...] Sign Reading Time Taken Comments Blood Pressure 132/80 11/25/2013 8:26 PM CDT Pulse 92 11/25/2013 8:26 PM CDT Temperature - - Respiratory Rate 18 11/25/2013 8:26 PM CDT Oxygen Saturation - - Inhaled [...]
--- OUTSIDE RECORDS SUMMARY | 2022-05-20 12:16 | XMS_ITS | Encounter Summary ---
:1955 Author Organization [facility] Address [address] [place] [address] Care Team Providers Name Role Phone Unavailable Primary Care Provider Unavailable Encounter Details Date Type Department Care Team Description 11/25/2013 - Hospital Encounter HX RST TX BMT OP [facility] Yoana Alegria, 12/02/2013 JANNET, C.N.P., D.N.P. [address] [place] [address] Social History Tobacco Use Types Packs/Day Years [...] How often do you attend zoroastrian or scientologist Never 05/28/2021 services? Do you [...] to sleep or slept in a senior care (including now)? Sex Assigned at Date Recorded Female 03/09/2021 10:01 AM CDT documented as of this encounter Last Filed Vital Signs Vital Sign Reading Time Taken Comments Blood Pressure 132/81 11/25/2013 5:59 PM CDT Pulse 115 11/25/2013 5:59 PM CDT Temperature - - Respiratory Rate 18 11/25/2013 5:59 PM CDT Oxygen Saturation - - Inhaled [...]
--- OUTSIDE RECORDS SUMMARY | 2022-05-20 12:16 | XMS_ITS | Encounter Summary ---
:1955 Author Organization [facility] Address [address] [place] [address] Care Team Providers Name Role Phone Unavailable Primary Care Provider Unavailable Encounter Details Date Type Department Care Team Description 11/11/2013 - Hospital Encounter HX RST BMT Provider, 11/18/2013 MOBILIZATION OP Historical Social History Tobacco Use Types Packs/Day [...] 05/28/2021 relatives? How often do you attend judaism or mosque Never 05/28/2021 services? Do you belong to any clubs or organizations such as No 05/28/2021 judaism groups, unions, fraternal or athletic groups, or [...] Sign Reading Time Taken Comments Blood Pressure 127/56 11/11/2013 6:40 AM CDT Pulse 74 11/11/2013 6:40 AM CDT Temperature - - Respiratory Rate 18 11/11/2013 6:40 AM CDT Oxygen Saturation - - Inhaled Oxygen [...]
--- OUTSIDE RECORDS SUMMARY | 2022-05-20 12:16 | XMS_ITS | Encounter Summary ---
:1955 Author Organization [facility] Address [address] [place] [address] Care Team Providers Name Role Phone Unavailable Primary Care Provider Unavailable Encounter Details Date Type Department Care Team Description 11/15/2013 - Hospital Encounter HX RST UNIT 9-4 Amaya Trejo, 11/21/2013 HEM/ONC M.D. [address] [place] [address] Social History Tobacco Use Types Packs/Day Years [...] 05/28/2021 relatives? How often do you attend islam or shinto Never 05/28/2021 services? Do you belong to any clubs or organizations such as No 05/28/2021 islam groups, unions, fraternal or athletic groups, or [...] place to sleep or slept in a detention (including now)? Sex Assigned at Date Recorded Female 03/09/2021 10:01 AM CDT documented as of this encounter Last Filed Vital Signs Vital Sign Reading Time Taken Comments Blood Pressure 111/61 11/21/2013 2:58 PM NIBP - Value from CDT [employer]. Pulse 75 11/21/2013 2:58 PM Value from artplus. CDT Temperature - - Respiratory Rate 16 11/21/2013 2:58 PM Value from Kitty rodriguez. CDT Oxygen Saturation - - Inhaled Oxygen - - Concentration Weight 86.2 kg (190 lb 0.6 11/21/2013 2:32 PM oz) CDT Height 172.5 cm (5' 7.91) 11/15/2013 7:59 AM CDT Body Mass Index 28.97 11/15/2013 7:59 AM CDT documented in this encounter Medications at Time of Discharge Medication Sig Dispensed Refills Start Date End Date omeprazole (PriLOSEC) 20 Take 1 capsule by 0 09/[address] capsule mouth daily. documented as of this encounter Plan of Treatment Not on filedocumented as of this encounter Procedures Procedure Name Priority Date/Time Associated Comments Diagnosis CBC NO CALL BACK, REFLEX Routine 11/23/2013 10:41 Results for this T/S AM CDT procedure are i n the results section. POTASSIUM, S/P Routine 11/23/2013 10:41 Results f or this AM CDT procedure are i n the results section. MAGNESIUM, S Routine 11/23/2013 10:41 Results for this AM CDT procedure are i n the results section. CREATININE WITH EGFR, Routine 11/23/2013 10:41 Re sults for this S/P AM CDT procedure are i n the results section. CBC NO CALL BACK, REFLEX Routine 11/22/2013 10:33 Results for this T/S AM CDT procedure are i n the results section. ASPARTATE Routine 11/22/2013 10:33 Results for this AMINOTRANSFERASE (AST), AM CDT proc edure are in S/P the results section. SODIUM, S/P Routine 11/22/2013 10:33 Results for this AM CDT procedure are i n the results section. POTASSIUM, S/P Routine 11/22/2013 10:33 Results f or this AM CDT procedure are i n the results section. ALKALINE PHOSPHATASE, Routine 11/22/2013 10:33 Re sults for this S/P AM CDT procedure are i n the results section. CREATININE WITH EGFR, Routine 11/22/2013 10:33 Re sults for this S/P AM CDT procedure are i n the results section. BILIRUBIN, TOT, S/P Routine 11/22/2013 10:33 Resu lts for this AM CDT procedure are i n the results section. HXPERIPH BLD PROG CELLS Routine 11/21/2013 12:42 Results for this PM CDT procedure are i n the results section. HXDOSE AND AMOUNT Routine 11/21/2013 12:42 Result s for this INFUSED PM CDT procedure are i n the results section. CBC NO CALL BACK, REFLEX Routine 11/21/2013 5:24 Results for this T/S AM CDT procedure are i n the results section. ELPN WITH CREATININE Routine 11/21/2013 5:24 Resu lts for this JERMAN, P AM CDT procedure are i n the results section. ASPARTATE Routine 11/21/2013 5:24 Results for this AMINOTRANSFERASE (AST), AM CDT proc edure are in S/P the results section. MAGNESIUM, S Routine 11/21/2013 5:24 Results for this AM CDT procedure are i n the results section. ELPN WITH CREATININE Routine 11/20/2013 4:45 Resu lts for this JERMAN, P AM CDT procedure are i n the results section. CBC WITH DIFFERENTIAL, B Routine 11/20/2013 4:45 Results for this AM CDT procedure are i n the results section. ASPARTATE Routine 11/20/2013 4:45 Results for this AMINOTRANSFERASE (AST), AM CDT proc edure are in S/P the results section. MAGNESIUM, S Routine 11/20/2013 4:45 Results for this AM CDT procedure are i n the results section. VRE PCR Routine 11/19/2013 8:28 Results for this AM CDT procedure are i n the results section. ABORH, RBC Routine 11/19/2013 4:01 Results for this AM CDT procedure are i n the results section. ANTIBODY SCREEN, B Routine 11/19/2013 4:01 Result s for this AM CDT procedure are i n the results section. CBC NO CALL BACK, REFLEX Routine 11/19/2013 3:08 Results for this T/S AM CDT procedure are i n the results section. ELPN WITH CREATININE Routine 11/19/2013 3:08 Resu lts for this JERMAN, P AM CDT procedure are i n the results section. ASPARTATE Routine 11/19/2013 3:08 Results for this AMINOTRANSFERASE (AST), AM CDT proc edure are in S/P the results section. PHOSPHORUS (INORGANIC), Routine 11/19/2013 3:08 R esults for this S AM CDT procedure are i n the results section. ALKALINE PHOSPHATASE, Routine 11/19/2013 3:08 Res ults for this S/P AM CDT procedure are i n the results section. MAGNESIUM, S Routine 11/19/2013 3:08 Results for this AM CDT procedure are i n the results section. CALCIUM, IONIZED, S/B Routine 11/19/2013 3:08 Res ults for this AM CDT procedure are i n the results section. BILIRUBIN, TOT, S/P Routine 11/19/2013 3:08 Resul ts for this AM CDT procedure are i n the results section. ELPN WITH CREATININE Routine 11/18/2013 4:03 Resu lts for this JERMAN, P AM CDT procedure are i n the results section. CBC WITH DIFFERENTIAL, B Routine 11/18/2013 4:03 Results for this AM CDT procedure are i n the results section. ASPARTATE Routine 11/18/2013 4:03 Results for this AMINOTRANSFERASE (AST), AM CDT proc edure are in S/P the results section. MAGNESIUM, S Routine 11/18/2013 4:03 Results for this AM CDT procedure are i n the results section. ELPN WITH CREATININE Routine 11/17/2013 3:57 Resu lts for this JERMAN, P AM CDT procedure are i n the results section. CBC WITH DIFFERENTIAL, B Routine 11/17/2013 3:57 Results for this AM CDT procedure are i n the results section. ASPARTATE Routine 11/17/2013 3:57 Results for this AMINOTRANSFERASE (AST), AM CDT proc edure are in S/P the results section. ELPN WITH CREATININE Routine 11/16/2013 2:54 Resu lts for this JERMAN, P AM CDT procedure are i n the results section. CBC WITH DIFFERENTIAL, B Routine 11/16/2013 2:54 Results for this AM CDT procedure are i n the results section. ASPARTATE Routine 11/16/2013 2:54 Results for this AMINOTRANSFERASE (AST), AM CDT proc edure are in S/P the results section. SPSMA RESULT Routine 11/15/2013 10:22 Results for this AM CDT procedure are i n the results section. CBC WITH DIFFERENTIAL, B Routine 11/15/2013 10:22 Results for this AM CDT procedure are i n the results section. ALANINE AMINOTRANSFERASE Routine 11/15/2013 10:22 Results for this (ALT), S/P AM CDT procedure are i n the results section. ASPARTATE Routine 11/15/2013 10:22 Results for this AMINOTRANSFERASE (AST), AM CDT proc edure are in S/P the results section. SODIUM, S/P Routine 11/15/2013 10:22 Results for this AM CDT procedure are i n the results section. POTASSIUM, S/P Routine 11/15/2013 10:22 Results f or this AM CDT procedure are i n the results section. ALKALINE PHOSPHATASE, Routine 11/15/2013 10:22 Re sults for this S/P AM CDT procedure are i n the results section. MAGNESIUM, S Routine 11/15/2013 10:22 Results for this AM CDT procedure are i n the results section. GLUCOSE, FASTING, S/P Routine 11/15/2013 10:22 Re sults for this AM CDT procedure are i n the results section. CREATININE WITH EGFR, Routine 11/15/2013 10:22 Re sults for this S/P AM CDT procedure are i n the results section. BILIRUBIN, TOT, S/P Routine 11/15/2013 10:22 Resu lts for this AM CDT procedure are i n the results section. VRE PCR Routine 11/15/2013 8:09 Results for this AM CDT procedure are i n the results section. documented in this encounter Results Magnesium (11/23/2013 10:41 AM CDT) athologist Signature Magnesium, S 2.1 1.7 - 2.3 [facility] MG/DL LAB[facility]ATORIES - [facility] Specimen Anatomical Collection Method Collection Time Receive d Time (Source) Location / / Volume Laterality 11/23/2013 10:41 11/23/2013 AM CDT 10:41 AM CDT Kristie Schumacher LAB BLOOD ADD-ON Performing Organization Address City/State/ZIP Code Phon e Number [facility]IES - [address] [place], [place] [address] [facility] (ABNORMAL) CBC with Differential - No Alerts (11/23/2013 10:41 AM CDT) Patholo gist Method Time Signature Hemoglobin 9.9 (L) 12.0 - [facility] 15.5 G/DL [facility] Hematocrit 30.0 (L) 34.9 - [facility] 44.5 % LAB[facility]ATORIES - [facility] RBC Distrib 17.0 (H) 11.9 - [facility] Width 15.5 % [facility] Platelet Count 73 (L) 150 - 450 [facility] X10(9)/L [facility] - [facility] Erythrocytes 3.19 (L) 3.90 - [facility] 5.03 LABORATORIES - X10(12)/L [facility] MCV 94.0 81.6 - [facility] 98.3 FL [facility] Leukocytes 0.3 (L) 3.5 - [facility] 10.5 LABORATORIES - X10(9)/L [facility] Comment: Results confirmed by smear. Neutrophils SeeComment X10(9)/L [facility] LABOR ATORIES - [facility] Comment: Too few white cells for accurat e differential. Specimen Anatomical Collection Method Collection Time Receive d Time (Source) Location / / Volume Laterality 11/23/2013 10:41 11/23/2013 AM CDT 10:41 AM CDT Kristie GutierrezB.S. LAB BLOOD NON ADD-ON Performing Organization Address City/[facility]/ZIP Code Phon e Number [facility]IES - [address] [place] [phone] [facility] Potassium (11/23/2013 10:41 AM CDT) P athologist Signature Potassium, S 4.0 3.6 - 5.2 [facility] MMOL/L [facility] Specimen Anatomical Collection Method Collection Time Receive d Time (Source) Location / / Volume Laterality 11/23/2013 10:41 11/23/2013 AM CDT 10:41 AM CDT Kristie GutierrezBJimiS. LAB BLOOD ADD-ON Performing Organization Address City/[facility]/ZIP Code Phon e Number [facility]IES - [address] [place] [phone] [facility] Creatinine with Estimated GFR (MDRD) (11/23/2013 10:41 AM CDT) Analysis Performed At Patho logist Time Signature Creatinine 0.9 0.6 - 1.1 [facility] MG/DL [facility] eGFR >60 >60 [facility] Non-Black/Afric ML/MIN/BSA LABORATORIES - an [place] [facility] eGFR-Black/Afri >60 >60 [facility] can [place]ian ML/MIN/BSA LAB[facility]ATORIES - [facility] Specimen Anatomical Collection Method Collection Time Receive d Time (Source) Location / / Volume Laterality 11/23/2013 10:41 11/23/2013 AM CDT 10:41 AM CDT Kristie Schumacher LAB BLOOD ADD-ON Performing Organization Address City/State/ZIP Code Phon e Number [facility]IES - [address] [place] [phone] [facility] Bilirubin, Total (11/22/2013 10:33 AM CDT) P athologist Signature Bilirubin, 0.5 0.1 - 1.0 [facility] Total, S MG/DL [facility] - [facility] Specimen Anatomical Collection Method Collection Time Receive d Time (Source) Location / / Volume Laterality 11/22/2013 10:33 11/22/2013 AM CDT 10:33 AM CDT Karan Brennan M.D. LAB BLOOD ADD-ON Performing Organization Address City/State/ZIP Code Phon e Number [facility]IES - [address] [place] [phone] [facility] Potassium (11/22/2013 10:33 AM CDT) P athologist Signature Potassium, S 4.4 3.6 - 5.2 [facility] MMOL/L [facility] Specimen Anatomical Collection Method Collection Time Receive d Time (Source) Location / / Volume Laterality 11/22/2013 10:33 11/22/2013 AM CDT 10:33 AM CDT Karan Brennan M.D. LAB BLOOD ADD-ON Performing Organization Address City/State/ZIP Code Phon e Number [facility]IES - [address] [place] [phone] [facility] Sodium (11/22/2013 10:33 AM CDT) P athologist Signature Sodium, S 137 135 - 145 [facility] MMOL/L [facility] Specimen Anatomical Collection Method Collection Time Receive d Time (Source) Location / / Volume Laterality 11/22/2013 10:33 11/22/2013 AM CDT 10:33 AM CDT Karan Brennan M.D. LAB BLOOD ADD-ON Performing Organization Address City/[facility]/ZIP Code Phon e Number [facility]IES - [address] [place] [address] [facility] (ABNORMAL) Alkaline Phosphatase (11/22/2013 10:33 AM CDT) [facility] [employer] Method Time Signature Alkaline 124 (H) 46 - 118 [facility] Phosphatase, S U/L [facility] - [facility] Specimen Anatomical Collection Method Collection Time Receive d Time (Source) Location / / Volume Laterality 11/22/2013 10:33 11/22/2013 AM CDT 10:33 AM CDT Karan Brennan M.D. LAB BLOOD ADD-ON Performing Organization Address City/[facility] Code Phon e Number [facility]IES - [address] [place] [phone] [facility] (ABNORMAL) CBC with Differential - No Alerts (11/22/2013 10:33 AM CDT) [facility] Method Time Signature Hemoglobin 9.7 (L) 12.0 - [facility] 15.5 G/DL [facility] - [facility] Hematocrit 29.4 (L) 34.9 - [facility] 44.5 % [facility] RBC Distrib 17.5 (H) 11.9 - [facility] Width 15.5 % [facility] Platelet Count 91 (L) 150 - 450 [facility] X10(9)/L [facility] - [facility] Leukocytes 0.6 (L) 3.5 - [facility] 10.5 LABORATORIES - X10(9)/L [facility] Neutrophils 0.28 (L) 1.70 - [facility] 7.00 LABORATORIES - X10(9)/L [facility] Comment: Rechecked Eosinophils 0.00 (L) 0.05 - 0.50 X10(9)/L [facility] S Basophils 0.00 0.00 - 0.30 X10(9)/L [facility] S Erythrocytes 3.15 (L) 3.90 - 5.03 X10(12)/L [facility] - [facility] S MCV 93.3 81.6 - 98.3 FL [facility] LAB ORATORIES - [facility] S Lymphocytes 0.11 (L) 0.90 - 2.90 X10(9)/L [facility] S Monocytes 0.19 (L) 0.30 - 0.90 X10(9)/L [facility] S Specimen Anatomical Collection Method Collection Time Receive d Time (Source) Location / / Volume Laterality 11/22/2013 10:33 11/22/2013 AM CDT 10:33 AM CDT Karan Brennan M.D. LAB BLOOD NON ADD-ON Performing Organization Address City/[facility]/ZIP Code Phon e Number [facility]IES - [address] (ABNORMAL) Creatinine with Estimated GFR (MDRD) (11/22/2013 10:33 AM CDT) Patholo gist Method Time Signature eGFR-Black/Afri >60 >60 [facility] can [place]ian ML/MIN/BSA LABORATORIES [facility] Creatinine 1.0 0.6 - 1.1 [facility] MG/DL [facility] eGFR 57 (L) >60 [facility] Non-Black/Afric ML/MIN/BSA LABORATORIES - an [place] [facility] Specimen Anatomical Collection Method Collection Time Receive d Time (Source) Location / / Volume Laterality 11/22/2013 10:33 11/22/2013 AM CDT 10:33 AM CDT Karan Brennan M.D. LAB BLOOD ADD-ON Performing Organization Address City/[facility]/ZIP Code Phon e Number [facility] - [address] [place] [phone] [facility] AST (Aspartate Aminotransferase) (11/22/2013 10:33 AM CDT) P athologist Signature AST, Total, S 35 8 - 43 U/L [facility] Specimen Anatomical Collection Method Collection Time Receive d Time (Source) Location / / Volume Laterality 11/22/2013 10:33 11/22/2013 AM CDT 10:33 AM CDT Karan Brennan M.D. LAB BLOOD ADD-ON Performing Organization Address City/State/ZIP Code Phon e Number [facility]IES - [address] [place] [phone] [facility] HX dose and Amount Infused (11/21/2013 12:42 PM CDT) P athologist Signature HXDOSE AND . [facility] VOLUME INFUSED [facility] Comment: 306 ml containing 4.02e6 CD34 c ells/kg were administered. No cells remain in storage. Specimen (Source) Anatomical Collection Method Collection Time Re ceived Time Location / / Volume Laterality 11/21/2013 12:42 PM CDT Historical Provider LAB HISTORICAL ORDERS Performing Organization Address [facility] Phon e Number [facility]IES - [address] [place] [phone] [facility] HX periph Bld Prog Cells (11/21/2013 12:42 PM CDT) Patholo gist Method Time Signature HXHCT # UNITS 4 [facility] TRANSFUSED [facility] HXHUMAN CELL HCT PROD [facility] THER(HCT) [facility] Comment: Unit Blood Type A Pos Unit Number [id number] Component Type Peripheral Blood Progenit or Cells - Cryopreserved (Bag 4) Issue Date/Time Unit Blood Type A Pos Unit Number [id number] Component Type Peripheral Blood Progenit or Cells - Cryopreserved (Bag 3) Issue Date/Time Unit Blood Type A Pos Unit Number [id number] Component Type Peripheral Blood Progenit or Cells - Cryopreserved (Bag 2) Issue Date/Time [id number] Unit Blood Type A Pos Unit Number [id number] Component Type Peripheral Blood Progenit or Cells - Cryopreserved (Bag 1) Issue Date/Time Specimen (Source) Anatomical Collection Method Collection Time Re ceived Time Location / / Volume Laterality 11/21/2013 12:42 PM CDT Historical Provider LAB HISTORICAL ORDERS Performing Organization Address [facility] Phon e Number [facility]IES - [address] [place] [phone] [facility] (ABNORMAL) Electrolyte Panel with Creatinine Jerman (11/21/2013 5:24 AM CDT) P athologist Signature Sodium, P 131 (L) 135 - 145 [facility] MMOL/L [facility] Comment: Palindrome line Potassium, P 4.0 3.6 - 5.2 MMOL/L [facility] Comment: Palindrome line HX Bicarbonate, P/S 19 (L) 22 - 29 MMOL/L [facility] Comment: Palindrome line Creatinine, Jerman 0.7 0.5 - 0.9 MG/DL [facility] Comment: Palindrome line Chloride, S 102 98 - 107 MMOL/L [facility] Comment: Palindrome line BUN (Blood Urea Nitrogen), S 19 6 - 21 MG/DL [facility] Comment: Palindrome line Glucose, S 117 70 - 140 MG/DL [facility] Comment: Palindrome line Anion Gap 10 7 - 15 [facility] Comment: Palindrome line Specimen Anatomical Collection Method Collection Time Receive d Time (Source) Location / / Volume Laterality 11/21/2013 5:24 AM 4 5:24 [address] [facility] - 11/21/2013 6:10 AM CDT Palindrome line Karan Brennan M.D. LAB BLOOD ADD-ON Performing Organization Address City/[facility] Phon e Number [facility] - [address] AST (Aspartate Aminotransferase) (11/21/2013 5:24 AM CDT) P athologist Signature AST, Total, S 20 8 - 43 U/L [facility] Comment: Palindrome line Specimen Anatomical Collection Method Collection Time Receive d Time (Source) Location / / Volume Laterality 11/21/2013 5:24 AM 4 5:24 [address] [facility] - 11/21/2013 6:29 AM CDT Palindrome line Karan Brennan M.D. LAB BLOOD ADD-ON Performing Organization Address City/State/ZIP Code Phon e Number [facility] - [address] [place] [phone] [facility] Magnesium (11/21/2013 5:24 AM CDT) P athologist Signature Magnesium, S 2.0 1.7 - 2.3 [facility] MG/DL [facility] Comment: Palindrome line Specimen Anatomical Collection Method Collection Time Receive d Time (Source) Location / / Volume Laterality 11/21/2013 5:24 AM 4 5:24 [address] [facility] - 11/21/2013 6:29 AM CDT Palindrome line Karan Brennan M.D. LAB BLOOD ADD-ON Performing Organization Address City/State/ZIP Code Phon e Number [facility] - [address] [place], [place] [address] [facility] (ABNORMAL) CBC with Differential - No Alerts (11/21/2013 5:24 AM CDT) athologist Signature Hemoglobin 10.1 (L) 12.0 - [facility] 15.5 G/DL [facility] Comment: Palindrome line Hematocrit 31.0 (L) 34.9 - 44.5 % [facility] Comment: Palindrome line RBC Distrib Width 17.6 (H) 11.9 - 15.5 % [facility] Comment: Palindrome line Platelet Count 110 (L) 150 - 450 X10(9)/L [facility] Comment: Palindrome line Lymphocytes 0.04 (L) 0.90 - 2.90 X10(9)/L [facility] Comment: Palindrome line Monocytes 0.00 (L) 0.30 - 0.90 X10(9)/L [facility] Comment: Palindrome line Erythrocytes 3.32 (L) 3.90 - 5.03 X10(12)/L [facility] Comment: Palindrome line MCV 93.4 81.6 - 98.3 [place] [facility] Comment: Palindrome line Leukocytes 1.7 (L) 3.5 - 10.5 X10(9)/L [facility] Comment: Palindrome line Neutrophils 1.70 1.70 - 7.00 X10(9)/L [facility] Comment: Palindrome line Eosinophils 0.00 (L) 0.05 - 0.50 X10(9)/L [facility] Comment: Palindrome line Basophils 0.00 0.00 - 0.30 X10(9)/L [facility] Comment: Palindrome line Specimen Anatomical Collection Method Collection Time Receive d Time (Source) Location / / Volume Laterality 11/21/2013 5:24 AM 4 5:24 CDT AM CDT [address] [facility] - 11/21/2013 5:56 AM CDT Palindrome line Karan Brennan M.D. LAB BLOOD NON ADD-ON Performing Organization Address City/[facility] Code Phon e Number [facility]IES - [address] [place] [phone] [facility] (ABNORMAL) Electrolyte Panel with Creatinine Jerman (11/20/2013 4:45 AM CDT) P athologist Signature Sodium, P 136 135 - 145 [facility] MMOL/L [facility] Comment: LT CVC Potassium, P 4.3 3.6 - 5.2 [facility]/L [facility] Comment: LT CVC HX Bicarbonate, P/S 22 22 - 29 MMOL/L [facility] Comment: LT CVC Creatinine, Jerman 0.7 0.5 - 0.9 MG/DL [facility] Comment: LT CVC Chloride, S 109 (H) 98 - 107 MMOL/L [facility] Comment: LT CVC BUN (Blood Urea Nitrogen), S 13 6 - 21 MG/DL [facility] Comment: LT CVC Glucose, S 94 70 - 140 MG/DL [facility] [place] [facility] Comment: LT CVC Anion Gap 5 (L) 7 - 15 [facility] Comment: LT CVC Specimen Anatomical Collection Method Collection Time Receive d Time (Source) Location / / Volume Laterality 11/20/2013 4:45 AM 4 4:45 CDT AM CDT [address] [facility] - 11/20/2013 5:13 AM CDT LT CVC Karan Brennan M.D. LAB BLOOD ADD-ON Performing Organization Address City/[facility] Code Phon e Number [facility] - [address] [place] [phone] [facility] (ABNORMAL) CBC with Differential (11/20/2013 4:45 AM CDT) Patholo gist Method Time Signature Erythrocytes 3.19 (L) 3.90 - [facility] 5.03 LABORATORIES - X10(12)/L [facility] Comment: LT CVC MCV 91.8 81.6 - 98.3 [place] [facility] Comment: LT CVC Lymphocytes 0.09 (L) 0.90 - 2.90 X10(9)/L [facility] Comment: LT CVC Monocytes 0.01 (L) 0.30 - 0.90 X10(9)/L [facility] Comment: LT CVC Hemoglobin 9.7 (L) 12.0 - 15.5 G/DL [facility] Comment: LT CVC Hematocrit 29.3 (L) 34.9 - 44.5 % [facility] Comment: LT CVC RBC Distrib Width 18.6 (H) 11.9 - 15.5 % [facility] Comment: LT CVC Platelet Count 105 (L) 150 - 450 X10(9)/L [facility] Comment: LT CVC Leukocytes 1.8 (L) 3.5 - 10.5 X10(9)/L [facility] Comment: LT CVC Neutrophils 1.24 (L) 1.70 - 7.00 X10(9)/L [facility] Comment: LT CVC Eosinophils 0.44 0.05 - 0.50 X10(9)/L [facility] Comment: LT CVC Basophils 0.01 0.00 - 0.30 X10(9)/L [facility] Comment: LT CVC Specimen Anatomical Collection Method Collection Time Receive d Time (Source) Location / / Volume Laterality 11/20/2013 4:45 AM 4 4:45 CDT [address] [facility] - 11/20/2013 4:59 AM CDT LT CVC Karan Brennan M.D. LAB BLOOD ADD-ON Performing Organization Address City/State/ZIP Code Phon e Number [facility] - [address] [place], [place] [address] [facility] Magnesium (11/20/2013 4:45 AM CDT) P athologist Signature Magnesium, S 2.1 1.7 - 2.3 [facility] MG/DL [facility] Comment: LT CVC Specimen Anatomical Collection Method Collection Time Receive d Time (Source) Location / / Volume Laterality 11/20/2013 4:45 AM 4 4:[address] [facility] - 11/20/2013 5:54 AM CDT LT CVC Karan Brennan M.D. LAB BLOOD ADD-ON Performing Organization Address City/[facility] Phon e Number [facility] - [address] [place] [phone] 05 [facility] AST (Aspartate Aminotransferase) (11/20/2013 4:45 AM CDT) P athologist Signature AST, Total, S 23 8 - 43 U/L [facility] Comment: LT CVC Specimen Anatomical Collection Method Collection Time Receive d Time (Source) Location / / Volume Laterality 11/20/2013 4:45 AM 4 4:45 [address] [facility] - 11/20/2013 5:54 AM CDT LT CVC Karan Brennan M.D. LAB BLOOD ADD-ON Performing Organization Address City/[facility] Code Phon e Number [facility] - [address] VRE PCR (11/19/2013 8:28 AM CDT) P athologist Signature Specimen . [facility] Source (VRE LABORATORIES - PCR) [facility] Comment: ana rectal swab VRE PCR Negative Not Applicable [facility] LAB ORATORIES [facility] Comment: ? ADDITIONAL INFORMATIO N ? Laboratory developed test. ? Specimen Anatomical Collection Method Collection Time Receive d Time (Source) Location / / Volume Laterality 11/19/2013 8:28 AM 8:28 CDT AM CDT Historical Provider LAB MICROBIOLOGY - GENERAL O RDERABLES Performing Organization Address City/State/[facility] Code Phon e Number [facility] - [address] [place] [phone] 05 [facility] ABORh, RBC (11/19/2013 4:01 AM CDT) P athologist Signature HXABO/RH BLOOD A Pos [facility] TYPE [facility] Specimen (Source) Anatomical Collection Method Collection Time Re ceived Time Location / / Volume Laterality 11/19/2013 4:01 AM CDT Historical Provider LAB BLOOD BANK TEST ORDERABL ES Performing Organization Address City/[facility] Phon e Number [facility] - [address] [place] [phone] 05 [facility] Antibody Screen, RBC (11/19/2013 4:01 AM CDT) Patholo gist Method Time Signature Antibody Negative [facility] Screen [facility] Specimen (Source) Anatomical Collection Method Collection Time Re ceived Time Location / / Volume Laterality 11/19/2013 4:01 AM CDT Historical Provider LAB BLOOD BANK TEST ORDERABL ES Performing Organization Address [facility] Phon e Number [facility] - [address] [place] [phone] 05 [facility] (ABNORMAL) Electrolyte Panel with Creatinine Jerman (11/19/2013 3:08 AM CDT) athologist Signature Sodium, P 133 (L) 135 - 145 [facility] MMOL/L [facility] Comment: Palindrome line Potassium, P 3.9 3.6 - 5.2 MMOL/L [facility] Comment: Palindrome line HX Bicarbonate, P/S 18 (L) 22 - 29 MMOL/L [facility] Comment: Palindrome line Creatinine, Jerman 0.7 0.5 - 0.9 MG/DL [facility] Comment: Palindrome line Chloride, S 104 98 - 107 MMOL/L [facility] Comment: Palindrome line BUN (Blood Urea Nitrogen), S 12 6 - 21 MG/DL [facility] Comment: Palindrome line Glucose, S 96 70 - 140 MG/DL [facility] BORATORIES [facility] Comment: Palindrome line Anion Gap 11 7 - 15 [facility]AT[facility] Comment: Palindrome line Specimen Anatomical Collection Method Collection Time Receive d Time (Source) Location / / Volume Laterality 11/19/2013 3:08 AM 4 3:08 [address] [facility] - 11/19/2013 3:47 AM CDT Palindrome line Zoraida Carlson APRN, C.N.P. LAB BLOOD ADD-ON Performing Organization Address City/State/ZIP Code Phon e Number [facility] - [address] [place] [phone] 05 [facility] Bilirubin, Total (11/19/2013 3:08 AM CDT) athologist Signature Bilirubin, 0.5 0.1 - 1.0 [facility] Total, S MG/DL [facility] Comment: Palindrome line Specimen Anatomical Collection Method Collection Time Receive d Time (Source) Location / / Volume Laterality 11/19/2013 3:08 AM 4 3:[address] [facility] - 11/19/2013 4:37 AM CDT Palindrome line Lani Leo APRNN.P. LAB BLOOD ADD-ON Performing Organization Address City/[facility]/ZIP Code Phon e Number [facility] - [address] [place] [phone] [facility] (ABNORMAL) Alkaline Phosphatase (11/19/2013 3:08 AM CDT) Patholo gist Method Time Signature Alkaline 129 (H) 46 - 118 [facility] Phosphatase, S U/L [facility] Comment: Palindrome line Specimen Anatomical Collection Method Collection Time Receive d Time (Source) Location / / Volume Laterality 11/19/2013 3:08 AM 4 3:[address] [facility] - 11/19/2013 4:37 AM CDT Palindrome line Lani Leo APRNN.Declan. LAB BLOOD ADD-ON Performing Organization Address City/State/ZIP Code Phon e Number [facility] - [address] [place] [phone] 05 [facility] Magnesium (11/19/2013 3:08 AM CDT) P athologist Signature Magnesium, S 2.1 1.7 - 2.3 [facility] MG/DL [facility] Comment: Palindrome line Specimen Anatomical Collection Method Collection Time Receive d Time (Source) Location / / Volume Laterality 11/19/2013 3:08 AM 4 3:[address] [facility] - 11/19/2013 4:37 AM CDT Palindrome line Kitty Leo APRN.N.P. LAB BLOOD ADD-ON Performing Organization Address City/State/ZIP Code Phon e Number [facility] - [address] [place] [phone] 05 [facility] Phosphorus Inorganic (11/19/2013 3:08 AM CDT) Analysis Performed At Patho logist Time Signature Phosphorus 2.5 2.5 - 4.5 [facility] (Inorganic), S MG/DL [facility] Comment: Palindrome line Specimen Anatomical Collection Method Collection Time Receive d Time (Source) Location / / Volume Laterality 11/19/2013 3:08 AM 4 3:[address] [facility] - 11/19/2013 4:37 AM CDT Palindrome line Kitty Leo APRN.N.P. LAB BLOOD ADD-ON Performing Organization Address City/[facility] Phon e Number [facility] - [address] [place] [phone] 05 [facility] AST (Aspartate Aminotransferase) (11/19/2013 3:08 AM CDT) athologist Signature AST, Total, S 26 8 - 43 U/L [facility] Comment: Palindrome line Specimen Anatomical Collection Method Collection Time Receive d Time (Source) Location / / Volume Laterality 11/19/2013 3:08 AM 4 3:[address] [facility] - 11/19/2013 4:37 AM CDT Palindrome line Zoraida Carlson APRN, Kitty.N.P. LAB BLOOD ADD-ON Performing Organization Address City/[facility] Phon e Number [facility] - [address] (ABNORMAL) CBC with Differential - No Alerts (11/19/2013 3:08 AM CDT) athologist Signature Hemoglobin 9.8 (L) 12.0 - [facility] 15.5 G/DL [facility] Comment: Palindrome line Hematocrit 30.3 (L) 34.9 - 44.5 % [facility] LAB ORATORIES [facility] Comment: Palindrome line RBC Distrib Width 18.9 (H) 11.9 - 15.5 % [facility] Comment: Palindrome line Platelet Count 124 (L) 150 - 450 X10(9)/L [facility] Comment: Palindrome line Lymphocytes 0.06 (L) 0.90 - 2.90 X10(9)/L [facility] Comment: Palindrome line Monocytes 0.01 (L) 0.30 - 0.90 X10(9)/L [facility] Comment: Palindrome line Erythrocytes 3.21 (L) 3.90 - 5.03 X10(12)/L [facility] Comment: Palindrome line MCV 94.4 81.6 - 98.3 [place] [facility] Comment: Palindrome line Leukocytes 1.9 (L) 3.5 - 10.5 X10(9)/L [facility] Comment: Palindrome line Neutrophils 1.67 (L) 1.70 - 7.00 X10(9)/L [facility] Comment: Palindrome line Eosinophils 0.11 0.05 - 0.50 X10(9)/L [facility] Comment: Palindrome line Basophils 0.01 0.00 - 0.30 X10(9)/L [facility] Comment: Palindrome line Specimen Anatomical Collection Method Collection Time Receive d Time (Source) Location / / Volume Laterality 11/19/2013 3:08 AM 4 3:08 [address] [facility] - 11/19/2013 4:08 AM CDT Palindrome line Zoraida Carlson APRN, C.N.P. LAB BLOOD NON ADD-ON Performing Organization Address City/State/ZIP Code Phon e Number [facility] - [address] [place], [place] [address] [facility] Calcium, Ionized (11/19/2013 3:08 AM CDT) athologist Signature Calcium, 4.81 4.80 - [facility] Ionized, S 5.70 MG/DL [facility] Comment: Palindrome line pH 7.39 7.32 - 7.43 [facility] Comment: Palindrome line Specimen Anatomical Collection Method Collection Time Receive d Time (Source) Location / / Volume Laterality 11/19/2013 3:08 AM 4 3:[address] [facility] - 11/19/2013 4:15 AM CDT Palindrome line Zoraida Carlson APRN, C.N.P. LAB BLOOD NON ADD-ON Performing Organization Address City/State/[facility] Phon e Number [facility] - [address] [place] [phone] 05 [facility] (ABNORMAL) Electrolyte Panel with Creatinine Jerman (11/18/2013 4:03 AM CDT) athologist Signature Chloride, S 106 98 - 107 [facility] MMOL/L [facility] Comment: LT CVC BUN (Blood Urea Nitrogen), S 19 6 - 21 MG/DL [facility] Comment: LT CVC HX Bicarbonate, P/S 19 (L) 22 - 29 MMOL/L [facility] Comment: LT CVC Creatinine, Jerman 0.7 0.5 - 0.9 MG/DL [facility] Comment: LT CVC Sodium, P 133 (L) 135 - 145 MMOL/L [facility] Comment: LT CVC Potassium, P 4.2 3.6 - 5.2 MMOL/L [facility] Comment: LT CVC Glucose, S 92 70 - 140 MG/DL [facility] Comment: LT CVC Anion Gap 8 7 - 15 [facility]AT[facility] Comment: LT CVC Specimen Anatomical Collection Method Collection Time Receive d Time (Source) Location / / Volume Laterality 11/18/2013 4:03 AM 4 4:[address] [facility] - 11/18/2013 4:56 AM CDT LT CVC Karan Brennan M.D. LAB BLOOD ADD-ON Performing Organization Address City/State/ZIP Code Phon e Number [facility] - [address] [place] [phone] 05 [facility] AST (Aspartate Aminotransferase) (11/18/2013 4:03 AM CDT) athologist Signature AST, Total, S 23 8 - 43 U/L [facility] Comment: LT CVC Specimen Anatomical Collection Method Collection Time Receive d Time (Source) Location / / Volume Laterality 11/18/2013 4:03 AM 4 4:[address] [facility] - 11/18/2013 5:08 AM CDT LT CVC Karan Brennan M.D. LAB BLOOD ADD-ON Performing Organization Address City/State/ZIP Code Phon e Number [facility] - [address] [place], [place] [address] [facility] (ABNORMAL) CBC with Differential (11/18/2013 4:03 AM CDT) P athologist Signature Hemoglobin 10.1 (L) 12.0 - [facility] 15.5 G/DL [facility] Comment: LT CVC Hematocrit 31.0 (L) 34.9 - 44.5 % [facility] Comment: LT CVC Leukocytes 7.2 3.5 - 10.5 X10(9)/L [facility] Comment: LT CVC Neutrophils 6.98 1.70 - 7.00 X10(9)/L [facility] Comment: LT CVC Erythrocytes 3.32 (L) 3.90 - 5.03 X10(12)/L [facility] Comment: LT CVC MCV 93.4 81.6 - 98.3 FL [facility] Comment: LT CVC RBC Distrib Width 19.7 (H) 11.9 - 15.5 % [facility] Comment: LT CVC Platelet Count 129 (L) 150 - 450 X10(9)/L [facility] Comment: LT CVC Lymphocytes 0.11 (L) 0.90 - 2.90 X10(9)/L [facility] Comment: LT CVC Monocytes 0.01 (L) 0.30 - 0.90 X10(9)/L [facility] Comment: LT CVC Eosinophils 0.07 0.05 - 0.50 X10(9)/L [facility] Comment: LT CVC Basophils 0.01 0.00 - 0.30 X10(9)/L [facility] Comment: LT CVC Specimen Anatomical Collection Method Collection Time Receive d Time (Source) Location / / Volume Laterality 11/18/2013 4:03 AM 4 4:[address] [facility] - 11/18/2013 4:39 AM CDT LT CVC Karan Brennan M.D. LAB BLOOD ADD-ON Performing Organization Address City/[facility]/ZIP Code Phon e Number [facility] - [address] [place] [phone] 05 [facility] Magnesium (11/18/2013 4:03 AM CDT) athologist Signature Magnesium, S 2.0 1.7 - 2.3 [facility] MG/DL [facility] Comment: LT CVC Specimen Anatomical Collection Method Collection Time Receive d Time (Source) Location / / Volume Laterality 11/18/2013 4:03 AM 4 4:[address] [facility] - 11/18/2013 5:08 AM CDT LT CVC Karan Brennan M.D. LAB BLOOD ADD-ON Performing Organization Address City/[facility]/ZIP Code Phon e Number [facility] - [address] [place] [phone] 05 [facility] AST (Aspartate Aminotransferase) (11/17/2013 3:57 AM CDT) athologist Signature AST, Total, S 20 8 - 43 U/L [facility] Comment: LT CVC Specimen Anatomical Collection Method Collection Time Receive d Time (Source) Location / / Volume Laterality 11/17/2013 3:57 AM 4 3:[address] [facility] - 11/17/2013 4:51 AM CDT LT CVC Karan Brennan M.D. LAB BLOOD ADD-ON Performing Organization Address City/State/ZIP Code Phon e Number [place] [phone] 05 [facility] (ABNORMAL) Electrolyte Panel with Creatinine Jerman (11/17/2013 3:57 AM CDT) P athologist Signature Sodium, P 137 135 - 145 [facility] MMOL/L [facility] Comment: LT CVC Potassium, P 4.5 3.6 - 5.2 MMOL/L [facility] Comment: LT CVC HX Bicarbonate, P/S 20 (L) 22 - 29 MMOL/L [facility] Comment: LT CVC Creatinine, Jerman 0.8 0.5 - 0.9 MG/DL [facility] Comment: LT CVC Chloride, S 109 (H) 98 - 107 MMOL/L [facility] Comment: LT CVC BUN (Blood Urea Nitrogen), S 22 (H) 6 - 21 MG/DL [facility] Comment: LT CVC Glucose, S 94 70 - 140 MG/DL [facility] Comment: LT CVC Anion Gap 8 7 - 15 [facility] Comment: LT CVC Specimen Anatomical Collection Method Collection Time Receive d Time (Source) Location / / Volume Laterality 11/17/2013 3:57 AM 4 3:[address] [facility] - 11/17/2013 4:55 AM CDT LT CVC Karan Brennan M.D. LAB BLOOD ADD-ON Performing Organization Address City/State/ZIP Code Phon e Number [facility] - [address] [place] [phone] 05 [facility] (ABNORMAL) CBC with Differential (11/17/2013 3:57 AM CDT) P athologist Signature Hemoglobin 10.2 (L) 12.0 - [facility] 15.5 G/DL [facility] Comment: LT CVC Hematocrit 31.3 (L) 34.9 - 44.5 % [facility] Comment: LT CVC RBC Distrib Width 20.0 (H) 11.9 - 15.5 % [facility] Comment: LT CVC Platelet Count 137 (L) 150 - 450 X10(9)/L [facility] Comment: LT CVC Leukocytes 11.6 (H) 3.5 - 10.5 X10(9)/L [facility] Comment: LT CVC Neutrophils 10.79 (H) 1.70 - 7.00 X10(9)/L [facility] Comment: LT CVC Lymphocytes 0.31 (L) 0.90 - 2.90 X10(9)/L [facility] Comment: LT CVC Monocytes 0.48 0.30 - 0.90 X10(9)/L [facility] Comment: LT CVC Erythrocytes 3.34 (L) 3.90 - 5.03 X10(12)/L [facility] Comment: LT CVC MCV 93.7 81.6 - 98.3 FL [facility] Comment: LT CVC Eosinophils 0.01 (L) 0.05 - 0.50 X10(9)/L [facility] Comment: LT CVC Basophils 0.01 0.00 - 0.30 X10(9)/L [facility] Comment: LT CVC Specimen Anatomical Collection Method Collection Time Receive d Time (Source) Location / / Volume Laterality 11/17/2013 3:57 AM 4 3:57 [address]T AM [address]T [address] [facility] - 11/17/2013 4:21 AM CDT LT CVC Karan Brennan M.D. LAB BLOOD ADD-ON Performing Organization Address City/State/ZIP Code Phon e Number [facility] - [address] [place] [phone] 05 [facility] (ABNORMAL) CBC with Differential (11/16/2013 2:54 AM CDT) [facility] gist Method Time Signature Erythrocytes 3.69 (L) 3.90 - [facility] 5.03 LABORATORIES - X10(12)/L [facility] Comment: Palindrome line MCV 95.1 81.6 - 98.3 [place] [facility] Comment: Palindrome line RBC Distrib Width 19.6 (H) 11.9 - 15.5 % [facility] Comment: Palindrome line Platelet Count 117 (L) 150 - 450 X10(9)/L [facility] Comment: Palindrome line Lymphocytes 0.40 (L) 0.90 - 2.90 X10(9)/L [facility] Comment: Palindrome line Monocytes 0.37 0.30 - 0.90 X10(9)/L [facility] Comment: Palindrome line Hemoglobin 11.3 (L) 12.0 - 15.5 G/DL [facility] Comment: Palindrome line Hematocrit 35.1 34.9 - 44.5 % [facility] Comment: Palindrome line Leukocytes 15.8 (H) 3.5 - 10.5 X10(9)/L [facility] Comment: Palindrome line Neutrophils 15.00 (H) 1.70 - 7.00 X10(9)/L [facility] Comment: Palindrome line ? Rechecked ? Eosinophils 0.00 (L) 0.05 - 0.50 X10(9)/L [facility] Comment: Palindrome line Basophils 0.02 0.00 - 0.30 X10(9)/L [facility] Comment: Palindrome line Specimen Anatomical Collection Method Collection Time Receive d Time (Source) Location / / Volume Laterality 11/16/2013 2:54 AM 4 2:54 CDT AM [address]T [address] [facility] - 11/16/2013 4:31 AM CDT Palindrome line Karan Brennan M.D. LAB BLOOD ADD-ON Performing Organization Address City/[facility] Phon e Number [facility] - [address] (ABNORMAL) Electrolyte Panel with Creatinine Jerman (11/16/2013 2:54 AM CDT) athologist Signature Sodium, P 136 135 - 145 [facility] MMOL/L [facility] Comment: Palindrome line Potassium, P 4.2 3.6 - 5.2 MMOL/L [facility] Comment: Palindrome line HX Bicarbonate, P/S 19 (L) 22 - 29 MMOL/L [facility] Comment: Palindrome line Creatinine, Jerman 0.9 0.5 - 0.9 MG/DL [facility] Comment: Palindrome line Glucose, S 152 (H) 70 - 140 MG/DL [facility] Comment: Palindrome line Anion Gap 13 7 - 15 [facility] Comment: Palindrome line Chloride, S 104 98 - 107 MMOL/L [facility] Comment: Palindrome line BUN (Blood Urea Nitrogen), S 21 6 - 21 MG/DL [facility] Comment: Palindrome line Specimen Anatomical Collection Method Collection Time Receive d Time (Source) Location / / Volume Laterality 11/16/2013 2:54 AM 4 2:54 [address]T AM [address]T [address] [facility] - 11/16/2013 3:42 AM CDT Palindrome line Karan Brennan M.D. LAB BLOOD ADD-ON Performing Organization Address City/[facility]/ZIP Code Phon e Number [facility] - [address] [place] [phone] 05 [facility] AST (Aspartate Aminotransferase) (11/16/2013 2:54 AM CDT) athologist Signature AST, Total, S 20 8 - 43 U/L [facility] Comment: Palindrome line Specimen Anatomical Collection Method Collection Time Receive d Time (Source) Location / / Volume Laterality 11/16/2013 2:54 AM 4 2:54 CDT AM [address] [facility] - 11/16/2013 3:42 AM CDT Palindrome line Karan Brennan M.D. LAB BLOOD ADD-ON Performing Organization Address City/[facility]/ZIP Code Phon e Number [facility] - [address] [phone] [facility] Magnesium (11/15/2013 10:22 AM CDT) P athologist Signature Magnesium, S 1.9 1.7 - 2.3 [facility] MG/DL [facility] Comment: LT CVC Specimen Anatomical Collection Method Collection Time Receive d Time (Source) Location / / Volume Laterality 11/15/2013 10:22 11/15/2013 AM CDT 10:[address] [facility] - 11/15/2013 11:29 AM CDT LT CVC Erik Casas M.D., Ph.D. LAB BLOOD ADD-ON Performing Organization Address City/[facility]/ZIP Code Phon e Number [facility] - [address] [place] [phone] [facility] Bilirubin, Total (11/15/2013 10:22 AM CDT) P athologist Signature Bilirubin, 0.4 0.1 - 1.0 [facility] Total, S MG/DL [facility] Comment: LT CVC Specimen Anatomical Collection Method Collection Time Receive d Time (Source) Location / / Volume Laterality 11/15/2013 10:22 11/15/2013 AM CDT 10:[address] [facility] - 11/15/2013 11:29 AM CDT LT CVC Erik Casas M.D., Ph.D. LAB BLOOD ADD-ON Performing Organization Address City/[facility]/ZIP Code Phon e Number [facility] - [address] [phone] [facility] (ABNORMAL) Alkaline Phosphatase (11/15/2013 10:22 AM CDT) Patholo gist Method Time Signature Alkaline 214 (H) 46 - 118 [facility] Phosphatase, S U/L [facility] Comment: LT CVC Specimen Anatomical Collection Method Collection Time Receive d Time (Source) Location / / Volume Laterality 11/15/2013 10:22 11/15/2013 AM CDT 10:[address] [facility] - 11/15/2013 11:29 AM CDT LT CVC Erik Casas M.D., Ph.D. LAB BLOOD ADD-ON Performing Organization Address City/[facility] Phon e Number [facility] - [address] [place] [phone] [facility] Glucose, Fasting (11/15/2013 10:22 AM CDT) athologist Signature Glucose, P 95 70 - 100 [facility] MG/DL [facility] Comment: LT CVC Specimen Anatomical Collection Method Collection Time Receive d Time (Source) Location / / Volume Laterality 11/15/2013 10:22 11/15/2013 AM CDT 10:[address] [facility] - 11/15/2013 11:15 AM CDT LT CVC Erik Casas M.D., Ph.D. LAB BLOOD NON ADD-ON Performing Organization Address City/[facility]/ZIP Code Phon e Number [facility] - [address] [phone] [facility] (ABNORMAL) CBC with Differential (11/15/2013 10:22 AM CDT) athologist Signature Hemoglobin 11.0 (L) 12.0 - [facility] 15.5 G/DL [facility] Comment: LT CVC Hematocrit 34.7 (L) 34.9 - 44.5 % [facility] Comment: LT CVC RBC Distrib Width 20.1 (H) 11.9 - 15.5 % [facility] Comment: LT CVC Platelet Count 108 (L) 150 - 450 X10(9)/L [facility] Comment: LT CVC Erythrocytes 3.69 (L) 3.90 - 5.03 X10(12)/L [facility] Comment: LT CVC MCV 94.0 81.6 - 98.3 [place] [facility] Comment: LT CVC Leukocytes 13.2 (H) 3.5 - 10.5 X10(9)/L [facility] Comment: LT CVC Neutrophils SeeComment X10(9)/L [facility] LABOR ATORIES [facility] Comment: LTCVC ? Auto-diff results not valid. See manual differential. ? Specimen Anatomical Collection Method Collection Time Receive d Time (Source) Location / / Volume Laterality 11/15/2013 10:22 11/15/2013 AM CDT 10:[address] [facility] - 11/15/2013 11:39 AM CDT LT CVC Erik Casas M.D., Ph.D. LAB BLOOD ADD-ON Performing Organization Address City/State/ZIP [facility] [place]on e Number [facility] - [address] [place], [place] [address] [facility] AST (Aspartate Aminotransferase) (11/15/2013 10:22 AM CDT) P athologist Signature AST, Total, S 29 8 - 43 U/L [facility] Comment: LT CVC Specimen Anatomical Collection Method Collection Time Receive d Time (Source) Location / / Volume Laterality 11/15/2013 10:22 11/15/2013 AM CDT 10:[address] [facility] - 11/15/2013 11:29 AM CDT LT CVC Erik Casas M.D., Ph.D. LAB BLOOD ADD-ON Performing Organization Address City/[facility]/ZIP Code Phon e Number [facility] - [address] [phone] [facility] Sodium (11/15/2013 10:22 AM CDT) athologist Signature Sodium, S 139 135 - 145 [facility] MMOL/L [facility] Comment: LT CVC Specimen Anatomical Collection Method Collection Time Receive d Time (Source) Location / / Volume Laterality 11/15/2013 10:22 11/15/2013 AM CDT 10:[address] [facility] - 11/15/2013 11:29 AM CDT LT CVC Erik Casas M.D., Ph.D. LAB BLOOD ADD-ON Performing Organization Address City/[facility]/ZIP Code Phon e Number [facility] - [address] (ABNORMAL) Morphology Evaluation (Special Smear) (11/15/2013 10:22 AM CDT) athologist Signature Monocytes 7 1 - 11 % [facility] Comment: LT CVC Eosinophils 2 0 - 7 % [facility] Comment: LT CVC Basophils 2 0 - 4 % [facility] Comment: LT CVC Myelocytes 2 (H) <1 % [facility] Comment: LT CVC Manual Absolute Neutrophil 11.09 X10(9)/L [facility] - Count [facility] Comment: LTCVC ? ADDITIONAL INFORMATIO N ? The manual absolute neutrophil count is derived from a ? manual differential count and therefore is not exactly ? comparable to the automated absolute deidra trophil count. ? Reviewed by: Tech [facility] Comment: LT CVC Neutrophilic Segs and Bands 84 (H) 42 - 75 % [facility] S Comment: LT CVC Lymphocytes 3 (L) 16 - 52 % [facility] LABORA TORIES [facility] Comment: LT CVC Specimen Anatomical Collection Method Collection Time Receive d Time (Source) Location / / Volume Laterality 11/15/2013 10:22 11/15/2013 AM CDT 10:[address] [facility] - 11/15/2013 11:40 AM CDT LT CVC Erik Casas M.D., Ph.D. LAB BLOOD ADD-ON Performing Organization Address City/[facility] Phon e Number [facility] - [address] [phone] [facility] Potassium (11/15/2013 10:22 AM CDT) P athologist Signature Potassium, S 4.2 3.6 - 5.2 [facility] MMOL/L [facility] Comment: LT CVC Specimen Anatomical Collection Method Collection Time Receive d Time (Source) Location / / Volume Laterality 11/15/2013 10:22 11/15/2013 AM CDT 10:[address] [facility] - 11/15/2013 11:29 AM CDT LT CVC Erik Casas M.D., Ph.D. LAB BLOOD ADD-ON Performing Organization Address City/State/[facility] Code Phon e Number [place] [phone] [facility] (ABNORMAL) Creatinine with Estimated GFR (MDRD) (11/15/2013 10:22 AM CDT) P athologist Signature eGFR-Black/Afr >60 >60 [facility] ican Gambian ML/MIN/BSA [facility] Comment: LT CVC Creatinine 1.0 0.6 - 1.1 MG/DL [facility] Comment: LT CVC eGFR Non-Black/ 57 (L) >60 ML/MIN/BSA [facility] S Comment: LT CVC Specimen Anatomical Collection Method Collection Time Receive d Time (Source) Location / / Volume Laterality 11/15/2013 10:22 11/15/2013 AM CDT 10:[address] [facility] - 11/15/2013 11:29 AM CDT LT CVC Erik Casas M.D., Ph.D. LAB BLOOD ADD-ON Performing Organization Address City/[facility] Code Phon e Number [facility] - [address] [phone] [facility] ALT (Alanine Aminotransferase) (11/15/2013 10:22 AM CDT) Patholo gist Method Time Signature Alanine 28 7 - 45 [facility] Aminotransferase U/L LABORATORIES - (ALT), S [facility] Comment: LT CVC Specimen Anatomical Collection Method Collection Time Receive d Time (Source) Location / / Volume Laterality 11/15/2013 10:22 11/15/2013 AM CDT 10:[address] [facility] - 11/15/2013 11:29 AM CDT LT CVC Erik Casas M.D., Ph.D. LAB BLOOD ADD-ON Performing Organization Address [facility] Code Phon e Number [facility] - [address] [phone] [facility] VRE PCR (11/15/2013 8:09 AM CDT) P athologist Signature Specimen . [facility] Source (VRE LABORATORIES - PCR) [facility] Comment: ANA RECTAL SWAB VRE PCR Negative Not Applicable [facility] LAB ORATORIES - [facility] Comment: ? ADDITIONAL INFORMATIO N ? Laboratory developed test. ? Specimen Anatomical Collection Method Collection Time Receive d Time (Source) Location / / Volume Laterality 11/15/2013 8:09 AM 4 8:09 CDT AM CDT Zoey Pierson M.D. LAB MICROBIOLOGY - GENERAL O RDERABLES Performing Organization Address City/State/[facility] Phon e Number [facility] - [address] [place], [place] [address] [facility] documented in this encounter Visit Diagnoses Not on filedocumented in this encounter Additional Health Concerns Assessment Noted Time PHQ-9 Depression Total Score: 3 08/31/2013 7:36 AM CDT documented as of this encounter
--- OUTSIDE RECORDS SUMMARY | 2022-05-20 12:16 | XMS_ITS | Encounter Summary ---
:1955 Author Organization [facility] Address [address] [place] [address] Care Team Providers Name Role Phone Unavailable Primary Care Provider Unavailable Encounter Details Date Type Department Care Team Description 11/25/2013 - Hospital Encounter HX RST TX BMT NURSE Ema Weller 12/02/2013 OP [facility] N, R.N. [address] [place] [address] Social History Tobacco Use Types Packs/Day Years [...] 05/28/2021 relatives? How often do you attend jehovah's witness or caodaism Never 05/28/2021 services? Do you belong to any clubs or organizations such as No 05/28/2021 jehovah's witness groups, unions, fraternal or athletic groups, or [...]
--- OUTSIDE RECORDS SUMMARY | 2022-05-20 12:17 | XMS_ITS | Encounter Summary ---
:1955 Author Organization [facility] Address [address] [place] [address] Care Team Providers Name Role Phone Unavailable Primary Care Provider Unavailable Encounter Details Date Type Department Care Team Description 10/19/2013 Hospital Encounter HX NO MAPPING Social History [...] How often do you attend episcopal or spiritism Never 05/28/2021 services? Do you belong to [...]
--- OUTSIDE RECORDS SUMMARY | 2022-05-20 12:17 | XMS_ITS | Encounter Summary ---
:1955 Author Organization [facility] Address [address] [place] [address] Care Team Providers Name Role Phone Unavailable Primary Care Provider Unavailable Encounter Details Date Type Department Care Team Description 11/11/2013 - 11/18/2013 Hospital Encounter HX NO MAPPING Social History [...] How often do you attend anglican or anabaptism Never 05/28/2021 services? Do you [...]
--- OUTSIDE RECORDS SUMMARY | 2022-05-20 12:17 | XMS_ITS | Encounter Summary ---
:1955 Author Organization [facility] Address [address] [place] [address] Care Team Providers Name Role Phone Unavailable Primary Care Provider Unavailable Encounter Details Date Type Department Care Team Description 11/11/2013 - Hospital Encounter HX RST INFUSION Olman Christopher, 11/18/2013 THERAPY Roro Guerra R.N. Social History Tobacco Use Types Packs/Day [...] 05/28/2021 relatives? How often do you attend mormonism or latter day Never 05/28/2021 services? Do you belong to any clubs or organizations such as No 05/28/2021 mormonism groups, unions, fraternal or athletic groups, or [...] Sign Reading Time Taken Comments Blood Pressure 142/72 11/11/2013 6:29 PM CDT Pulse 81 11/11/2013 6:29 PM CDT Temperature - - Respiratory Rate 18 11/11/2013 6:29 PM CDT Oxygen Saturation - - Inhaled [...]
--- OUTSIDE RECORDS SUMMARY | 2022-05-20 12:17 | XMS_ITS | Encounter Summary ---
:1955 Author Organization [facility] Address [address] [place] [address] Care Team Providers Name Role Phone Unavailable Primary Care Provider Unavailable Encounter Details Date Type Department Care Team Description 11/08/2013 - Hospital Encounter HX RST BMT Provider, 11/15/2013 MOBILIZATION OP Historical Social History Tobacco Use [...] How often do you attend episcopal or sikhism Never 05/28/2021 services? Do you [...] Sign Reading Time Taken Comments Blood Pressure 125/66 11/09/2013 6:36 AM CDT Pulse 69 11/09/2013 6:36 AM CDT Temperature - - Respiratory Rate 18 11/09/2013 6:36 AM CDT Oxygen Saturation - - Inhaled [...]
--- OUTSIDE RECORDS SUMMARY | 2022-05-20 12:17 | XMS_ITS | Encounter Summary ---
:1955 Author Organization [facility] Address [address] [place] [address] Care Team Providers Name Role Phone Unavailable Primary Care Provider Unavailable Encounter Details Date Type Department Care Team Description 11/08/2013 Hospital Encounter HX NO MAPPING Social History [...] How often do you attend islam or mandaeism Never 05/28/2021 services? Do you belong to [...]
--- OUTSIDE RECORDS SUMMARY | 2022-05-20 12:17 | XMS_ITS | Encounter Summary ---
:1955 Author Organization [facility] Address [address] [place] [address] Care Team Providers Name Role Phone Unavailable Primary Care Provider Unavailable Encounter Details Date Type Department Care Team Description 11/09/2013 Hospital Encounter HX NO MAPPING Social History [...] 05/28/2021 relatives? How often do you attend catholic or christian Never 05/28/2021 services? Do you belong to any clubs or organizations such as No 05/28/2021 catholic groups, unions, fraternal or athletic groups, or [...]
--- OUTSIDE RECORDS SUMMARY | 2022-05-20 12:17 | XMS_ITS | Encounter Summary ---
:1955 Author Organization [facility] Address [address] [place] [address] Care Team Providers Name Role Phone Unavailable Primary Care Provider Unavailable Encounter Details Date Type Department Care Team Description 08/22/2013 - Hospital Encounter HX RST UNIT 9-3 HEM/ONC 08/24/2013 Social History Tobacco Use Types Packs/Day Years [...] 05/28/2021 relatives? How often do you attend holiness or shinto Never 05/28/2021 services? Do you belong to any clubs or organizations such as No 05/28/2021 holiness groups, unions, fraternal or athletic groups, or [...] Sign Reading Time Taken Comments Blood Pressure 134/73 08/24/2013 7:25 PM NIBP - Value from CDT Chart[employer]. Pulse 70 08/24/2013 7:25 PM Value from artplus. CDT Temperature - - Respiratory Rate 18 08/24/2013 7:00 PM Value from Kitty hartplus. CDT Oxygen Saturation - - Inhaled Oxygen - - Concentration Weight 90.3 kg (199 lb 1.2 08/24/2013 8:17 AM oz) CDT Height 174 cm (5' 8.5) 08/22/2013 12:28 PM CDT Body Mass Index 29.83 08/22/2013 12:28 PM CDT documented in this encounter Plan of Treatment Not on filedocumented as of this encounter Procedures Procedure Name Priority Date/Time Associated Comments Diagnosis ABORH, RBC Routine 08/23/2013 6:22 Results for this AM CDT procedure are i n the results section. ABORH, RBC Routine 08/23/2013 5:54 Results for this AM CDT procedure are i n the results section. ANTIBODY SCREEN, B Routine 08/23/2013 5:54 Result s for this AM CDT procedure are i n the results section. ELECTROLYTE (CHEM 4) Routine 08/23/2013 5:46 Resu lts for this PANEL, S/P AM CDT procedure are i n the results section. CBC NO CALL BACK, REFLEX Routine 08/23/2013 5:46 Results for this T/S AM CDT procedure are i n the results section. URIC ACID, S/P Routine 08/23/2013 5:46 Results fo r this AM CDT procedure are i n the results section. PHOSPHORUS (INORGANIC), Routine 08/23/2013 5:46 R esults for this S AM CDT procedure are i n the results section. DX CHEST POST PICC Routine 08/22/2013 9:42 Result s for this PLACEMENT 1 VIEW PM CDT procedure a re in the results section. ELECTROLYTE (CHEM 4) Routine 08/22/2013 1:56 Resu lts for this PANEL, S/P PM CDT procedure are i n the results section. CBC WITH DIFFERENTIAL, B Routine 08/22/2013 1:56 Results for this PM CDT procedure are i n the results section. BILIRUBIN, S Routine 08/22/2013 1:56 Results for this PM CDT procedure are i n the results section. URIC ACID, S/P Routine 08/22/2013 1:56 Results fo r this PM CDT procedure are i n the results section. ALANINE AMINOTRANSFERASE Routine 08/22/2013 1:56 Results for this (ALT), S/P PM CDT procedure are i n the results section. ASPARTATE Routine 08/22/2013 1:56 Results for this AMINOTRANSFERASE (AST), PM CDT proc edure are in S/P the results section. PHOSPHORUS (INORGANIC), Routine 08/22/2013 1:56 R esults for this S PM CDT procedure are i n the results section. ALKALINE PHOSPHATASE, Routine 08/22/2013 1:56 Res ults for this S/P PM CDT procedure are i n the results section. LACTATE DEHYDROGENASE Routine 08/22/2013 1:56 Res ults for this (LD), S PM CDT procedure are i n the results section. CALCIUM, IONIZED, S/B Routine 08/22/2013 1:56 Res ults for this PM CDT procedure are i n the results section. VRE PCR Routine 08/22/2013 1:47 Results for this PM CDT procedure are i n the results section. documented in this encounter Results ABORh, RBC (08/23/2013 6:22 AM CDT) P athologist Signature HXABO/RH BLOOD A Pos [facility] TYPE [facility] Specimen (Source) Anatomical Collection Method Collection Time Re ceived Time Location / / Volume Laterality 08/23/2013 6:22 AM CDT Historical Provider LAB BLOOD BANK TEST ORDERABL ES Performing Organization Address City/[facility] Code Phon e Number [facility] LABORATORIES - [address] [place], [place] [address] [facility] Antibody Screen, RBC (08/23/2013 5:54 AM CDT) Patholo gist Method Time Signature Antibody Negative [facility] Screen [facility] Specimen (Source) Anatomical Collection Method Collection Time Re ceived Time Location / / Volume Laterality 08/23/2013 5:54 AM CDT Historical Provider LAB BLOOD BANK TEST ORDERABL ES Performing Organization Address City/State/ZIP Code Phon e Number [facility] LABORATORIES - [address] [place], [place] [address] [facility] ABORh, RBC (08/23/2013 5:54 AM CDT) P athologist Signature HXABO/RH A POS [facility] Specimen (Source) Anatomical Collection Method Collection Time Re ceived Time Location / / Volume Laterality 08/23/2013 5:54 AM CDT Historical Provider LAB BLOOD BANK TEST ORDERABL ES Performing Organization Address City/[facility]/ZIP Code Phon e Number [facility] LABORATORIES - [address] [place], [place] [address] [facility] (ABNORMAL) CBC with Differential - No Alerts (08/23/2013 5:46 AM CDT) Patholo gist Method Time Signature Erythrocytes 4.87 3.90 - [facility] 5.03 LABORATORIES - X10(12)/L [facility] MCV 87.1 81.6 - [facility] 98.3 [place] LABORATORIES - [facility] Leukocytes 8.1 3.5 - [facility] 10.5 LABORATORIES - X10(9)/L [facility] Neutrophils 7.28 (H) 1.70 - [facility] 7.00 LABORATORIES - X10(9)/L [facility] Lymphocytes 0.75 (L) 0.90 - [facility] 2.90 LABORATORIES - X10(9)/L [facility] Monocytes 0.04 (L) 0.30 - [facility] 0.90 LABORATORIES - X10(9)/L [facility] Hemoglobin 14.1 12.0 - [facility] 15.5 G/DL LABORATORIES [facility] Hematocrit 42.4 34.9 - [facility] 44.5 % LABORATORIES - [facility] RBC Distrib 13.2 11.9 - [facility] Width 15.5 % [facility] - [facility] Platelet Count 324 150 - 450 [facility] X10(9)/L LABORATORIES - [facility] Eosinophils 0.00 (L) 0.05 - [facility] 0.50 LABORATORIES - X10(9)/L [facility] Basophils 0.01 0.00 - [facility] 0.30 LABORATORIES - X10(9)/L [facility] Specimen Anatomical Collection Method Collection Time Receive d Time (Source) Location / / Volume Laterality 08/23/2013 5:46 AM 4 5:46 CDT AM CDT Dariusz Salgado M.D. LAB BLOOD NON ADD-ON Performing Organization Address City/State/ZIP Code Phon e Number [facility] LABORATORIES - [address] [place], [place] [address] [facility] Phosphorus Inorganic (08/23/2013 5:46 AM CDT) Analysis Performed At Patho logist Time Signature Phosphorus 3.5 2.5 - 4.5 [facility] (Inorganic), S MG/DL LABORATORIES - [facility] Specimen Anatomical Collection Method Collection Time Receive d Time (Source) Location / / Volume Laterality 08/23/2013 5:46 AM 4 5:46 CDT AM CDT Dariusz Salgado M.D. LAB BLOOD ADD-ON Performing Organization Address City/State/ZIP Code Phon e Number [facility] LABORATORIES - [address] [place] [phone] [facility] Uric Acid (08/23/2013 5:46 AM CDT) P athologist Signature Uric Acid, S 5.1 2.7 - 6.1 [facility] MG/DL LABORATORIES - [facility] Specimen Anatomical Collection Method Collection Time Receive d Time (Source) Location / / Volume Laterality 08/23/2013 5:46 AM 4 5:46 CDT AM CDT Dariusz Salgado M.D. LAB BLOOD ADD-ON Performing Organization Address City/[facility] Code Phon e Number [facility] LABORATORIES - [address] [place] [phone] [facility] (ABNORMAL) Electrolyte (Chem 4) Panel (08/23/2013 5:46 AM CDT) Patholo gist Method Time Signature Sodium, S 141 135 - 145 [facility] MMOL/L LABORATORIES - [facility] Potassium, S 4.6 3.6 - 5.2 [facility] MMOL/L LABORATORIES - [facility] Creatinine 0.8 0.6 - 1.1 [facility] MG/DL LABORATORIES - [facility] eGFR >60 >60 [facility] Non-Black/Afric ML/MIN/BS LABORATORIES - Kazakh A [facility] Anion Gap 13 7 - 15 [facility] LABORATORIES - [facility] Glucose, S 144 (H) 70 - 140 [facility] MG/DL LABORATORIES - [facility] Chloride, S 106 100 - 108 [facility] MMOL/L LABORATORIES - [facility] HX Bicarbonate, 22 22 - 29 [facility] P/S MMOL/L LABORATORIES - [facility] eGFR-Black/Afri >60 >60 [facility] can Kazakh ML/MIN/BS LABORATORIES - A [facility] BUN (Blood Urea 18 6 - 21 [facility] Nitrogen), S MG/DL LABORATORIES - [facility] Specimen Anatomical Collection Method Collection Time Receive d Time (Source) Location / / Volume Laterality 08/23/2013 5:46 AM 4 5:46 CDT AM CDT Dariusz Salgado M.D. LAB BLOOD ADD-ON Performing Organization Address City/State/ZIP Code Phon e Number [facility] LABORATORIES - [address] [place], [place] [address] [facility] DX Chest Post PICC Placement 1 View (08/22/2013 9:42 PM CDT) Anatomical Region Laterality Modality Chest N/A Radiographic Imaging Specimen (Source) Anatomical Collection Method Collection Time Re ceived Time Location / / Volume Laterality 08/22/2013 9:42 PM CDT Narrative 08/23/2013 7:07 AM CDT 22-Aug-2013 21:42:00 ??Exam: Chest-PICC Indications: Right - PICC Placement,chem otherapy ORIGINAL REPORT - 22-Aug-2013 21:43:00 Chest; 1 view: Right PICC tip in the low SVC. Electronically signed by: ?? Elisabeth GILLIAM [phone] 22-Aug-2013 21: 43 I have reviewed the films/images and agr ee with the above interpretation. Electronically signed by: ?? Jonathan Moseley MD [phone] 07:07 Procedure Note Jonathan Moseley M.D. - 09/09/2017Fo rmatting of this note might be different from the original. 22-Aug-2013 21:42:00 Exam: Chest-PICC Indications: Right - PICC Placement,chem otherapy ORIGINAL REPORT - 22-Aug-2013 21:43:00 Chest; 1 view: Right PICC tip in the low SVC. Electronically signed by: Elisabeth GILLIAM [phone] 22-Aug-2013 21: 43 I have reviewed the films/images and agr ee with the above interpretation. Electronically signed by: Jonathan Moseley MD [phone] 07:07 Sharona Baez R.N. IMSuzan DIAGNOSTIC IMAGING PROCE DURES (ABNORMAL) Electrolyte (Chem 4) Panel (08/22/2013 1:56 PM CDT) [facility] Method Time Signature Sodium, S 141 135 - 145 [facility] MMOL/L LABORATORIES [facility] Potassium, S 5.4 (H) 3.6 - 5.2 [facility] MMOL/L LABORATORIES - [facility] Chloride, S 103 100 - 108 [facility] MMOL/L LABORATORIES - [facility] HX Bicarbonate, 26 22 - 29 [facility] P/S MMOL/L LABORATORIES - [facility] eGFR-Black/Afri >60 >60 [facility] can Kazakh ML/MIN/BS LABORATORIES - A [facility] BUN (Blood Urea 24 (H) 6 - 21 [facility] Nitrogen), S MG/DL LABORATORIES - [facility] Anion Gap 12 7 - 15 [facility] LABORATORIES - [facility] Glucose, S 92 70 - 140 [facility] MG/DL LABORATORIES - [facility] Creatinine 0.9 0.6 - 1.1 [facility] MG/DL LABORATORIES - [facility] eGFR >60 >60 [facility] Non-Black/Afric ML/MIN/BS LABORATORIES - an Kazakh A [facility] Specimen Anatomical Collection Method Collection Time Receive d Time (Source) Location / / Volume Laterality 08/22/2013 1:56 PM 4 1:56 CDT PM CDT Dariusz Salgado M.D. LAB BLOOD ADD-ON Performing Organization Address City/[facility]/ZIP Code Phon e Number [facility] LABORATORIES - [address] ALT (Alanine Aminotransferase) (08/22/2013 1:56 PM CDT) Patholo gist Method Time Signature Alanine 26 7 - 45 [facility] Aminotransferase U/L LABORATORIES - (ALT), S [facility] Specimen Anatomical Collection Method Collection Time Receive d Time (Source) Location / / Volume Laterality 08/22/2013 1:56 PM 4 1:56 CDT PM CDT Dariusz Salgado M.D. LAB BLOOD ADD-ON Performing Organization Address City/[facility]/ZIP Code Phon e Number [facility] LABORATORIES - [address] AST (Aspartate Aminotransferase) (08/22/2013 1:56 PM CDT) P athologist Signature AST, Total, S 18 8 - 43 U/L [facility] Specimen Anatomical Collection Method Collection Time Receive d Time (Source) Location / / Volume Laterality 08/22/2013 1:56 PM 4 1:56 CDT PM CDT Dariusz Salgado M.D. LAB BLOOD ADD-ON Performing Organization Address City/State/ZIP Code Phon e Number [facility] LABORATORIES - [address] [place], [place] [address] [facility] Uric Acid (08/22/2013 1:56 PM CDT) P athologist Signature Uric Acid, S 3.6 2.7 - 6.1 [facility] MG/DL LABORATORIES - [facility] Specimen Anatomical Collection Method Collection Time Receive d Time (Source) Location / / Volume Laterality 08/22/2013 1:56 PM 4 1:56 CDT PM CDT Dariusz Salgado M.D. LAB BLOOD ADD-ON Performing Organization Address City/[facility]/ZIP Code Phon e Number [facility] LABORATORIES - [address] [place], [place] [address] [facility] Bilirubin (08/22/2013 1:56 PM CDT) athologist Signature Bilirubin, 0.5 0.1 - 1.0 [facility] Total, S MG/DL LABORATORIES - [facility] Bilirubin, 0.1 0.0 - 0.3 [facility] Direct, S MG/DL LABORATORIES - [facility] Specimen Anatomical Collection Method Collection Time Receive d Time (Source) Location / / Volume Laterality 08/22/2013 1:56 PM 4 1:56 CDT PM CDT Dariusz Salgado M.D. LAB BLOOD ADD-ON Performing Organization Address City/State/ZIP Code Phon e Number [facility] LABORATORIES - [address] [place], [place] [address] [facility] LD (Lactate Dehydrogenase) (08/22/2013 1:56 PM CDT) [facility] gist Method Time Signature Lactate 162 122 - 222 [facility] Dehydrogenase U/L LABORATORIES - (LD), S [facility] Specimen Anatomical Collection Method Collection Time Receive d Time (Source) Location / / Volume Laterality 08/22/2013 1:56 PM 4 1:56 CDT PM CDT Dariusz Salgado M.D. LAB BLOOD NON ADD-ON Performing Organization Address City/State/ZIP Code Phon e Number [facility] LABORATORIES - [address] [place], [place] [address] [facility] (ABNORMAL) Alkaline Phosphatase (08/22/2013 1:56 PM CDT) Patholo gist Method Time Signature Alkaline 131 (H) 46 - 118 [facility] Phosphatase, S U/L LABORATORIES - [facility] Specimen Anatomical Collection Method Collection Time Receive d Time (Source) Location / / Volume Laterality 08/22/2013 1:56 PM 4 1:56 CDT PM CDT Dariusz Salgado M.D. LAB BLOOD ADD-ON Performing Organization Address City/[facility] Code Phon e Number [facility] LABORATORIES - [address] [place], [place] [address] [facility] CBC with Differential (08/22/2013 1:56 PM CDT) [facility] Method Time Signature Hemoglobin 13.3 12.0 - [facility] 15.5 G/DL LABORATORIES - [facility] Hematocrit 39.9 34.9 - [facility] 44.5 % LABORATORIES - [facility] Erythrocytes 4.50 3.90 - [facility] 5.03 LABORATORIES - X10(12)/L [facility] MCV 88.7 81.6 - [facility] 98.3 [place] LABORATORIES - [facility] RBC Distrib Width 13.2 11.9 - [facility] 15.5 % LABORATORIES - [facility] Platelet Count 329 150 - 450 [facility] X10(9)/L LABORATORIES [facility] Lymphocytes 1.10 0.90 - [facility] 2.90 LABORATORIES - X10(9)/L [facility] Monocytes 0.53 0.30 - [facility] 0.90 LABORATORIES - X10(9)/L [facility] Eosinophils 0.21 0.05 - [facility] 0.50 LABORATORIES - X10(9)/L [facility] Basophils 0.04 0.00 - [facility] 0.30 LABORATORIES - X10(9)/L [facility] Leukocytes 8.5 3.5 - [facility] 10.5 LABORATORIES - X10(9)/L [facility] Neutrophils 6.63 1.70 - [facility] 7.00 LABORATORIES - X10(9)/L [facility] Specimen Anatomical Collection Method Collection Time Receive d Time (Source) Location / / Volume Laterality 08/22/2013 1:56 PM 4 1:56 CDT PM CDT Dariusz Salgado M.D. LAB BLOOD ADD-ON Performing Organization Address City/[facility] Code Phon e Number [facility] LABORATORIES - [address] [place], [place] [address] [facility] Phosphorus Inorganic (08/22/2013 1:56 PM CDT) Analysis Performed At Patho logist Time Signature Phosphorus 3.6 2.5 - 4.5 [facility] (Inorganic), S MG/DL LABORATORIES - [facility] Specimen Anatomical Collection Method Collection Time Receive d Time (Source) Location / / Volume Laterality 08/22/2013 1:56 PM 4 1:56 CDT PM CDT Dariusz Salgado M.D. LAB BLOOD ADD-ON Performing Organization Address City/[facility]/ZIP Code Phon e Number [facility] LABORATORIES - [address] [place], [place] [address] [facility] Calcium, Ionized (08/22/2013 1:56 PM CDT) P athologist Signature Calcium, 5.09 4.80 - [facility] Ionized, S 5.70 MG/DL LABORATORIES - [facility] pH 7.40 7.32 - [facility] 7.43 LABORATORIES - [facility] Specimen Anatomical Collection Method Collection Time Receive d Time (Source) Location / / Volume Laterality 08/22/2013 1:56 PM 4 1:56 CDT PM CDT Dariusz Salgado M.D. LAB BLOOD NON ADD-ON Performing Organization Address City/[facility]/ZIP Code Phon e Number [facility] LABORATORIES - [address] [place] [phone] [facility] VRE PCR (08/22/2013 1:47 PM CDT) P athologist Signature Specimen . [facility] Source (VRE LABORATORIES - PCR) [facility] Comment: CED ANAL SWAB VRE PCR Negative Not Applicable [facility] LAB ORATORIES - [facility] Comment: Laboratory developed test. Specimen Anatomical Collection Method Collection Time Receive d Time (Source) Location / / Volume Laterality 08/22/2013 1:47 PM 4 1:47 CDT PM CDT Historical Provider LAB MICROBIOLOGY - GENERAL O RDERABLES Performing Organization Address City/[facility]/ZIP Code Phon e Number [facility] LABORATORIES - [address] [place], [place] [address] [facility] documented in this encounter Visit Diagnoses Not on filedocumented in this encounter
--- OUTSIDE RECORDS SUMMARY | 2022-05-20 12:17 | XMS_ITS | Encounter Summary ---
:1955 Author Organization [facility] Address [address] [place] [address] Care Team Providers Name Role Phone Unavailable Primary Care Provider Unavailable Encounter Details Date Type Department Care Team Description 08/16/2013 Hospital Encounter HX RST BONE MARROW ITC Aldair Hassan, FEI R.N. Social History Tobacco Use Types Packs/Day [...] How often do you attend christian or uatsdin Never 05/28/2021 services? Do you belong to [...]
--- OUTSIDE RECORDS SUMMARY | 2022-05-20 12:17 | XMS_ITS | Encounter Summary ---
:1955 Author Organization [facility] Address [address] [place] [address] Care Team Providers Name Role Phone Unavailable Primary Care Provider Unavailable Encounter Details Date Type Department Care Team Description 10/23/2013 Hospital Encounter HX NO MAPPING Provider, Historical [...] How often do you attend christian or buddhist Never 05/28/2021 services? Do you [...]
--- OUTSIDE RECORDS SUMMARY | 2022-05-20 12:17 | XMS_ITS | Encounter Summary ---
:1955 Author Organization [facility] Address [address] [place] [address] Care Team Providers Name Role Phone Unavailable Primary Care Provider Unavailable Encounter Details Date Type Department Care Team Description 08/13/2013 Hospital Encounter HX NO MAPPING Social History [...] How often do you attend episcopal or cheondoism Never 05/28/2021 services? Do you belong to [...] place to sleep or slept in a long term (including now)? Sex Assigned at Date Recorded Female 03/09/2021 10:01 AM CDT documented as of this encounter Plan of Treatment Not on filedocumented as of this encounter Visit Diagnoses Not on filedocumented in this encounter
--- OUTSIDE RECORDS SUMMARY | 2022-05-20 12:17 | XMS_ITS | Encounter Summary ---
:1955 Author Organization [facility] Address [address] [place] [address] Care Team Providers Name Role Phone Unavailable Primary Care Provider Unavailable Encounter Details Date Type Department Care Team Description 11/10/2013 - Hospital Encounter HX RST BMT Provider, 11/17/2013 MOBILIZATION OP Historical Social History Tobacco Use [...] 05/28/2021 relatives? How often do you attend gnosticism or christianity Never 05/28/2021 services? Do you belong to any clubs or organizations such as No 05/28/2021 gnosticism groups, unions, fraternal or athletic groups, or [...] Sign Reading Time Taken Comments Blood Pressure 143/66 11/10/2013 6:45 AM CDT Pulse 69 11/10/2013 6:45 AM CDT Temperature - - Respiratory Rate 18 11/10/2013 6:45 AM CDT Oxygen Saturation - - Inhaled [...]
--- OUTSIDE RECORDS SUMMARY | 2022-05-20 12:17 | XMS_ITS | Encounter Summary ---
:1955 Author Organization [facility] Address [address] [place] [address] Care Team Providers Name Role Phone Unavailable Primary Care Provider Unavailable Encounter Details Date Type Department Care Team Description 11/09/2013 - Hospital Encounter HX RST BMT Provider, 11/16/2013 MOBILIZATION OP Historical Social History Tobacco Use [...] How often do you attend holiness or jew Never 05/28/2021 services? Do you belong to [...] Sign Reading Time Taken Comments Blood Pressure 120/60 11/09/2013 11:39 AM CDT Pulse 60 11/09/2013 11:39 AM CDT Temperature - - Respiratory Rate 16 11/09/2013 11:39 AM CDT Oxygen Saturation - - Inhaled Oxygen Concentration - - Weight 87.8 kg (193 lb 9 oz) 11/09/2013 8:07 AM CDT Height 173 cm (5' 8.11) 11/09/2013 8:07 AM CDT Body Mass Index 29.34 11/09/2013 8:07 AM CDT documented in this encounter Medications [...]
--- OUTSIDE RECORDS SUMMARY | 2022-05-20 12:17 | XMS_ITS | Encounter Summary ---
:1955 Author Organization [facility] Address [address] [place] [address] Care Team Providers Name Role Phone Unavailable Primary Care Provider Unavailable Encounter Details Date Type Department Care Team Description 09/10/2013 - Hospital Encounter HX RST HEMATOLOGY Call, Eduard Mares, 09/12/2013 UNIT 7-4 M.D. Social History Tobacco Use Types Packs/Day Years [...] How often do you attend islam or jain Never 05/28/2021 services? Do you [...] Sign Reading Time Taken Comments Blood Pressure 115/60 09/12/2013 9:50 PM NIBP - Value from CDT Chartplus. Pulse 72 09/12/2013 9:50 PM Value from artplus. CDT Temperature - - Respiratory Rate 16 09/12/2013 12:14 PM CDT Oxygen Saturation - - Inhaled Oxygen - - Concentration Weight 89.6 kg (197 lb 8.5 09/12/2013 10:11 oz) AM CDT Height 175 cm (5' 8.9) 09/10/2013 10:40 AM CDT Body Mass Index 29.26 09/10/2013 10:40 AM CDT documented in this encounter Plan of Treatment Not on filedocumented as of this encounter Procedures Procedure Name Priority Date/Time Associated Comments Diagnosis ELECTROLYTE (CHEM 4) Routine 09/12/2013 2:47 AM R esults for this PANEL, S/P CDT procedure are i n the results section. CBC NO CALL BACK, Routine 09/12/2013 2:47 AM Resu lts for this REFLEX T/S CDT procedure are i n the results section. ELECTROLYTE (CHEM 4) Routine 09/11/2013 6:23 AM R esults for this PANEL, S/P CDT procedure are i n the results section. CBC NO CALL BACK, Routine 09/11/2013 6:23 AM Resu lts for this REFLEX T/S CDT procedure are i n the results section. URIC ACID, S/P Routine 09/11/2013 6:23 AM Results for this CDT procedure are i n the results section. PHOSPHORUS Routine 09/11/2013 6:23 AM Results f or this (INORGANIC), S CDT procedure are in the results section. MAGNESIUM, S Routine 09/11/2013 6:23 AM Results f or this CDT procedure are i n the results section. CALCIUM, TOT, S/P Routine 09/11/2013 6:23 AM Resu lts for this CDT procedure are i n the results section. DX CHEST POST PICC Routine 09/10/2013 3:08 PM Res ults for this PLACEMENT 1 VIEW CDT procedure a re in the results section. VRE PCR Routine 09/10/2013 10:42 Results for this AM CDT procedure are i n the results section. documented in this encounter Results (ABNORMAL) Electrolyte (Chem 4) Panel (09/12/2013 2:47 AM CDT) P athologist Signature Sodium, S 142 135 - 145 [facility] MMOL/L LABORATORIES [facility] Comment: Drawn From PICC Potassium, S 4.3 3.6 - 5.2 MMOL/L [facility] LABORATORIES [facility] Comment: Drawn From PICC Creatinine 0.7 0.6 - 1.1 MG/DL [facility] Comment: Drawn From PICC eGFR Non-Black/ >60 >60 ML/MIN/BSA [facility] S Comment: Drawn From PICC eGFR-Black/ >60 >60 ML/MIN/BSA [facility] S Comment: Drawn From PICC BUN (Blood Urea Nitrogen), S 15 6 - 21 MG/DL [facility] S Comment: Drawn From PICC Chloride, S 108 100 - 108 MMOL/L [facility] Comment: Drawn From PICC HX Bicarbonate, P/S 23 22 - 29 MMOL/L M [facility] Comment: Drawn From PICC Anion Gap 11 7 - 15 [facility] LABORATO [place] [facility] Comment: Drawn From PICC Glucose, S 147 (H) 70 - 140 MG/DL [facility] Comment: Drawn From PICC Specimen Anatomical Collection Method Collection Time Receive d Time (Source) Location / / Volume Laterality 09/12/2013 2:47 AM 4 2:47 CDT AM CDT Narrative [facility] - 09/12/2013 3:38 AM CDT Drawn From PICC Colin Goodman M.D. LAB BLOOD ADD-ON Performing Organization Address City/State/ZIP Code Phon e Number [facility] - [address] [phone] [facility] (ABNORMAL) CBC with Differential - No Alerts (09/12/2013 2:47 AM CDT) athologist Signature Hemoglobin 10.6 (L) 12.0 - [facility] 15.5 G/DL [facility] Comment: Drawn From PICC Hematocrit 32.1 (L) 34.9 - 44.5 % [facility] Comment: Drawn From PICC RBC Distrib Width 13.5 11.9 - 15.5 % [facility] Comment: Drawn From PICC Platelet Count 320 150 - 450 X10(9)/L [facility] Comment: Drawn From PICC Leukocytes 9.9 3.5 - 10.5 X10(9)/L [facility] Comment: Drawn From PICC Neutrophils 9.52 (H) 1.70 - 7.00 X10(9)/L [facility] [place] Comment: Drawn From PICC Lymphocytes 0.21 (L) 0.90 - 2.90 X10(9)/L [facility] [place] Comment: Drawn From PICC Monocytes 0.17 (L) 0.30 - 0.90 X10(9)/L [facility] Comment: Drawn From PICC Eosinophils 0.00 (L) 0.05 - 0.50 X10(9)/L [facility] [place] Comment: Drawn From PICC Basophils 0.01 0.00 - 0.30 X10(9)/L [facility] Comment: Drawn From PICC Erythrocytes 3.76 (L) 3.90 - 5.03 X10(12)/L [facility] Comment: Drawn From PICC MCV 85.4 81.6 - 98.3 FL [facility] LAB ORATORIES [facility] Comment: Drawn From PICC Specimen Anatomical Collection Method Collection Time Receive d Time (Source) Location / / Volume Laterality 09/12/2013 2:47 AM 4 2:47 CDT AM CDT Narrative [facility] - 09/12/2013 3:06 AM CDT Drawn From PICC Colin Goodman M.D. LAB BLOOD NON ADD-ON Performing Organization Address City/State/ZIP Code Phon e Number [facility] - [address] [place], [place] [address] [facility] (ABNORMAL) CBC with Differential - No Alerts (09/11/2013 6:23 AM CDT) [facility] gist Method Time Signature Hemoglobin 10.8 (L) 12.0 - [facility] 15.5 G/DL [facility] Hematocrit 32.9 (L) 34.9 - [facility] 44.5 % [facility] RBC Distrib 13.1 11.9 - [facility] Width 15.5 % [facility] Platelet Count 317 150 - 450 [facility] X10(9)/L [facility] Lymphocytes 0.32 (L) 0.90 - [facility] 2.90 LABORATORIES - X10(9)/L [facility] Monocytes 0.10 (L) 0.30 - [facility] 0.90 LABORATORIES - X10(9)/L [facility] Eosinophils 0.00 (L) 0.05 - [facility] 0.50 LABORATORIES - X10(9)/L [facility] Basophils 0.02 0.00 - [facility] 0.30 LABORATORIES - X10(9)/L [facility] Erythrocytes 3.79 (L) 3.90 - [facility] 5.03 LABORATORIES - X10(12)/L [facility] MCV 86.8 81.6 - [facility] 98.3 FL LABORATORIES - [facility] Leukocytes 9.1 3.5 - [facility] 10.5 LABORATORIES - X10(9)/L [facility] Neutrophils 8.68 (H) 1.70 - [facility] 7.00 LABORATORIES - X10(9)/L [facility] Comment: Rechecked Specimen Anatomical Collection Method Collection Time Receive d Time (Source) Location / / Volume Laterality 09/11/2013 6:23 AM 4 6:23 CDT AM CDT Juan Manuel Gutierrez, B.Ch., B.A.O. LAB BLOOD NON ADD- ON Performing Organization Address City/[facility] Code Phon e Number [facility] LABORATORIES - [address] Phosphorus Inorganic (09/11/2013 6:23 AM CDT) Analysis Performed At Path logist Time Signature Phosphorus 3.1 2.5 - 4.5 [facility] (Inorganic), S MG/DL LABORATORIES - [facility] Specimen Anatomical Collection Method Collection Time Receive d Time (Source) Location / / Volume Laterality 09/11/2013 6:23 AM 4 6:23 CDT AM CDT Juan Manuel Gutierrez, B.Ch., B.A.O. LAB BLOOD ADD-ON Performing Organization Address City/[facility] Phon e Number [facility] LABORATORIES - [address] Electrolyte (Chem 4) Panel (09/11/2013 6:23 AM CDT) Analysis [facility] Time Signature Sodium, S 139 135 - 145 [facility] MMOL/L LABORATORIES [facility] Potassium, S 4.5 3.6 - 5.2 [facility] MMOL/L LABORATORIES - [facility] Chloride, S 107 100 - 108 [facility] MMOL/L LABORATORIES - [facility] HX Bicarbonate, 24 22 - 29 [facility] P/S MMOL/L LABORATORIES - [facility] Creatinine 0.7 0.6 - 1.1 [facility] MG/DL LABORATORIES - [facility] eGFR >60 >60 [facility] Non-Black/Afric ML/MIN/BSA LABORATORIES - an [place] [facility] eGFR-Black/Afri >60 >60 [facility] can [place] ML/MIN/BSA LABORATORIES - [facility] BUN (Blood Urea 15 6 - 21 [facility] Nitrogen), S MG/DL LABORATORIES - [facility] Anion Gap 8 7 - 15 [facility] LABORATORIES - [facility] Glucose, S 140 70 - 140 [facility] MG/DL [facility] - [facility] Specimen Anatomical Collection Method Collection Time Receive d Time (Source) Location / / Volume Laterality 09/11/2013 6:23 AM 4 6:23 CDT AM CDT Juan Manuel Gutierrez, HelenCh., B.A.O. LAB BLOOD ADD-ON Performing Organization Address City/State/[facility] Code Phon e Number [facility] LABORATORIES - [address] [address] [facility] Uric Acid (09/11/2013 6:23 AM CDT) P athologist Signature Uric Acid, S 3.5 2.7 - 6.1 [facility] MG/DL [facility] Specimen Anatomical Collection Method Collection Time Receive d Time (Source) Location / / Volume Laterality 09/11/2013 6:23 AM 4 6:23 CDT AM CDT Juan Manuel Gutierrez, HelenCh., B.A.O. LAB BLOOD ADD-ON Performing Organization Address City/State/[facility] Phon e Number [facility] LABORATORIES - [address] [address] [facility] (ABNORMAL) Calcium, Total (09/11/2013 6:23 AM CDT) Patholo gist Method Time Signature Calcium, 8.4 (L) 8.9 - 10.1 [facility] Total, S MG/DL LABORATORIES [facility] Specimen Anatomical Collection Method Collection Time Receive d Time (Source) Location / / Volume Laterality 09/11/2013 6:23 AM 4 6:23 CDT AM CDT Juan Manuel Gutierrez, Ama., B.A.O. LAB BLOOD ADD-ON Performing Organization Address City/[facility]/ZIP Code Phon e Number [facility] LABORATORIES - [address] [address] [facility] Magnesium (09/11/2013 6:23 AM CDT) P athologist Signature Magnesium, S 2.0 1.7 - 2.3 [facility] MG/DL LABORATORIES - [facility] Specimen Anatomical Collection Method Collection Time Receive d Time (Source) Location / / Volume Laterality 09/11/2013 6:23 AM 4 6:23 CDT AM CDT Juan Manuel Gutierrez, Ama., B.A.O. LAB BLOOD ADD-ON Performing Organization Address City/[facility] Code Phon e Number [facility] LABORATORIES - [address] DX Chest Post PICC Placement 1 View (09/10/2013 3:08 PM CDT) Anatomical Region Laterality Modality Chest N/A Radiographic Imaging Specimen (Source) Anatomical Collection Method Collection Time Re ceived Time Location / / Volume Laterality 09/10/2013 3:08 PM CDT Narrative 09/10/2013 3:11 PM CDT 10-Sep-2013 15:08:00 ??Exam: Chest-PICC Indications: Right - PICC Placement ORIGINAL REPORT - 10-Sep-2013 15:11:00 Chest; 1 view: Right-sided PICC with tip in the mid SVC . The position is similar to the PICC seen on the examination on August 22, 2013. Electronically signed by: ?? Helen Doe M.D. [phone] 10-Sep-2013 15:11 Procedure Note Karan Doe M.D. - 09/09/2017Fo rmatting of this note might be different from the original. 10-Sep-2013 15:08:00 Exam: Chest-PICC Indications: Right - PICC Placement ORIGINAL REPORT - 10-Sep-2013 15:11:00 Chest; 1 view: Right-sided PICC with tip in the mid SVC . The position is similar to the PICC seen on the examination on August 22, 2013. Electronically signed by: Helen Doe M.D. [phone] 10-Sep-2013 15:11 Batool Gorman [place]-, RJimiNJimi IMG DIAGNOSTIC IMAGING PROCE DURES VRE PCR (09/10/2013 10:42 AM CDT) athologist Signature Specimen . [facility] Source (VRE LABORATORIES - PCR) [facility] Comment: CED RECTAL SWAB VRE PCR Negative Not Applicable [facility] LAB ORATORIES - [facility] Comment: Laboratory developed test. Specimen Anatomical Collection Method Collection Time Receive d Time (Source) Location / / Volume Laterality 09/10/2013 10:42 09/10/2013 AM CDT 10:42 AM CDT Historical Provider LAB MICROBIOLOGY - GENERAL O RDERABLES Performing Organization Address City/State/ZIP Code Phon e Number [facility] LABORATORIES - [address] [place], [place] [address] [facility] documented in this encounter Visit Diagnoses Not on filedocumented in this encounter Additional Health Concerns Assessment Noted Time PHQ-9 Depression Total Score: 3 08/31/2013 7:36 AM CDT documented as of this encounter
--- OUTSIDE RECORDS SUMMARY | 2022-05-20 12:17 | XMS_ITS | Encounter Summary ---
:1955 Author Organization [facility] Address [address] [place] [address] Care Team Providers Name Role Phone Unavailable Primary Care Provider Unavailable Encounter Details Date Type Department Care Team Description 10/22/2013 Hospital Encounter HX NO MAPPING Social History [...] How often do you attend sabianism or yazdanism Never 05/28/2021 services? Do you [...]
--- OUTSIDE RECORDS SUMMARY | 2022-05-20 12:17 | XMS_ITS | Encounter Summary ---
:1955 Author Organization [facility] Address [address] [place] [address] Care Team Providers Name Role Phone Unavailable Primary Care Provider Unavailable Encounter Details Date Type Department Care Team Description 10/24/2013 Hospital Encounter HX NO MAPPING Patricia Khan R .N., BMT-CN [address] [place], [place] [phone] (Wo rk) Social History [...] 05/28/2021 relatives? How often do you attend advent or restorationism Never 05/28/2021 services? Do you belong to any clubs or organizations such as No 05/28/2021 advent groups, unions, fraternal or athletic groups, or [...]
--- OUTSIDE RECORDS SUMMARY | 2022-05-20 12:17 | XMS_ITS | Encounter Summary ---
:1955 Author Organization [facility] Address [address] [place] [address] Care Team Providers Name Role Phone Unavailable Primary Care Provider Unavailable Encounter Details Date Type Department Care Team Description 08/13/2013 Hospital Encounter HX RST RADIOLOGY David Maya M.D. [address] [place], [place] [phone] (Wo rk) Social History [...] 05/28/2021 relatives? How often do you attend buddhist or catholic Never 05/28/2021 services? Do you belong to any clubs or organizations such as No 05/28/2021 buddhist groups, unions, fraternal or athletic groups, or [...]
--- OUTSIDE RECORDS SUMMARY | 2022-05-20 12:17 | XMS_ITS | Encounter Summary ---
:1955 Author Organization [facility] Address [address] [place] [address] Care Team Providers Name Role Phone Unavailable Primary Care Provider Unavailable Encounter Details Date Type Department Care Team Description 11/14/2013 Hospital Encounter HX NO MAPPING Social History [...] How often do you attend baptism or adventism Never 05/28/2021 services? Do you [...]
--- OUTSIDE RECORDS SUMMARY | 2022-05-20 12:17 | XMS_ITS | Encounter Summary ---
:1955 Author Organization [facility] Address [address] [place] [address] Care Team Providers Name Role Phone Unavailable Primary Care Provider Unavailable Encounter Details Date Type Department Care Team Description 10/19/2013 Hospital Encounter HX RST BONE MARROW ITC Carli Hickman rd J, GO07 R.N. [address] [place] [phone] Social History Tobacco Use Types Packs/Day Years [...] How often do you attend scientology or jain Never 05/28/2021 services? Do you [...] or slept in a chcf (including now)? Sex Assigned at Date Recorded Female 03/09/2021 10:01 AM CDT documented as of this encounter Last Filed Vital Signs Vital Sign Reading Time Taken Comments Blood Pressure - - Pulse - - Temperature - - Respiratory Rate - - Oxygen Saturation - - Inhaled Oxygen - - Concentration Weight - - Height 174.2 cm (5' 8.58) 10/19/2013 8:44 AM Nj Curiel RN CDT Body Mass Index - - documented in this encounter Medications at Time of Discharge Medication Sig Dispensed Refills Start Date End Date omeprazole (PriLOSEC) 20 Take 1 capsule by 0 09/[address] capsule mouth daily. documented as of this encounter Plan of Treatment Not on filedocumented as of this encounter Procedures Procedure Name Priority Date/Time Associated Diagnosis Comme nts ABORH, RBC Routine 10/19/2013 10:49 AM Results for this CDT procedure are i n the results section. ANTIBODY SCREEN, B Routine 10/19/2013 10:49 AM Re sults for this CDT procedure are i n the results section. ECG Routine 10/19/2013 10:41 AM Results for this CDT procedure are i n the results section. documented in this encounter Results ABORh, RBC (10/19/2013 10:49 AM CDT) P athologist Signature HXABO/RH BLOOD A Pos [facility] TYPE [facility] Specimen (Source) Anatomical Collection Method Collection Time Re ceived Time Location / / Volume Laterality 10/19/2013 10:49 AM CDT Historical Provider LAB BLOOD BANK TEST ORDERABL ES Performing Organization Address City/[facility] Phon e Number [facility] - [address] [place] [phone] [facility] Antibody Screen, RBC (10/19/2013 10:49 AM CDT) Patholo gist Method Time Signature Antibody Negative [facility] Screen [facility] Specimen (Source) Anatomical Collection Method Collection Time Re ceived Time Location / / Volume Laterality 10/19/2013 10:49 AM CDT Historical Provider LAB BLOOD BANK TEST ORDERABL ES Performing Organization Address City/[facility]/ZIP Code Phon e Number [facility] - [address] [place] [phone] [facility] ECG 12 Lead (10/19/2013 10:41 AM CDT) Specimen (Source) Anatomical Collection Method Collection Time Re ceived Time Location / / Volume Laterality 10/19/2013 10:41 AM CDT [facility] - 10/19/2013 10:58 AM CDT [id number] 10:41 VENTRICULAR RATE 99 Normal sinus rhythm Nonspecific ST abnormality When compared with ECG of 01-OCT-2013 12 :19, Vent. rate has increased BY ??39 BPM [id number]^ALLEN ??^NIRANJAN Procedure Note Niranjan Allen M.D. - 09/02/2017Format ting of this note might be different from the original. [id number] 10:41 VENTRICULAR RATE 99 Normal sinus rhythm Nonspecific ST abnormality When compared with ECG of 01-OCT-2013 12 :19, Vent. rate has increased BY 39 BPM [id number]^TIFFANY GILLIAM^NIRANJAN Erik Casas M.D., Ph.D. ECG ORDERABLES Performing Organization Address City/State/ZIP Code Phon e Number [facility] [address] [place] [address], [place] documented in this encounter Visit Diagnoses Not on filedocumented in this encounter Additional Health Concerns Assessment Noted Time PHQ-9 Depression Total Score: 3 08/31/2013 7:36 AM CDT documented as of this encounter
--- OUTSIDE RECORDS SUMMARY | 2022-05-20 12:17 | XMS_ITS | Encounter Summary ---
:1955 Author Organization [facility] Address [address] [place] [address] Care Team Providers Name Role Phone Unavailable Primary Care Provider Unavailable Encounter Details Date Type Department Care Team Description 10/01/2013 - Hospital Encounter HX RST HEMATOLOGY Moshe, 10/03/2013 UNIT 7[address] Diego Benjamin M.D. [address] [place] [address] Social History Tobacco Use Types Packs/Day Years [...] 05/28/2021 relatives? How often do you attend yazidism or tenriism Never 05/28/2021 services? Do you belong to any clubs or organizations such as No 05/28/2021 yazidism groups, unions, fraternal or athletic groups, or [...] Sign Reading Time Taken Comments Blood Pressure 111/64 10/03/2013 3:50 PM NIBP - Value from CDT [employer]. Pulse 70 10/03/2013 3:50 PM Value from artplus. CDT Temperature - - Respiratory Rate 18 10/03/2013 6:39 AM Value from Kitty rodriguez. CDT Oxygen Saturation - - Inhaled Oxygen - - Concentration Weight 87.8 kg (193 lb 9 10/01/2013 10:08 oz) AM CDT Height 174 cm (5' 8.5) 10/01/2013 10:08 AM CDT Body Mass Index 29 10/01/2013 10:08 AM CDT documented in this encounter Medications at Time of Discharge Medication Sig Dispensed Refills Start Date End Date omeprazole (PriLOSEC) 20 Take 1 capsule by 0 09/[address] capsule mouth daily. documented as of this encounter Plan of Treatment Not on filedocumented as of this encounter Procedures Procedure Name Priority Date/Time Associated Comments Diagnosis ELECTROLYTE (CHEM 4) Routine 10/03/2013 2:28 Resu lts for this PANEL, S/P AM CDT procedure are i n the results section. CBC NO CALL BACK, REFLEX Routine 10/03/2013 2:28 Results for this T/S AM CDT procedure are i n the results section. ALANINE AMINOTRANSFERASE Routine 10/03/2013 2:28 Results for this (ALT), S/P AM CDT procedure are i n the results section. BILIRUBIN, TOT, S/P Routine 10/03/2013 2:28 Resul ts for this AM CDT procedure are i n the results section. ABORH, RBC Routine 10/02/2013 2:26 Results for this AM CDT procedure are i n the results section. ANTIBODY SCREEN, B Routine 10/02/2013 2:26 Result s for this AM CDT procedure are i n the results section. ELECTROLYTE (CHEM 4) Routine 10/02/2013 1:59 Resu lts for this PANEL, S/P AM CDT procedure are i n the results section. CBC NO CALL BACK, REFLEX Routine 10/02/2013 1:59 Results for this T/S AM CDT procedure are i n the results section. ALANINE AMINOTRANSFERASE Routine 10/02/2013 1:59 Results for this (ALT), S/P AM CDT procedure are i n the results section. ASPARTATE Routine 10/02/2013 1:59 Results for this AMINOTRANSFERASE (AST), AM CDT proc edure are in S/P the results section. ALKALINE PHOSPHATASE, Routine 10/02/2013 1:59 Res ults for this S/P AM CDT procedure are i n the results section. MAGNESIUM, S Routine 10/02/2013 1:59 Results for this AM CDT procedure are i n the results section. BILIRUBIN, TOT, S/P Routine 10/02/2013 1:59 Resul ts for this AM CDT procedure are i n the results section. DX CHEST POST PICC Routine 10/01/2013 3:00 Result s for this PLACEMENT 1 VIEW PM CDT procedure a re in the results section. POTASSIUM, S/P Routine 10/01/2013 11:30 Results f or this AM CDT procedure are i n the results section. VRE PCR Routine 10/01/2013 10:21 Results for this AM CDT procedure are i n the results section. documented in this encounter Results (ABNORMAL) CBC with Differential - No Alerts (10/03/2013 2:28 AM CDT) [facility] Method Time Signature Erythrocytes 2.97 (L) 3.90 - [facility] 5.03 LABORATORIES - X10(12)/L [facility] Comment: Drawn From PICC MCV 88.9 81.6 - 98.3 FL [facility] Comment: Drawn From PICC RBC Distrib Width 17.7 (H) 11.9 - 15.5 % [facility] Comment: Drawn From PICC Platelet Count 273 150 - 450 X10(9)/L [facility] Comment: Drawn From PICC Lymphocytes 0.55 (L) 0.90 - 2.90 X10(9)/L [facility] Comment: Drawn From PICC Monocytes 0.99 (H) 0.30 - 0.90 X10(9)/L [facility] Comment: Drawn From PICC Hemoglobin 8.4 (L) 12.0 - 15.5 G/DL [facility] Comment: Drawn From PICC Hematocrit 26.4 (L) 34.9 - 44.5 % [facility] Comment: Drawn From PICC Leukocytes 10.5 3.5 - 10.5 X10(9)/L [facility] Comment: Drawn From PICC Neutrophils 8.98 (H) 1.70 - 7.00 X10(9)/L [facility] Comment: Drawn From PICC Eosinophils 0.00 (L) 0.05 - 0.50 X10(9)/L [facility] Comment: Drawn From PICC Basophils 0.01 0.00 - 0.30 X10(9)/L [facility] IC [facility] Comment: Drawn From PICC Specimen Anatomical Collection Method Collection Time Receive d Time (Source) Location / / Volume Laterality 10/03/2013 2:28 AM 4 2:28 CDT AM CDT Narrative [facility] - 10/03/2013 3:07 AM CDT Drawn From PICC Raymon Crabtree D.O. LAB BLOOD NON ADD-ON Performing Organization Address City/[facility]/ZIP Code Phon e Number [facility] - [address] [phone] [facility] Bilirubin, Total (10/03/2013 2:28 AM CDT) P athologist Signature Bilirubin, 0.3 0.1 - 1.0 [facility] Total, S MG/DL [facility] Comment: Drawn From PICC Specimen Anatomical Collection Method Collection Time Receive d Time (Source) Location / / Volume Laterality 10/03/2013 2:28 AM 4 2:28 CDT AM CDT Narrative [facility] - 10/03/2013 3:33 AM CDT Drawn From PICC Raymon Crabtree D.O. LAB BLOOD ADD-ON Performing Organization Address City/State/ZIP Code Phon e Number [facility] - [address] [address] [facility] (ABNORMAL) Electrolyte (Chem 4) Panel (10/03/2013 2:28 AM CDT) P athologist Signature Sodium, S 141 135 - 145 [facility] MMOL/L [facility] Comment: Drawn From PICC Potassium, S 4.6 3.6 - 5.2 MMOL/L [facility] Comment: Drawn From PICC Creatinine 0.8 0.6 - 1.1 MG/DL [facility] Comment: Drawn From PICC eGFR Non-Black/ >60 >60 ML/MIN/BSA [facility] S Comment: Drawn From PICC eGFR-Black/ >60 >60 ML/MIN/BSA [facility] Comment: Drawn From PICC BUN (Blood Urea Nitrogen), S 21 6 - 21 MG/DL [facility] Comment: Drawn From PICC Chloride, S 107 100 - 108 MMOL/L [facility] Comment: Drawn From PICC HX Bicarbonate, P/S 20 (L) 22 - 29 MMOL/L M [facility] Comment: Drawn From PICC Anion Gap 14 7 - 15 [facility] LABORATO [facility] Comment: Drawn From PICC Glucose, S 112 70 - 140 MG/DL [facility] Comment: Drawn From PICC Specimen Anatomical Collection Method Collection Time Receive d Time (Source) Location / / Volume Laterality 10/03/2013 2:28 AM 4 2:28 CDT AM CDT Narrative [facility] - 10/03/2013 3:33 AM CDT Drawn From PICC Raymon Crabtree D.O. LAB BLOOD ADD-ON Performing Organization Address City/[facility]/ZIP Code Phon e Number [facility]ORATORIES - [address] ALT (Alanine Aminotransferase) (10/03/2013 2:28 AM CDT) Patholo gist Method Time Signature Alanine 26 7 - 45 [facility] Aminotransferase U/L LABORATORIES - (ALT), S [facility] Comment: Drawn From PICC Specimen Anatomical Collection Method Collection Time Receive d Time (Source) Location / / Volume Laterality 10/03/2013 2:28 AM 4 2:28 CDT AM CDT Narrative [facility] - 10/03/2013 3:33 AM CDT Drawn From PICC Raymon Crabtree D.O. LAB BLOOD ADD-ON Performing Organization Address City/State/ZIP Code Phon e Number [facility] - [address] [place] [address] [facility] ABORh, RBC (10/02/2013 2:26 AM CDT) P athologist Signature HXABO/RH BLOOD A Pos [facility] TYPE [facility] Specimen (Source) Anatomical Collection Method Collection Time Re ceived Time Location / / Volume Laterality 10/02/2013 2:26 AM CDT Historical Provider LAB BLOOD BANK TEST ORDERABL ES Performing Organization Address [facility] Phon e Number [facility]ORATORIES - [address] [place], [place] [address] [facility] Antibody Screen, RBC (10/02/2013 2:26 AM CDT) [facility] Method Time Signature Antibody Negative [facility] Screen [facility] Specimen (Source) Anatomical Collection Method Collection Time Re ceived Time Location / / Volume Laterality 10/02/2013 2:26 AM CDT Historical Provider LAB BLOOD BANK TEST ORDERABL ES Performing Organization Address City/[facility] Phon e Number [facility]IES - [address] [phone] [facility] (ABNORMAL) CBC with Differential - No Alerts (10/02/2013 1:59 AM CDT) [facility] Method Time Signature Erythrocytes 3.38 (L) 3.90 - [facility] 5.03 LABORATORIES - X10(12)/L [facility] Comment: Drawn From PICC MCV 87.3 81.6 - 98.3 FL [facility] Comment: Drawn From PICC Lymphocytes 0.56 (L) 0.90 - 2.90 X10(9)/L [facility] Comment: Drawn From PICC Monocytes 0.08 (L) 0.30 - 0.90 X10(9)/L [facility] Comment: Drawn From PICC Hemoglobin 9.6 (L) 12.0 - 15.5 G/DL [facility] Comment: Drawn From PICC Hematocrit 29.5 (L) 34.9 - 44.5 % [facility] Comment: Drawn From PICC RBC Distrib Width 17.4 (H) 11.9 - 15.5 % [facility] Comment: Drawn From PICC Platelet Count 267 150 - 450 X10(9)/L [facility] Comment: Drawn From PICC Leukocytes 9.0 3.5 - 10.5 X10(9)/L [facility] Comment: Drawn From PICC Neutrophils 8.30 (H) 1.70 - 7.00 X10(9)/L [facility] Comment: Drawn From PICC Eosinophils 0.00 (L) 0.05 - 0.50 X10(9)/L [facility] Comment: Drawn From PICC Basophils 0.03 0.00 - 0.30 X10(9)/L [facility] Comment: Drawn From PICC Specimen Anatomical Collection Method Collection Time Receive d Time (Source) Location / / Volume Laterality 10/02/2013 1:59 AM 4 1:59 CDT AM CDT Narrative [facility] - 10/02/2013 2:30 AM CDT Drawn From PICC Raymon Crabtree D.O. LAB BLOOD NON ADD-ON Performing Organization Address City/[facility]/ZIP Code Phon e Number [facility] - [address] [place] [address] [facility] ALT (Alanine Aminotransferase) (10/02/2013 1:59 AM CDT) Patholo gist Method Time Signature Alanine 28 7 - 45 [facility] Aminotransferase U/L LABORATORIES - (ALT), S [facility] Comment: Drawn From PICC Specimen Anatomical Collection Method Collection Time Receive d Time (Source) Location / / Volume Laterality 10/02/2013 1:59 AM 4 1:59 CDT AM CDT Narrative [facility] - 10/02/2013 2:59 AM CDT Drawn From PICC Raymon Crabtree D.O. LAB BLOOD ADD-ON Performing Organization Address City/State/ZIP Code Phon e Number [facility] - [address] [address] [facility] Bilirubin, Total (10/02/2013 1:59 AM CDT) P athologist Signature Bilirubin, 0.7 0.1 - 1.0 [facility] Total, S MG/DL [facility] Comment: Drawn From PICC Specimen Anatomical Collection Method Collection Time Receive d Time (Source) Location / / Volume Laterality 10/02/2013 1:59 AM 4 1:59 CDT AM CDT Narrative [facility] - 10/02/2013 2:59 AM CDT Drawn From PICC Raymon Crabtree D.O. LAB BLOOD ADD-ON Performing Organization Address City/[facility] Phon e Number [facility] - [address] [phone] [facility] (ABNORMAL) Magnesium (10/02/2013 1:59 AM CDT) Analysis Performed At Patho logist Time Signature Magnesium, S 2.4 (H) 1.7 - 2.3 [facility] MG/DL [facility] Comment: Drawn From PICC Specimen Anatomical Collection Method Collection Time Receive d Time (Source) Location / / Volume Laterality 10/02/2013 1:59 AM 4 1:59 CDT AM CDT Narrative [facility] - 10/02/2013 2:59 AM CDT Drawn From PICC Raymon Crabtree D.O. LAB BLOOD ADD-ON Performing Organization Address [facility] Phon e Number [facility] - [address] [phone] [facility] (ABNORMAL) Electrolyte (Chem 4) Panel (10/02/2013 1:59 AM CDT) P athologist Signature Chloride, S 106 100 - 108 [facility] MMOL/L [facility] Comment: Drawn From PICC HX Bicarbonate, P/S 26 22 - 29 MMOL/L M [facility] Comment: Drawn From PICC Sodium, S 137 135 - 145 MMOL/L [facility] Comment: Drawn From PICC Potassium, S 4.8 3.6 - 5.2 MMOL/L [facility] Comment: Drawn From PICC Creatinine 0.8 0.6 - 1.1 MG/DL [facility] Comment: Drawn From PICC eGFR Non-Black/ >60 >60 ML/MIN/BSA [facility] S Comment: Drawn From PICC eGFR-Black/ >60 >60 ML/MIN/BSA [facility] S Comment: Drawn From PICC BUN (Blood Urea Nitrogen), S 16 6 - 21 MG/DL [facility] Comment: Drawn From PICC Anion Gap 5 (L) 7 - 15 [facility] Comment: Drawn From PICC Glucose, S 154 (H) 70 - 140 MG/DL [facility] Comment: Drawn From PICC Specimen Anatomical Collection Method Collection Time Receive d Time (Source) Location / / Volume Laterality 10/02/2013 1:59 AM 4 1:59 CDT AM CDT Narrative [facility] - 10/02/2013 2:59 AM CDT Drawn From PICC Raymon Crabtree D.O. LAB BLOOD ADD-ON Performing Organization Address City/State/ZIP Code Phon e Number [facility] [employer] - [address] [address] [facility] AST (Aspartate Aminotransferase) (10/02/2013 1:59 AM CDT) athologist Signature AST, Total, S 21 8 - 43 U/L [facility] Comment: Drawn From PICC Specimen Anatomical Collection Method Collection Time Receive d Time (Source) Location / / Volume Laterality 10/02/2013 1:59 AM 4 1:59 CDT AM CDT Narrative [facility] - 10/02/2013 2:59 AM CDT Drawn From PICC Raymon Crabtree D.O. LAB BLOOD ADD-ON Performing Organization Address City/State/ZIP Code Phon e Number [facility] - [address] [phone] [facility] Alkaline Phosphatase (10/02/2013 1:59 AM CDT) P athologist Signature Alkaline 113 46 - 118 [facility] Phosphatase, S U/L [facility] Comment: Drawn From PICC Specimen Anatomical Collection Method Collection Time Receive d Time (Source) Location / / Volume Laterality 10/02/2013 1:59 AM 4 1:59 CDT AM CDT Narrative [facility] - 10/02/2013 2:59 AM CDT Drawn From PICC Raymon Crabtree D.O. LAB BLOOD ADD-ON Performing Organization Address City/State/ZIP Code Phon e Number [facility] - [address] [address] [facility] DX Chest Post PICC Placement 1 View (10/01/2013 3:00 PM CDT) Anatomical Region Laterality Modality Chest N/A Radiographic Imaging Specimen (Source) Anatomical Collection Method Collection Time Re ceived Time Location / / Volume Laterality 10/01/2013 3:00 PM CDT Narrative 10/01/2013 3:00 PM CDT 01-Oct-2013 15:00:00 ??Exam: Chest-PICC Indications: Left - PICC Placement ORIGINAL REPORT - 01-Oct-2013 15:00:00 Chest; 1 view: Left PICC tip in the mid SVC. Electronically signed by: ?? [place] [id number] 01-Oct-2013 15:00 Procedure Note Wilson Paredes M.D. - 09/09/2017 01-Oct-2013 15:00:00 Exam: Chest-PICC Indications: Left - PICC Placement ORIGINAL REPORT - 01-Oct-2013 15:00:00 Chest; 1 view: Left PICC tip in the mid SVC. Electronically signed by: [place] [id number] 01-Oct-2013 15:00 Anupama Jeff R.N. IMG DIAGNOSTIC IMAGING PROCE DURES Potassium (10/01/2013 11:30 AM CDT) athologist Signature Potassium, S 4.6 3.6 - 5.2 [facility] MMOL/L LABORATORIES - [facility] Specimen Anatomical Collection Method Collection Time Receive d Time (Source) Location / / Volume Laterality 10/01/2013 11:30 10/01/2013 AM CDT 11:30 AM CDT Raymon Crabtree D.O. LAB BLOOD ADD-ON Performing Organization Address City/State/ZIP Code Phon e Number [facility] - [address] [phone] 05 [facility] VRE PCR (10/01/2013 10:21 AM CDT) athologist Signature Specimen . [facility] Source (VRE LABORATORIES - PCR) [facility] Comment: CED RECTAL SWAB VRE PCR Negative Not Applicable [facility] LAB ORATORIES - [facility] Comment: Laboratory developed test. Specimen Anatomical Collection Method Collection Time Receive d Time (Source) Location / / Volume Laterality 10/01/2013 10:21 10/01/2013 AM CDT 10:21 AM CDT Historical Provider LAB MICROBIOLOGY - GENERAL O RDERABLES Performing Organization Address City/State/ZIP Code Phon e Number [facility] - [address] [place], [place] [address] [facility] documented in this encounter Visit Diagnoses Not on filedocumented in this encounter Additional Health Concerns Assessment Noted Time PHQ-9 Depression Total Score: 3 08/31/2013 7:36 AM CDT documented as of this encounter
--- OUTSIDE RECORDS SUMMARY | 2022-05-20 12:18 | XMS_ITS | Encounter Summary ---
:1955 Author Organization [facility] Address [address] [place] [address] Care Team Providers Name Role Phone Unavailable Primary Care Provider Unavailable Encounter Details Date Type Department Care Team Description 01/17/2012 Hospital Encounter HX NO MAPPING Social History [...] How often do you attend rastafari or temple Never 05/28/2021 services? Do you belong to [...]
--- OUTSIDE RECORDS SUMMARY | 2022-05-20 12:18 | XMS_ITS | Encounter Summary ---
:1955 Author Organization [facility] Address [address] [place] [address] Care Team Providers Name Role Phone Unavailable Primary Care Provider Unavailable Encounter Details Date Type Department Care Team Description 03/15/2013 Hospital Encounter HX NO MAPPING Social History [...] How often do you attend jewish or christian Never 05/28/2021 services? Do you [...]
--- OUTSIDE RECORDS SUMMARY | 2022-05-20 12:18 | XMS_ITS | Encounter Summary ---
:1955 Author Organization [facility] Address [address] [place] [address] Care Team Providers Name Role Phone Unavailable Primary Care Provider Unavailable Encounter Details Date Type Department Care Team Description 10/04/2011 Hospital Encounter HX NO MAPPING Romy Razo [address] [place], [place] [phone] Social History Tobacco Use Types Packs/Day Years [...] How often do you attend judaism or latter day Never 05/28/2021 services? Do [...]
--- OUTSIDE RECORDS SUMMARY | 2022-05-20 12:18 | XMS_ITS | Encounter Summary ---
:1955 Author Organization [facility] Address [address] [place] [address] Care Team Providers Name Role Phone Unavailable Primary Care Provider Unavailable Encounter Details Date Type Department Care Team Description 08/27/2011 Hospital Encounter HX NO MAPPING Social History [...] How often do you attend presybeterian or quaker Never 05/28/2021 services? Do you [...]
--- OUTSIDE RECORDS SUMMARY | 2022-05-20 12:18 | XMS_ITS | Encounter Summary ---
:1955 Author Organization [facility] Address [address] [place] [address] Care Team Providers Name Role Phone Unavailable Primary Care Provider Unavailable Encounter Details Date Type Department Care Team Description 01/13/2012 Hospital Encounter HX NO MAPPING Provider, Historical [...] How often do you attend jewish or moravian Never 05/28/2021 services? Do you belong to [...]
--- OUTSIDE RECORDS SUMMARY | 2022-05-20 12:18 | XMS_ITS | Encounter Summary ---
:1955 Author Organization [facility] Address [address] [place] [address] Care Team Providers Name Role Phone Unavailable Primary Care Provider Unavailable Encounter Details Date Type Department Care Team Description 12/13/2011 Hospital Encounter HX NO MAPPING Social History [...] How often do you attend rastafari or religion Never 05/28/2021 services? Do you belong to [...]
--- OUTSIDE RECORDS SUMMARY | 2022-05-20 12:18 | XMS_ITS | Encounter Summary ---
:1955 Author Organization [facility] Address [address] [place] [address] Care Team Providers Name Role Phone Unavailable [...] How often do you attend sabianism or mormonism Never 05/28/2021 services? Do you belong to [...]
--- OUTSIDE RECORDS SUMMARY | 2022-05-20 12:18 | XMS_ITS | Encounter Summary ---
:[address] [facility] Address [address] [place] [address] Care Team Providers Name Role Phone Unavailable Primary Care Provider Unavailable Encounter Details Date Type Department Care Team Description 09/01/2011 - 09/08/2011 Hospital Encounter HX NO MAPPING Social History [...] How often do you attend temple or episcopalian Never 05/28/2021 services? Do you belong to [...]
--- OUTSIDE RECORDS SUMMARY | 2022-05-20 12:18 | XMS_ITS | Encounter Summary ---
:1955 Author Organization [facility] Address [address] [place] [address] Care Team Providers Name Role Phone Unavailable Primary Care Provider Unavailable Encounter Details Date Type Department Care Team Description 07/10/2012 Hospital Encounter HX NO MAPPING Provider, Historical [...] How often do you attend religion or pentecostal Never 05/28/2021 services? Do you [...]
--- OUTSIDE RECORDS SUMMARY | 2022-05-20 12:18 | XMS_ITS | Encounter Summary ---
:1955 Author Organization [facility] Address [address] [place] [address] Care Team Providers Name Role Phone Unavailable Primary Care Provider Unavailable Encounter Details Date Type Department Care Team Description 08/24/2011 Hospital Encounter HX NO MAPPING Provider, Historical [...] 05/28/2021 relatives? How often do you attend adventism or yarsanism Never 05/28/2021 services? Do you belong to any clubs or organizations such as No 05/28/2021 adventism groups, unions, fraternal or athletic groups, or [...]
--- OUTSIDE RECORDS SUMMARY | 2022-05-20 12:18 | XMS_ITS | Encounter Summary ---
:1955 Author Organization [facility] Address [address] [place] [address] Care Team Providers Name Role Phone Unavailable Primary Care Provider Unavailable Encounter Details Date Type Department Care Team Description 10/12/2011 Hospital Encounter HX NO MAPPING Provider, Historical [...] 05/28/2021 relatives? How often do you attend sikh or episcopalian Never 05/28/2021 services? Do you belong to any clubs or organizations such as No 05/28/2021 sikh groups, unions, fraternal or athletic groups, or [...]
--- OUTSIDE RECORDS SUMMARY | 2022-05-20 12:18 | XMS_ITS | Encounter Summary ---
:1955 Author Organization [facility] Address [address] [place] [address] Care Team Providers Name Role Phone Unavailable Primary Care Provider Unavailable Encounter Details Date Type Department Care Team Description 08/24/2011 Hospital Encounter HX RST BONE MARROW Isi Jansen GO07 R.N. [address] [place] [address] Social History Tobacco Use Types Packs/Day Years [...] 05/28/2021 relatives? How often do you attend religious or scientologist Never 05/28/2021 services? Do you belong to any clubs or organizations such as No 05/28/2021 religious groups, unions, fraternal or athletic groups, or [...]
--- OUTSIDE RECORDS SUMMARY | 2022-05-20 12:18 | XMS_ITS | Encounter Summary ---
:1955 Author Organization [facility] Address [address] [place] [address] Care Team Providers Name Role Phone Unavailable Primary Care Provider Unavailable Encounter Details Date Type Department Care Team Description 08/23/2011 Hospital Encounter HX NO MAPPING Social History [...] 05/28/2021 relatives? How often do you attend jain or rastafari Never 05/28/2021 services? Do you belong to any clubs or organizations such as No 05/28/2021 jain groups, unions, fraternal or athletic groups, or [...]
--- OUTSIDE RECORDS SUMMARY | 2022-05-20 12:18 | XMS_ITS | Encounter Summary ---
:1955 Author Organization [facility] Address [address] [place] [address] Care Team Providers Name Role Phone Unavailable Primary Care Provider Unavailable Encounter Details Date Type Department Care Team Description 09/20/2011 Hospital Encounter HX NO MAPPING Social History [...] 05/28/2021 relatives? How often do you attend evangelical or baptism Never 05/28/2021 services? Do you belong to any clubs or organizations such as No 05/28/2021 evangelical groups, unions, fraternal or athletic groups, or [...]
--- OUTSIDE RECORDS SUMMARY | 2022-05-20 12:18 | XMS_ITS | Encounter Summary ---
:1955 Author Organization [facility] Address [address] [place] [address] Care Team Providers Name Role Phone Unavailable Primary Care Provider Unavailable Encounter Details Date Type Department Care Team Description 01/13/2012 Hospital Encounter HX RST BONE MARROW Isi Jansen GO07 R.N. [address] [place] [address] Social History Tobacco Use Types Packs/Day Years [...] 05/28/2021 relatives? How often do you attend shinto or sabianism Never 05/28/2021 services? Do you belong to any clubs or organizations such as No 05/28/2021 shinto groups, unions, fraternal or athletic groups, or [...] Concentration - - Weight - - Height 176 cm (5' 9.29) 01/13/2012 12:41 PM Chente Ornelas RN CDT Body Mass Index - - documented in this encounter Plan of Treatment Not on filedocumented as of this encounter Visit Diagnoses Not on filedocumented in this encounter
--- OUTSIDE RECORDS SUMMARY | 2022-05-20 12:18 | XMS_ITS | Encounter Summary ---
:1955 Author Organization [facility] Address [address] [place] [address] Care Team Providers Name Role Phone Unavailable Primary Care Provider Unavailable Encounter Details Date Type Department Care Team Description 12/25/2012 Hospital Encounter HX NO MAPPING Provider, Historical [...] 05/28/2021 relatives? How often do you attend amish or faith Never 05/28/2021 services? Do you belong to any clubs or organizations such as No 05/28/2021 amish groups, unions, fraternal or athletic groups, or [...]
--- OUTSIDE RECORDS SUMMARY | 2022-05-20 12:18 | XMS_ITS | Encounter Summary ---
:1955 Author Organization [facility] Address [address] [place] [address] Care Team Providers Name Role Phone Unavailable Primary Care Provider Unavailable Encounter Details Date Type Department Care Team Description 10/02/2012 Hospital Encounter HX NO MAPPING Provider, Historical [...] How often do you attend faith or mandaen Never 05/28/2021 services? Do you belong to [...]
--- OUTSIDE RECORDS SUMMARY | 2022-05-20 12:18 | XMS_ITS | Encounter Summary ---
:1955 Author Organization [facility] Address [address] [place] [address] Care Team Providers Name Role Phone Unavailable [...] 05/28/2021 relatives? How often do you attend sikhism or bahai Never 05/28/2021 services? Do you belong to any clubs or organizations such as No 05/28/2021 sikhism groups, unions, fraternal or athletic groups, or [...] place to sleep or slept in a penitentiary (including now)? Sex Assigned at Date Recorded Female 03/09/2021 10:01 AM CDT documented as of this encounter Plan of Treatment Not on filedocumented as of this encounter Visit Diagnoses Not on filedocumented in this encounter
--- OUTSIDE RECORDS SUMMARY | 2022-05-20 12:18 | XMS_ITS | Encounter Summary ---
:1955 Author Organization [facility] Address [address] [place] [address] Care Team Providers Name Role Phone Unavailable Primary Care Provider Unavailable Encounter Details Date Type Department Care Team Description 03/14/2013 Hospital Encounter HX NO MAPPING Provider, Historical [...] 05/28/2021 relatives? How often do you attend hoahaoism or restorationism Never 05/28/2021 services? Do you belong to any clubs or organizations such as No 05/28/2021 hoahaoism groups, unions, fraternal or athletic groups, or [...]
--- OUTSIDE RECORDS SUMMARY | 2022-05-20 12:18 | XMS_ITS | Encounter Summary ---
:1955 Author Organization [facility] Address [address] [place] [address] Care Team Providers Name Role Phone Unavailable Primary Care Provider Unavailable Encounter Details Date Type Department Care Team Description 04/20/2012 Hospital Encounter HX NO MAPPING Social History [...] How often do you attend catholic or baptism Never 05/28/2021 services? Do you [...]
--- OUTSIDE RECORDS SUMMARY | 2022-05-20 12:18 | XMS_ITS | Encounter Summary ---
:1955 Author Organization [facility] Address [address] [place] [address] Care Team Providers Name Role Phone Unavailable Primary Care Provider Unavailable Encounter Details Date Type Department Care Team Description 09/01/2011 - Hospital Encounter HX RST INFUSION Ginger Cavazos, 09/08/2011 THERAPY R.N. [address] [place] [address] Social History Tobacco Use Types Packs/Day Years [...] How often do you attend uatsdin or anabaptist Never 05/28/2021 services? Do you [...] Sign Reading Time Taken Comments Blood Pressure 114/63 09/01/2011 6:34 PM CDT Pulse 66 09/01/2011 6:34 PM CDT Temperature - - Respiratory Rate 18 09/01/2011 6:34 PM CDT Oxygen Saturation - - Inhaled Oxygen Concentration - - Weight - - Height - - Body Mass Index - - documented in this encounter Plan of Treatment Not on filedocumented as of this encounter Visit Diagnoses Not on filedocumented in this encounter
--- OUTSIDE RECORDS SUMMARY | 2022-05-20 12:18 | XMS_ITS | Encounter Summary ---
:1955 Author Organization [facility] Address [address] [place] [address] Care Team Providers Name Role Phone Unavailable Primary Care Provider Unavailable Encounter Details Date Type Department Care Team Description 04/17/2012 Hospital Encounter HX NO MAPPING Provider, Historical [...] How often do you attend episcopal or catholic Never 05/28/2021 services? Do you [...]
--- OUTSIDE RECORDS SUMMARY | 2022-05-20 12:18 | XMS_ITS | Encounter Summary ---
:1955 Author Organization [facility] Address [address] [place] [address] Care Team Providers Name Role Phone Unavailable Primary Care Provider Unavailable Encounter Details Date Type Department Care Team Description 08/08/2013 Hospital Encounter HX NO MAPPING Provider, Historical [...] 05/28/2021 relatives? How often do you attend adventist or bahai Never 05/28/2021 services? Do you belong to any clubs or organizations such as No 05/28/2021 adventist groups, unions, fraternal or athletic groups, or [...]
--- OUTSIDE RECORDS SUMMARY | 2022-05-20 12:18 | XMS_ITS | Encounter Summary ---
:1955 Author Organization [facility] Address [address] [place] [address] Care Team Providers Name Role Phone Unavailable Primary Care Provider Unavailable Encounter Details Date Type Department Care Team Description 10/12/2011 Hospital Encounter HX NO MAPPING Social History [...] 05/28/2021 relatives? How often do you attend alevism or quaker Never 05/28/2021 services? Do you belong to any clubs or organizations such as No 05/28/2021 alevism groups, unions, fraternal or athletic groups, or [...]
== END 2022-05-20 12:12 | disposition home or self-care (01) ==
LOC: NFLDREF 12:11
PROVIDERS: PCP Internal Medicine; Visit Provider Internal Medicine
DX: N39.0 Urinary tract infection, site not specified (principal)
CPT/HCPCS: 87086; 87186

== ENCOUNTER 2022-05-27 08:57 | Outpatient (CLI) | payer MEDICARE, SELFPAY ==
[2022-05-27 10:48] LABS: Chloride* 104 mmol/L (96-114); Sodium* 139 mmol/L (135-149)
[2022-05-27 10:49] LABS: Potassium* 4.6 mmol/L (3.6-5.1)
[2022-05-27 10:51] LABS: Blood Urea Nitrogen* 28 mg/dL (7-30); Carbon Dioxide* 28 mmol/L (20-32); Cholesterol* 196 mg/dL (90-199); Creatinine* 1.5 mg/dL (0.5-1.5); Estimated Glomerular Filt Rate 37 ml/min
[2022-05-27 10:52] LABS: Calcium* 9.3 mg/dL (8.4-10.6); Glucose* 90 mg/dL (60-115); HDL Cholesterol* 74 mg/dL (>=50); LDL Cholesterol Calculated 89 mg/dL (<100); Triglycerides* 167 mg/dL (40-149)
== END 2022-05-27 08:58 | disposition home or self-care (01) ==
PROVIDERS: PCP Internal Medicine; Visit Provider Internal Medicine
DX: I25.10 Atherosclerotic heart disease of native coronary artery without angina pectoris (principal); I25.84 Coronary atherosclerosis due to calcified coronary lesion; N18.2 Chronic kidney disease, stage 2 (mild)
CPT/HCPCS: 80048; 80061

== ENCOUNTER 2022-06-17 10:42 | Outpatient (CLI) | payer MEDICARE, SELFPAY ==
[2022-06-17] MEDS: PROCHLORPERAZINE 5 MG/ML VIAL 10 MG IV (12:38)
== END 2022-06-17 10:43 | disposition home or self-care (01) ==
PROVIDERS: PCP Internal Medicine; Visit Provider Surgery
DX: Z12.11 Encounter for screening for malignant neoplasm of colon (principal); K63.5 Polyp of colon; K64.4 Residual hemorrhoidal skin tags; K63.89 Other specified diseases of intestine; R19.5 Other fecal abnormalities; Z80.0 Family history of malignant neoplasm of digestive organs
CPT/HCPCS: 45380; 45385; 88305; 99153; J0780; J1200; J2250; J2405; J3010

== ENCOUNTER 2022-07-23 13:03 | Outpatient (CLI) | payer MEDICARE, SELFPAY ==
--- NOTE | 2022-07-23 13:20 | CRLHL7_ITS ---
For Patients: As a result of the Century Cures Act, medical imaging exams and procedure reports are released immediately into your electronic medical record. You may view this report before your referring provider. If you have questions, please contact your health care provider. BILATERAL SCREENING MAMMOGRAM WITH COMPUTER-AIDED DETECTION TECHNIQUE: CC and MLO views were obtained. These mammographic images have been obtained using full-field digital technique. These mammographic images were interpreted with the benefit of computer-aided detection. COMPARISON FILM: 07/22/21, 07/03/20, 04/13/19. FINDINGS: There are scattered areas of fibroglandular density IMPRESSION: There is no radiographic evidence for malignancy. ASSESSMENT: BI-RADS Category 1: Negative RECOMMENDATION: Routine screening mammogram in 1 year. A lay language report of this examination will be provided to the patient. Rancho Yang M.D. Diagnostic Radiologist [email or web address] JULIA/Dictated by: Rancho Yang MD @ 07/26/2022 8:54:00 AM (Electronically Signed)
== END 2022-07-23 13:04 | disposition home or self-care (01) ==
LOC: MAMMO 13:04
PROVIDERS: PCP Internal Medicine; Visit Provider Internal Medicine
DX: Z12.31 Encounter for screening mammogram for malignant neoplasm of breast (principal)
CPT/HCPCS: 77067

== ENCOUNTER 2023-05-24 07:48 | Outpatient (CLI) | payer MEDICARE, SELFPAY | END 2023-05-24 07:49 | disposition home or self-care (01) | LOC: NFLDREF 14:32 | PROVIDERS: PCP Internal Medicine; Referring Provider Internal Medicine; Visit Provider Internal Medicine | DX: I25.10 Atherosclerotic heart disease of native coronary artery without angina pectoris (principal); I25.84 Coronary atherosclerosis due to calcified coronary lesion; N18.2 Chronic kidney disease, stage 2 (mild) | CPT/HCPCS: 80048; 80061 ==

== ENCOUNTER 2023-07-25 09:55 | Outpatient (CLI) | payer MEDICARE, SELFPAY ==
--- OUTSIDE RECORDS SUMMARY | 2023-07-25 10:02 | XMS_ITS | Encounter Summary ---
Author Name Unknown Organization [facility] Address [address] [place] [address] Care Team Providers Care Head Butler Name Role Phone Unavailable Primary Care Provider Unavailabl e Encounter Details Date Type Department Care Team (Latest Contact Info) Description 07/29/2022 8:51 AM CORDWAINER - 07/29/2022 11:59 PM CORDWAINER Hospital Encounter Department of Laboratory Medicine [facility] [place], [place] [address] [place] [address] Erik Casas M.D., Ph.D. 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 No 07/25/2022 Within the last year, have y ou been humiliated or emotionally abused in other ways by your partner or ex-partner? No Within the last year, have y ou been kicked, hit, slapped, or otherwise physically hurt by your partner or ex-partner? No 07/25/2022 Within the last year, have y ou been raped or forced to have any kind of sexual activity by your partner or ex-partner? No 07/25/2022 Social Connection and Isolat ion Panel [NHANES] Answer Date Recorded In a typical week, how many times do you talk on the phone with family, friends, or neighbors? Three times a week 07/25/2022 How often do you get togethe r with friends or relatives? More than three times a week 07/25/2022 How often do you attend chur or latter day services? Never 07/25/2022 Do you belong to any clubs o r organizations such as sikh groups, unions, fraternal or athletic groups, or school groups? Yes 07/25/2022 How often do you attend meet ings of the clubs or organizations you belong to? Never 07/25/2022 Are you , , di vorced, , never , or living with a partner? 07/25/2022 AUDIT-C Answer Date Recorded Q1: How often do you have a drink containing alc ohol? Monthly or less 07/25/2022 Q2: How many drinks containi ng alcohol do you have on a typical day when you are drinking? 1 or 2 07/25/2022 Q3: How often do you have si x or more drinks on one occasion? Never 07/25/2022 Overall Financial Resource Strain (CARDIA) Answe r Date Recorded How hard is it for you to pa y for the very basics like food, housing, medical care, and heating? Not hard at all 07/25/2022 [facility] of Occupat ional Health - Occupational Stress Questionnaire Answer Date Recorded Do you feel stress - tense, restless, nervous, or anxious, or unable to sleep at night because your mind is troubled all the time - these days? Not at all 07/25/2022 Exercise Vital Sign Answer Date Recorde d On average, how many days pe r week do you engage in moderate to strenuous exercise (like a brisk walk)? 7 days 07/25/2022 On average, how many minutes do you engage in exercise at this level? 10 min 07/25/2022 Hunger Vital Sign Answer Date Recorded Within the past 12 months, y ou worried that your food would run out before you got the money to buy more. Never true 07/25/19 Within the past 12 months, t he food you bought just didn't last and you didn't have money to get more. Never true 07/25/2022 PRAPARE - Transportation Answer Date Re corded In the past 12 months, has l ack of transportation kept you from medical appointments or from getting medications? No 07/14 In the past 12 months, has l ack of transportation kept you from meetings, work, or from getting things needed for daily living? No 07/25/2022 Housing Stability Vital Sign Answer Truong e Recorded In the last 12 months, was t here a time when you were not able to pay the mortgage or rent on time? No 07/25/2022 In the last 12 months, how many places have you lived? 1 07/25/2022 In the last 12 months, was t here a time when you did not have a steady place to sleep or slept in a longterm (including now)? No 07/25/2022 Nutrition Answer Date Recorded Nutrition: EVOO Fat Source Yes 07/25 On average, how many serving s of fruits and vegetables do you eat per day (serving size is equal to 1 cup or approximately the size of a tennis ball)? 2-3 07/25/2022 Dental Answer Date Recorded Dental: Regular Dentist Yes 06/24/19 Employment Answer Date Recorded Employment status Retired 07/25/2022 Education Answer Date Recorded What is the highest level of school you have completed or the highest degree you have received? 12th grade 05/28/2021 Sex and Gender Information Value Date Recorded Sex Assigned at Female 03/09/2021 10:01 AM CDT Gender Identity Female 03/28/2018 9:22 AM CDT Sexual Orientation Straight 03/28/2018 9: 22 AM CDT documented as of this encounter Medications at Time of Discharge Medication Sig Dispensed Refills Start Date End Date omeprazole (PriLOSEC) [address] capsule Take 1 capsule by mouth daily. 0 10/02/2013 simvastatin (ZOCOR) 5 mg tablet Take 1 tablet by mouth at bedtime. 0 09/11/2014 documented as of this encounter Plan of Treatment Upcoming Encounters Date Type Department Care Team (Latest Contact Info) Description 07/28/2023 7:00 AM CORDWAINER Clinical Communication Virtual Review in [place], [place] [address] [place] [address] 08/01/2023 8:00 AM CORDWAINER Telemedicine Division of Hematology in [place], [place] [address] [place] [phone] Mandie Lizama APRN, C.N.P., M.S.N. 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) POTASSIUM, S/P Routine 07/29/2022 9:06 AM CORDWAINER 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) ALKALINE PHOSPHATASE, S/P Routine 07/29/2022 9:06 AM CORDWAINER 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) LACTATE DEHYDROGENASE (LD), S Routine 07/29/2022 9:06 AM CORDWAINER 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) CREATININE WITH EGFR, S/P Routine 07/29/2022 9:06 AM CORDWAINER 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) CALCIUM, TOT, S/P Routine 07/29/2022 9:0 6 AM CORDWAINER 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 LAB BLOOD A DD-ON Performing Organization Address [facility] Co de Phone Number [facility] [address] [place], [place] [phone] [place] [address] 200 [place] [address] * LD (Lactate Dehydrogenase) (07/29/2022 9:06 AM CORDWAINER) Lactate Dehydrogenase (LD), S 182 122 - 222 U/L 07/29/2022 10:05 AM CORDWAINER DTL Blood (Blood, Venous) 07/29/2022 9:06 AM CORDWAINER 07/29/2022 9:49 AM CORDWAINER Erik Casas M.D., Ph.D. LAB BLOOD N ON ADD-ON Performing Organization Address City/[facility]/ZIP Co de Phone Number [facility] [address] [place] [address], [facility] 200 [place] [address] * (ABNORMAL) Creatinine with Estimated GFR (07/29/2022 9:06 AM CORDWAINER) Pathologist [facility] Creatinine 1.51(H) 0.59 - 1.04 mg/dL 07/29/2022 10:05 AM CORDWAINER DTL Estimated GFR (eGFR) 37(L) >=60 mL/min/BSA 07/29/2022 10:05 AM CORDWAINER DTL Comment: Estimated GFR calculated using the 2020 CKD_EPI creatinine equation. Blood (Blood, Venous) 07/29/2022 9:06 AM CORDWAINER 07/29/2022 9:49 AM CORDWAINER Erik Casas M.D., Ph.D. LAB BLOOD A DD-ON [place] [address] [place] [address], [facility] [place] [address] [place] [address] * (ABNORMAL) CBC with Differential, Blood (07/29/2022 9:06 AM CORDWAINER) Pathologist [facility] Hemoglobin 15.2(H) 11.6 - 15.0 g/dL 07/29/2022 9:40 AM CORDWAINER DTL Hematocrit 47.4(H) 35.5 - 44.9 % 07/29/2022 9:40 AM CORDWAINER DTL Erythrocytes 5.00 3.92 - 5.13 x10(12)/L 07/29/2022 9:40 AM CORDWAINER DTL MCV 94.8 78.2 - 97.9 fL 07/29/2022 9:40 AM CORDWAINER DTL RBC Distrib Width 13.4 12.2 - 16.1 % 07/29/2022 9:40 AM CORDWAINER DTL Platelet Count 235 157 - 371 x10(9)/L 07/29/2022 9:40 AM CORDWAINER DTL Leukocytes 8.6 3.4 - 9.6 x10(9)/L 07/29/2022 9:40 AM CORDWAINER DTL Neutrophils 6.11 1.56 - 6.45 x10(9)/L 07/29/2022 9:40 AM CORDWAINER DTL Lymphocytes 1.53 0.95 - 3.07 x10(9)/L 07/29/2022 9:40 AM CORDWAINER DTL Monocytes 0.67 0.26 - 0.81 x10(9)/L 07/29/2022 9:40 AM CORDWAINER DTL Eosinophils 0.19 0.03 - 0.48 x10(9)/L 07/29/2022 9:40 AM CORDWAINER DTL Basophils 0.07 0.01 - 0.08 x10(9)/L 07/29/2022 9:40 AM CORDWAINER DTL Blood (Blood, Venous) 07/29/2022 9:06 AM CORDWAINER 07/29/2022 9:32 AM CORDWAINER Erik Casas M.D., Ph.D. LAB BLOOD A DD-ON Performing Organization Address City/[facility] Co de Phone Number [facility] [address] [place], [place] [phone] [place] [address] * Calcium, Total (07/29/2022 9:06 AM CORDWAINER) Calcium, Total, S 9.5 8.8 - 10.2 mg/dL 07/29/2022 10:05 AM CORDWAINER DTL Blood (Blood, Venous) 07/29/2022 9:06 AM CORDWAINER 07/29/2022 9:49 AM CORDWAINER Erik Casas M.D., Ph.D. LAB BLOOD A DD-ON Performing Organization Address City/[facility]/ZIP Co de Phone Number [facility] [address] [place], [place] [phone] [place] [address] * Bilirubin, Total (07/29/2022 9:06 AM CORDWAINER) Bilirubin, Total, S 0.8 <=1.2 mg/dL 07/29/2022 10:05 AM CORDWAINER DTL Blood (Blood, Venous) 07/29/2022 9:06 AM CORDWAINER 07/29/2022 9:49 AM CORDWAINER Erik Casas M.D., Ph.D. LAB BLOOD A DD-ON Performing Organization Address City/[facility] Co de Phone Number [facility] [address] [place] [address], [facility] 200 [place] [address] * AST (Aspartate Aminotransferase) (07/29/2022 9:06 AM CORDWAINER) Aspartate Aminotransferase (AST), S 19 8 - 43 U/L 07/29/2022 10:05 AM CORDWAINER DTL Blood (Blood, Venous) 07/29/2022 9:06 AM CORDWAINER 07/29/2022 9:49 AM CORDWAINER Erik Casas M.D., Ph.D. LAB BLOOD A DD-ON Performing Organization Address [facility] Co de Phone Number [facility] [address] [place], [place] [address] 200 [place] [address] * (ABNORMAL) Alkaline Phosphatase (07/29/2022 9:06 AM CORDWAINER) Alkaline Phosphatase, S 139(H) 35 - 104 U/L 07/29/2022 10:05 AM CORDWAINER DTL Blood (Blood, Venous) 07/29/2022 9:06 AM CORDWAINER 07/29/2022 9:49 AM CORDWAINER Erik Casas M.D., Ph.D. LAB BLOOD A DD-ON Performing Organization Address 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
--- OUTSIDE RECORDS SUMMARY | 2023-07-25 10:02 | XMS_ITS | Encounter Summary ---
Author Name Unknown Organization [facility] Address [address] [place] [address] Care Team Providers Care Networking Technician Name Role Phone Unavailable Primary Care Provider Unavailabl e Reason for Visit * Reason Onset Date Comments Pre-visit Intake 07/27/2022 Encounter Details Date Type Department Care Team (Latest Contact Info) Description 07/27/2022 1:00 PM CONTACT LENS LATHE OPERATOR Clinical Communication Virtual Review in [place], [place] [address] [place], [place] [phone] Pre-visit Intake Social History Tobacco Use Types Packs/Day Years [...] 07/25/2022 How often do you attend chur ch or tenriism services? Never 07/25/2022 Do you belong to any clubs o r organizations such as synagogue groups, unions, fraternal or athletic groups, or [...] and heating? Not hard at all 07/25/2022 [facility] Occupat ional Health - Occupational Stress [...] money to buy more. Never true 07/25/19 23 Within the past 12 months, t he [...] or slept in a custodial (including now)? No 07/25/2022 Nutrition Answer Date [...] (Latest Contact Info) Description 07/28/2023 7:00 AM CONTACT LENS LATHE OPERATOR Clinical Communication Virtual Review in [place], [place] 200 [place] [address] 08/01/2023 8:00 AM CONTACT LENS LATHE OPERATOR Telemedicine Division of Hematology in [place], [place] [address] [place] [phone] Mandie Lizama APRN, C.N.P., M.S.N. [address] [place] [phone] documented as of this encounter Visit Diagnoses Not on filedocumented in this encounter Additional Health Concerns Assessment Noted Time PHQ-9 Depression Total Score: 3 09/01/19 14 7:36 AM CDT documented as of this encounter
--- OUTSIDE RECORDS SUMMARY | 2023-07-25 10:02 | XMS_ITS ---
Author Name Unknown Organization [facility] Address [address] [place] [address] Care Team Providers Care Sexual Assault Nurse Name Role Phone Unavailable Unavailable Unavailable Surgery Details Not on file Complications Check Surgery Details section. Procedure Estimated Blood Loss Check Surgery Details section. Procedure Findings Check Surgery Details section. Procedure Specimens Taken Check Surgery Details section.
--- OUTSIDE RECORDS SUMMARY | 2023-07-25 10:02 | XMS_ITS | Referral Summary ---
Author Name Unknown Organization [facility] Address [address] [place] [address] Care Team Providers Care Timber Deadener Name Role Phone Unavailable Primary Care Provider Unavailabl e Source Comments Patient records contain information from all sites at [facility]. For routine questions regarding patient records, call [phone] during business hours, M-F 8:00 AM - 5:00 PM Central Time. Record requests for emergency care only can be directed to [phone] at any time.[facility] Encounters Date Type Department Care Team Description 07/04/2023 Clinical Communication Division of Hematology in [place], [place] [address] [place] [address] Erik Casas M.D., Ph.D. Treatment letter from Last 3 Months Allergies Active Allergy Reactions Criticality Noted Date Comments Amoxicillin Nausea And Vomiting 08/20/2011 Ciprofloxacin GI intolerance 03/16/2021 Penicillin V GI intolerance Low 03/16/2021 Medications Medication Sig Dispensed Refills Start Date End Date Status omeprazole (PriLOSEC) [address] capsule Take 1 capsule by mouth daily. 0 10/02/2013 Active simvastatin (ZOCOR) 5 mg tablet Take 1 tablet by mouth at bedtime. 0 09/11/2014 Active Active Problems Problem Noted Date Diagnosed Date Diffuse Large B Cell Lymphoma Intra Abdominal Ly mph Nodes 08/07/2017 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 08/07/2017 Hodgkins Disease 08/24/2013 Lymphoma Non Hodgkins Intrapelvic 08/22/2013 Lymphoma Large Cell Intra Abdominal 08/26/2011 Immunizations Name Administration Dates Next Due HepB Adult 01/24/2015 Hib (PRP-T) (ACTHIB, HIBERIX) 01/24/2015 IPV 01/24/2015 Influenza Split 04/13/2013 PCV13 01/24/2015,11/13/2012 PPSV23(Discontinued) 12/12/2012 Tdap 01/24/2015,05/13/2011 Social History Tobacco Use Types Packs/Day Years [...] often do you attend chur ch or evangelical services? Never 07/25/2022 Do you belong to any clubs o r organizations such as rastafari groups, unions, fraternal or athletic groups, [...] and heating? Not hard at all 07/25/2022 [facility] of Occupat ional Health - Occupational Stress [...] or slept in a intermediate (including now)? No 07/25/2022 Nutrition Answer Date [...] Orientation Straight 03/28/2018 9: 22 AM CDT Last Filed Vital Signs Vital Sign Reading Time Taken Comments Blood Pressure 145/82 07/29/2022 12:39 PM LOCAL COORDINATOR Pulse 94 07/29/2022 12:39 PM LOCAL COORDINATOR Temperature 36.1 ??C (97 ??F) 07/29/2022 12: 39 PM LOCAL COORDINATOR Respiratory Rate 16 12/11/2013 11:1 5 AM CDT Vital sign result from Clinical Notes. Oxygen Saturation - - Inhaled Oxygen Concentration - - Weight 84.7 kg (186 lb 11.7 oz) 07/29/2022 12:39 PM LOCAL COORDINATOR Height 176.3 cm (5' 9.41) 07/29/2022 1 2:39 PM LOCAL COORDINATOR Body Mass Index 27.25 07/29/2022 12:39 PM LOCAL COORDINATOR Plan of Treatment Upcoming Encounters Date Type Department Care Team (Latest Contact Info) Description 07/28/2023 7:00 AM LOCAL COORDINATOR Clinical Communication Virtual Review in [place], [place] [address] [place] [address] 08/01/2023 8:00 AM LOCAL COORDINATOR Telemedicine Division of Hematology in [place], [place] [address] [place] [phone] Mandie Lizama APRN, C.N.P., M.S.N. [address] [place] [phone] Medical Devices Implanted Type Area Panel Fitter Device Identifier Shelf Expiration Date Model / Serial / Lot Hip Implant Hip Implant Bilatera l: Hip Knee Implant Knee Implant Bilatera l: Knee Stent Inlay 7 X 26 - Carbone [id number] Implanted:Qty: 1 on 08/27/2011 Ureteral Stent C.R.Bard Description:Device Manufactu rer - [employer]. Device Status Text - [id number]. Stent Inlay 7 X 26 - Carbone [id number] Implanted:Qty: 1 on 12/13/2011 Ureteral Stent C.R.Bard Description:Device Manufactu rer - [employer]. Device Status Text - [id number].
--- OUTSIDE RECORDS SUMMARY | 2023-07-25 10:02 | XMS_ITS | Encounter Summary ---
Author Name Unknown Organization [facility] Address [address] [place] [address] Care Team Providers Care Front Attendant Name Role Phone Unavailable Primary Care Provider Unavailabl e Reason for Visit * Reason Onset Date Comments Treatment letter 07/04/2023 Encounter Details Date Type Department Care Team (Latest Contact Info) Description 07/04/2023 Clinical Communication Division of Hematology in [place], [place] [address] [place] [address] Erik Casas M.D., Ph.D. [address] [place] [phone] Treatment letter Social History Tobacco Use Types Packs/Day Years [...] often do you attend chur ch or mormonism services? Never 07/25/2022 Do you belong to any clubs o r organizations such as latter-day groups, unions, fraternal or athletic groups, or [...] and heating? Not hard at all 07/25/2022 [facility] of Occupat ional Health - Occupational Stress [...] (Latest Contact Info) Description 07/28/2023 7:00 AM ASSOCIATE PROFESSOR OF CHURCH MUSIC Clinical Communication Virtual Review in [place], [place] [address] [place] [address] 08/01/2023 8:00 AM ASSOCIATE PROFESSOR OF CHURCH MUSIC Telemedicine Division of Hematology in [place], [place] [address] [place] [address] Mandie Lizama APRN C.NJimiP., M.S.N. [address] [place] [phone] documented as of this encounter Visit Diagnoses Not on filedocumented in this encounter Additional Health Concerns Assessment Noted Time PHQ-9 Depression Total Score: 3 09/01/19 14 7:36 AM CDT documented as of this encounter
--- OUTSIDE RECORDS SUMMARY | 2023-07-25 10:02 | XMS_ITS | Encounter Summary ---
Author Name Unknown Organization [facility] Address [address] [place] [address] Care Team Providers Care Customer Relations Consultant Name Role Phone Unavailable Primary Care Provider Unavailabl e Reason for Referral * Outpatient (Routine) - Authorized Specialty Diagnoses / Procedures Referred By Caren arboleda Referred To Contact Hematology Oncology Erik Casas M.D., Ph.D. [address] [place] [phone] [facility] Referral ID Status Reason Start Date Expiration Date V isits Requested Visits Authorized [id number] Authorized 07/29/2022 07/28/2025 1 1 CTOR OF VIDEO ANALYTICS Reason for Visit * Outpatient (Routine) - Closed Specialty Diagnoses / Procedures Referred By Caren arboleda Referred To Contact Hematology Oncology Erik Casas M.D., Ph.D. [address] [place] [phone] [facility] Referral ID Status Reason Start Date Expiration Date Visits Re quested Visits Authorized [id number] Closed 05/28/2021 05/28/2022 1 1 Encounter Details Date Type Department Care Team (Late st Contact Info) Description 07/29/2022 1:00 PM DIRECTOR OF VIDEO ANALYTICS Office Visit Division of Hematology in [place], [place] [address] [place] [phone] Erik Casas M.D., Ph.D. 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 Never 07/25/2022 Do you belong to any clubs o r organizations such as hindu groups, unions, fraternal or athletic groups, or [...] and heating? Not hard at all 07/25/2022 [facility] - Occupational Stress Questionnaire Answer Date Recorded [...] or slept in a retirement (including now)? No 07/25/2022 Nutrition Answer Date Recorded Nutrition: EVOO Fat Source Yes 02/12 /2023 On average, how many serving s of [...] Comments Blood Pressure 145/82 07/29/2022 12:39 PM DIRECTOR OF VIDEO ANALYTICS Pulse 94 07/29/2022 12:39 PM DIRECTOR OF VIDEO ANALYTICS Temperature 36.1 ??C (97 ??F) 07/29/2022 12: 39 PM DIRECTOR OF VIDEO ANALYTICS Respiratory Rate - - Oxygen Saturation - - Inhaled Oxygen Concentration - - Weight 84.7 kg (186 lb 11.7 oz) 023 12:39 PM DIRECTOR OF VIDEO ANALYTICS Height 176.3 cm (5' 9.41) 07/29/2022 1 2:39 PM DIRECTOR OF VIDEO ANALYTICS Body Mass Index 27.25 07/29/2022 12:39 PM DIRECTOR OF VIDEO ANALYTICS documented in this encounter Progress Notes * Erik Casas M.D., Ph.D. - 07/29/2022 1:00 PM CST SUBJECTIVE Referring Provider Erik Casas M.D., Ph.D. CHIEF COMPLAINT/REASON FOR VISIT Diffuse large B-cell lymphoma and Hodgkin lymphoma HISTORY OF PRESENT ILLNESS Mrs. Gallardo is a 67-year-old patient who was diagnosed with diffuse large B- cell lymphoma in August 2011 when she presented with intraabdominal lymphadenopathy. Staging bone marrow showed 10% involvement by a low-grade lymphoma, and PET scan showed significant lymphadenopathy in the abdomen. She re ceived R-CHOP in combination with lenalidomide times six cycles and at the end of treatment still had a residual hypermetabolic area in the retroperitoneum. This was [...] by stem cell reinfusion, and received 4.02 x10(6) CD34/kg on November 21, 2013. Complications encountered during transplant included mucositis, esophagitis, nausea, vomiting and neutropenic fever. She engrafted and was dismissed home on day +21. APET scan on February 27, 2014, showed no evidence of active lymphoma. The patient has been followed since then without any recurrence of disease. The patient is currently being seen on an annual basis and returns today for a follow-up visit. Since she was last seen, she has continued to do well. She recently had an annual physical with her home physician. A mammogram was done and was negative. She did have a colonoscopy which showed a numberof polyps which were resected. A repeat colonoscopy is planned in 3 years. Aside from this issue, she is doing well. She has no symptoms suspicious for lymphoma recurrence. She has no evidence of long-term complications. She does have some mild renal dysfunction on today's lab tests but the remaining lab results are satisfactory. The following portions of the patient's history were reviewed and updated as appropriate: current medications, medical history, and problem list. REVIEW OF SYSTEMS Non-contributary OBJECTIVE Vitals: 07/29/22 1239 BP: 145/82 Pulse: 94 Temp: 36.1 ??C Height: 176.3 cm Weight: 84.7 kg Body surface area is 2.04 meters squared. PHYSICAL EXAM General: ECOG performance [...] recent relevant labs. 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 There are no findings today of concern. I recommended that we continue to observe her on an annual basis without treatment. This was all reviewed with the patient and all questions were answered. Plan: 1. The patient will return again in 1 year for a follow-up visit 2. I encouraged the patient to contact us and return at any time if new problems related to lymphoma develop. Follow-up: Return to clinic in 1 year Education We discussed the diagnosis and treatment plan in detail. The patient expressed understanding of thecontent. No apparent learning barriers were identified; learning preferences include listening. I personally spent over half of a total 25 minutes face to face with the patient in counseling and discussion and/or coordination of care as described above. Signed by: Erik Casas M.D., Ph.D. 07/29/2022 1:13 PM DIRECTOR OF VIDEO ANALYTICS CTOR OF VIDEO ANALYTICS documented in this encounter Plan of Treatment Upcoming Encounters Date Type Department Care Team (Latest Contact Info) Description 07/28/2023 7:00 AM DIRECTOR OF VIDEO ANALYTICS Clinical Communication Virtual Review in [address] [address] 08/01/2023 8:00 AM DIRECTOR OF VIDEO ANALYTICS Telemedicine Division of Hematology in [address] [phone] Mandie Lizama APRN, C.N.P., M.S.N. 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
--- OUTSIDE RECORDS SUMMARY | 2023-07-25 10:02 | XMS_ITS | Clinical Summary ---
Author Name Unknown Organization [facility] Address [address] [place] [address] Care Team Providers Care Leather Currier Name Role Phone Unavailable Primary Care Provider Unavailabl e Source Comments Patient records contain information from all sites at [facility]. For routine questions regarding patient records, call [phone] during business hours, M-F 8:00 AM - 5:00 PM Central Time. Record requests for emergency care only can be directed to [phone] at any time.[facility] Allergies Active Allergy Reactions Criticality Noted Date [...] 08/22/2013 Lymphoma Large Cell Intra Abdominal 08/26/2011 Encounters Date Type Department Care Team Description 07/04/2023 Clinical Communication Division of Hematology in [place], [place] [address] [place] [phone] Erik Casas M.D., Ph.D. Treatment letter from Last 3 Months Immunizations Name Administration Dates Next Due HepB Adult 01/24/2015 Hib (PRP-T) (ACTHIB, HIBERIX) 01/24/2015 IPV 01/24/2015 Influenza Split 04/13/2013 PCV13 01/24/2015,11/13/2012 PPSV23(Discontinued) 12/12/2012 Tdap 01/24/2015,05/13/2011 Family History Medical History Relation Name Comments Colon cancer Brother Oscar 01/14/1997 Coronary artery disease Father Mookie dece ased Coronary artery disease Mother Aurea dece ased Stroke Sister Nevin 11/21/2013 Relation Name Status Comments Brother Oscar Father Mookie Mother Aurea Rooney Social History Tobacco Use Types Packs/Day Years [...] How often do you attend chur or denominational services? Never 07/25/2022 Do you belong to any clubs o r organizations such as mormon groups, unions, fraternal or athletic groups, or [...] and heating? Not hard at all 07/25/2022 [facility] [place] of Occupat ional Health - Occupational Stress [...] slept in a group home (including now)? No 07/25/2022 Nutrition Answer Date [...] Comments Blood Pressure 145/82 07/29/2022 12:39 PM PARTS ROOM ASSISTANT Pulse 94 07/29/2022 12:39 PM PARTS ROOM ASSISTANT Temperature 36.1 ??C (97 ??F) 07/29/2022 12: 39 PM PARTS ROOM ASSISTANT Respiratory Rate 16 12/11/2013 11:1 5 AM CDT Vital sign result from Clinical Notes. Oxygen Saturation - - Inhaled Oxygen Concentration - - Weight 84.7 kg (186 lb 11.7 oz) 07/29/2022 12:39 PM PARTS ROOM ASSISTANT Height 176.3 cm (5' 9.41) 07/29/2022 1 2:39 PM PARTS ROOM ASSISTANT Body Mass Index 27.25 07/29/2022 12:39 PM PARTS ROOM ASSISTANT Plan of Treatment Upcoming Encounters Date Type Department Care Team (Latest Contact Info) Description 07/28/2023 7:00 AM PARTS ROOM ASSISTANT Clinical Communication Virtual Review in [place], [place] [address] [place] [address] 08/01/2023 8:00 AM PARTS ROOM ASSISTANT Telemedicine Division of Hematology in [place], [place] [address] [place] [phone] Mandie Lizama APRN, C.N.P., M.S.N. [address] [place] [address] Health Maintenance Due Date Last Done Comments Bone Density Scan Monitoring 1953 CT Colonography 1953 Dental Prophylaxis 1953 Dilated Eye Exam 1955 Serum Protein Electrophoresis 1955 Thyroid Function [place] 1953 Cervical Cancer Screening 10/03/20122011, 08/11/2004 (Performed elsewhere) Mammogram 08/11/2013 08/11/2012 (Perf ormed elsewhere), 08/12/2011 (Performed elsewhere) Colonoscopy 03/13/2014 03/13/2009 (Perf ormed elsewhere), 08/11/2008 (Performed elsewhere), 06/25/2008 (Performed elsewhere) Vitamin D Testing 03/14/2014 03/14/2013, 08/20/2011 Lipid (Cholesterol) Screening 04/17/2014 (Performed elsewhere) Urinalysis 04/21/2014 10/19/2013, 12/2011, 08/20/2011 Spirometry with DLCO or PFT 10/23/2014 10/23/2013, 0 10/23/2013 Pneumococcal vaccine (65+ years) (4 of 4 - PPSV23 or PCV20) 11/25/2020 11/26/2015, 03/21/2015, 01/24/2015, Additional history exists Fasting Glucose for Diabetes Screening 05/03/2021 05/03/2018, 04/28/2017, 10/21/2015, Additional history exists Depression Screening (Annual PHQ-2) 06/13/2023 Fall Risk Screen (Annual) 06/13/2023 Cologuard 05/14/2025 05/14/2022 Colorectal Cancer Surveillance 05/14/2025 DTaP,Tdap,and Td Vaccines (7 - Td or Tdap) 11/25/2025 11/26/2015, 03/21/2015, 01/24/2015, Additional history exists Hepatitis B Vaccines Completed 11/26/2015, 03/21/2015, 01/24/2015 Zoster Vaccines Completed 10/13/2020, 06/14, 08/09/2017 Influenza Vaccine Completed 02/17/2023, , 02/26/2021, Additional history exists COVID-19 Vaccine Completed 03/08/2023, , 03/05/2021, Additional history exists HPV Vaccines Aged Out No longer eligi ble based on patient's age to complete this topic Medical Devices Implanted Type Area Skein Drier Device Identifier Shelf Expiration Date Model / Serial / Lot Hip Implant Hip Implant Bilatera l: Hip Knee Implant Knee Implant Bilatera l: Knee Stent Inlay 7 X 26 - Carbone [id number] Implanted:Qty: 1 on 08/27/2011 Ureteral Stent C.R.Bard Description:Device Manufactu rer - [employer]. Device Status Text - [id number]. Stent Inlay 7 X 26 - Carbone [id number] Implanted:Qty: 1 on 12/13/2011 Ureteral Stent C.R.Bard Description:Device Manufactu rer - [employer]. Device Status Text - [id number].
--- NOTE | 2023-07-25 10:15 | MM_ITS ---
BILATERAL 3D SCREENING MAMMOGRAPHY WITH TOMOSYNTHESIS AND COMPUTER ASSISTED DETECTION. INDICATION: SCREENING. COMPARISON: 07/23/2022, 07/22/2021 FINDINGS: 3D ML/MLO BILATERAL MAMMOGRAM IMAGES SUBMITTED. NODULAR DENSITY WITHIN THE LATERAL LEFT BREAST 13 CM FROM THE NIPPLE. UNREMARKABLE RIGHT BREAST. BREAST PARENCHYMA IS SCATTERED FIBROGLANDULAR DENSITIES. IMPRESSION: NODULAR DENSITY LATERAL LEFT BREAST 13 CM FROM THE NIPPLE. RECOMMENDATIONS: 3D SPOT COMPRESSION ML LEFT BREAST MAMMOGRAM IMAGES ALONG WITH POSSIBLE LEFT BREAST ULTRASOUND. BI-RADS CATEGORY 0. NEED ADDITIONAL IMAGING.
== END 2023-07-25 09:56 | disposition home or self-care (01) ==
LOC: MAMMO 09:55
PROVIDERS: PCP Internal Medicine; Visit Provider Internal Medicine
DX: Z12.31 Encounter for screening mammogram for malignant neoplasm of breast (principal); N63.20 Unspecified lump in the left breast, unspecified quadrant
CPT/HCPCS: 77063; 77067

== ENCOUNTER 2023-08-03 08:48 | Day surgery (SDC) | payer MEDICARE, SELFPAY ==
--- OUTSIDE RECORDS SUMMARY | 2023-08-03 08:51 | XMS_ITS ---
Author Name Unknown Organization [facility] Address [address] [place] [address] Care Team Providers Care Engineering Lecturer Name Role Phone Unavailable Unavailable Unavailable Surgery Details Not on file Complications Check Surgery Details section. Procedure Estimated Blood Loss Check Surgery Details section. Procedure Findings Check Surgery Details section. Procedure Specimens Taken Check Surgery Details section.
--- OUTSIDE RECORDS SUMMARY | 2023-08-03 08:51 | XMS_ITS | Clinical Summary ---
Author Name Unknown Organization [facility] Address [address] [place] [address] Care Team Providers Care Help Desk Consultant Name Role Phone Unavailable Primary Care Provider Unavailabl e Source Comments Patient records contain information from all sites at [facility]. For routine questions regarding patient records, call [phone] during business hours, M-F 8:00 AM - 5:00 PM Central Time. Record requests for emergency care only can be directed to [phone] at any time.[facility] Allergies Active Allergy Reactions Criticality Noted [...] Encounters Date Type Department Care Team Description 08/01/2023 8:00 AM [facility] Telemedicine Division of Hematology in [place], [place] [address] [place] [phone] Mandie Lizama APRN, C.N.P., M.S.N. 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 Treatment letter from Last 3 Months Immunizations Name Administration Dates Next Due HepB Adult 01/24/2015 Hib (PRP-T) (ACTHIB, HIBERIX) 01/24/2015 IPV 01/24/2015 Influenza Split 04/13/2013 PCV13 01/24/2015,11/13/2012 PPSV23(Discontinued) 12/12/2012 Tdap 01/24/2015,05/13/2011 Family History Medical History Relation Name Comments Colon cancer Brother Oscar 01/14/1997 Coronary artery disease Father Mookie jose ased Coronary artery disease Mother Aurea jose ased Stroke Sister Nevin 11/21/2013 Relation Name Status Comments Brother Oscar Father Mookie Mother Aurea Sister Nevin Social History Tobacco Use Types Packs/Day Years Used Date Smoking Tobacco: Former Cigarettes 1.5 40 0 06/13/1968 - 10/29/2007 Smokeless Tobacco: Never Comments:patient quit 2007 Alcohol [...] often do you attend chur ch or uatsdin services? Never 07/25/2022 Do you belong to any clubs o r organizations such as jehovah's witness groups, unions, fraternal or athletic [...] and heating? Not hard at all 07/25/2022 [facility] of Occupat ional Health - Occupational [...] or slept in a correction (including now)? No 07/25/2022 Nutrition Answer Date [...] Comments Blood Pressure 145/82 07/29/2022 12:39 PM REAL ESTATE OFFICE MANAGER Pulse 94 07/29/2022 12:39 PM REAL ESTATE OFFICE MANAGER Temperature 36.1 ??C (97 ??F) 07/29/2022 12: 39 PM REAL ESTATE OFFICE MANAGER Respiratory Rate 16 12/11/2013 11:1 5 AM CDT Vital sign result from Clinical Notes. Oxygen Saturation - - Inhaled Oxygen Concentration - - Weight 84.7 kg (186 lb 11.7 oz) 07/29/2022 12:39 PM REAL ESTATE OFFICE MANAGER Height 176.3 cm (5' 9.41) 07/29/2022 1 2:39 PM REAL ESTATE OFFICE MANAGER Body Mass Index 27.25 07/29/2022 12:39 PM REAL ESTATE OFFICE MANAGER Plan of Treatment Health Maintenance Due Date Last Done Comments Bone Density Scan Monitoring 1953 CT Colonography 1953 Dental Prophylaxis 1953 Dilated Eye Exam 1953 Serum Protein Electrophoresis 1953 Thyroid Function [place] 1953 Cervical Cancer Screening 10/03/20122011, 08/11/2004 (Performed [...] 06/14, 08/09/2017 Influenza Vaccine Completed 02/17/2023, , 01/25/2022, Additional history exists COVID-19 Vaccine Completed 03/08/2023, , 03/05/2021, Additional history exists HPV Vaccines Aged Out No longer eligi ble based on patient's age to complete this topic Medical Devices Implanted Type Area Temper Mill Roller Device Identifier Shelf Expiration Date Model / Serial / Lot Hip Implant Hip Implant Bilatera l: Hip Knee Implant Knee Implant Bilatera l: Knee Stent Inlay 7 X 26 - Carbone [id number] Implanted:Qty: 1 on 08/27/2011 Ureteral Stent C.R.Bard Description:Device Manufactu rer - [employer]. Device Status Text - [id number]. Stent Inlay 7 X 26 - Carbone [id number] Implanted:Qty: 1 on 12/13/2011 Ureteral Stent C.R.Bard Description:Device Manufactu rer - [employer]. Device Status Text - [id number].
--- OUTSIDE RECORDS SUMMARY | 2023-08-03 08:51 | XMS_ITS | Referral Summary ---
Author Name Unknown Organization [facility] Address [address] [place] [address] Care Team Providers Care Hand Edger Name Role Phone Unavailable Primary Care Provider Unavailabl e Source Comments Patient records contain information from all sites at [facility]. For routine questions regarding patient records, call [phone] during business hours, M-F 8:00 AM - 5:00 PM Central Time. Record requests for emergency care only can be directed to [phone] at any time.[facility] Encounters Date Type Department Care Team Description 08/01/2023 8:00 AM CLUB STEWARD Telemedicine Division of Hematology in [address] [phone] Mandie Lizama APRN, C.N.P., M.S.N. 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 Treatment letter from [...] often do you attend chur ch or restorationist services? Never 07/25/2022 Do you belong to any clubs o r organizations such as buddhism groups, unions, fraternal or athletic groups, [...] and heating? Not hard at all 07/25/2022 [facility] of Occupat ional Health - Occupational Stress [...] Comments Blood Pressure 145/82 07/29/2022 12:39 PM CLUB STEWARD Pulse 94 07/29/2022 12:39 PM CLUB STEWARD Temperature 36.1 ??C (97 ??F) 07/29/2022 12: 39 PM CLUB STEWARD Respiratory Rate 16 12/11/2013 11:1 5 AM CDT Vital sign result from Clinical Notes. Oxygen Saturation - - Inhaled Oxygen Concentration - - Weight 84.7 kg (186 lb 11.7 oz) 07/29/2022 12:39 PM CLUB STEWARD Height 176.3 cm (5' 9.41) 07/29/2022 1 2:39 PM CLUB STEWARD Body Mass Index 27.25 07/29/2022 12:39 PM CLUB STEWARD Plan of Treatment Not on file Medical Devices Implanted Type Area Human Resources Recruiter Device Identifier Shelf Expiration Date Model / Serial / Lot Hip Implant Hip Implant Bilatera l: Hip Knee Implant Knee Implant Bilatera l: Knee Stent Inlay 7 X 26 - Carbone [id number] Implanted:Qty: 1 on 08/27/2011 Ureteral Stent C.[employer].Bard Description:Device Manufactu rer - [employer]. Device Status Text - [id number]. Stent Inlay 7 X 26 - Carbone [id number] Implanted:Qty: 1 on 12/13/2011 Ureteral Stent C.R.Bard Description:Device Manufactu rer - [employer]. Device Status Text - [id number].
--- OUTSIDE RECORDS SUMMARY | 2023-08-03 08:51 | XMS_ITS | Encounter Summary ---
Author Name Unknown Organization [facility] Address [address] [place] [address] Care Team Providers Care Manager Wireless Name Role Phone Unavailable Primary Care Provider Unavailabl e Encounter Details Date Type Department Care Team (Latest Contact Info) Description 07/28/2023 7:00 AM RAIL TRACK LAYER Clinical Communication Virtual Review in [place], [place] [address] [place] [address] Social History Tobacco Use Types Packs/Day Years [...] often do you attend chur ch or jainism services? Never 07/25/2022 Do you belong to any clubs o r organizations such as druze groups, unions, fraternal or athletic groups, or [...] and heating? Not hard at all 07/25/2022 [facility] of Occupat ional Health - Occupational Stress [...] this encounter Plan of Treatment Not on file documented as of this encounter Visit Diagnoses Not on filedocumented in this encounter Additional Health Concerns Assessment Noted Time PHQ-9 Depression Total Score: 3 09/01/19 14 7:36 AM CDT documented as of this encounter
--- OUTSIDE RECORDS SUMMARY | 2023-08-03 08:51 | XMS_ITS | Encounter Summary ---
Author Name Unknown Organization [facility] Address [address] [place] [address] Care Team Providers Care Injection Molding Supervisor Name Role Phone Unavailable Primary Care Provider Unavailabl e Reason for Referral * Outpatient (Routine) - Authorized Specialty Diagnoses / Procedures Referred By Caren t Referred To Contact Hematology Oncology Mandie Lizama APRN, C.NSheyla., M.S.N. [address] [place] [phone] [facility] Referral ID Status Reason Start Date Expiration Date V isits Requested Visits Authorized [id number] Authorized 08/01/2023 01/30/2025 1 1 Scheduling Instructions Visit between jul thrOctober 2024 ER NET Reason for Visit * Outpatient (Routine) - Closed Specialty Diagnoses / Procedures Referred By Contac t Referred To Contact Hematology Oncology Erik Casas M.D., Ph.D. [address] [place] [phone] [facility] Referral ID Status Reason Start Date Expiration Date Visits Re quested Visits Authorized [id number] Closed 07/29/2022 07/28/2025 1 1 Encounter Details Date Type Department Care Team ([facility] st Contact Info) Description 08/01/2023 8:00 AM FISHER NET Telemedicine Division of Hematology in [place], [place] [address] [place] [address] Mandie Lizama APRN C.N.P., M.S.N. 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 Never 07/25/2022 Do you belong to any clubs o r organizations such as episcopal groups, unions, fraternal or athletic groups, [...] heating? Not hard at all 07/25/2022 [facility] of Occupat ional Health - Occupational Stress [...] or slept in a long-term (including now)? No 07/25/2022 Nutrition Answer Date [...] documented as of this encounter Progress Notes * Mandie Lizama APRN, C.N.P., M.S.N. - 08/01/2023 8:00 AM CST SUBJECTIVE CHIEF COMPLAINT / REASON FOR VISIT Primary Hematology MD: Dr. Casas Care team JEREMY: Olga Lizama APRN APPLICATION DEVELOPMENT DIRECTOR Diffuse large B-cell lymphoma and Hodgkin lymphoma Virtual Visit - Patient not seen in person HISTORY OF PRESENT ILLNESS Mrs. Gallardo is a 68-year-old patient who was diagnosed with diffuse large [...] since then without any recurrence of disease. 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 Stage JULIA. 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 Lymph Node, Left Retroperitoneal, FNA. 08/22/2013 - 10/04/2013 Chemotherapy ICE x 3 cycles 11/15/2013 - 11/20/2013 Chemotherapy BEAM (Carmustine, Etoposide, Cytarabine, Melphalan) conditioning 11/21/2013 Bone Marrow Transplant - Auto 4.02 x 10e6 CD34+ cells/kg ASCT 11/21/2013 The following is documentation of a virtual visit (telephone or video). The patient was not seen gaey-[id number]/in person in clinic. Visit conducted in real-time by Mandie Lizama CNP, APRN in [facility] with the patient in their home location via telephone or video monitor. This telemedicine visit was performed during the COVID-19 pandemic. INTERVAL HISTORY: Isabelle Gallardo is a 68 y.o. female who is being evaluated for surveillance visit for DLBCL and HL via telehealth visit. Since she was last seen she denies any significant change to her overall health. She has upcoming cataract surgery in the next few weeks. She tells me today she is walking daily and has been very purposeful about getting 64 oz of fluids a day. She denies any fevers, night sweats and reports her weight is stable for the last 10 years since completion of treatment. She has not had any emergency room visits, infections or antibiotics since she was last seen. She denies any new rashes, skin lesionsor palpable adenopathy. She reports normal bowel movements and is in the process of enquiring aboutseen a integration solution architect locally. She had a wellness exam in May and has a annual physical coming up in the next few weeks. The following portions of the patient's history were reviewed and updated as appropriate: allergies, current medications, family history, medical history, social history, surgical history, and problem list. REVIEW OF SYSTEMS REVIEW OF SYSTEMS OBJECTIVE PHYSICAL EXAM Physical exam, including vital signs not obtained as this visit was conducted as a telephone encounter, and the patient was not seen in person. DIAGNOSTICS I have reviewed the recent relevant laboratory studies and labs are unremarkable. 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 Gallardo . She has been on observation since November of 2013 after undergoing autologous stem cell transplant. At this time, given absence of any symptoms she appears to continue to be in remission. I reviewed symptoms that would warrant further investigation sooner. She expressed understanding. She will continue to follow with a local primary care provider in the meantime. We will plan to see her again in 1 year. Certainly if concerns arise inthe interim we are happy to see her sooner. I will place orders today for visit in 12 months, but if she is doing well we certainly could lengthen this to September or October of 2024. Plan: 1. Return to the clinic in 12-15 months with labs and office visit. Visit can be done virtually perpatient preference. Total time spent: 40 minutes in reviewing records and data, obtaining HPI, counseling, education, discussion with colleagues, and documentation. Isabelle Gallardo last/next appointment date: 12-15 months I personally spent 40 minutes completing extensive medical record review and an extensive phone call with the patient and/or family member. concerning Isabelle Gallardo 's lymphoma . 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) Expected: 08/01/2024 (Approximate), Expires: 10/29/2024 Bilirubin, Total Lab Routine 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) Expected: 08/01/2024 (Approximate), Expires: 10/29/2024 Calcium, Total Lab Routine 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) Expected: 08/01/2024 (Approximate), Expires: 10/29/2024 CBC with Differential, Blood Lab Routine 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) Expected: 08/01/2024 (Approximate), Expires: 10/29/2024 Creatinine with Estimated GFR Lab Routine 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) Expected: 08/01/2024 (Approximate), Expires: 10/29/2024 LD (Lactate Dehydrogenase) Lab Routine 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) Expected: 08/01/2024 (Approximate), Expires: 10/29/2024 Potassium Lab Routine 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) Expected: 08/01/2024 (Approximate), Expires: 10/29/2024 Scheduled Referrals Name Type Priority Associated Diagnoses Order Schedule Hematology office visit (clinic) [facility]; Lymphoma; General Outpatient Referral Routine Expected: 08/01/2024 (Approximate), Expires: 10/29/2024 documented as of this encounter Visit Diagnoses Diagnosis 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
--- OUTSIDE RECORDS SUMMARY | 2023-08-03 08:52 | XMS_ITS | Encounter Summary ---
Author Name Unknown Organization [facility] Address [address] [place] [address] Care Team Providers Care Roller Man Name Role Phone Unavailable Primary Care Provider Unavailabl e Reason for Visit * Reason Onset Date Comments Treatment letter 07/04/2023 Encounter Details Date Type Department Care Team (Latest Contact Info) Description 07/04/2023 Clinical Communication Division of Hematology in [place], [place] [address] [place] [address] Erik Casas M.D., Ph.D. [address] [place] [phone] Treatment letter Social History Tobacco Use Types [...] often do you attend chur ch or yarsanism services? Never 07/25/2022 Do you belong to any clubs o r organizations such as shinto groups, unions, fraternal or athletic groups, [...] and heating? Not hard at all 07/25/2022 [facility] of Occupat ional Health - Occupational [...] or slept in a prison (including now)? No 07/25/2022 Nutrition Answer Date [...]
[2023-08-03] MEDS: TETRACAINE 0.5% OPHTH 1 DROP EYE-LEFT ×2 (09:00→09:05)
[2023-08-03] MEDS: KETOROLAC OPHTH 0.5% 1 DROP EYE-LEFT ×3 (09:00→09:10)
[2023-08-03 09:09] VITALS: BP 171/76; PULSE 71; RESP 16; TEMP 36.7; O2SAT 96; BMI 27.2
[2023-08-03] MEDS: SODIUM CHLORIDE 0.9 % (FLUSH) 10 ML SYRINGE IVF (09:30)
--- NOTE | 2023-08-03 09:31 | SUR.PREOP ---
The eye drops brought by the patient (Ketorolac, Prednisolone, and Ofloxacin) are examined and I have determined they are labeled by the patient's pharmacy for this patient as prescribed by the surgeon. The bottles are intact, recently obtained and appear to be correct.
--- NOTE | 2023-08-03 10:10 | W.ANESCHARGE ---
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
[2023-08-03] MEDS: TETRACAINE 0.5% OPHTH 2 DROP EYE-LEFT (10:14)
[2023-08-03] MEDS: BALANCED SALT IRRIG SOLN 15 ML EYE-LEFT (10:21)
--- NOTE | 2023-08-03 10:51 | W.ANESCHARGE ---
Anesthesia Charges Start Date/Time Anesthesia Start Date: 08/03/23 Anesthesia Start Time: 10:11 Stop Date/Time Anesthesia Stop Date: 08/03/23 Anesthesia Stop Time: 10:44 Summary Extremes of Age - Over 70 or under 1: MDA
[2023-08-03 10:59] VITALS: BP 135/92; PULSE 73; RESP 16; TEMP 37.2; O2SAT 97
--- NOTE | 2023-08-03 12:18 | P.OPTPRC_ITS ---
Procedure Note Date of procedure: 08/03/23 Will [facility] bill your pro fee for this procedure?: Yes Procedure Description: SURGEON: Valerie Sahni MD PREOPERATIVE DIAGNOSIS: Nuclear sclerotic cataract, left eye. POSTOPERATIVE DIAGNOSIS: Nuclear sclerotic cataract, left eye. NAME OF OPERATION: Phacoemulsification of cataract with posterior chamber intraocular lens implantation in the left eye. ANESTHESIA: Topical. ESTIMATED BLOOD LOSS: Less than 2 cc. COMPLICATIONS: None. PATHOLOGY SPECIMEN: None. INDICATIONS: See consult note for details. The risks, benefits and alternatives of the procedure were explained to the patient, who elected to proceed and signed informed consent to do so. PROCEDURE: The patient was brought to the pre-holding area where the left eye was identified as the operative eye. I placed my initials above this eye. The patient received eye drops consisting of 0.5% tetracaine, 1% tropicamide, 10% phenylephrine, and 0.5% ketorolac. The patient was then brought to the operating room where the left eye was again identified as the operative eye. The eye was prepped with Betadine and draped in the usual sterile ophthalmic fashion. A #15 super-sharp blade was used to create a paracentesis site. 1% non-preserved intracameral lidocaine was injected into the anterior chamber. Endocoat was injected into the anterior chamber. A 2.4 mm keratome was used to create a three-plane self-sealing incision 1 mm anterior to the temporal limbus. A cystotome was used to create an anterior capsular leaflet. The Utrata forceps were used to extend this to form a continuous curvilinear capsulorrhexis. Hydrodissection was performed. The cataract was removed with phacoemulsification using the anmdgg-sxe-zodkauh technique. The irrigation and aspiration tip was used to remove the remaining cortex. Healon was injected into the capsular bag. An SULAIMAN ZCB00 intraocular lens of 19.5 diopters was injected into the capsular bag. The irrigation and aspiration tip was used to remove the remaining viscoelastic. Balanced salt solution on a cannula was used to hydrate the wound, and the wound was found to be watertight. The pupil was noted to be round. DISPOSITION: The patient was taken to the recovery room and discharged to home in stable condition. The patient was instructed to call me or go to the emergency department with any sudden change, including dramatic loss of vision, severe pain in the eye or eyebrow region, nausea, or vomiting. The patient will follow up in the clinic tomorrow morning.
== END 2023-08-03 11:18 | disposition home or self-care (01) ==
LOC: OR 08:49
PROVIDERS: PCP Internal Medicine; Visit Provider Ophthalmology
PROC: (CPT 66984; principal; 2023-08-03 09:00)
DX: H25.12 Age-related nuclear cataract, left eye (principal)
CPT/HCPCS: 66984; 00142; 99100; A9270; J2250; J3010; V2632

== ENCOUNTER 2023-08-09 09:23 | Outpatient (CLI) | payer MEDICARE, SELFPAY ==
--- NOTE | 2023-08-09 09:45 | MM_ITS ---
Patient: GAUDENCIO BYERS Facility:?[facility] Patient ID:?[id number] Site Patient ID:?[id number] Site :?[id number] Study:?XRay-Breast Left 3D W/CAD-08/09/2023 11:01:03 AM Ordering Physician:Nettie Melendez Final Report: DIGITAL DIAGNOSTIC LEFT MAMMOGRAM USING TOMOSYNTHESIS AND COMPUTER-AIDED DETECTION LEFT BREAST ULTRASOUND CLINICAL HISTORY: LEFT breast mass/asymmetry. COMPARISON: 07/25/2023, 07/23/2022, 07/22/2021, 07/03/2020. TECHNIQUE: Digital LEFT mammogram in two projections. Tomosynthesis and CAD utilized. Real-time ultrasound imaging of LEFT breast with imaging documentation. BREAST COMPOSITION: There are areas of scattered fibroglandular density. FINDINGS: 3D spot compression CC/MLO mammograms demonstrate persistent nodular density within the lateral LEFT breast, slightly upper. No architectural distortion or suspicious calcifications. Targeted LEFT breast ultrasound performed. At 2 o`clock 12 cm from the nipple there is a circumscribed heterogeneous solid nodular density measuring 8 x 4 x 8 millimeters. An incidental lymph node is present at 9 o`clock 7 cm from the nipple at posterior depth. IMPRESSION: Indeterminate solid nodule LEFT breast 2 o`clock 12 cm from the nipple measuring 8 millimeters. RECOMMENDATIONS: Ultrasound-guided core needle biopsy recommended. Results and recommendations discussed with the patient. BI-RADS Category 4: Suspicious A lay language report of this examination will be provided to the patient. Dictated by Rancho Yang MD @ 08/09/2023 10:47:46 AM jj/Dictated by: Rancho Yang MD @ 08/09/2023 11:02:00 AM Signed by:?Rancho Yang MD @08/09/2023 12:31:42 PM (Electronic Signature)
--- NOTE | 2023-08-09 10:15 | US_ITS ---
Patient: GAUDENCIO BYERS Facility:?[facility] Patient ID:?[id number] Site Patient ID:?[id number]. Site :?[id number] Study:?US-Breast Left Dr. Yang to read-08/09/2023 10:44:23 AM Ordering Physician:MALCOLM Final Report: PLEASE SEE DIGITAL DIAGNOSTIC LEFT MAMMOGRAM PERFORMED SAME DAY Dictated by Rancho Yang MD @ 08/09/2023 10:47:46 AM jj/Dictated by: Rancho Yang MD @ 08/09/2023 10:47:00 AM Signed by:?Rancho Yang MD @08/09/2023 12:31:40 PM (Electronic Signature)
== END 2023-08-09 09:24 | disposition home or self-care (01) ==
LOC: MAMMO 09:23
PROVIDERS: PCP Internal Medicine; Visit Provider Internal Medicine
DX: N63.20 Unspecified lump in the left breast, unspecified quadrant (principal); R92.8 Other abnormal and inconclusive findings on diagnostic imaging of breast
CPT/HCPCS: 76642; 77065; G0279

== ENCOUNTER 2023-08-17 08:48 | Day surgery (SDC) | payer MEDICARE, SELFPAY ==
[2023-08-17] MEDS: TETRACAINE 0.5% OPHTH 1 DROP EYE-RIGHT ×2 (09:06→09:15)
[2023-08-17] MEDS: KETOROLAC OPHTH 0.5% 1 DROP EYE-RIGHT ×3 (09:10→09:35)
[2023-08-17 09:19] VITALS: BP 159/77; PULSE 62; RESP 16; TEMP 36.6; O2SAT 97
[2023-08-17 09:39] VITALS: BMI 27.2
[2023-08-17] MEDS: SODIUM CHLORIDE 0.9 % (FLUSH) 10 ML SYRINGE IVF (09:42)
[2023-08-17] MEDS: TETRACAINE 0.5% OPHTH 2 DROP EYE-RIGHT (09:56)
[2023-08-17] MEDS: BALANCED SALT IRRIG SOLN 15 ML EYE-RIGHT (09:58)
--- NOTE | 2023-08-17 10:02 | W.ANESCHARGE ---
Anesthesia Charges Start Date/Time Anesthesia Start Date: 08/17/23 Anesthesia Start Time: 09:53 Stop Date/Time Anesthesia Stop Date: 08/17/23 Anesthesia Stop Time: 10:21
--- NOTE | 2023-08-17 10:33 | P.OPTPRC_ITS ---
Procedure Note Date of procedure: 08/17/23 Will [facility] bill your pro fee for this procedure?: Yes Procedure Description: SURGEON: Valerie Sahni MD PREOPERATIVE DIAGNOSIS: Nuclear sclerotic cataract, right eye. POSTOPERATIVE DIAGNOSIS: Nuclear sclerotic cataract, right eye. NAME OF OPERATION: Phacoemulsification of cataract with posterior chamber intraocular lens implantation in the right eye. ANESTHESIA: Topical. ESTIMATED BLOOD LOSS: Less than 2 cc. COMPLICATIONS: None. PATHOLOGY SPECIMEN: None. INDICATIONS: See consult note for details. The risks, benefits and alternatives of the procedure were explained to the patient, who elected to proceed and signed informed consent to do so. PROCEDURE: The patient was brought to the pre-holding area where the right eye was identified as the operative eye. I placed my initials above this eye. The patient received eye drops consisting of 0.5% tetracaine, 1% tropicamide, 10% phenylephrine, and 0.5% ketorolac. The patient was then brought to the operating room where the right eye was again identified as the operative eye. The eye was prepped with Betadine and draped in the usual sterile ophthalmic fashion. A #15 super-sharp blade was used to create a paracentesis site. 1% non-preserved intracameral lidocaine was injected into the anterior chamber. Endocoat was injected into the anterior chamber. A 2.4 mm keratome was used to create a three-plane self-sealing incision 1 mm anterior to the temporal limbus. A cystotome was used to create an anterior capsular leaflet. The Utrata forceps were used to extend this to form a continuous curvilinear capsulorrhexis. Hydrodissection was performed. The cataract was removed with phacoemulsification using the dmprdr-lna-cnhscwr technique. The irrigation and aspiration tip was used to remove the remaining cortex. Healon was injected into the capsular bag. An SULAIMAN ZCB00 intraocular lens of 21.0 diopters was injected into the capsular bag. The irrigation and aspiration tip was used to remove the remaining viscoelastic. Balanced salt solution on a cannula was used to hydrate the wound, and the wound was found to be watertight. The pupil was noted to be round. DISPOSITION: The patient was taken to the recovery room and discharged to home in stable condition. The patient was instructed to call me or go to the emergency department with any sudden change, including dramatic loss of vision, severe pain in the eye or eyebrow region, nausea, or vomiting. The patient will follow up in the clinic tomorrow morning.
[2023-08-17 10:36] VITALS: BP 151/79; PULSE 58; RESP 16; TEMP 36.8; O2SAT 97
--- NOTE | 2023-08-17 10:43 | W.ANESCHARGE ---
Anesthesia Charges Start Date/Time Anesthesia Start Date: 08/17/23 Anesthesia Start Time: 09:53 Stop Date/Time Anesthesia Stop Date: 08/17/23 Anesthesia Stop Time: 10:21 Summary Extremes of Age - Over 70 or under 1: MDA
== END 2023-08-17 10:47 | disposition home or self-care (01) ==
LOC: OR 08:49
PROVIDERS: PCP Internal Medicine; Visit Provider Ophthalmology
PROC: (CPT 66984; principal; 2023-08-17 09:00)
DX: H25.11 Age-related nuclear cataract, right eye (principal)
CPT/HCPCS: 66984; 00142; 99100; A9270; J2250; J3010; V2632

== ENCOUNTER 2023-08-22 08:54 | Outpatient (CLI) | payer MEDICARE, SELFPAY ==
--- NOTE | 2023-08-22 09:15 | US_ITS ---
Patient: GAUDENCIO BYERS Facility:?[facility] Patient ID:?[id number] Site Patient ID:?[id number]. Site :?1955 Study:?US-Breast Procedure Dr. Yang to read-08/22/2023 10:11:39 AM Ordering Physician:MALCOLM Final Report: ULTRASOUND-GUIDED LEFT BREAST BIOPSY AND POST-BIOPSY DIGITAL MAMMOGRAM FOR BIOPSY MARKER PLACEMENT CLINICAL HISTORY: Indeterminate nodular density LEFT breast. COMPARISON STUDIES: 08/09/2023 TECHNIQUE: Real-time ultrasound with image documentation was used for targeting the breast lesion. Core biopsy specimens were obtained using an automated gun with an 18 gauge biopsy needle. Post-biopsy CC and ML digital mammograms were obtained to document position of the biopsy marker. CONSENT and TIME OUT: The procedure, risks, and alternatives were explained to the patient and a consent was signed. [place] Protocol was followed including pre-procedure verification that relevant information/documentation was available, reviewed and properly matched to the patient; consent accurate and complete; and equipment and supplies available. Time Out was conducted just prior to starting procedure to verify the four required elements: patient identity, correct side/site marked (if applicable), procedure, relevant images/results properly labeled and displayed (if applicable). PROCEDURE: The patient was positioned supine on the ultrasound table. The breast was prepped with ChloraPrep. 6 cc of 1 percent lidocaine used for local anesthesia. Core samples were obtained. A sterile metal biopsy clip was placed percutaneously to miesha the lesion position within the breast. The specimens were placed in 10% formalin and sent to the pathology department. Pressure was held on the biopsy site until all bleeding subsided. The skin incision was closed with Steri-Strips. An ice pack was positioned over the biopsy site. Post-biopsy instructions were reviewed with the patient, and a written copy was given to her. LATERALITY: LEFT breast. LESION: Heterogeneous solid nodule measuring 8 x 4 x 8 millimeters at 2 o`clock 12 cm from the nipple. SUSPICION FOR MALIGNANCY: Medium. NUMBER OF SAMPLES: 5 BIOPSY CLIP SHAPE: Oval. PROXIMITY OF CLIP TO TARGET: Within the lesion. IMPRESSION: Ultrasound-guided breast biopsy. When the pathology report is available, an addendum to this report will be made. ACR not applicable Dictated by Rancho Yang MD @ 08/22/2023 1:05:38 PM/MERLENE:lyla PT/Dictated by: Rancho Yang MD @ 08/22/2023 1:05:00 PM Signed by:?Rancho Yang MD @08/22/2023 2:46:40 PM --ADDENDUM-- ADDENDUM: Pathology consistent with follicular lymphoma. This is concordant. Patient has a history of recurrent lymphoma. Recommend appropriate action. Dictated by: Rancho Yang MD @08/31/2023 11:04:04 AM / [place] Signed by:?Rancho Yang MD @08/31/2023 12:22:44 PM (Electronic Signature)
--- NOTE | 2023-08-22 10:00 | MM_ITS ---
atient: GAUDENCIO BYERS Facility:?[facility] Patient ID:?[id number] Site Patient ID:?[id number]. Site :?1955 Study:?XRay-Breast Left 2D w/ CAD POST CLIP PLACEMENT-08/22/2023 10:08:26 AM Ordering Physician:Nettie Melendez Final Report: PLEASE SEE LEFT ULTRASOUND-GUIDED BIOPSY OF SAME DAY. CRL:pjt PT/Dictated by: Rancho Yang MD @ 08/22/2023 1:04:00 PM Signed by:?Rancho Yang MD @08/22/2023 2:46:38 PM (Electronic Signature)
== END 2023-08-22 08:55 | disposition home or self-care (01) ==
LOC: US 08:55
PROVIDERS: PCP Internal Medicine; Visit Provider Internal Medicine
DX: N63.20 Unspecified lump in the left breast, unspecified quadrant (principal); C85.10 Unspecified B-cell lymphoma, unspecified site; R92.8 Other abnormal and inconclusive findings on diagnostic imaging of breast
CPT/HCPCS: 19083; 77065; 88305; 88341; 88342; 88360; 88366; A4648; A4649

== ENCOUNTER 2024-02-27 09:33 | Outpatient (CLI) | payer MEDICARE, SELFPAY ==
--- OUTSIDE RECORDS SUMMARY | 2024-02-27 09:37 | XMS_ITS | Clinical Summary ---
Author Organization [facility] Address [address] [place] [address] Care Team Providers Care Sales Administrator Name Role Phone Unavailable Primary Care Provider Unavailabl e Source Comments Patient records contain information from all sites at [facility]. For routine questions regarding patient records, call [phone] during business hours, M-F 8:00 AM - 5:00 PM Central Time. Record requests for emergency care only can be directed to [phone] at any time.[facility] Allergies Active Allergy Reactions Criticality Noted Date Comments Amoxicillin Nausea And Vomiting 08/20/2011 Ciprofloxacin GI intolerance 03/16/2021 Penicillin V GI intolerance Low 03/16/2021 Medications Medication Sig Dispensed Refills Start Date End Date Status omeprazole (PriLOSEC) [address] capsule Take 1 capsule by mouth daily. 10/02/2013 Active simvastatin (ZOCOR) 5 mg tablet Take 1 tablet by mouth at bedtime. 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 Elevated Creatinine Discharge Disposition: Home or Self Care 12/13/2023 1:00 PM CDT Office Visit Division of Hematology in [place], [place] [address] [place] [phone] Mandie Lizama APRN, C.Marco., M.S.N. 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 Follicular Lymphoma Grade I Lymph Nodes Of Multiple Sites (HCC) Discharge Disposition: Home or Self Care 12/12/2023 12:00 PM CDT Clinical Communication Virtual Review in [place], [place] 200 [place] [address] Pre-visit Intake from Last 3 Months Immunizations Name Administration Dates Next Due HepB Adult 01/24/2015 Hib (PRP-T) (ACTHIB, HIBERIX) 01/24/2015 IPV 01/24/2015 Influenza Split 04/13/2013 PCV13 01/24/2015,11/13/2012 PPSV23 12/12/2012 Tdap 01/24/2015,05/13/2011 Family History Medical History [...] 0 06/13/1968 - 10/29/2007 Smokeless Tobacco: Never Tobacco Cessation:Counseling Given: Not Answered Comments:patient quit 2008 Alcohol Use Standard Drinks/Week Comments No 0 (1 standard drink = 0.6 oz pur e alcohol) [facility] Utilities Answer Date Recorded In the past 12 months has e electric, gas, oil, or water company threatened to shut off services in your home? No 08/26/2023 Humiliation, Afraid, Rape, and Kick questionnair e [...] often do you attend chur ch or anabaptist services? Never 07/25/2022 Do you belong to any clubs o r organizations such as sikhism groups, unions, fraternal or athletic groups, [...] and heating? Not hard at all 07/25/2022 [facility] [place] of Occupat ional Health - Occupational Stress [...] exercise (like a brisk walk)? 7 days 08/26/2023 On average, how many minutes do you engage in exercise at this level? 30 min 08/26/2023 Hunger Vital Sign Answer Date Recorded Within the past 12 months, y ou worried that your food would run out before you got the money to buy more. Never true 08/26/19 24 Within the past 12 months, t he food you bought just didn't last and you didn't have money to get more. Never true 08/26/2023 PRAPARE - Transportation Answer Date Re corded In the past 12 months, has l ack of transportation kept you from medical appointments or from getting medications? No 08/11 In the past 12 months, has l ack of transportation kept you from meetings, work, or from getting things needed for daily living? No 08/26/2023 Nutrition Answer Date Recorded On average, how many serving s of fruits and vegetables do you eat per day (serving size is equal to 1 cup or approximately the size of a tennis ball)? 5 or more 08/26/2023 Dental Answer Date Recorded Dental: Regular Dentist Yes 06/24/19 23 Employment Answer Date Recorded Employment status Retired 08/26/2023 Housing Stability Answer Date Recorded What is your living situation today? I have a [facility] place to live 08/26/2023 Education Answer Date Recorded What is the [...] Sign Reading Time Taken Comments Blood Pressure 135/79 12/13/2023 12:42 PM CDT Pulse 77 12/13/2023 12:42 PM CDT Temperature 36 ??C (96.8 ??F) 12/13/2023 12:42 PM CDT Respiratory Rate 12 09/08/2023 12:35 PM CDT Oxygen Saturation 95% 12/13/2023 12:42 PM CDT Inhaled Oxygen Concentration - - Weight 80 kg (176 lb 7.7 oz) 12/13/2023 12:42 PM CDT Height 175.9 cm (5' 9.25) 12/13/2023 12:42 PM C DT Body Mass Index 25.87 12/13/2023 12:42 PM CDT Plan of Treatment Upcoming Encounters Date Type Department Care Team (Latest Contact Info) Description 03/12/2024 9:45 AM CDT Clinical Communication Virtual Review in [place], [place] [address] [place] [address] 03/14/2024 8:50 AM CDT Appointment Department of Laboratory Medicine and Pathology, [facility], in [place], [place] [address] [place] [phone] Mandie Lizama APRN, C.N.P., M.S.N. [address] [place] [phone] 03/14/2024 1:00 PM CDT Office Visit Division of Hematology in [address] [phone] Mandie Lizama APRN, C.N.P., M.S.N. [address] [place] [phone] Health Maintenance Due Date Last Done Comments Bone Density Scan Monitoring 1955 CT Colonography 1955 Dental Prophylaxis 1955 Dilated Eye Exam 1955 Serum Protein Electrophoresi s (SPEP) 1955 Thyroid Function [place] 1955 Cervical Cancer Screening 10/03/20122011, 08/11/2004 (Performed elsewhere) Colonoscopy 03/13/2014 03/13/2009 (Perf ormed elsewhere), 08/11/2008 (Performed elsewhere), 06/25/2008 (Performed elsewhere) Vitamin D Testing 03/14/2014 03/14/2013, 08/20/2011 Lipid (Cholesterol) Screening 04/17/2014 (Performed elsewhere) Urinalysis 04/21/2014 10/19/2013, 12/2011, 08/20/2011 Spirometry with DLCO or PFT 10/23/2014 10/23/2013, 0 10/23/2013 Fasting Glucose for Diabetes Screening 05/03/2021 05/03/2018, 04/28/2017, 10/21/2015, Additional history exists Depression Screening (Annual PHQ-2) 06/13/2023 COVID-19 Vaccine (2022-07 4 season) 2024 03/08/2023, 04/01/2022, 03/05/2021, Additional history exists Influenza Vaccine (#1) 2024 , 01/25/2022, 02/26/2021, Additional history exists Mammogram 08/21/2024 08/22/2023, 07/15, 07/25/2023, Additional history exists Cologuard 05/14/2025 05/14/2022 Colorectal Cancer Surveillance 05/14/2025 DTaP,Tdap,and Td Vaccines (7 - Td or Tdap) 11/25/2025 11/26/2015, 03/21/2015, 01/24/2015, Additional history exists Hepatitis B Vaccines Completed 11/26/2015, 03/21/2015, 01/24/2015 Fall Risk Screen (Annual) Completed 09/08/2023 Pneumococcal vaccine (65+ years) Completed 09/23/2023, 11/26/2015, 03/21/2015, Additional history exists Zoster Vaccines Completed 09/23/2023, 08/2020, 07/03/2020, Additional history exists HPV Vaccines Aged Out No longer eligi ble based on patient's age to complete this topic Medical Devices Implanted Type Area Track Production Engineer Device Identifier Shelf Expiration Date Model / Serial / Lot Hip Implant Hip Implant Bilateral : Hip Knee Implant Knee Implant Bilateral : Knee Ocular Lens Ocular Lens Bilateral : Eye Explanted Type Area Track Production Engineer Device Identifier Shelf Expiration Date Model / Serial / Lot Stent Inlay 7 X 26 - Carbone [id number] Implanted:Qty: 1 on 08/27/2011 Ureteral Stent Ureter [employer].Bard Description:Device Manufactu rer - [employer]. Device Status Text - [id number]. Stent Inlay 7 X 26 - Carbone [id number] Implanted:Qty: 1 on 12/13/2011 Ureteral Stent Ureter C.[employer].Bard Description:Device Manufactu rer - [employer]. Device Status Text - [id number]. Procedures Procedure Name Priority Date/Time Associated Diagnosis Comments CREATININE WITH EGFR, S/P Routine 12/20/2023 12:40 PM CDT Elevated Creatinine POTASSIUM, S/P Routine 12/20/2023 12:40 PM CDT Elevated Creatinine POTASSIUM, S/P Routine 12/13/2023 9:04 AM CDT Follicular Lymphoma Grade I Lymph Nodes Of Multiple Sites (HCC) LACTATE DEHYDROGENASE (LD), S Routine 12/13/2023 9:04 AM CDT Follicular Lymphoma Grade I Lymph Nodes Of Multiple Sites (HCC) CREATININE WITH EGFR, S/P Routine 12/13/2023 9:04 AM CDT Follicular Lymphoma Grade I Lymph Nodes Of Multiple Sites (HCC) CBC WITH DIFFERENTIAL, B Routine 024 9:04 AM CDT Follicular Lymphoma Grade I Lymph Nodes Of Multiple Sites (HCC) CALCIUM, TOT, S/P Routine 12/13/2023 9:0 4 AM CDT Follicular Lymphoma Grade I Lymph Nodes Of Multiple Sites (HCC) BILIRUBIN, TOT, S/P Routine 12/13/2023 9 :04 AM CDT Follicular Lymphoma Grade I Lymph Nodes Of Multiple Sites (HCC) ASPARTATE AMINOTRANSFERASE (AST), S/P Routine 12/13/2023 9:04 AM CDT Follicular Lymphoma Grade I Lymph Nodes Of Multiple Sites (HCC) ALKALINE PHOSPHATASE, S/P Routine 12/13/2023 9:04 AM CDT Follicular Lymphoma Grade I Lymph Nodes Of Multiple Sites (HCC) OUTSIDE MG MAMMOGRAM Routine 08/22/2023 9:55 AM CDT GLUCOSE, FASTING, S/P Routine 05/03/2018 9:30 AM DISHWASHER BUSSER Lymphoma Non Hodgkins Intrapelvic (HCC) PULMONARY FUNCTION TESTS Routine 014 12:17 PM CDT URINALYSIS WITH MICROSCOPIC Routine 10/19/2013 7:38 AM CDT 25-HYDROXYVITAMIN D2 AND D3, S Routine 03/14/2013 6:14 AM CDT PATHOLOGY RESIDENTIAL CHILD CARE COUNSELOR CYTOLOGY Routine 2 2:47 PM CDT from Last 3 Months or Most Recently Relevant to Health Maintenance Results * Potassium (12/20/2023 12:40 PM CDT) Only the most recent of2 resultswithin the time period is included. Potassium, P 4.3 3.6 - 5.2 mmol/L 12/20/2023 1:10 PM CDT CNFL Blood (Blood, Venous) 12/20/2023 12:40 PM CDT 12/20/2023 12:45 PM CDT Mandie Lizama APRN, C.N.P., M.S.N. LAB BLOOD ADD-ON [facility] [address] [place] [phone], [facility] in [address] [address] * (ABNORMAL) Creatinine with Estimated GFR (12/20/2023 12:40 PM CDT) Only the most recent of2 resultswithin the time period is included. Creatinine 1.40(H) 0.59 - 1.04 mg/dL 12/20/2023 1:10 PM CDT CNFL Estimated GFR (eGFR) 40(L) >=60 mL/min/BSA 12/20/2023 1:10 PM CDT CNFL Comment: Estimated GFR calculated using the 2020 CKD_EPI creatinine equation. Blood (Blood, Venous) 12/20/2023 12:40 PM CDT 12/20/2023 12:45 PM CDT Mandie Lizama APRN, C.N.P., M.S.N. LAB BLOOD ADD-ON [facility] [address] [place] [address], [place] [address] * (ABNORMAL) CBC with Differential, Blood (12/13/2023 9:04 AM CDT) Hemoglobin 15.4(H) 11.6 - 15.0 g/dL 12/13/2023 10:10 AM CDT DTL Hematocrit 47.7(H) 35.5 - 44.9 % 12/13/2023 10:10 AM CDT DTL Erythrocytes 5.12 3.92 - 5.13 x10(12)/L 12/13/2023 10:10 AM CDT DTL MCV 93.2 78.2 - 97.9 fL 12/13/2023 10:10 AM CDT DTL RBC Distrib Width 13.2 12.2 - 16.1 % 12/13/2023 10:10 AM CDT DTL Platelet Count 244 157 - 371 x10(9)/L 12/13/2023 10:10 AM CDT DTL Leukocytes 7.6 3.4 - 9.6 x10(9)/L 12/13/2023 10:10 AM CDT DTL Neutrophils 5.01 1.56 - 6.45 x10(9)/L 12/13/2023 10:10 AM CDT DHPM Lymphocytes 1.60 0.95 - 3.07 x10(9)/L 12/13/2023 10:10 AM CDT DTL Monocytes 0.78 0.26 - 0.81 x10(9)/L 12/13/2023 10:10 AM CDT DTL Eosinophils 0.18 0.03 - 0.48 x10(9)/L 12/13/2023 10:10 AM CDT DTL Basophils 0.07 0.01 - 0.08 x10(9)/L 12/13/2023 10:10 AM CDT DTL Blood (Blood, Venous) 12/13/2023 9:04 AM CDT 12/13/2023 9:26 AM CDT Erik Casas M.D., Ph.D. LAB BLOOD A DD-ON Performing Organization Address [facility] Co de Phone Number [facility] [address] [place] [address] * AST (Aspartate Aminotransferase) (12/13/2023 9:04 AM CDT) Pathologist [facility] Aspartate Aminotransferase (AST), S 18 8 - 43 U/L 12/13/2023 10:07 AM CDT DTL Blood (Blood, Venous) 12/13/2023 9:04 AM CDT 12/13/2023 9:48 AM CDT Erik Casas M.D., Ph.D. LAB BLOOD A DD-ON Performing Organization Address [facility] [place] [address] * (ABNORMAL) Alkaline Phosphatase (12/13/2023 9:04 AM CDT) Alkaline Phosphatase, S 130(H) 35 - 104 U/L 12/13/2023 10:07 AM CDT DTL Blood (Blood, Venous) 12/13/2023 9:04 AM CDT 12/13/2023 9:48 AM CDT Erik Casas M.D., Ph.D. LAB BLOOD A DD-ON Performing Organization Address City/[facility]/ZIP Co de Phone Number [facility] [address] [place] [address] * LD (Lactate Dehydrogenase) (12/13/2023 9:04 AM CDT) Lactate Dehydrogenase (LD), S 215 122 - 222 U/L 12/13/2023 10:07 AM CDT DTL Blood (Blood, Venous) 12/13/2023 9:04 AM CDT 12/13/2023 9:48 AM CDT Erik Casas M.D., Ph.D. LAB BLOOD N ON ADD-ON Performing Organization Address [facility] Co de Phone Number [facility] [address] [place], [place] [phone] [place] [address] 200 [place] [address] * Calcium, Total (12/13/2023 9:04 AM CDT) Calcium, Total, S 9.5 8.8 - 10.2 mg/dL 12/13/2023 10:07 AM CDT DTL Blood (Blood, Venous) 12/13/2023 9:04 AM CDT 12/13/2023 9:48 AM CDT Erik Casas M.D., Ph.D. LAB BLOOD A DD-ON Performing Organization Address City/[facility]/ZIP Co de Phone Number [facility] [address] 200 [place] [phone] * Bilirubin, Total (12/13/2023 9:04 AM CDT) Bilirubin, Total, S 0.9 0.0 - 1.2 mg/dL 12/13/2023 10:07 AM CDT DT Blood (Blood, Venous) 12/13/2023 9:04 AM CDT 12/13/2023 9:48 AM CDT Erik Casas M.D., Ph.D. LAB BLOOD A DD-ON Performing Organization Address [facility]/ZIP Co de Phone Number [facility] [address] [place] [address], [facility] [address] [address] * MM clip placement LT-Outside Mammogram (08/22/2023 9:55 AM CDT) Narrative [facility]IM[facility] - 08/25/2023 10:45 AM CDT This order has been created and auto-finalized to support the import of outside images. If available, original interpretation can be found on the Media Tab in Chart Review, in Document Viewer, or as an image in QREADS. If a re-interpretation or overread is required please follow defined workflow. ?? Provider Not In System IMG BI PROCEDURES Performing Organization Address [facility] Co de Phone Number [facility] NA * Glucose, Fasting (05/03/2018 9:30 AM DISHWASHER BUSSER) Glucose, P 93 70 - 100 mg/dL 05/03/2018 10:25 AM DISHWASHER BUSSER [facility] Last Intake 17 hr 05/03/2018 9:51 AM DISHWASHER BUSSER [facility] Blood 05/03/2018 9:30 AM DISHWASHER BUSSER 05/03/2018 9:51 AM DISHWASHER BUSSER Erik Casas M.D., Ph.D. LAB BLOOD N ON ADD-ON Performing Organization Address [facility] Co de Phone Number [facility] [address] * Pulmonary Function Tests (10/23/2013 12:17 PM CDT) 10/23/2013 12:1 7 PM CDT Historical Provider PFT ORDERABLES Performing Organization Address [facility] de Phone Number [facility] [address] * (ABNORMAL) Urinalysis with Microscopic (10/19/2013 7:38 AM CDT) Source Midstream [facility] Appearance Normal Normal [facility] pH, 24 HR, U 6.7 4.5 - 8.0 [facility] Protein/Osmola lity 0.74(H) <0.12 RATIO [facility] Glucose 16(H) 0 - 15 MG/DL [facility] Protein, U 39(H) 0 - 19 MG/DL [facility] Hemoglobin, QL Negative Negative [facility] Osmolality, 24 HR, U 524 150 - 1150 MOSM/KG [facility] Predicted 24 Hr Protein 512 MG/24 H [facility] Predicted Range 126-2071 MG/24 H [facility] 10/19/2013 7:38 AM CDT 10/19/2013 7:38 AM CDT Erik Casas M.D., Ph.D. LAB URINE O RDERABLES Performing Organization Address [facility] Co de Phone Number [facility] [address] * 25-Hydroxyvitamin D2 and D3 (03/14/2013 6:14 AM CDT) Pathologist [facility] 25-Hydroxy D Total 24 SeeComment NG/ML [facility] Comment: Reference Range: ? 25-HYDROXY D TOTAL (D2+D3) Optimum levels in the healthy ? population are 20-50, patients with bone disease may ? benefit from higher levels within this range. ? 25-Hydroxy D2 <4.0 NG/ML [facility] 25-Hydroxy D3 24 NG/ML [facility] 03/14/2013 6:14 AM CDT 03/14/2013 6:14 AM CDT Fela Hanna P.A.-C., MJimiS. LAB BLOOD ADD-ON [facility] [address] [place] [address], [facility] * Pathology RESIDENTIAL CHILD CARE COUNSELOR Cytology (10/04/2011 2:47 PM CDT) 10/04/2011 2:47 PM CDT 10/04/2011 2:47 PM CDT Narrative [facility] - 10/04/2011 2:47 PM CDT ??10/04/2011 Cytology Gynecological ?([id number]) ? Requested By:Brenda Garcia. ??[id number] ?DIAGNOSIS: A. ??ThinPrep Pap Test Diagnostic (Cervical/Endocervical HPV Reflex): ?Satisfactory for evaluation. ?? Scanty cellularity. ?Squamous epithelial cell abnormality ?Atypical squamous cells of undetermined significance. Favor treatment effect. ?? Seen in consultation with Dr. Sabra Wilson. ? HPV testing was performed by [employer] Hybrid Capture II and is negative for HPV types 16,18,31,33,35,39,45,51,52,56,58,59 and 68. ? The HPV assay is performed in the Clinical Virology Laboratory at [facility]. ?? ANITA Guerrero(ASCP) ?? 10/07/2011 12:16 Interpreted by: Silas Rizzo M.D., PhD. Report electronically signed by Silas Rizzo M.D., PhD. ?? Transcribed by: [facility] ??10/07/2011 10:59:25 ? SPECIMEN DESCRIPTION: A. ??ThinPrep Pap Test Diagnostic (Cervical/Endocervical HPV Reflex): ??Received cloudy specimen in ThinPrep vial. Procedure Note 09/07/2017 10/04/2011 Cytology Gynecological ([id number]) Requested By:Brenda Garcia [phone] DIAGNOSIS: A. ThinPrep Pap Test Diagnostic (Cervical/Endocervical HPV Reflex): Satisfactory for evaluation. Scanty cellularity. Squamous epithelial cell abnormality Atypical squamous cells of undetermined significance. Favor treatment effect. Seen in consultation with Dr. Sabra Wilson. HPV testing was performed by [employer] Hybrid Capture II and is negative for HPV types 16,18,31,33,35,39,45,51,52,56,58,59 and 68. The HPV assay is performed in the Clinical Virology Laboratory at [facility]. ANITA Guerrero(ASCP) 10/07/2011 12:16 Interpreted by: Silas Rizzo M.D., PhD. Report electronically signed by Silas Rizzo M.D., PhD. Transcribed by: [facility] 10/07/2011 10:59:25 SPECIMEN DESCRIPTION: A. ThinPrep Pap Test Diagnostic (Cervical/Endocervical HPV Reflex): Received cloudy specimen in ThinPrep vial. Fela Hanna P.A.-C. MJimiS. LAB PAP CO PATH ORDERABLES [facility] [address] from Last 3 Months or Most Recently Relevant to Health Maintenance
--- OUTSIDE RECORDS SUMMARY | 2024-02-27 09:38 | XMS_ITS | Encounter Summary ---
Author Organization [facility] Address [address] [place] [address] Care Team Providers Care Cosmetics Counter Manager Name Role Phone Unavailable Primary Care Provider Unavailabl e Encounter Details Date Type Department Care Team (Latest Contact Info) Description 12/20/2023 12:33 PM CDT - 12/20/2023 11:59 PM CDT Hospital Encounter Department of Laboratory Medicine in [address] [phone] Mandie Lizama APRN, C.N.P., M.S.N. [address] [place] [phone] Elevated Creatinine Discharge Disposition: Home or Self Care Social History Tobacco Use Types Packs/Day Years Used Date Smoking Tobacco: Former Cigarettes 1.5 40 0 06/13/1968 - 10/29/2007 Smokeless Tobacco: Never Comments:patient quit 2007 Alcohol Use Standard Drinks/Week Comments No 0 (1 standard drink = 0.6 oz pur e alcohol) [facility] Utilities Answer Date Recorded In the past 12 months has [facility] [email or web address], gas, oil, or water [employer] threatened to shut off services in your [...] often do you attend chur ch or mormon services? Never 07/25/2022 Do you belong to any clubs o r organizations such as yazidi groups, unions, fraternal or athletic groups, or [...] and heating? Not hard at all 07/25/2022 [facility] of Occupat ional Health - Occupational Stress [...] your living situation today? I have a [facility] place to live 08/26/2023 Education Answer Date [...] Take 1 capsule by mouth daily. 10/02/2013 simvastatin (ZOCOR) 5 mg tablet Take 1 tablet by mouth at bedtime. 09/11/2014 documented as of this encounter Plan of Treatment Upcoming Encounters Date Type Department Care Team (Latest Contact Info) Description 03/12/2024 9:45 AM CDT Clinical Communication Virtual Review in [place] [address] [place] [address] 03/14/2024 8:50 AM CDT Appointment Department of Laboratory Medicine and Pathology, [facility], in [place], [place] [address] [place] [phone] Mandie Lizama APRN, C.N.P., M.S.N. [address] [place] [phone] 03/14/2024 1:00 PM CDT Office Visit Division of Hematology in [place], [place] [address] [place] [phone] Mandie Lizama APRN, C.N.P., M.S.N. [address] [place] [phone] documented as of this encounter Procedures Procedure Name Priority Date/Time Associated Diagnosis Comments POTASSIUM, S/P Routine 12/20/2023 12:40 PM CDT Elevated Creatinine CREATININE WITH EGFR, S/P Routine 12/20/2023 12:40 PM CDT Elevated Creatinine documented in this encounter Results * (ABNORMAL) Creatinine with Estimated GFR (12/20/2023 12:40 PM CDT) Creatinine 1.40(H) 0.59 - 1.04 mg/dL 12/20/2023 1:10 PM CDT CNFL Estimated GFR (eGFR) 40(L) >=60 mL/min/BSA 12/20/2023 1:10 PM CDT CNFL Comment: Estimated GFR calculated using the 2020 CKD_EPI creatinine equation. Blood (Blood, Venous) 12/20/2023 12:40 PM CDT 12/20/2023 12:45 PM CDT Mandie Lizama APRN, C.N.P., M.S.N. LAB BLOOD ADD-ON [facility] [address] [place] [address], [facility] in [address] [address] * Potassium (12/20/2023 12:40 PM CDT) Potassium, P 4.3 3.6 - 5.2 mmol/L 12/20/2023 1:10 PM CDT CNFL Blood (Blood, Venous) 12/20/2023 12:40 PM CDT 12/20/2023 12:45 PM CDT Lani Mora APRNNSheyla., M.S.N. LAB BLOOD ADD-ON [address] [address], [facility] in [address] [address] documented in this encounter Visit Diagnoses Diagnosis Elevated Creatinine documented in this encounter Additional Health Concerns Assessment Noted Time PHQ-9 Depression Total Score: 3 09/01/19 14 7:36 AM CDT documented as of this encounter
--- OUTSIDE RECORDS SUMMARY | 2024-02-27 09:38 | XMS_ITS | Encounter Summary ---
Author Organization [facility] Address [address] [place] [address] Care Team Providers Care Corrections Identification Technician Name Role Phone Unavailable Primary Care Provider Unavailabl e Reason for Referral * Outpatient (Routine) - Authorized Specialty Diagnoses / Procedures Referred By Caren arboleda Referred To Contact Hematology Oncology Mandie Lizama APRN, C.NJanes, M.S.N. [address] [place] [phone] [facility] Referral ID Status Reason Start Date Expiration Date V isits Requested Visits Authorized [id number] Authorized 12/13/2023 06/13/2025 1 1 Reason for Visit * Outpatient (Routine) - Closed Specialty Diagnoses / Procedures Referred By Contac t Referred To Contact Hematology Oncology Erik Casas M.D., Ph.D. [address] [place] [phone] [facility] Referral ID Status Reason Start Date Expiration Date Visits Re quested Visits Authorized [id number] Closed 09/14/2023 03/15/2025 1 1 Encounter Details Date Type Department Care Team (Late st Contact Info) Description 12/13/2023 1:00 PM CDT Office Visit Division of Hematology in [place], [place] [address] [place] [phone] Mandie Lizama APRN, C.N.P., M.S.N. 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 Never 07/25/2022 Do you belong to any clubs o r organizations such as restorationist groups, unions, fraternal or athletic groups, or [...] and heating? Not hard at all 07/25/2022 [facility] of Occupat ional Health - Occupational [...] your living situation today? I have a [facility] place to live 08/26/2023 Education Answer Date [...] ??F) 12/13/2023 12:42 PM CDT Respiratory Rate - - Oxygen Saturation 95% 12/13/2023 12:42 PM CDT Inhaled Oxygen Concentration - - Weight 80 kg (176 lb 7.7 oz) 12/13/2023 12:42 PM CDT Height 175.9 cm (5' 9.25) 12/13/2023 12:42 PM C DT Body Mass Index 25.87 12/13/2023 12:42 PM CDT documented in this encounter Progress Notes * Mandie Lizama APRN, C.N.P., M.S.N. - 12/13/2023 1:00 PM CDT SUBJECTIVE CHIEF COMPLAINT / REASON FOR VISIT Primary Hematology MD: Dr. 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 Stage JULIA. 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 Lymph Node, Left Retroperitoneal, FNA. 08/22/2013 - 10/04/2013 Chemotherapy ICE x 3 cycles 11/15/2013 - 11/20/2013 Chemotherapy BEAM (Carmustine, Etoposide, Cytarabine, Melphalan) conditioning 11/21/2013 Bone Marrow Transplant - Auto 4.02 x 10e6 CD34+ cells/kg INTERVAL HISTORY: Isabelle Gallardo is a 68 y.o. female who presents for evaluation of recent diagnosis of follicularlymphoma. In july 2023 she had a routine mammogram and there was a mass noted in the left side.Biopsy was completed and this showed follicular lymphoma grade 1-2. Today, she returns for observation visit. Since she was last seen, she reports she is doing well without any significant changes to her overall health. She denies any fevers, drenching night sweats or unintentional weight loss. She has not had any emergency room visits, infections or antibiotics since she was last seen. She denies any new rashes, skin lesions or palpable adenopathy. She reports normal bowel movements, is not having difficulty with chest pain or shortness of breath. She reports her energy level is great and she is golfing anywhere from 3 to 4 times a week The following portions of the patient's history were reviewed and updated as appropriate: allergies, current medications, family history, medical history, social history, surgical history, and problem list. REVIEW OF SYSTEMS REVIEW OF SYSTEMS OBJECTIVE BP 135/79 (BP Location: Left arm, Patient Position: Sitting, Cuff Size: Regular) Pulse 77 Temp 36 ??C (Tympanic) Ht 175.9 cm Wt 80 kg SpO2 95% BMI 25.87 kg/m?? Wt Readings from Last 3 Encounters: 12/13/23 80 kg 09/14/23 81.6 kg 09/02/23 80.6 kg PHYSICAL EXAM General: Well-nourished, in good hygiene, in no apparent distress. ECOG 0 Lungs: Symmetrical movements, clear to auscultation in all [place]. No cough, wheezing, crackles or shortness of breath noted. Heart: Regular rate/rhythm, S1 S2, no gallop, rub, or murmur. Abdomen: Soft, non-tender, no distention. Bowel sounds in all 4 quadrants. There is no hepatosplenomegaly, or palpable masses. Lymphadenopathy: No cervical, supraclavicular, axillary, or inguinal lymphadenopathy palpable. Skin: No rash noted. Limited exam. Neck: trachea midline, no tenderness, masses, or enlargement of thyroid. Extremities: Warm and well perfused, no edema. Mouth: No erythema, ulcers, swelling, enlargement of tonsils or surrounding tissue, or thrush. Psychiatric: Normal mood and affect. Behavior is normal. Judgment and thought content normal Neurological: alert and oriented, clear speech. Steady gait without use of assistive device. No obvious deficits. DIAGNOSTICS I have reviewed the recent relevant laboratory studies and labs are unremarkable. ASSESSMENT / PLAN #1 Follicular Lymphoma Grade I Lymph Nodes Of Multiple Sites (HCC) Was a pleasure to see Mrs. Gallardo in the clinic today. She returns for observation visit since recent diagnosis of follicular lymphoma. She has a history of Hodgkin lymphoma and diffuse large B-cell lymphoma, both of which have been inactive since undergoing ASCT in November of 2013. Today, she does not report any new or concerning symptoms. The newly diagnosed follicular lymphoma was found on routine mammogram. She does not have any new or concerning symptoms. There are no concerning findings onphysical exam. At this time, I discussed with her that we will see her about every 3 months for the1st 2 years and then begin to stretch her visits out to every 6 months. We will plan to see her back in 3 months with labs and office visit, we will complete CT scans in mid May for surveillanceimaging. I reviewed symptoms that would warrant further investigation, she was accepting of this. She will be in contact if she is any concerns in the interim. Continue with observation. Plan: 1. Follow up visit 3 months with labs and office visit/physical exam. 2. Surveillance CT scans to be done in May 2024, tentatively week of May 28. We will also complete labs and office visit after to go over CTs. 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 Inactive. #4 Elevated creatinine Creatinine slightly elevated at today's visit. With further discussion it sounds as if she had beenfasting and not had anything to drink prior to getting her labs done. I will have her work on hydration and we will repeat potassium and creatinine with EGFR locally in the next 7-10 days. If these are still abnormal I will have her follow up with her PCP Total time spent: 35 minutes in reviewing records and data, performing H&P, counseling, education, discussion with colleagues, and documentation. Education We discussed the diagnosis and treatment plan in detail. The patient expressed understanding and agreement of the content and plan. No apparent learning barriers were identified; learning preferencesinclude listening. Pt allowed to ask questions; all questions answered. documented in this encounter Plan of Treatment Upcoming Encounters Date Type Department Care Team (Latest Contact Info) Description 03/12/2024 9:45 AM CDT Clinical Communication Virtual Review in [address] [phone] 03/14/2024 8:50 AM CDT Appointment Department of Laboratory Medicine and Pathology, [facility], in [address] [phone] Mandie Lizama APRN C.N.P., M.S.N. [address] [place] [phone] 03/14/2024 1:00 PM CDT Office Visit Division of Hematology in [address] [phone] Mandie Lizama APRN C.N.P., M.S.N. [address] [place] [phone] Scheduled Orders Name Type Priority Associated Diagnoses Orde r Schedule Alkaline Phosphatase Lab Routine Follicular Lymphoma Grade I Lymph Nodes Of Multiple Sites (HCC) Expected: 03/14/2024, Expires: 03/14/2025 AST (Aspartate Aminotransferase) Lab Routine Follicular Lymphoma Grade I Lymph Nodes Of Multiple Sites (HCC) Expected: 03/14/2024, Expires: 03/14/2025 Bilirubin, Total Lab Routine Follicular Lymphoma Grade I Lymph Nodes Of Multiple Sites (HCC) Expected: 03/14/2024, Expires: 03/14/2025 Calcium, Total Lab Routine Follicular Lymphoma Grade I Lymph Nodes Of Multiple Sites (HCC) Expected: 03/14/2024, Expires: 03/14/2025 CBC with Differential, Blood Lab Routine Follicular Lymphoma Grade I Lymph Nodes Of Multiple Sites (HCC) Expected: 03/14/2024, Expires: 03/14/2025 Creatinine with Estimated GFR Lab Routine Follicular Lymphoma Grade I Lymph Nodes Of Multiple Sites (HCC) Expected: 03/14/2024, Expires: 03/14/2025 LD (Lactate Dehydrogenase) Lab Routine Follicular Lymphoma Grade I Lymph Nodes Of Multiple Sites (HCC) Expected: 03/14/2024, Expires: 03/14/2025 Potassium Lab Routine Follicular Lymphoma Grade I Lymph Nodes Of Multiple Sites (HCC) Expected: 03/14/2024, Expires: 03/14/2025 Scheduled Referrals Name Type Priority Associated Diagnoses Order Schedule Hematology office visit (clinic) [place]; Lymphoma; General Outpatient Referral Routine Expected: 03/14/2024, Expires: 03/14/2025 documented as of this encounter Results * (ABNORMAL) Creatinine with Estimated GFR (12/20/2023 12:40 PM CDT) Creatinine 1.40(H) 0.59 - 1.04 mg/dL 12/20/2023 1:10 PM CDT CNFL Estimated GFR (eGFR) 40(L) >=60 mL/min/BSA 12/20/2023 1:10 PM CDT CNFL Comment: Estimated GFR calculated using the 2020 CKD_EPI creatinine equation. Blood (Blood, Venous) 12/20/2023 12:40 PM CDT 12/20/2023 12:45 PM CDT Kitty Mora APRN.N.P., M.S.N. LAB BLOOD ADD-ON [facility] [address] [address], [facility] CNFL [facility] in [address] [address] * Potassium (12/20/2023 12:40 PM CDT) Potassium, P 4.3 3.6 - 5.2 mmol/L 12/20/2023 1:10 PM CDT CNFL Blood (Blood, Venous) 12/20/2023 12:40 PM CDT 12/20/2023 12:45 PM CDT Lani Mora APRNNJanes, M.S.N. 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
--- OUTSIDE RECORDS SUMMARY | 2024-02-27 09:38 | XMS_ITS | Encounter Summary ---
Author Organization [facility] Address [address] [place] [address] Care Team Providers Care Real Estate Representative Name Role Phone Unavailable Primary Care Provider Unavailabl e Encounter Details Date Type Department Care Team (Latest Contact Info) Description 12/13/2023 8:48 AM CDT - 12/13/2023 11:59 PM CDT Hospital Encounter Department of Laboratory Medicine and Pathology, [facility] in [place], [place] [address] [place] [address] Erik Casas M.D., Ph.D. [address] [place] [phone] Follicular Lymphoma Grade I Lymph Nodes Of Multiple Sites (HCC) Discharge Disposition: Home or Self Care Social History Tobacco Use Types Packs/Day Years Used Date Smoking Tobacco: Former Cigarettes 1.5 40 0 06/13/1968 - 10/29/2007 Smokeless Tobacco: Never Comments:patient quit 2007 Alcohol Use Standard Drinks/Week Comments No 0 (1 standard drink = 0.6 oz pur e alcohol) [facility] Utilities Answer Date Recorded In the past 12 months has e electric, gas, oil, or water [employer] threatened to shut off services in your [...] often do you attend chur ch or voodoo services? Never 07/25/2022 Do you belong to any clubs o r organizations such as quaker groups, unions, fraternal or athletic groups, [...] and heating? Not hard at all 07/25/2022 [facility] of Occupat ional Health - Occupational Stress [...] your living situation today? I have a [facility] place to live 08/26/2023 Education Answer Date [...] AM CDT Clinical Communication Virtual Review in [address] [phone] 03/14/2024 8:50 AM CDT Appointment Department of Laboratory Medicine and Pathology, [facility], in [place], [place] [address] [place] [address] Mandie Lizama APRN, C.N.P., M.S.N. [address] [place] [address] 03/14/2024 1:00 PM CDT Office Visit Division of Hematology in [place], [place] [address] [place] [address] Mandie Lizama APRN, C.N.P., M.S.N. [address] [place] [phone] documented as of this encounter Procedures Procedure Name Priority Date/Time Associated Diagnosis Comments CBC WITH DIFFERENTIAL, B Routine 024 9:04 AM CDT Follicular Lymphoma Grade I Lymph Nodes Of Multiple Sites (HCC) ASPARTATE AMINOTRANSFERASE (AST), S/P Routine 12/13/2023 9:04 AM CDT Follicular Lymphoma Grade I Lymph Nodes Of Multiple Sites (HCC) POTASSIUM, S/P Routine 12/13/2023 9:04 AM CDT [...] I Lymph Nodes Of Multiple Sites (HCC) documented in this encounter Results * (ABNORMAL) Potassium (12/13/2023 9:04 AM CDT) Potassium, S 5.5(H) 3.6 - 5.2 mmol/L 12/13/2023 10:07 AM CDT DTL Blood (Blood, Venous) 12/13/2023 9:04 AM CDT 12/13/2023 9:48 AM CDT Erik Casas M.D., Ph.D. LAB BLOOD A DD-ON Performing Organization Address [facility] [place] [address] * LD (Lactate Dehydrogenase) (12/13/2023 9:04 AM CDT) [facility] Lactate Dehydrogenase (LD), S 215 122 - 222 U/L 12/13/2023 10:07 AM CDT DTL Blood (Blood, Venous) 12/13/2023 9:04 AM CDT 12/13/2023 9:48 AM CDT Erik Casas M.D., Ph.D. LAB BLOOD N ON ADD-ON Performing Organization Address [facility] Co de Phone Number [facility] [address] [place] [address] * (ABNORMAL) Creatinine with Estimated GFR (12/13/2023 9:04 AM CDT) [facility] Creatinine 1.67(H) 0.59 - 1.04 mg/dL 12/13/2023 10:07 AM CDT DTL Estimated GFR (eGFR) 33(L) >=60 mL/min/BSA 12/13/2023 10:07 AM CDT DTL Comment: Estimated GFR calculated using the 2020 CKD_EPI creatinine equation. Blood (Blood, Venous) 12/13/2023 9:04 AM CDT 12/13/2023 9:48 AM CDT Erik Casas M.D., Ph.D. LAB BLOOD A DD-ON [facility] [address] [place] [address], [facility] [address] [place] [address] * (ABNORMAL) CBC with Differential, Blood (12/13/2023 [...] BLOOD A DD-ON Performing Organization Address [facility] Co de Phone Number [address] [place] [address] * Calcium, Total (12/13/2023 9:04 AM CDT) Calcium, Total, S 9.5 8.8 - 10.2 mg/dL 12/13/2023 10:07 AM CDT DTL Blood (Blood, Venous) 12/13/2023 9:04 AM CDT 12/13/2023 9:48 AM CDT Erik Casas M.D., Ph.D. LAB BLOOD A DD-ON [facility] [address] [place] [address] * Bilirubin, Total (12/13/2023 9:04 AM CDT) Bilirubin, Total, S 0.9 0.0 - 1.2 mg/dL 12/13/2023 10:07 AM CDT DTL Blood (Blood, Venous) 12/13/2023 9:04 AM CDT 12/13/2023 9:48 AM CDT Erik Casas M.D., Ph.D. LAB BLOOD A DD-ON Performing Organization Address [facility] Co de Phone Number [facility] [address] [place] [address] * AST (Aspartate Aminotransferase) (12/13/2023 9:04 AM CDT) Aspartate Aminotransferase (AST), S 18 8 - 43 U/L 12/13/2023 10:07 AM CDT DTL Blood (Blood, Venous) 12/13/2023 9:04 AM CDT 12/13/2023 9:48 AM CDT Erik Casas M.D., Ph.D. LAB BLOOD A DD-ON Performing Organization Address [facility] Co de Phone Number [facility] 200 [place], [place] [phone] [place] [address] 200 [place] [address] * (ABNORMAL) Alkaline Phosphatase (12/13/2023 9:04 AM CDT) Alkaline Phosphatase, S 130(H) 35 - 104 U/L 12/13/2023 10:07 AM CDT DTL Blood (Blood, Venous) 12/13/2023 9:04 AM CDT 12/13/2023 9:48 AM CDT Erik Casas M.D., Ph.D. LAB BLOOD A DD-ON Performing Organization Address [facility] Co de Phone Number [facility] [address] [place] [address] documented in this encounter Visit Diagnoses Diagnosis Follicular Lymphoma Grade I Lymph Nodes Of Multiple Sites (HCC) documented in this encounter Additional Health Concerns Assessment Noted Time PHQ-9 Depression Total Score: 3 09/01/19 14 7:36 AM CDT documented as of this encounter
--- OUTSIDE RECORDS SUMMARY | 2024-02-27 09:38 | XMS_ITS ---
Author Organization [facility] Address [address] [place] [address] Care Team Providers Care Creative Lead Name Role Phone Unavailable Unavailable Unavailable Surgery Details Not on file Complications Check Surgery Details section. Procedure Estimated Blood Loss Check Surgery Details section. Procedure Findings Check Surgery Details section. Procedure Specimens Taken Check Surgery Details section.
--- OUTSIDE RECORDS SUMMARY | 2024-02-27 09:38 | XMS_ITS | Referral Summary ---
Author Organization [facility] Address [address] [place] [address] Care Team Providers Care Banbury Mixer Operator Name Role Phone Unavailable Primary Care Provider Unavailabl e Source Comments Patient records contain information from all sites at [facility]. For routine questions regarding patient records, call [phone] during business hours, M-F 8:00 AM - 5:00 PM Central Time. Record requests for emergency care only can be directed to [phone] at any time.[facility] Encounters Date Type Department Care Team Description 12/20/2023 12:33 PM CDT - 12/20/2023 11:59 PM CDT Hospital Encounter Department of Laboratory Medicine in [address] [address] Mandie Lizama APRN C.N.P., M.S.N. Elevated Creatinine Discharge Disposition: Home or Self Care 12/13/2023 1:00 PM CDT Office Visit Division of Hematology in [place], [place] [address] [place] [address] Mandie Lizmaa APRN, C.N.P., M.S.N. 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, in [place], [place] [address] [place] [address] Erik Casas M.D., Ph.D. Follicular Lymphoma Grade I Lymph Nodes Of Multiple Sites (HCC) Discharge Disposition: Home or Self Care 12/12/2023 12:00 PM CDT Clinical Communication Virtual Review in [place], [place] [address] [place] [address] Pre-visit Intake from Last 3 Months Allergies Active Allergy [...] 04/13/2013 PCV13 01/24/2015,11/13/2012 PPSV23 12/12/2012 Tdap 01/24/2015,05/13/2011 Social History Tobacco Use Types Packs/Day Years Used Date Smoking Tobacco: Former Cigarettes 1.5 40 0 06/13/1968 - 10/29/2007 Smokeless Tobacco: Never Tobacco Cessation:Counseling Given: Not Answered Comments:patient quit 2007 Alcohol Use Standard Drinks/Week Comments No 0 (1 standard drink = 0.6 oz pur e alcohol) [facility] Utilities Answer Date Recorded In the past 12 months has e [employer], gas, oil, or water company threatened to [...] week 07/25/2022 How often do you attend [facility] or jainism services? Never 07/25/2022 Do you belong to any clubs o r organizations such as congregational groups, unions, fraternal or athletic groups, [...] and heating? Not hard at all 07/25/2022 [facility] of Occupat ional Health - Occupational Stress [...] your living situation today? I have a [facility] place to live 08/26/2023 Education Answer [...] AM CDT Clinical Communication Virtual Review in [place], [place] [address] [place] [address] 03/14/2024 8:50 AM CDT Appointment Department of Laboratory Medicine and Pathology, [facility] in [address] [address] Mandie Lizama APRN, C.N.P., M.S.N. [address] [place] [phone] 03/14/2024 1:00 PM CDT Office Visit Division of Hematology in [address] [address] Mandie Lizama APRN C.N.P., M.S.N. [address] [place] [phone] Medical Devices Implanted Type Area Assistant Family Teacher Device Identifier Shelf Expiration Date Model / Serial / Lot Hip Implant Hip Implant Bilateral : Hip Knee Implant Knee Implant Bilateral : Knee Ocular Lens Ocular Lens Bilateral : Eye Explanted Type Area Assistant Family Teacher Device Identifier Shelf Expiration Date Model / Serial / Lot Stent Inlay 7 X 26 - Carbone [id number] Implanted:Qty: 1 on 08/27/2011 Ureteral Stent Ureter [employer]ard Description:Device Manufactu rer - [employer]. Device Status Text - [id number]. Stent Inlay 7 X 26 - Carbone [id number] Implanted:Qty: 1 on 12/13/2011 Ureteral Stent Ureter [employer].Bard Description:Device Manufactu rer - [employer]. Device Status Text - [id number]. Procedures Procedure Name Priority Date/Time Associated Diagnosis [...] GLUCOSE, FASTING, S/P Routine 05/03/2018 9:30 AM TABLEMAN Lymphoma Non Hodgkins Intrapelvic (HCC) PULMONARY FUNCTION TESTS Routine 014 12:17 PM CDT URINALYSIS WITH MICROSCOPIC Routine 10/19/2013 7:38 AM CDT 25-HYDROXYVITAMIN D2 AND D3, S Routine 03/14/2013 6:14 AM CDT PATHOLOGY BURLAP BAG SEWER CYTOLOGY Routine 2 2:47 PM CDT from [...] Lizama APRN, C.N.P., M.S.N. LAB BLOOD ADD-ON [facility] [address] [place] [address], [facility] CNFL [facility] [place] [address] * (ABNORMAL) Creatinine with Estimated GFR (12/20/2023 [...] Lizama APRN, C.N.P., M.S.N. LAB BLOOD ADD-ON [facility] [address] [place] [address], [facility] in [address] [address] * (ABNORMAL) CBC with Differential, Blood (12/13/2023 [...] - 0.08 x10(9)/L 12/13/2023 10:10 AM CDT DT Blood (Blood, Venous) 12/13/2023 9:04 AM CDT 12/13/2023 9:26 AM CDT Erik Casas M.D., Ph.D. LAB BLOOD A DD-ON [facility] [address] [place], [place] [phone] [place] [address] [address] [place] [address] * AST (Aspartate Aminotransferase) (12/13/2023 9:04 AM CDT) Aspartate Aminotransferase (AST), S 18 8 - 43 U/L 12/13/2023 10:07 AM CDT DT Blood (Blood, Venous) 12/13/2023 9:04 AM CDT 12/13/2023 9:48 AM CDT Erik Casas M.D., Ph.D. LAB BLOOD A DD-ON Performing Organization Address [facility] Co de Phone Number [facility] [address] [place], [place] [phone] [place] [address] [address] [place] [address] * (ABNORMAL) Alkaline Phosphatase (12/13/2023 9:04 AM CDT) Alkaline Phosphatase, S 130(H) 35 - 104 U/L 12/13/2023 10:07 AM CDT DT Blood (Blood, Venous) 12/13/2023 9:04 AM CDT 12/13/2023 9:48 AM CDT Erik Casas M.D., Ph.D. LAB BLOOD A DD-ON [facility] [address] [place] [address] * LD (Lactate Dehydrogenase) (12/13/2023 9:04 AM CDT) Lactate Dehydrogenase (LD), S 215 122 - 222 U/L 12/13/2023 10:07 AM CDT DT Blood (Blood, Venous) 12/13/2023 9:04 AM CDT 12/13/2023 9:48 AM CDT Erik Casas M.D., Ph.D. LAB BLOOD N ON ADD-ON [facility] 200 [place] [address], [facility] 200 [place] [address] * Calcium, Total (12/13/2023 9:04 AM CDT) Pathologist [facility] Calcium, Total, S 9.5 8.8 - 10.2 mg/dL 12/13/2023 10:07 AM CDT DT Blood (Blood, Venous) 12/13/2023 9:04 AM CDT 12/13/2023 9:48 AM CDT Erik Casas M.D., Ph.D. LAB BLOOD A DD-ON [facility] 200 [place] [address], [facility] 200 [place] [address] * Bilirubin, Total (12/13/2023 9:04 AM CDT) Bilirubin, Total, S 0.9 0.0 - 1.2 mg/dL 12/13/2023 10:07 AM CDT DT Blood (Blood, Venous) 12/13/2023 9:04 AM CDT 12/13/2023 9:48 AM CDT Erik Casas M.D., Ph.D. LAB BLOOD A DD-ON Performing Organization Address [facility] de Phone Number [facility] [address] DTL [facility] [address] [place] [address] * MM clip placement LT-Outside Mammogram (08/22/2023 [...] System IMG BI PROCEDURES Performing Organization Address [facility] de Phone Number [facility] NA * Glucose, Fasting (05/03/2018 9:30 AM TABLEMAN) Glucose, P 93 70 - 100 mg/dL 05/03/2018 10:25 AM TABLEMAN [facility] Last Intake 17 hr 05/03/2018 9:51 AM TABLEMAN [facility] Blood 05/03/2018 9:30 AM TABLEMAN 05/03/2018 9:51 AM TABLEMAN Erik Casas M.D., Ph.D. LAB BLOOD N ON ADD-ON Performing Organization Address [facility] de Phone Number [facility] [address] * Pulmonary Function Tests (10/23/2013 12:17 PM CDT) 10/23/2013 12:1 7 PM CDT Historical Provider PFT ORDERABLES Performing Organization Address [facility] de Phone Number [facility] [address] * (ABNORMAL) Urinalysis with Microscopic (10/19/2013 7:38 AM CDT) Source Midstream [facility] Appearance Normal Normal [facility] pH, 24 HR, U 6.7 4.5 - 8.0 [facility] Protein/Osmola lity 0.74(H) <0.12 RATIO [facility] Glucose 16(H) 0 - 15 MG/DL [facility] Protein, U 39(H) 0 - 19 MG/DL [facility] Hemoglobin, QL Negative Negative [facility] Osmolality, 24 HR, U 524 150 - 1150 MOSM/KG [facility] Predicted 24 Hr Protein 512 MG/24 H [facility] Predicted Range 126-2071 MG/24 H [facility] 10/19/2013 7:38 AM CDT 10/19/2013 7:38 AM CDT Erik Casas M.D., Ph.D. LAB URINE O RDERABLES [facility] [address] * 25-Hydroxyvitamin D2 and D3 (03/14/2013 6:14 AM CDT) [facility] 25-Hydroxy D Total 24 SeeComment NG/ML [facility] Comment: Reference Range: ? 25-HYDROXY D TOTAL (D2+D3) Optimum levels in the healthy ? population are 20-50, patients with bone disease may ? benefit from higher levels within this range. ? 25-Hydroxy D2 <4.0 NG/ML [facility] 25-Hydroxy D3 24 NG/ML [facility] 03/14/2013 6:14 AM CDT 03/14/2013 6:14 AM CDT Fela Hanna P.A.-C., M.S. LAB BLOOD ADD-ON [facility] [address] * Pathology BURLAP BAG SEWER Cytology (10/04/2011 2:47 PM CDT) 10/04/2011 2:47 PM CDT 10/04/2011 2:47 PM CDT Narrative [facility] - 10/04/2011 2:47 PM CDT ??10/04/2011 Cytology Gynecological ?([id number]) ? Requested By:Brenda Garcia ??[id number] ?DIAGNOSIS: A. ??ThinPrep Pap Test Diagnostic (Cervical/Endocervical HPV Reflex): ?Satisfactory for evaluation. ?? Scanty cellularity. ?Squamous epithelial cell abnormality ?Atypical squamous cells of undetermined significance. Favor treatment effect. ?? Seen in consultation with Dr. Sabra Wilson. ? HPV testing was performed by [employer] and is negative for HPV types 16,18,31,33,35,39,45,51,52,56,58,59 and 68. ? The HPV assay is performed in the Clinical Virology Laboratory at [facility]. ?? ANITA Guerrero(ASCP) ?? 10/07/2011 12:16 Interpreted by: Silas Rizzo M.D., PhD. Report electronically signed by Silas Rizzo M.D., PhD. ?? Transcribed by: [facility] ??10/07/2011 10:59:25 ? SPECIMEN DESCRIPTION: A. ??ThinPrep Pap Test Diagnostic (Cervical/Endocervical HPV Reflex): ??Received cloudy specimen in ThinPrep vial. Procedure Note 09/07/2017 10/04/2011 Cytology Gynecological ([id number]) Requested By:Fela Hanna PJimiAJimi -C. [id number] DIAGNOSIS: A. ThinPrep Pap Test Diagnostic (Cervical/Endocervical HPV Reflex): Satisfactory for evaluation. Scanty cellularity. Squamous epithelial cell abnormality Atypical squamous cells of undetermined significance. Favor treatment effect. Seen in consultation with Dr. Sabra Wilson. HPV testing was performed by [employer] II and is negative for HPV types 16,18,31,33,35,39,45,51,52,56,58,59 and 68. The HPV assay is performed in the Clinical Virology Laboratory at [facility]. ANITA Guerrero(ASCP) 10/07/2011 12:16 Interpreted by: Silas Rizzo M.D., PhD. Report electronically signed by Silas Rizzo M.D., PhD. Transcribed by: [facility] 10/07/2011 10:59:25 SPECIMEN DESCRIPTION: A. ThinPrep Pap Test Diagnostic (Cervical/Endocervical HPV Reflex): Received cloudy specimen in ThinPrep vial. Fela Hanna P.A.-C., M.S. LAB PAP CO PATH ORDERABLES [facility] [address] from Last 3 Months or Most Recently Relevant to Health Maintenance
--- OUTSIDE RECORDS SUMMARY | 2024-02-27 09:38 | XMS_ITS | Encounter Summary ---
Author Organization [facility] Address [address] [place] [address] Care Team Providers Care Director Weights And Measures Name Role Phone Unavailable Primary Care Provider Unavailabl e Reason for Visit * Reason Onset Date Comments Pre-visit Intake 12/12/2023 Encounter Details Date Type Department Care Team (Latest Contact Info) Description 12/12/2023 12:00 PM CDT Clinical Communication Virtual Review in [place], [place] [address] [place] [address] Pre-visit Intake Social History Tobacco Use Types Packs/Day Years Used Date Smoking Tobacco: Former Cigarettes 1.5 40 0 06/13/1968 - 10/29/2007 Smokeless Tobacco: Never Tobacco Cessation:Counseling Given: Not Answered Comments:patient quit 2007 Alcohol Use Standard Drinks/Week Comments No 0 (1 standard drink = 0.6 oz pur e alcohol) [facility] Utilities Answer Date Recorded In the past 12 months has [employer], gas, oil, or water [employer] threatened to shut off services in your [...] How often do you attend chur or roman catholic services? Never 07/25/2022 Do you belong to [...] and heating? Not hard at all 07/25/2022 [facility] of Occupat ional Health - Occupational [...] your living situation today? [facility] 08/26/2023 Education Answer [...] AM CDT Clinical Communication Virtual Review in [place], [place] [address] [place] [address] 03/14/2024 8:50 AM CDT Appointment Department of Laboratory Medicine and Pathology, [facility], in [place], [place] [address] [place] [phone] Mandie Lizama APRN, C.N.P., M.S.N. [address] [place] [phone] 03/14/2024 1:00 PM CDT Office Visit Division of Hematology in [place], [place] [address] [place] [address] Mandie Lizama APRN, C.N.P., M.S.N. [address] [place] [address] documented as of this encounter Visit Diagnoses Not on filedocumented in this encounter Additional Health Concerns Assessment Noted Time PHQ-9 Depression Total Score: 3 09/01/19 14 7:36 AM CDT documented as of this encounter
== END 2024-02-27 09:34 | disposition home or self-care (01) ==
LOC: NFLDREF 09:33
PROVIDERS: PCP Internal Medicine; Visit Provider Internal Medicine
DX: Z01.818 Encounter for other preprocedural examination (principal)
CPT/HCPCS: 80053

== ENCOUNTER 2024-03-08 06:02 | Day surgery (SDC) | payer MEDICARE, SELFPAY ==
[2024-03-08] VITALS (19 sets, daily range): BP systolic 121–162; BP diastolic 55–82; PULSE 55–95; RESP 14–16; TEMP 36–36.3; O2SAT 90–100; BMI 25.9
--- OUTSIDE RECORDS SUMMARY | 2024-03-08 06:04 | XMS_ITS ---
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 Procedure Estimated Blood Loss Check Surgery Details section. Procedure Findings Check Surgery Details section. Procedure Specimens Taken Check Surgery Details section.
--- OUTSIDE RECORDS SUMMARY | 2024-03-08 06:04 | XMS_ITS | Encounter Summary ---
Author Organization [facility] Address [address] [place] [address] Care Team Providers Care Green Ware Caster Name Role Phone Unavailable Primary Care Provider Unavailabl e Encounter Details Date Type Department Care Team (Latest Contact Info) Description 12/13/2023 8:48 AM CDT - 12/13/2023 11:59 PM CDT Hospital Encounter Department of Laboratory Medicine and Pathology, [facility] in [place], [place] [address] [place] [address] Erik Casas M.D., Ph.D. [address] [place] [address] Follicular Lymphoma Grade I Lymph Nodes Of [...] has e electric, gas, oil, or water [employer] threatened to shut off services in your [...] often do you attend chur ch or quaker services? Never 07/25/2022 Do you belong to any clubs o r organizations such as rastafarian groups, unions, fraternal or athletic groups, [...] Not hard at all 07/25/2022 [facility] of Occupat ional Health - Occupational Stress [...] your living situation today? I have a [facility] place to live 08/26/2023 Education Answer [...] AM CDT Clinical Communication Virtual Review in [address] [phone] 03/14/2024 8:50 AM CDT Appointment Department of Laboratory Medicine and Pathology, [facility], in [place], [place] [address] [place] [address] Mandie Lizama APRN, C.N.P., M.S.N. [address] [place] [address] 03/14/2024 1:00 PM CDT Office Visit Division of Hematology in [place], [place] [address] [place] [address] Mandie Lizama APRN, C.N.P., M.S.N. [address] [place] [phone] documented as of this encounter Procedures Procedure [...] LAB BLOOD A DD-ON Performing Organization Address [facility] [place] [address] * LD (Lactate Dehydrogenase) (12/13/2023 9:04 AM CDT) [facility] Lactate Dehydrogenase (LD), S 215 122 - 222 U/L 12/13/2023 10:07 AM CDT DTL Blood (Blood, Venous) 12/13/2023 9:04 AM CDT 12/13/2023 9:48 AM CDT Erik Casas M.D., Ph.D. LAB BLOOD N ON ADD-ON Performing Organization Address [facility] Co de Phone Number [facility] [address] [place] [address] * (ABNORMAL) Creatinine with Estimated GFR (12/13/2023 9:04 AM CDT) [facility] Creatinine 1.67(H) 0.59 - 1.04 mg/dL 12/13/2023 10:07 AM CDT DTL Estimated GFR (eGFR) 33(L) >=60 mL/min/BSA 12/13/2023 10:07 AM CDT DTL Comment: Estimated GFR calculated using the 2020 CKD_EPI creatinine equation. Blood (Blood, Venous) 12/13/2023 9:04 AM CDT 12/13/2023 9:48 AM CDT Erik Casas M.D., Ph.D. LAB BLOOD A DD-ON [facility] [address] [place] [address], [facility] DTFormerly [facility] [address] [place] [address] * (ABNORMAL) CBC with Differential, Blood (12/13/2023 [...] LAB BLOOD A DD-ON Performing Organization Address [facility] Co de Phone Number [address] [place] [address] * Calcium, Total (12/13/2023 9:04 AM CDT) Calcium, Total, S 9.5 8.8 - 10.2 mg/dL 12/13/2023 10:07 AM CDT DTL Blood (Blood, Venous) 12/13/2023 9:04 AM CDT 12/13/2023 9:48 AM CDT Erik Casas M.D., Ph.D. LAB BLOOD A DD-ON [facility] [address] [place] [address] * Bilirubin, Total (12/13/2023 9:04 AM CDT) Bilirubin, Total, S 0.9 0.0 - 1.2 mg/dL 12/13/2023 10:07 AM CDT DTL Blood (Blood, Venous) 12/13/2023 9:04 AM CDT 12/13/2023 9:48 AM CDT Erik Casas M.D., Ph.D. LAB BLOOD A DD-ON Performing Organization Address [facility] Co de Phone Number [facility] [address] [place] [address] * AST (Aspartate Aminotransferase) (12/13/2023 9:04 AM CDT) Aspartate Aminotransferase (AST), S 18 8 - 43 U/L 12/13/2023 10:07 AM CDT DTL Blood (Blood, Venous) 12/13/2023 9:04 AM CDT 12/13/2023 9:48 AM CDT Erik Casas M.D., Ph.D. LAB BLOOD A DD-ON Performing Organization Address [facility] Co de Phone Number [facility] 200 [place], [place] [address] [place] [address] 200 [place] [address] * (ABNORMAL) Alkaline Phosphatase (12/13/2023 9:04 AM CDT) Alkaline Phosphatase, S 130(H) 35 - 104 U/L 12/13/2023 10:07 AM CDT DTL Blood (Blood, Venous) 12/13/2023 9:04 AM CDT 12/13/2023 9:48 AM CDT Erik Casas M.D., Ph.D. LAB BLOOD A DD-ON Performing Organization Address [facility] Co de Phone Number [facility] [address] [place] [address] documented in this encounter Visit Diagnoses Diagnosis Follicular Lymphoma Grade I Lymph Nodes Of Multiple Sites (HCC) documented in this encounter Additional Health Concerns Assessment Noted Time PHQ-9 Depression Total Score: 3 09/01/19 14 7:36 AM CDT documented as of this encounter
--- OUTSIDE RECORDS SUMMARY | 2024-03-08 06:04 | XMS_ITS | Referral Summary ---
Author Organization [facility] Address [address] [place] [address] Care Team Providers Care Youth Associate Name Role Phone Unavailable Primary Care Provider Unavailabl e Source Comments Patient records contain information from all sites at [facility]. For routine questions regarding patient records, call [phone] during business hours, M-F 8:00 AM - 5:00 PM Central Time. Record requests for emergency care only can be directed to [phone] at any time.[facility] Encounters Date Type Department Care Team Description 12/20/2023 12:33 PM CDT - 12/20/2023 11:59 PM CDT Hospital Encounter Department of Laboratory Medicine in [address] [phone] Mandie Lizama APRN C.N.P., M.S.N. Elevated Creatinine Discharge Disposition: Home or Self Care 12/13/2023 1:00 PM CDT Office Visit Division of Hematology in [place], [place] [address] [place] [address] Mandie Lizama APRN, C.N.P., M.S.N. 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 Follicular Lymphoma Grade I Lymph Nodes Of Multiple Sites (HCC) Discharge Disposition: Home or Self Care 12/12/2023 12:00 PM CDT Clinical Communication Virtual Review in [place], [place] [address] [place] [address] Pre-visit Intake from Last 3 Months Allergies [...] drink = 0.6 oz pur e alcohol) [facility] Utilities Answer Date Recorded In the past 12 months has e [employer], gas, oil, or water company threatened to [...] week 07/25/2022 How often do you attend [facility] or mormonism services? Never 07/25/2022 Do you belong to any clubs o r organizations such as jewish groups, unions, fraternal or athletic groups, [...] and heating? Not hard at all 07/25/2022 [facility] of Occupat ional Health - Occupational Stress [...] your living situation today? I have a [facility] place to live 08/26/2023 Education Answer [...] AM CDT Clinical Communication Virtual Review in [place], [place] [address] [place] [address] 03/14/2024 8:50 AM CDT Appointment Department of Laboratory Medicine and Pathology, [facility] in [address] [address] Mandie Lizama APRN, C.N.P., M.S.N. [address] [place] [phone] 03/14/2024 1:00 PM CDT Office Visit Division of Hematology in [address] [address] Mandie Lizama APRN C.N.P., M.S.N. [address] [place] [phone] Medical Devices Implanted Type Area It Risk Advisor Device Identifier Shelf Expiration Date Model / Serial / Lot Hip Implant Hip Implant Bilateral : Hip Knee Implant Knee Implant Bilateral : Knee Ocular Lens Ocular Lens Bilateral : Eye Explanted Type Area It Risk Advisor Device Identifier Shelf Expiration Date Model / Serial / Lot Stent Inlay 7 X 26 - Carbone [id number] Implanted:Qty: 1 on 08/27/2011 Ureteral Stent Ureter [employer] Description:Device Manufactu rer - [employer]. Device Status Text - [id number]. Stent Inlay 7 X 26 - Carbone [id number] Implanted:Qty: 1 on 12/13/2011 Ureteral Stent Ureter C[employer]Bard Description:Device Manufactu rer - [employer]. Device Status Text - [id number]. Procedures Procedure Name Priority Date/Time Associated Diagnosis [...] GLUCOSE, FASTING, S/P Routine 05/03/2018 9:30 AM MANAGER CHANNEL Lymphoma Non Hodgkins Intrapelvic (HCC) PULMONARY FUNCTION TESTS Routine 014 12:17 PM CDT URINALYSIS WITH MICROSCOPIC Routine 10/19/2013 7:38 AM CDT 25-HYDROXYVITAMIN D2 AND D3, S Routine 03/14/2013 6:14 AM CDT PATHOLOGY SUPPLY CHAIN MANAGER CYTOLOGY Routine 2 2:47 PM CDT from [...] Lizama APRN, C.N.P., M.S.N. LAB BLOOD ADD-ON [facility] [address] [place] [address], [facility] CNFL [place] [address] * (ABNORMAL) Creatinine with Estimated GFR (12/20/2023 [...] Lizama APRN, C.N.P., M.S.N. LAB BLOOD ADD-ON [facility] [address] [place] [phone], [facility] in [address] [address] * (ABNORMAL) CBC with Differential, Blood (12/13/2023 [...] Casas M.D., Ph.D. LAB BLOOD A DD-ON [facility] [address] [place], [place] [phone] [place] [address] [address] [place] [address] * AST (Aspartate Aminotransferase) (12/13/2023 9:04 AM CDT) Aspartate Aminotransferase (AST), S 18 8 - 43 U/L 12/13/2023 10:07 AM CDT DT Blood (Blood, Venous) 12/13/2023 9:04 AM CDT 12/13/2023 9:48 AM CDT Erik Casas M.D., Ph.D. LAB BLOOD A DD-ON Performing Organization Address [facility] Co de Phone Number [facility] [address] [place], [place] [phone] [place] [address] [address] [place] [address] * (ABNORMAL) Alkaline Phosphatase (12/13/2023 9:04 AM CDT) Alkaline Phosphatase, S 130(H) 35 - 104 U/L 12/13/2023 10:07 AM CDT DT Blood (Blood, Venous) 12/13/2023 9:04 AM CDT 12/13/2023 9:48 AM CDT Erik Casas M.D., Ph.D. LAB BLOOD A DD-ON [facility] [address] [place] [address] [place] [address] * LD (Lactate Dehydrogenase) (12/13/2023 9:04 AM CDT) Lactate Dehydrogenase (LD), S 215 122 - 222 U/L 12/13/2023 10:07 AM CDT DT Blood (Blood, Venous) 12/13/2023 9:04 AM CDT 12/13/2023 9:48 AM CDT Erik Casas M.D., Ph.D. LAB BLOOD N ON ADD-ON [facility] [address] [place] [address], [facility] [address] [place] [address] * Calcium, Total (12/13/2023 9:04 AM CDT) Pathologist [facility] Calcium, Total, S 9.5 8.8 - 10.2 mg/dL 12/13/2023 10:07 AM CDT DT Blood (Blood, Venous) 12/13/2023 9:04 AM CDT 12/13/2023 9:48 AM CDT Erik Casas M.D., Ph.D. LAB BLOOD A DD-ON [facility] [address] [place] [address], [facility] [address] [place] [address] * Bilirubin, Total (12/13/2023 9:04 AM CDT) Bilirubin, Total, S 0.9 0.0 - 1.2 mg/dL 12/13/2023 10:07 AM CDT DT Blood (Blood, Venous) 12/13/2023 9:04 AM CDT 12/13/2023 9:48 AM CDT Erik Casas M.D., Ph.D. LAB BLOOD A DD-ON Performing Organization Address [facility] de Phone Number [facility] [address] DTL [facility] [address] [place] [address] * MM clip placement LT-Outside Mammogram (08/22/2023 [...] System IMG BI PROCEDURES Performing Organization Address [facility] de Phone Number [facility] NA * Glucose, Fasting (05/03/2018 9:30 AM MANAGER CHANNEL) Glucose, P 93 70 - 100 mg/dL 05/03/2018 10:25 AM MANAGER CHANNEL [facility] Last Intake 17 hr 05/03/2018 9:51 AM MANAGER CHANNEL [facility] Blood 05/03/2018 9:30 AM MANAGER CHANNEL 05/03/2018 9:51 AM MANAGER CHANNEL Erik Casas M.D., Ph.D. LAB BLOOD N ON ADD-ON Performing Organization Address [facility] de Phone Number [facility] [address] * Pulmonary Function Tests (10/23/2013 12:17 PM CDT) 10/23/2013 12:1 7 PM CDT Historical Provider PFT ORDERABLES Performing Organization Address [facility] de Phone Number [facility] [address] * (ABNORMAL) Urinalysis with Microscopic (10/19/2013 7:38 AM CDT) Source Midstream [facility] Appearance Normal Normal [facility] pH, 24 HR, U 6.7 4.5 - 8.0 [facility] Protein/Osmola lity 0.74(H) <0.12 RATIO [facility] Glucose 16(H) 0 - 15 MG/DL [facility] Protein, U 39(H) 0 - 19 MG/DL [facility] Hemoglobin, QL Negative Negative [facility] Osmolality, 24 HR, U 524 150 - 1150 MOSM/KG [facility] Predicted 24 Hr Protein 512 MG/24 H [facility] Predicted Range 126-2071 MG/24 H [facility] 10/19/2013 7:38 AM CDT 10/19/2013 7:38 AM CDT Erik Casas M.D., Ph.D. LAB URINE O RDERABLES [facility] [address] * 25-Hydroxyvitamin D2 and D3 (03/14/2013 6:14 AM CDT) [facility] 25-Hydroxy D Total 24 SeeComment NG/ML [facility] Comment: Reference Range: ? 25-HYDROXY D TOTAL (D2+D3) Optimum levels in the healthy ? population are 20-50, patients with bone disease may ? benefit from higher levels within this range. ? 25-Hydroxy D2 <4.0 NG/ML [facility] 25-Hydroxy D3 24 NG/ML [facility] 03/14/2013 6:14 AM CDT 03/14/2013 6:14 AM CDT Fela Hanna P.A.-C., M.S. LAB BLOOD ADD-ON [facility] [address] * Pathology SUPPLY CHAIN MANAGER Cytology (10/04/2011 2:47 PM CDT) 10/04/2011 2:47 PM CDT 10/04/2011 2:47 PM CDT Narrative [facility] - 10/04/2011 2:47 PM CDT ??10/04/2011 Cytology Gynecological ?([id number]) ? Requested By:Brenda Garcia ??[id number] ?DIAGNOSIS: A. ??ThinPrep Pap Test Diagnostic (Cervical/Endocervical [...] performed in the Clinical Virology Laboratory at [facility]. ?? ANITA Guerrero(ASCP) ?? 10/07/2011 12:16 Interpreted by: Silas Rizzo M.D., PhD. Report electronically signed by Silas Rizzo M.D., PhD. ?? Transcribed by: [facility] ??10/07/2011 10:59:25 ? SPECIMEN DESCRIPTION: A. ??ThinPrep Pap Test Diagnostic (Cervical/Endocervical HPV Reflex): ??Received cloudy specimen in ThinPrep vial. Procedure Note 09/07/2017 10/04/2011 Cytology Gynecological ([id number]) Requested By:Fela Hanna PJimiAJimi -C. [id number] DIAGNOSIS: A. ThinPrep Pap Test Diagnostic (Cervical/Endocervical HPV Reflex): Satisfactory for evaluation. Scanty cellularity. Squamous epithelial cell abnormality Atypical squamous cells of undetermined significance. Favor treatment effect. Seen in consultation with Dr. Sabra Wilson. HPV testing was performed by [employer]ene Hybrid Capture II and is negative for HPV types 16,18,31,33,35,39,45,51,52,56,58,59 and 68. The HPV assay is performed in the Clinical Virology Laboratory at [facility]. ANITA Guerrero(ASCP) 10/07/2011 12:16 Interpreted by: Silas Rizzo M.D., PhD. Report electronically signed by Silas Rizzo M.D., PhD. Transcribed by: [facility] 10/07/2011 10:59:25 SPECIMEN DESCRIPTION: A. ThinPrep Pap Test Diagnostic (Cervical/Endocervical HPV Reflex): Received cloudy specimen in ThinPrep vial. Fela Hanna P.A.-C., M.S. LAB PAP CO PATH ORDERABLES [facility] [address] from Last 3 Months or Most Recently Relevant to Health Maintenance
--- OUTSIDE RECORDS SUMMARY | 2024-03-08 06:04 | XMS_ITS | Encounter Summary ---
Author Organization [facility] Address [address] [place] [address] Care Team Providers Care Dough Catcher Name Role Phone Unavailable Primary Care Provider Unavailabl e Reason for Referral * Outpatient (Routine) - Authorized Specialty Diagnoses / Procedures Referred By Caren arboleda Referred To Contact Hematology Oncology Mandie Lizama APRN, C.NJanes, M.S.N. [address] [place] [phone] [facility] Referral ID Status Reason Start Date Expiration Date V isits Requested Visits Authorized [id number] Authorized 12/13/2023 06/13/2025 1 1 Reason for Visit * Outpatient (Routine) - Closed Specialty Diagnoses / Procedures Referred By Contac t Referred To Contact Hematology Oncology Erik Casas M.D., Ph.D. [address] [place] [phone] [facility] Referral ID Status Reason Start Date Expiration Date Visits Re quested Visits Authorized [id number] Closed 09/14/2023 03/15/2025 1 1 Encounter Details Date Type Department Care Team (Late st Contact Info) Description 12/13/2023 1:00 PM CDT Office Visit Division of Hematology in [place], [place] [address] [place] [address] Mandie Lizama APRN, C.N.P., M.S.N. 200 [place] [address] Follicular Lymphoma Grade I Lymph Nodes Of [...] drink = 0.6 oz pur e alcohol) [facility] [employer] Answer Date Recorded In the past 12 months has e [employer], gas, oil, or water [employer] threatened to shut off services in your [...] How often do you attend chur or protestant services? Never 07/25/2022 Do you belong to any clubs o r organizations such as restoration groups, unions, fraternal or athletic groups, or [...] and heating? 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 Stage JULIA. Bone marrow 10% involvement 08/31/2011 - 12/14/2011 Chemotherapy Study protocol [id number]: Phase I/II: Lenalidomide + R-CHOP (R2CHOP) x [...] Symmetrical movements, clear to auscultation in all monahan. No cough, wheezing, crackles or shortness of [...] AM CDT Clinical Communication Virtual Review in [address] [phone] 03/14/2024 8:50 AM CDT Appointment Department of Laboratory Medicine and Pathology, [facility], in [address] [address] Mandie Lizama APRN C.N.P., M.S.N. [address] [place] [phone] 03/14/2024 1:00 PM CDT Office Visit Division of Hematology in [address] [phone] Mandie Lizama APRN C.N.P., M.S.N. [address] [place] [phone] Scheduled Orders Name Type Priority Associated Diagnoses [...] Diagnoses Order Schedule Hematology office visit (clinic) [place]; Lymphoma; General Outpatient Referral Routine Expected: [...] Kitty Mora APRN.N.P., M.S.N. LAB BLOOD ADD-ON [facility] [address] [address], [facility] CNFL [facility] in [address] [address] * Potassium (12/20/2023 12:40 PM CDT) Potassium, P 4.3 3.6 - 5.2 mmol/L 12/20/2023 1:10 PM CDT CNFL Blood (Blood, Venous) 12/20/2023 12:40 PM CDT 12/20/2023 12:45 PM CDT Lani Mora APRNNJanes, M.S.N. LAB BLOOD ADD-ON [facility] [address] [place] [address], [facility] CNFL [facility] in [address] [address] documented in this encounter Visit Diagnoses Diagnosis [...]
--- OUTSIDE RECORDS SUMMARY | 2024-03-08 06:04 | XMS_ITS | Clinical Summary ---
Author Organization [facility] Address [address] [place] [address] Care Team Providers Care Associate Store Manager Name Role Phone Unavailable Primary Care Provider Unavailabl e Source Comments Patient records contain information from all sites at [facility]. For routine questions regarding patient records, call [phone] during business hours, M-F 8:00 AM - 5:00 PM Central Time. Record requests for emergency care only can be directed to [phone] at any time.[facility] Allergies Active Allergy Reactions Criticality Noted [...] Hospital Encounter Department of Laboratory Medicine in [place] [phone] Mandie Lizama APRN, C.NSheyla., M.S.N. Elevated Creatinine Discharge Disposition: Home or Self Care 12/13/2023 1:00 PM CDT Office Visit Division of Hematology in [place], [place] [address] [place] [phone] Mandie Lizama APRN, C.Marco., M.S.N. 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 Follicular Lymphoma Grade I Lymph Nodes Of Multiple Sites (HCC) Discharge Disposition: Home or Self Care 12/12/2023 12:00 PM CDT Clinical Communication Virtual Review in [place], [place] [address] [place] [address] Pre-visit Intake from Last 3 Months Immunizations [...] drink = 0.6 oz pur e alcohol) [facility] Utilities Answer Date Recorded In the [...] often do you attend chur ch or samaritan services? Never 07/25/2022 Do you belong to any clubs o r organizations such as sabianism groups, unions, fraternal or athletic groups, [...] and heating? Not hard at all 07/25/2022 [facility] [place] of Occupat ional Health - Occupational Stress [...] your living situation today? I have a [facility] place to live 08/26/2023 Education [...] AM CDT Clinical Communication Virtual Review in [place], [place] [address] [place] [address] 03/14/2024 8:50 AM CDT Appointment Department of Laboratory Medicine and Pathology, [facility], in [place], [place] [address] [place] [phone] Mandie Lizama APRN, C.N.P., M.S.N. [address] [place] [phone] 03/14/2024 1:00 PM CDT Office Visit Division of Hematology in [address] [phone] Mandie Lizama APRN, C.N.P., M.S.N. [address] [place] [phone] Health Maintenance Due Date Last Done Comments Bone Density Scan Monitoring 1953 CT Colonography 1955 Dental Prophylaxis 1955 Dilated Eye Exam 1955 Serum Protein Electrophoresi s (SPEP) 1955 Thyroid Function [place] 1955 Cervical Cancer Screening 10/03/20122011, 08/11/2004 (Performed [...] Depression Screening (Annual PHQ-2) 06/13/2023 COVID-19 Vaccine (2023- 5 season) 2024 03/08/2023, 04/01/2022, 03/05/2021, Additional history [...] this topic Medical Devices Implanted Type Area Loan Service Officer Device Identifier Shelf Expiration Date Model / Serial / Lot Hip Implant Hip Implant Bilateral : Hip Knee Implant Knee Implant Bilateral : Knee Ocular Lens Ocular Lens Bilateral : Eye Explanted Type Area Loan Service Officer Device Identifier Shelf Expiration Date Model / Serial / Lot Stent Inlay 7 X 26 - Carbone [id number] Implanted:Qty: 1 on 08/27/2011 Ureteral Stent Ureter [employer] Description:Device Manufactu rer - [employer]. Device Status Text - [id number]. Stent Inlay 7 X 26 - Carbone [id number] Implanted:Qty: 1 on 12/13/2011 Ureteral Stent Ureter [employer] Description:Device Manufactu rer - [employer]. Device Status Text - [id number]. Procedures Procedure Name Priority Date/Time Associated Diagnosis [...] GLUCOSE, FASTING, S/P Routine 05/03/2018 9:30 AM SENIOR LOSS CONTROL SPECIALIST Lymphoma Non Hodgkins Intrapelvic (HCC) PULMONARY FUNCTION TESTS Routine 014 12:17 PM CDT URINALYSIS WITH MICROSCOPIC Routine 10/19/2013 7:38 AM CDT 25-HYDROXYVITAMIN D2 AND D3, S Routine 03/14/2013 6:14 AM CDT PATHOLOGY SET UP MACHINIST CYTOLOGY Routine 2 2:47 PM CDT from [...] Lizama APRN, C.N.P., M.S.N. LAB BLOOD ADD-ON [facility] [address] [place] [phone], [facility] in [address] [address] * (ABNORMAL) Creatinine with Estimated GFR (12/20/2023 [...] Lizama APRN, C.N.P., M.S.N. LAB BLOOD ADD-ON [facility] [address] [place] [address], [place] [address] * (ABNORMAL) CBC with Differential, Blood (12/13/2023 [...] BLOOD A DD-ON Performing Organization Address [facility] Co de Phone Number [facility] [address] [place] [address] * AST (Aspartate Aminotransferase) (12/13/2023 9:04 AM CDT) Pathologist [facility] Aspartate Aminotransferase (AST), S 18 8 - 43 U/L 12/13/2023 10:07 AM CDT DTL Blood (Blood, Venous) 12/13/2023 9:04 AM CDT 12/13/2023 9:48 AM CDT Erik Casas M.D., Ph.D. LAB BLOOD A DD-ON Performing Organization Address City/[facility] [place] [address] * (ABNORMAL) Alkaline Phosphatase (12/13/2023 9:04 AM CDT) Alkaline Phosphatase, S 130(H) 35 - 104 U/L 12/13/2023 10:07 AM CDT DTL Blood (Blood, Venous) 12/13/2023 9:04 AM CDT 12/13/2023 9:48 AM CDT Erik Casas M.D., Ph.D. LAB BLOOD A DD-ON Performing Organization Address City/[facility]/ZIP Co de Phone Number [facility] [address] 200 [place] [address] * LD (Lactate Dehydrogenase) (12/13/2023 9:04 AM CDT) Lactate Dehydrogenase (LD), S 215 122 - 222 U/L 12/13/2023 10:07 AM CDT DTL Blood (Blood, Venous) 12/13/2023 9:04 AM CDT 12/13/2023 9:48 AM CDT Erik Casas M.D., Ph.D. LAB BLOOD N ON ADD-ON Performing Organization Address [facility] Co de Phone Number [facility] [address] [place], [place] [phone] [place] [address] 200 [place] [address] * Calcium, Total (12/13/2023 9:04 AM CDT) Calcium, Total, S 9.5 8.8 - 10.2 mg/dL 12/13/2023 10:07 AM CDT DTL Blood (Blood, Venous) 12/13/2023 9:04 AM CDT 12/13/2023 9:48 AM CDT Erik Casas M.D., Ph.D. LAB BLOOD A DD-ON Performing Organization Address City/[facility]/ZIP Co de Phone Number [facility] [address] 200 [place] [phone] * Bilirubin, Total (12/13/2023 9:04 AM CDT) Bilirubin, Total, S 0.9 0.0 - 1.2 mg/dL 12/13/2023 10:07 AM CDT DT Blood (Blood, Venous) 12/13/2023 9:04 AM CDT 12/13/2023 9:48 AM CDT Erik Casas M.D., Ph.D. LAB BLOOD A DD-ON Performing Organization Address [facility]/ZIP Co de Phone Number [facility] 200 [place] [address], [facility] [address] [address] * MM clip placement LT-Outside Mammogram (08/22/2023 [...] System IMG BI PROCEDURES Performing Organization Address City/[facility] Co de Phone Number [facility] * Glucose, Fasting (05/03/2018 9:30 AM SENIOR LOSS CONTROL SPECIALIST) Glucose, P 93 70 - 100 mg/dL 05/03/2018 10:25 AM SENIOR LOSS CONTROL SPECIALIST [facility] Last Intake 17 hr 05/03/2018 9:51 AM SENIOR LOSS CONTROL SPECIALIST [facility] Blood 05/03/2018 9:30 AM SENIOR LOSS CONTROL SPECIALIST 05/03/2018 9:51 AM SENIOR LOSS CONTROL SPECIALIST Erik Casas M.D., Ph.D. LAB BLOOD N ON ADD-ON Performing Organization Address [facility] Co de Phone Number [facility] [address] * Pulmonary Function Tests (10/23/2013 12:17 PM CDT) 10/23/2013 12:1 7 PM CDT Historical Provider PFT ORDERABLES Performing Organization Address [facility] de Phone Number [facility] [address] * (ABNORMAL) Urinalysis with Microscopic (10/19/2013 7:38 AM CDT) Source Midstream [facility] Appearance Normal Normal [facility] pH, 24 HR, U 6.7 4.5 - 8.0 [facility] Protein/Osmola lity 0.74(H) <0.12 RATIO [facility] Glucose 16(H) 0 - 15 MG/DL [facility] Protein, U 39(H) 0 - 19 MG/DL [facility] Hemoglobin, QL Negative Negative [facility] Osmolality, 24 HR, U 524 150 - 1150 MOSM/KG [facility] Predicted 24 Hr Protein 512 MG/24 H [facility] Predicted Range 126-2071 MG/24 H [facility] 10/19/2013 7:38 AM CDT 10/19/2013 7:38 AM CDT Erik Casas M.D., Ph.D. LAB URINE O RDERABLES Performing Organization Address [facility] Co de Phone Number [facility] [address] * 25-Hydroxyvitamin D2 and D3 (03/14/2013 6:14 AM CDT) Pathologist [facility] 25-Hydroxy D Total 24 SeeComment NG/ML [facility] Comment: Reference Range: ? 25-HYDROXY D TOTAL (D2+D3) Optimum levels in the healthy ? population are 20-50, patients with bone disease may ? benefit from higher levels within this range. ? 25-Hydroxy D2 <4.0 NG/ML [facility] 25-Hydroxy D3 24 NG/ML [facility] 03/14/2013 6:14 AM CDT 03/14/2013 6:14 AM CDT Fela Hanna P.A.-C., MJimiS. LAB BLOOD ADD-ON [facility] [address] [place] [address], [facility] * Pathology SET UP MACHINIST Cytology (10/04/2011 2:47 PM CDT) 10/04/2011 2:47 PM CDT 10/04/2011 2:47 PM CDT Narrative [facility] - 10/04/2011 2:47 PM CDT ??10/04/2011 Cytology Gynecological ?([id number]) ? Requested By:Brenda Garcia. ??[id number] ?DIAGNOSIS: A. ??ThinPrep Pap Test Diagnostic (Cervical/Endocervical HPV Reflex): ?Satisfactory for evaluation. ?? Scanty cellularity. ?Squamous epithelial cell abnormality ?Atypical squamous cells of undetermined significance. Favor treatment effect. ?? Seen in consultation with Dr. Sabra Wilson. ? HPV testing was performed by [employer] Hybrid Capture II and is negative for HPV types 16,18,31,33,35,39,45,51,52,56,58,59 and 68. ? The HPV assay is performed in the Clinical Virology Laboratory at [facility]. ?? ANITA Guerrero(ASCP) ?? 10/07/2011 12:16 Interpreted by: Silas Rizzo M.D., PhD. Report electronically signed by Silas Rizzo M.D., PhD. ?? Transcribed by: [facility] ??10/07/2011 10:59:25 ? SPECIMEN DESCRIPTION: A. ??ThinPrep Pap Test Diagnostic (Cervical/Endocervical HPV Reflex): ??Received cloudy specimen in ThinPrep vial. Procedure Note 09/07/2017 10/04/2011 Cytology Gynecological ([id number]) Requested By:Brenda Garcia [phone] DIAGNOSIS: A. ThinPrep Pap Test Diagnostic (Cervical/Endocervical HPV Reflex): Satisfactory for evaluation. Scanty cellularity. Squamous epithelial cell abnormality Atypical squamous cells of undetermined significance. Favor treatment effect. Seen in consultation with Dr. Sabra Wilson. HPV testing was performed by [employer] Hybrid Capture II and is negative for HPV types 16,18,31,33,35,39,45,51,52,56,58,59 and 68. The HPV assay is performed in the Clinical Virology Laboratory at [facility]. ANITA Guerrero(ASCP) 10/07/2011 12:16 Interpreted by: Silas Rizzo M.D., PhD. Report electronically signed by Silas Rizzo M.D., PhD. Transcribed by: [facility] 10/07/2011 10:59:25 SPECIMEN DESCRIPTION: A. ThinPrep Pap Test Diagnostic (Cervical/Endocervical HPV Reflex): Received cloudy specimen in ThinPrep vial. Fela Hanna P.A.-C. MJimiS. LAB PAP CO PATH ORDERABLES [facility] [address] from Last 3 Months or Most Recently Relevant to Health Maintenance
--- OUTSIDE RECORDS SUMMARY | 2024-03-08 06:04 | XMS_ITS | Encounter Summary ---
Author Organization [facility] Address [address] [place] [address] Care Team Providers Care Track Service Worker Name Role Phone Unavailable Primary Care Provider Unavailabl e Encounter Details Date Type Department Care Team (Latest Contact Info) Description 12/20/2023 12:33 PM CDT - 12/20/2023 11:59 PM CDT Hospital Encounter Department of Laboratory Medicine in [address] [phone] Mandie Lizama APRN, C.N.P., M.S.N. [address] [place] [address] Elevated Creatinine Discharge Disposition: Home or Self Care Social History Tobacco Use Types Packs/Day Years Used Date Smoking Tobacco: Former Cigarettes 1.5 40 0 06/13/1968 - 10/29/2007 Smokeless Tobacco: Never Comments:patient quit 2007 Alcohol Use Standard Drinks/Week Comments No 0 (1 standard drink = 0.6 oz pur e alcohol) [facility] Utilities Answer Date Recorded In the past 12 months has [facility] [employer], gas, oil, or water [employer] threatened to shut off services in your [...] often do you attend chur ch or adventism services? Never 07/25/2022 Do you belong to any clubs o r organizations such as gnosticist groups, unions, fraternal or athletic groups, or [...] and heating? Not hard at all 07/25/2022 [facility] [place] of Occupat ional Health - Occupational Stress [...] your living situation today? [facility] a [facility] place to live 08/26/2023 Education Answer [...] AM CDT Clinical Communication Virtual Review in [place] [address] [place] [phone] 03/14/2024 8:50 AM CDT Appointment Department of Laboratory Medicine and Pathology, [facility], in [place], [place] [address] [place] [phone] Manide Lizama APRN, C.N.P., M.S.N. [address] [place] [phone] 03/14/2024 1:00 PM CDT Office Visit Division of Hematology in [place], [place] [address] [place] [phone] Mandie Lizama APRN, C.N.P., M.S.N. [address] [place] [phone] documented as of this encounter Procedures Procedure [...] M.S.N. LAB BLOOD ADD-ON [facility] [address] [place] [address], [facility] in [address] [address] * Potassium (12/20/2023 12:40 PM CDT) Potassium, P 4.3 3.6 - 5.2 mmol/L 12/20/2023 1:10 PM CDT CNFL Blood (Blood, Venous) 12/20/2023 12:40 PM CDT 12/20/2023 12:45 PM CDT Lani Mora APRNNSheyla., M.S.N. LAB BLOOD ADD-ON [address] [address], [facility] in [address] [address] documented in this encounter Visit Diagnoses Diagnosis Elevated Creatinine documented in this encounter Additional Health Concerns Assessment Noted Time PHQ-9 Depression Total Score: 3 09/01/19 14 7:36 AM CDT documented as of this encounter
--- OUTSIDE RECORDS SUMMARY | 2024-03-08 06:04 | XMS_ITS | Encounter Summary ---
Author Organization [facility] Address [address] [place] [address] Care Team Providers Care Superintendent Automotive Name Role Phone Unavailable Primary Care Provider Unavailabl e Reason for Visit * Reason Onset Date Comments Pre-visit Intake 12/12/2023 Encounter Details Date Type Department Care Team (Latest Contact Info) Description 12/12/2023 12:00 PM CDT Clinical Communication Virtual Review in [place], [place] [address] [place] [phone] Pre-visit Intake Social History Tobacco Use Types Packs/Day Years Used Date Smoking Tobacco: Former Cigarettes 1.5 40 0 06/13/1968 - 10/29/2007 Smokeless Tobacco: Never Tobacco Cessation:Counseling Given: Not Answered Comments:patient quit 2007 Alcohol Use Standard Drinks/Week Comments No 0 (1 standard drink = 0.6 oz pur e alcohol) [facility] Utilities Answer Date Recorded In the past 12 months has [employer], gas, oil, or water [employer] threatened to shut off services in your [...] How often do you attend chur or alevism services? Never 07/25/2022 Do you belong to any clubs o r organizations such as baptism groups, unions, fraternal or athletic groups, [...] and heating? Not hard at all 07/25/2022 [facility] of Occupat ional Health - Occupational Stress [...] your living situation today? I have a [facility] place to live 08/26/2023 Education Answer Date [...] AM CDT Clinical Communication Virtual Review in [place], [place] [address] [place] [address] 03/14/2024 8:50 AM CDT Appointment Department of Laboratory Medicine and Pathology, [facility], in [place], [place] [address] [place] [phone] Mandie Lizama APRN, C.N.P., M.S.N. [address] [place] [phone] 03/14/2024 1:00 PM CDT Office Visit Division of Hematology in [place], [place] [address] [place] [address] Mandie Lizama APRN, C.N.P., M.S.N. [address] [place] [address] documented as of this encounter Visit Diagnoses Not on filedocumented in this encounter Additional Health Concerns Assessment Noted Time PHQ-9 Depression Total Score: 3 09/01/19 14 7:36 AM CDT documented as of this encounter
[2024-03-08] MEDS: ACETAMINOPHEN 500 MG TABLET 1000 MG PO (06:45)
[2024-03-08] MEDS: SODIUM CHLORIDE 0.9 % (FLUSH) 10 ML SYRINGE IVF (06:45)
[2024-03-08] MEDS: CELECOXIB 200 MG CAPSULE PO (06:45)
[2024-03-08] MEDS: LACTATED RINGERS 1000 ML 1,000 ML 100 ML IV ×2 (06:45→11:43)
[2024-03-08] MEDS: OXYCODONE (CR) 10 MG TAB.ER.12H PO (06:45)
[2024-03-08] MEDS: MIDAZOLAM HCL 1 MG/ML inj IVP (07:03)
[2024-03-08] MEDS: fentaNYL 100 MCG/2 ML inj IVP (07:03)
--- NOTE | 2024-03-08 07:10 | SUR.PREOP ---
TIME?OUT:?0702 PT/RN/MDA?VERIFICATION?OF?SURGICAL?SITE,?PROCEDURE,?AND?CONSENT OBTAINED?PRIOR?TO?INVASIVE?PROCEDURE.
--- NOTE | 2024-03-08 08:08 | P.NB_ITS ---
Nerve Block Nerve Block Time Seen by Provider: 07:07 Date Seen: 03/08/24 Type of block requested by surgeon for post-operative analgesia: supraclavicular Side: right Time out performed: Yes Verification of patient name: Yes Verification of date of : Yes Site marking: site marked Name of person performing procedure: Wallace Continuous monitoring Was continuous monitoring of O2 sat, B/P, athletic monitor, recorded every 15 minutes?: Yes Procedure Checklist: sterile prep, needles and gloves Ultrasound guided. Images saved: Yes Medications given in 5ml increments after negative aspiration: Ropivicaine %: 0.5 mL: 20 Needle gauge: 22 Decadron (mg): 10 Precedex (mcg): 25 Patient tolerated procedure well: Yes Block Charges Block Charge (with Pro Fee): Brachial Plexus Use of Ultrasound Machine for Block: Yes- US Guidance/pain block
--- NOTE | 2024-03-08 08:09 | W.ANESCHARGE ---
Anesthesia Charges Start Date/Time Anesthesia Start Date: 03/08/24 Anesthesia Start Time: 07:29 Stop Date/Time Anesthesia Stop Date: 03/08/24 Anesthesia Stop Time: 09:50 Summary Extremes of Age - Over 70 or under 1: MDA
--- NOTE | 2024-03-08 09:18 | CRLHL7_ITS ---
For Patients: As a result of the Cures Act, medical imaging exams and procedure reports are released immediately into your electronic medical record. You may view this report before your referring provider. If you have questions, please contact your health care provider. INDICATION: Shoulder arthroplasty. FINDINGS: Two views of the right shoulder show a shoulder arthroplasty which appears intact. No evidence of acute fracture or dislocation. No other bony or soft tissue abnormalities identified. Dictated by Saravanan Elizabeth MD @ 03/09/2024 10:38:56 AM (Electronically Signed)
--- NOTE | 2024-03-08 09:20 | PM.ORPRC ---
Procedure Note Date of procedure: 03/08/24 Procedure: PREOPERATIVE DIAGNOSIS: Right shoulder rotator cuff tear arthropathy POSTOPERATIVE DIAGNOSIS: Right shoulder rotator cuff tear arthropathy NAME OF OPERATION: Right upper extremity reverse shoulder arthroplasty, biceps tenodesis SURGEON: Matthew Sahni MD MACHINE PLATE STACKER: Lashanda Atkinson PA-C, RENETTA Villalobos ANESTHESIA: General endotracheal ESTIMATED BLOOD LOSS: 100 mL COMPLICATIONS: None SPECIMENS: None DRAINS: None PREOPERATIVE ANTIBIOTICS: Ancef 2 grams IMPLANTS: 1. Tornier 29 mm x 35 mm baseplate 2. 36mm standard glenosphere 3. 5B humeral stem 4. Low eccentric +0 humeral tray 5. 36mm +6 polyethylene INDICATIONS: The patient is a 69-year-old with a longstanding history of severe, unrelenting right shoulder pain secondary to rotator cuff tear arthropathy. Despite appropriate nonoperative management, including activity modification, anti-inflammatories, [id number]-[id number] pain medication, physical therapy, and injections they continue to have pain and disability. Operative intervention was offered. The risks, benefits and expected outcomes were discussed in detail. These included but were not limited to: Infection, bleeding, injury to blood vessel or nerve, venous thromboembolism. All questions were answered to their satisfaction. Use of an student assistant was necessary throughout the case for patient positioning and safety, soft tissue retraction, and closure. PROCEDURE: General anesthesia was administered. The patient was placed in the lazy beach chair position on the operating room table. The right upper extremity was prepped and draped in the usual sterile fashion. A standard deltopectoral incision was made. Subcutaneous dissection was taken with electrocautery to the deltopectoral interval. The cephalic vein was mobilized, lateral branches were cauterized. The vein was taken medially with the pectoralis. We bluntly entered the deltopectoral interval. We freed up the deltoid. The upper 1/3 of the insertion of the pectoralis was divided with cautery. The static retractor was placed. The clavipectoral fascia and CA ligament were divided. The circumflex vessels were controlled with electrocautery. The biceps was dissected out of the bicipital groove, was tagged with a #2 FiberWire suture and divided proximally. Two fiberWire sutures were placed in the subscapularis. The subscap was subperiosteally elevated off of the lesser tuberosity. The humeral head was delivered into the wound. The intramedullary humeral cutting guide was placed. We made the cut at the anatomic neck, in 30? of retroversion. Humeral sounds were used to assess the diameter of the canal. The broach was placed and had good rotational stability. The calcar reamer was used and the protective base plate cover was placed. Attention was then turned to the glenoid. Hohmann retractors were placed posteriorly. The labrum and biceps stump were sharply debrided. The origin of the inferior glenohumeral ligaments were subperiosteally released off of the glenoid. There were 2 large loose bodies removed from the anterior aspect of the joint, just inferior to the coracoid. The drill guide was placed. The guide pin was placed in 0? of cephalic tilt. The reamer was used to bleeding bone. The central drill was used x2. The tap was used. The standard base plate was placed. This had excellent purchase. Locking screws x 2 were placed. The glenosphere was placed, the set screw was tightened. Attention then returned to the humerus. We placed a low eccentric standard base plate and standard poly. We reduced the shoulder and took it through a range of motion. It was found to be stable with appropriate soft tissue tension. Trial humeral components were removed. The biceps was tenodesed in the bicipital groove with drill holes and our previously placed FiberWire suture. We placed #2 FiberWire sutures in the lesser tuberosity for subsequent subscap repair. We assembled the humeral component on the back table. We placed it in the center of our subscapularis repair sutures and tapped it down to our humeral cut. This had excellent purchase. The shoulder was reduced and again was found to be stable with appropriate soft tissue tension. We did a 3 min dilute Betadine solution soak. We irrigated the wound with 3 L of normal saline via pulse lavage. We repaired the subscapularis to the lesser tuberosity with our previously placed FiberWire sutures. The deltopectoral interval was loosely reapproximated with an 0 Vicryl in an interrupted [id number]-vo-[id number] fashion. Subcutaneous tissues were closed with the 2-0 Vicryl and a running 3-0 Monocryl suture. The skin was sealed with glue. A dry dressing and sling were applied. Sponge and needle counts were correct x2. The patient tolerated the procedure well, there were no apparent complications. They were awakened and extubated in the operating room, taken to the postanesthesia care unit in satisfactory condition. PLAN: The patient will be mobilized with physical therapy. The sling will be used for 6 weeks postoperatively. Active range of motion in forward flexion and abduction as tolerates. No external rotation greater than 0? for 6 weeks postoperatively. They will be discharged to home once medically appropriate.
--- NOTE | 2024-03-08 09:54 | W.ANESCHARGE ---
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
[2024-03-08] MEDS: METOCLOPRAMIDE HCL 5 MG/ML INJ 10 MG IVP (12:49)
--- NOTE | 2024-03-08 13:08 | SUR.PHASEII ---
1250: Patient ambulatory to restroom with stand by assist. Patient has several bouts of emesis. Reglan administered. Patient returns to room sitting in recliner. After sips of water, patient has emesisx1. Patient resting with family at the bedside. Call light and emesis bag within reach.
[2024-03-08] MEDS: ONDANSETRON 2 MG/ML inj 4 MG IVP (13:24)
== END 2024-03-08 14:52 | disposition home or self-care (01) ==
PROVIDERS: PCP Internal Medicine; Visit Provider Orthopaedic Surgery
PROC: 0RRJ0JZ Replacement of Right Shoulder Joint with Synthetic Substitute, Open Approach (ICD-10-PCS; CPT 23472; principal; 2024-03-08 07:15)
DX: M75.101 Unspecified rotator cuff tear or rupture of right shoulder, not specified as traumatic (principal); G89.18 Other acute postprocedural pain
CPT/HCPCS: 23472; 23430; 01630; 01638; 01968; 64415; 73030; 76942; 97165; 99100; A9270; C1713; C1776; J0330; J1100; J2250; J2371; J2405; J2704; J2710; J2765; J2795; J3010; J7120; L3670

== ENCOUNTER 2024-04-24 10:45 | Outpatient (RCR) | payer MEDICARE, SELFPAY ==
--- NOTE | 2024-03-20 09:52 | PT.OPEX ---
PT [facility] Eval PT [facility] Out[facility] Eval Start: 03/20/24 06:41 Freq: Status: Active Protocol: Document 03/20/24 06:49 HLA (Rec: 03/20/24 09:44 HLA [id number]) E-signed By Cait Fregoso PT, DPT Physical Therapy Outpatient Evaluation Insurance Information Recert Due Date 06/17/24 Insurance Name [facility] Insurance Information/Comments R reverse TSA Medical Diagnosis R TSA Treating Diagnosis weakness, pain R shldr, impaired ROM R shldr Referring MD Sahni Subjective Preferred Name Isabelle Subjective Reports this her 5th joint, doing well, feels motivated, pain minimal to none, taking Tylenol, no oxy. Has current return of B cell lymphoma, nonactive, back of neck, sternum and stomach but no current treatment. Had previous non-Hodgkin's 2011 with treatment successful, came back 2013 to Hodgkin's, again treated with success. Goal to be able to take care of herself no pain again. Pain Comments more stiffness R shdldr Date of Last Physician Visit 03/19/24 Date of Surgery (If applicable) 03/08/24 Current Work Status Retired Precautions Treatment Precautions/Contraindications no ER > 0, sling on except hygiene and ex Therapy Limitations/Systems Review Not Limited Objective Range of Motion R shldr Flex Abd ER to neutral IR elbow/wrist/hand L UE WNL Strength L UE WNL R elbow/wrist/hand WNL Swelling mild edema R elbow, pt instructed to extend elbow fully with ROM Palpation no pain on palpation, incision healing, glue intact Balance & Gait gt with no abnormalities. Posture mildly fwd head Sensation/Reflexes intact to light touch Assessment Assessment/Impression 69 year old female is s/p R reverse TSA at [facility] 03/08/[address] Sahni . PT has hx of non-Hodgkin's lymphoma and Hodgkin's lymphoma, B KARY and B TKA. She resides alone in her own 2 story home, 2 steps to enter. Pt has been ind in ADLs at home, family did stay short- term with her after her surgery. Pt is in immobilizer, off for ROM, ADLs. No ER > 0 degrees. Pt was instructed today in don/doff of shldr immobilizer, AA flex/abd, table top ex and clasped hands , ER to neutral, pendulum ex, elbow/wrist/hand AROM, use of ice, positioning. With PROM, she has she has 0-130 degrees R shldr flex and abd, ER to neutral. Active elbow/wrist/ hand is full. Pain is minimal, more stiffness. Pt should progress well in PT per TSA protocol, ongoing twice weekly ther ex, ROM, strengthening and home program instruction is planned. Primary Functional Limitations ind dressing, bathing (showers ), simple meal tasks. Wants to get back to housekeeping, heavier cooking and eventually golf. Plan of Care Rehabilitation Potential Good Rehabilitation Potential Comments ho Physical Therapy Goals Within 12 weeks: 1. Pt will have 0-170 degrees shoulder flexion and abduction , ER 0-70 degrees and IR of shoulder WNL for independence in ADLs. 2. Pt will have return of surgical shoulder strength to functional level to allow independence in ADLs and household related tasks. financial aid goal to return to golf-spring 2024. Coordination/Communication With Referral Source Treatment Plan/Direct Interventions Heat,Ice/Cold/Vasopneumatic, Manual Therapy,Self-Care/Home Management,Therapeutic Activities,Therapeutic Exercises Frequency/Duration 1-2x/week x 12 weeks Patient Will Be Discharged From Therapy Completion of LTG(s),Skills Plateau,Independent w/HEP, Independently Progressing Evaluation Billing Untimed Code Treatment Minutes 13 PT Eval No Charge No Complexity Low Certification Information Initial Certification Date 03/20/24 Ending Certification Date 06/17/24 Provider Signature Required Yes Provider Signature Shows Agreement With POC & Medical Necessity Physician NPI Number Write NPI# Here Physician Comment/Change : Physician Signature & Date Requested Please Sign/Date Here
== END 2024-08-22 23:59 | disposition home or self-care (01) ==
PROVIDERS: PCP Internal Medicine; Visit Provider Orthopaedic Surgery
DX: M19.011 Primary osteoarthritis, right shoulder (principal); Z96.611 Presence of right artificial shoulder joint; Z98.890 Other specified postprocedural states; M25.511 Pain in right shoulder; Z74.09 Other reduced mobility; R53.1 Weakness; Z51.89 Encounter for other specified aftercare
CPT/HCPCS: 97110; 97140; 97161

== ENCOUNTER 2024-05-28 09:13 | Outpatient (CLI) | payer MEDICARE, SELFPAY | END 2024-05-28 09:14 | disposition home or self-care (01) | LOC: NFLDREF 16:51 | PROVIDERS: PCP Internal Medicine; Referring Provider Internal Medicine; Visit Provider Internal Medicine | DX: N18.2 Chronic kidney disease, stage 2 (mild) (principal); I25.10 Atherosclerotic heart disease of native coronary artery without angina pectoris; I25.84 Coronary atherosclerosis due to calcified coronary lesion | CPT/HCPCS: 80048; 80061 ==

== ENCOUNTER 2024-06-22 18:00 | Outpatient (REF) | payer MEDICARE, SELFPAY ==
[2024-06-22 14:38] LABS: Alanine Aminotransferase* 20 U/L (4-35); Alkaline Phosphatase* 244 U/L (40-150); Aspartate Amino Transferase* 23 U/L (12-35)
== END 2024-06-22 18:01 | disposition home or self-care (01) ==
LOC: NPINS 18:00
PROVIDERS: PCP Internal Medicine; Visit Provider Nurse Practitioner
DX: C83.33 Diffuse large B-cell lymphoma, intra-abdominal lymph nodes (principal); C81.13 Nodular sclerosis Hodgkin lymphoma, intra-abdominal lymph nodes; C82.08 Follicular lymphoma grade I, lymph nodes of multiple sites
CPT/HCPCS: 84075; 84450; 84460

== ENCOUNTER 2024-06-26 13:39 | Outpatient (CLI) | payer MEDICARE, SELFPAY | END 2024-06-26 13:40 | disposition home or self-care (01) | PROVIDERS: PCP Internal Medicine; Visit Provider Internal Medicine | DX: R39.9 Unspecified symptoms and signs involving the genitourinary system (principal); R74.8 Abnormal levels of other serum enzymes | CPT/HCPCS: 84075; 84080; 87086 ==

== ENCOUNTER 2024-07-09 10:35 | Outpatient (CLI) | payer MEDICARE, SELFPAY | END 2024-07-09 10:36 | disposition home or self-care (01) | LOC: NFLDREF 07-16 00:39 | PROVIDERS: PCP Internal Medicine; Referring Provider Internal Medicine; Visit Provider Internal Medicine | DX: R74.8 Abnormal levels of other serum enzymes (principal) | CPT/HCPCS: 82977; 83915 ==

== ENCOUNTER 2024-08-09 14:33 | Outpatient (CLI) | payer MEDICARE, SELFPAY | END 2024-08-09 14:34 | disposition home or self-care (01) | LOC: MAMMO 14:34 | PROVIDERS: PCP Internal Medicine; Visit Provider Internal Medicine | DX: Z12.31 Encounter for screening mammogram for malignant neoplasm of breast (principal) | CPT/HCPCS: 77063; 77067 ==

== ENCOUNTER 2024-08-23 11:50 | Outpatient (CLI) | payer MEDICARE, SELFPAY | END 2024-08-23 11:51 | disposition home or self-care (01) | PROVIDERS: PCP Internal Medicine; Visit Provider Internal Medicine | DX: N95.0 Postmenopausal bleeding (principal) | CPT/HCPCS: 80053 ==

== ENCOUNTER 2024-08-28 10:58 | Outpatient (CLI) | payer MEDICARE, SELFPAY ==
--- NOTE | 2024-08-28 11:15 | CRLHL7_ITS ---
For Patients: As a result of the Century Cures Act, medical imaging exams and procedure reports are released immediately into your electronic medical record. You may view this report before your referring provider. If you have questions, please contact your health care provider. INDICATION: Postmenopausal bleeding COMPARISON: CT 08/25/2020 TECHNIQUE: 2D hanson scale and color Doppler images were acquired of the pelvis using a transabdominal and transvaginal approach. FINDINGS: Chronic uterine calcifications are present measuring up to 1.3 cm. Uterus measures 6.5 x 3.5 x 4.1 cm. Uterine echotexture is heterogeneous. Endometrium measures 3.2 millimeters. Incidental cyst within the endometrium measures 3 x 3 x 3 millimeters. The ovaries are not visualized. There are no suspicious fluid collections within the cul-de-sac. IMPRESSION: Endometrial thickness 3.2 millimeters. Endometrial cyst measures 3 millimeters. Dictated by Rancho Yang MD @ 08/28/2024 12:31:49 PM (Electronically Signed)
== END 2024-08-28 10:59 | disposition home or self-care (01) ==
LOC: US 10:59
PROVIDERS: PCP Internal Medicine; Visit Provider Internal Medicine
DX: N95.0 Postmenopausal bleeding (principal); R93.89 Abnormal findings on diagnostic imaging of other specified body structures
CPT/HCPCS: 76830; 76856

== ENCOUNTER 2024-08-30 15:00 | Outpatient (CLI) | payer MEDICARE, SELFPAY ==
[2024-08-30 15:07] LABS: Appearance Urine Clear (Clear); Bilirubin Urine Negative (Negative); Blood Urine Trace-intact (Negative); Color Urine Yellow (Yellow); Glucose Urine Negative (Negative); Ketones Urine Negative (Negative); Leukocyte Esterase Urine Negative (Negative); Nitrite Urine Negative (Negative); Protein Urine Negative (Negative); Specific Gravity Urine 1.015 (1.000-1.030); Urobilinogen Urine 0.2 (0.2-1.0)
[2024-08-30 15:12] LABS: Bacteria Urine Few; RBC Urine 0-2 (0-2)
== END 2024-08-30 15:01 | disposition home or self-care (01) ==
PROVIDERS: PCP Internal Medicine; Visit Provider Obstetrics & Gynecology
DX: N81.4 Uterovaginal prolapse, unspecified (principal); N95.0 Postmenopausal bleeding; R39.198 Other difficulties with micturition
CPT/HCPCS: 81001; 81003; 87086

== ENCOUNTER 2024-09-21 08:48 | Day surgery (SDC) | payer MEDICARE, SELFPAY ==
[2024-09-21] VITALS (20 sets, daily range): BP systolic 105–160; BP diastolic 53–79; PULSE 54–80; RESP 14–17; TEMP 35.5–36.8; O2SAT 93–99; BMI 26.4
[2024-09-21] MEDS: SODIUM CHLORIDE 0.9 % (FLUSH) 10 ML SYRINGE IVF ×2 (09:33→19:58)
[2024-09-21] MEDS: LACTATED RINGERS 1000 ML 1,000 ML 100 ML IV ×3 (09:33→13:11)
[2024-09-21 09:56] LABS: Creatinine* 1.2 mg/dL (0.5-1.5); Est. Creatinine Clearance* 43.38; Estimated Glomerular Filt Rate 48 ml/min
[2024-09-21] MEDS: ACETAMINOPHEN 500 MG TABLET 1000 MG PO ×2 (10:00→15:22)
[2024-09-21] MEDS: GABAPENTIN 600 MG TABLET PO (10:00)
--- NOTE | 2024-09-21 10:39 | W.PM.H&PU ---
History & Physical Update History & Physical Update H&P Reviewed and patient assessed: No changes noted
[2024-09-21] MEDS: 0.9 % SODIUM CHLORIDE 50 ml INJECTION (13:21)
[2024-09-21] MEDS: LIDOCAINE 1%-EPI 1:100,000 10 ML INFILTRATI (13:21)
[2024-09-21] MEDS: VASOPRESSIN 20 UNIT/ML INJ INJECTION (13:35)
--- NOTE | 2024-09-21 13:43 | P.ANES_ITS ---
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
--- NOTE | 2024-09-21 13:43 | W.ANESCHARGE ---
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
--- NOTE | 2024-09-21 13:48 | P.ANES_ITS ---
Anesthesia Charges Start Date/Time Anesthesia Start Date: 09/21/24 Anesthesia Start Time: 10:42 Stop Date/Time Anesthesia Stop Date: 09/21/24 Anesthesia Stop Time: 13:40 Summary Extremes of Age - Over 70 or under 1: MDA Coding CPT Codes CPT Codes: ANESTH VAGINAL HYSTERECTOMY - 02741 ([id number]) QK - FINISHER HAND 2-4 CNCRNT ANES PROC, QX - HAND OR MACHINE PASTER SVC W/ MD MED DIRECTION, P2 - PATIENT W/MILD SYST DISEASE Additional Codes: Summary - Extremes of Age - Over 70 or under 1: MDA ([id number])
--- NOTE | 2024-09-21 13:48 | W.ANESCHARGE ---
Anesthesia Charges Start Date/Time Anesthesia Start Date: 09/21/24 Anesthesia Start Time: 10:42 Stop Date/Time Anesthesia Stop Date: 09/21/24 Anesthesia Stop Time: 13:40 Summary Extremes of Age - Over 70 or under 1: MDA Coding CPT Codes CPT Codes: ANESTH VAGINAL HYSTERECTOMY - 30039 ([id number]) QK - SUPERVISOR SULFURIC ACID PLANT 2-4 CNCRNT ANES PROC, QX - METALLURGY LABORATORY TECHNICIAN SVC W/ MD MED DIRECTION, P2 - PATIENT W/MILD SYST DISEASE Additional Codes: Summary - Extremes of Age - Over 70 or under 1: MDA ([id number])
--- NOTE | 2024-09-21 14:16 | P.GYNPRC_ITS ---
Procedure Note Date of procedure: 09/21/24 Will [facility] bill your pro fee for this procedure?: Yes Pre-op diagnosis: Symptomatic uterovaginal prolapse (stage 3 uterine prolapse) Post-op diagnosis: Same Procedure: Total vaginal hysterectomy with bilateral salpingectomy and right oophorectomy Modified Beck's culdoplasty Anterior colporrhaphy Cystoscopy Anesthesia: MAC and regional Complications: None Surgeon: Kenya Treviño MD Black Top Raker: Trini Esparza Estimated blood loss (mL): 20 IV fluids (mL): 2,000 Pathology: specimen obtained, sent to pathology (Uterus, bilateral tubes and right ovary) Condition: stable Disposition: floor Findings: 1. Stage III uterine prolapse under anesthesia. 2. Uterus 45 g. Bilateral tubes normal in appearance. Right ovary with 1 cm simple cyst. Left ovary not completely visualized. 3. Upon cystoscopy, there was no surgical injury to the bladder mucosa, though there was bleeding from around the trigone after the bladder was quite distended. Bilateral ureteral jets were noted after last suspension stitch was placed. Procedure Description: PROCEDURE: Patient was taken to the operating room with IV running. She received cefazolin in preoperative prophylaxis. She was positioned on the operating table in dorsal lithotomy position with candy-cane stirrups. She was prepped and draped in the usual sterile fashion. Severino catheter was inserted. Exam under anesthesia revealed the above-noted findings. The anterior and posterior lips of the cervix were grasped with thyroid Lauryn clamps. The cervicovaginal junction was infiltrated with a total of 20 mL of dilute vasopressin. Cervicovaginal junction was incised with the scalpel circumferentially. The vaginal epithelium was dissected off the uterosacral ligaments bluntly bilaterally. The anterior colpotomy was performed sharply and a Arnold was placed between the uterus and bladder. Posterior colpotomy was performed sharply and a weighted speculum was placed in the cul-de-sac. Bilateral uterosacral ligaments were clamped, cut, and suture ligated, and tagged for later identification. The cardinal and remnants of the broad ligament bilaterally were clamped, cut, and suture ligated. This freed the uterus from its attachments and it was delivered through the vagina. Attention was first turned to the left adnexa. I was unable to see the left ovary but left tube was normal in appearance. LigaSure Impact was used to cauterize and transect the pedicle of mesosalpinx. Hemostasis was noted. Attention was then turned to the right tube and ovary, which was physically normal in appearance. The infundibulopelvic ligament was cross clamped with LigaSure and the right tube and ovary were amputated and removed from the pelvis. Hemostasis was again noted. The bowels were moved out of the pelvis with Trendelenberg position. The 3 modified Beck's sutures were placed as follows. The first stitch of #1 Vicryl was placed approximately 1 cm medial to the left vaginal angle, through the left uterosacral ligament approximately 2.5 cm above the vaginal cuff, pulled through the peritoneum of the cul-de-sac, through the right uterosacral ligament, approximately 2.5 cm above the cuff, and through the vagina about 1 cm from the right vaginal cuff angle. This was labeled #1 and tagged for later identification. Another stitch of #2 Vicryl was placed just medial to the 1st through the vaginal cuff, and just above the 1st along the uterosacral ligaments and the peritoneum of the cul-de-sac. This was labelled #2 and tagged for later identification. Finally, a Beck suture was placed, using 2-O PDS, moving from the left uterosacral to the right uterosacral, along the peritoneum of the cul-de-sac, above the is the 2nd suture. This was labeled #3 and tagged for later identification. Attention was turned to the anterior vaginal wall. It was infiltrated with a total of 10 mL of Marcaine and epinephrine. An incision was made from the vaginal cuff proceeding to the urethrovesical junction. The vaginal epithelium was dissected off the fibromuscularis beneath it with a combination of first sharp, with then blunt dissection at the angles. This was done bilaterally. The fibromuscularis was then plicated in the midline with interrupted sutures of 0 Vicryl. The vaginal epithelium was trimmed slightly on the each side, and the vaginal epithelium was closed with a running stitch of 2-0 Vicryl. The patient was given sodium fluorescein for better visualization of ureteral jets in cystoscopies to follow. The first of several cystoscopies was performed, revealing no damage to the bladder mucosa and bilateral ureteral jets. The cystoscope was removed. Then, the modified Beck's sutures were tied down beginning with that labeled #3 first, followed by #2 and then #1. After tying down each of the sutures, cystoscopy was performed, revealing bilateral ureteral jets. There was intermittently an unusual undulating movement of the distal ureter, noted bilaterally, with robust ureteral jets still noted. Thereafter, the vaginal epithelium was closed, incorporating the distalmost aspects of the uterosacral ligaments into the cuff angle closures. This was done in an interrupted fashion with 0 Vicryl. The procedure was deemed complete and the Severino catheter was replaced. The patient tolerated the procedure well and was taken to recovery area in stable condition.
--- NOTE | 2024-09-21 15:26 | PC.NURSE ---
Arrived to the unit 1420 VSS post operatively, Severino is patent and draining bright yellow urine from dye used during surgery. Bear hugger was applied due to a temp of 96.0 axillary. No reports of N/V... reported mild pain.. PRN Tylenol given in place of scheduled IBU per patient request. Call light within reach. Francesca GARZA BSN
--- NOTE | 2024-09-21 18:02 | P.DS_ITS ---
Documented by User: Kenya Treviño MD 09/21/24 18:08 DS: Providers Provider Date Seen: 09/22/24 Date of admission: 09/21/2024 Primary care physician: Nettie White MD Admitting Clinician: Kenya Treviño MD Attending Physician on discharge: Trini Esparza MD Date of Discharge: 09/22/24 DS: Diagnosis Discharge Diagnosis (1) S/P vaginal hysterectomy: Status: Acute Problem details: s/p TVH with bilateral salpingectomy, right oophorectomy, modified Beck's culdoplasty, anterior colporrhaphy, and cystoscopy on 09/14/24 (for uterine prolapse) IMPLEMENTATION MANAGER-Discharge Summary Hospital Course Hospital Course Narrative: Patient is a 69 year old woman admitted on 09/21/2024 for the above-noted procedures. Indication for surgery: Stage III uterine prolapse. Intraoperative findings were notable for a small uterus weighing 45 g. The right ovary exhibited a 1 cm simple cyst. Left ovary was not visualized. Cystoscopy showed bilateral ureteral jets. She had an uncomplicated surgery. Postoperative course has been uneventful. Vitals have been stable. She has remained afebrile. Today, on postoperative day 1, she reports the pain is well controlled. She has been able to ambulate Without difficulty. She is tolerating regular diet. She is passing flatus. Severino catheter has been removed, and she is voiding without difficulty. Time Spent with Patient Time attestation: Total time spent providing and/or coordinating discharge services: IMPLEMENTATION MANAGER - Exam Physical Exam: Vital signs: Temp Pulse Resp BP Pulse Ox O2 Del Method 96 F L 62 14 154/67 H 95 Room Air 09/21/24 15:09 09/21/24 15:09 09/21/24 15:09 09/21/24 15:09/21/24 15:09/21/24 14:46 IMPLEMENTATION MANAGER - DS: Data Data Completed and Pending Labs on day of discharge: Labs from last 24 hours 09/21/24 09:32 Hgb 15.0 Creatinine 1.2 Estimated Creat Clear 43.38 Estimated GFR 48 Blood Type A Positive Antibody Screen NEGATIVE Procedures Procedures: Procedures Operation Date: 09/21/24 10:45 Actual Procedure Side Surgeon p Total Vaginal Hysterectomy, Bilateral Salpingectomy , right Oophorectomy, Modified Beck's Culdoplasty, Anterior Colporrhaphy, Cystoscopy Kenya Treviño MD Discharge Plan Discharge Disposition: Home w/ Parent or Adult Discharging Surgeon: Trini Esparza Follow-Up Appointment: [address] Treviño Prescriptions: New acetaminophen 500 mg Tablet 1,000 mg PO Q6H PRNQty: 0 0RF Continued aspirin [Adult Low Dose Aspirin] 81 mg tablet,delayed release (DR/EC) 81 mg PO DAILY simvastatin 5 mg tablet 5 mg PO DAILY omeprazole 20 mg capsule,delayed release(DR/EC) 20 mg PO DAILY No Action estradiol [Estrace] 0.01 % (0.1 mg/gram) cream 0.5 g vaginal 2XW Qty: 42.5 3RF Rx Instructions: Use nightly for 2 weeks, then twice weekly. May apply with finger. Activity Detail: No lifting greater than 20 lbs for weeks Discharge Diet: Regular Patient Instructions: Acetaminophen (By mouth), Ibuprofen (By mouth), Oxycodone, Rapid Release (By mouth), Vaginal Hysterectomy (DC) Follow-up: Nettie White MD [Primary Care Provider] - Kenya Treviño MD [Staff Physician] - 10/04/24 10:45 am Discharge Orders: Discharge Order (Routine); Ordered 09/22/24 Ordered By: Trini Esparza Documented by User: Trini Esparza MD 10/10/24 19:39 DS: Diagnosis Discharge Diagnosis (1) S/P vaginal hysterectomy: Status: Acute Problem details: s/p TVH with bilateral salpingectomy, right oophorectomy, modified Beck's culdoplasty, anterior colporrhaphy, and cystoscopy on 09/14/24 (for uterine prolapse) IMPLEMENTATION MANAGER-Discharge Summary Hospital Course Hospital Course Narrative: Patient is a 69 year old woman admitted on 09/21/2024 for the above-noted procedures. Indication for surgery: Stage III uterine prolapse. Intraoperative findings were notable for a small uterus weighing 45 g. The right ovary exhibited a 1 cm simple cyst. Left ovary was not visualized. Cystoscopy showed bilateral ureteral jets. She had an uncomplicated surgery. Postoperative course has been uneventful. Vitals have been stable. She has remained afebrile. Today, on postoperative day 1, she reports the pain is well controlled. She has been able to ambulate Without difficulty. She is tolerating regular diet. She is passing flatus. Severino catheter has been removed, and passed void trial a nd is voiding without difficulty. She notes minimal vaginal bleeding. Time Spent with Patient Time spent: Less than 30 minutes IMPLEMENTATION MANAGER - Exam Physical Exam: Narrative: General: Alert and oriented, seen seated in chair. Psych: Appropriate mood and affect Abdomen: Soft, nondistended. Very minimal tenderness to palpation in the bilateral lower quadrants, no rebound or guarding. Extremities: Minimal lower extremity edema, no calf erythema/tenderness/swelling. Discharge Plan Discharge Disposition: Home w/ Parent or Adult Discharging Surgeon: Trini Esparza Follow-Up Appointment: [address] Treviño Prescriptions: New acetaminophen 500 mg Tablet 1,000 mg PO Q6H PRNQty: 0 0RF Continued aspirin [Adult Low Dose Aspirin] 81 mg tablet,delayed release (DR/EC) 81 mg PO DAILY simvastatin 5 mg tablet 5 mg PO DAILY omeprazole 20 mg capsule,delayed release(DR/EC) 20 mg PO DAILY No Action estradiol [Estrace] 0.01 % (0.1 mg/gram) cream 0.5 g vaginal 2XW Qty: 42.5 3RF Rx Instructions: Use nightly for 2 weeks, then twice weekly. May apply with finger. Activity Detail: No lifting greater than 20 lbs for weeks Discharge Diet: Regular Patient Instructions: Acetaminophen (By mouth), Ibuprofen (By mouth), Oxycodone, Rapid Release (By mouth), Vaginal Hysterectomy (DC) Follow-up: Nettie White MD [Primary Care Provider] - Kenya Treviño MD [Staff Physician] - 10/04/24 10:45 am Discharge Orders: Discharge Order (Routine); Ordered 09/22/24 Ordered By: Trini Esparza
--- NOTE | 2024-09-21 19:39 | PC.NURSE ---
Patient alert and orientedx4. Post op vital signs remain stable. Up to chair this shift with SBAx2. Patient had soup and toast for dinner which she tolerated. Denies nausea. States that she is passing gas. Rates pain 5/10. While in bed, the patient did not want any interventions for the pain. The patient did rate pain 6/10 after she had sat in the chair for a while. Severino catheter intact and draining well. Minimal vaginal bleeding noted. Bright red blood. No clots noted.
[2024-09-21] MEDS: IBUPROFEN 600 MG TABLET PO (19:58)
[2024-09-22 02:42] VITALS: BP 131/76; PULSE 67; RESP 16; TEMP 36.4; O2SAT 94
[2024-09-22] MEDS: IBUPROFEN 600 MG TABLET PO ×2 (02:47→08:58)
--- NOTE | 2024-09-22 06:07 | PC.NURSE ---
Shift note: Patient is doing well tolerating regular diet well. Alert and oriented, Vitally stable. Ambulated with A1, walker and GB. Scant blood noted on the pad at the beginning of the shift at 1940. No other bleeding noted for the rest of the shift. Severino intact and draining. yellow colored Urine. Pain rate at 2. Saline lock.
[2024-09-22 06:59] LABS: Hemoglobin* 13.5 gm/dL (12.0-16.0)
[2024-09-22 07:11] LABS: Creatinine* 1.2 mg/dL (0.5-1.5); Est. Creatinine Clearance* 43.38; Estimated Glomerular Filt Rate 48 ml/min
[2024-09-22 07:45] VITALS: BP 129/72; PULSE 18; PULSE 67; RESP 16; TEMP 36.5; O2SAT 94
[2024-09-22] MEDS: OMEPRAZOLE 20 MG CAPSULE DR PO (08:58)
== END 2024-09-22 12:13 | disposition home or self-care (01) ==
LOC: OR 08:49 → MEDSURG 08:49
PROVIDERS: PCP Internal Medicine; Visit Provider Obstetrics & Gynecology
PROC: 0TJB8ZZ Inspection of Bladder, Via Natural or Artificial Opening Endoscopic (ICD-10-PCS; CPT 57260; principal; 2024-09-21 10:45)
DX: N95.0 Postmenopausal bleeding (principal); N81.3 Complete uterovaginal prolapse; N83.291 Other ovarian cyst, right side
CPT/HCPCS: 58263; 57240; 00944; 36415; 82565; 85018; 86850; 86900; 86901; 88307; 99100; A4314; A9270; J0171; J0330; J1100; J1171; J1938; J2250; J2405; J2704; J3010; J3490; J7120

== ENCOUNTER 2025-05-27 07:39 | Outpatient (CLI) | payer MEDICARE, SELFPAY | END 2025-05-27 07:40 | disposition home or self-care (01) | PROVIDERS: PCP Internal Medicine; Visit Provider Internal Medicine | DX: N18.2 Chronic kidney disease, stage 2 (mild) (principal); I25.10 Atherosclerotic heart disease of native coronary artery without angina pectoris; I25.84 Coronary atherosclerosis due to calcified coronary lesion | CPT/HCPCS: 80048; 80061 ==